=== PATIENT | female | born 1980 | race Caucasian/White ===

== ENCOUNTER 2016-10-09 20:16 | Emergency (ER) | payer OTHER ==
[2016-10-09] MEDS ORDERED: ASPIRIN TABLET 325 MG TAB ONE (20:30)
[2016-10-09] MEDS ORDERED: NITROGLYCERIN 0.4 MG 25 EA TAB SL ONE ×2 (20:30→20:42)
[2016-10-09 20:35] VITALS: TEMP 98.1
[2016-10-09] MEDS ORDERED: ASPIRIN (ENTERIC COATED) 325 MG TAB PO ONE (20:35)
[2016-10-09] MEDS ORDERED: ASPIRIN TABLET 325 MG TAB PO ONE (20:40)
--- NOTE | 2016-10-09 21:18 | RAD ---
EXAM DESCRIPTION: Chest,1 View CLINICAL HISTORY: Atypical chest pain COMPARISON: August 19, 2016 FINDINGS: Cardiac silhouette is within normal limits. EKG leads project over the chest. There is no focal parenchymal or pleural disease. There is no acute osseous process visualized. IMPRESSION: No evidence of acute cardiopulmonary disease. Electronically signed by: Franki Jackson MD 10/09/2016 7:17 PM PST
[2016-10-09] MEDS ORDERED: INSULIN, REG.(HUMAN) 100 U/ML VIAL SUBCU ONE (21:25)
[2016-10-09] MEDS ORDERED: CLOPIDOGREL 75 MG TAB PO ONE (21:25)
[2016-10-09] MEDS ORDERED: NITROGLYCERIN/D5W IV 250 ML IVS SCH (21:30)
[2016-10-09] MEDS ORDERED: MORPHINE SULFATE INJ 10 MG/ML VIAL IV ONE (21:30)
[2016-10-09] MEDS ORDERED: ENOXAPARIN SODIUM 100 MG/ML SYG SUBCU ONE (21:37)
[2016-10-09] MEDS ORDERED: SODIUM CHLORIDE 0.9% 1000ML 1,000 ML ONE (21:38)
--- NOTE | 2016-10-09 23:41 | ED.PDOC ---
History of Present Illness - General Chief Complaint: Chest Pain/NV Stated Complaint: chest hurts Time Seen by Provider: 10/09/16 20:23 Source: patient Exam Limitations: no limitations - History of Present Illness Initial Comments: the patient is a 36-year-old female presenting to the emergency room secondary to substernal chest pain radiating to the left shoulder and down the left arm as well as to the left side of the neck. This started abruptly 30 minutes prior to arrival while the patient was in the grocery store. Pain has persisted. No nausea or vomiting. The patient does have a very complicated past medical history including medical noncompliance, type 2 diabetes with poor control, hypertension, hypercholesterolemia, COPD, anxiety, depression, chronic abdominal pain with periodic nausea and vomiting, urinary tract infections, drug seeking and attention seeking behavior. Additionally the patient has had 3 -4 stents over the past several years. The last of these was placed at [facility] 3 weeks ago. She does not know which vessel and we do not have records to indicate which vessel. She has received some relief with nitroglycerin here. Timing/Duration: 1/2 hour Severity: moderate Improving Factors: nothing Worsening Factors: nothing Associated Symptoms: chest pain Allergies/Adverse Reactions: Allergies NO KNOWN ALLERGY Allergy (Verified 06/03/16 17:46) Home Medications: Ambulatory Orders Insulin Detemir [Levemir Pen] 65 unit SUBCU DAILY 12/25/12 Atenolol 100 mg PO DAILY 02/05/13 Gabapentin [Neurontin] 600 mg PO TID 02/05/13 Insulin Aspart [Novolog] 0 unit SC QID PRN 06/14/14 Pantoprazole Sodium [Protonix] 20 mg PO QAM #30 tab 06/20/15 Aspirin [Aspirin EC] 81 mg PO DAILY 11/16/15 Atorvastatin Calcium [Lipitor] 80 mg PO .QEVENING 11/16/15 Escitalopram [Lexapro] 10 mg PO DAILY 11/16/15 Isosorbide Mononitrate [Isosorbide Mononitrate ER] 30 mg PO DAILY 11/16/15 Exenatide [Bydureon] 2 mg SC WKLY 02/22/16 Lisinopril 10 mg PO DAILY 02/22/16 Albuterol Inhaler [Ventolin Hfa Inhaler] 2 puff INH PRN PRN 06/03/16 Benzonatate Perles [Tessalon Perles] 100 mg PO TID PRN 06/28/16 Acetamin W/Cod #3 Tab [Tylenol #3 Tab] 1 ea PO Q4-6H PRN #12 tab 08/10/16 Plavix 10/09/16 Review of Systems - Review of Systems Constitutional: States: no symptoms reported EENTM: States: no symptoms reported Respiratory: States: no symptoms reported Cardiology: States: chest pain Gastrointestinal/Abdominal: States: no symptoms reported Genitourinary: States: no symptoms reported Musculoskeletal: States: no symptoms reported Skin: States: no symptoms reported Neurological: States: anxiety Endocrine: States: no symptoms reported All other Systems: No Change from Baseline Past Medical History (General) - Patient Medical History Hx Seizures: No Hx Stroke: No Hx Dementia: No Hx Asthma: No Hx of COPD: Yes Hx Cardiac Disorders: Yes Hx Congestive Heart Failure: Yes Hx Pacemaker: No Hx Hypertension: Yes Hx Thyroid Disease: No Hx Diabetes: Yes Hx Gastroesophageal Reflux: Yes Hx Renal Disease: No Hx Cancer: No Hx of HIV: No Hx Hepatitis C: No Hx MRSA: No MRSA Source:: Wound Surgical History: cholecystectomy, Hysterectomy - Vaccination History Hx Tetanus, Diphtheria Vaccination: Yes Hx Influenza Vaccination: Yes Hx Pneumococcal Vaccination: Yes - Social History Hx Tobacco Use: Yes Hx Chewing Tobacco Use: No Hx Alcohol Use: No Hx Substance Use: No Hx Substance Use Treatment: No Hx Depression: No Hx Physical Abuse: No Hx Emotional Abuse: No Hx Suspected Abuse: No - Female History Patient is a Female of Child Bearing Age (10 -59 yrs old): - hysterectomy Patient : No Family Medical History - Family History Mother Family History: Unknown Living Status: Still Living Hx Family Asthma: No Hx Family Congestive Heart Failure: Yes - Father Hx Family Hypertension: Yes Hx Family Stroke: No Hx Cardiac Disease: Yes Hx Family Diabetes: Yes Hx Family Cancer: No Physical Exam - Physical Exam General Appearance: Alert, Anxious, Unkempt Ears, Nose, Throat: hearing grossly normal, normal ENT inspection - poor dentition Neck: non-tender, full range of motion, supple Respiratory: chest non-tender, lungs clear, normal breath sounds, no respiratory distress, no accessory muscle use Cardiovascular/Chest: normal peripheral pulses, regular rate, rhythm, no edema Peripheral Pulses: radial,right: 2+, radial,left: 2+, dorsalis pedis,right: 2+, dorsalis pedis,left: 2+ Gastrointestinal/Abdominal: non tender, soft Rectal Exam: deferred Back Exam: normal inspection, no CVA tenderness Extremity: normal range of motion, non-tender, normal inspection, no pedal edema , normal capillary refill Neurologic: alert, oriented x 3 - anxious, other Skin Exam: normal color Comments: Vital Signs - 24 hr 10/09/16 10/09/16 10/09/16 20:31 21:03 21:30 Temperature 98.1 F Pulse Rate [ 81 86 75 Apical] Respiratory 18 18 Rate Blood Pressure 147/76 145/74 140/78 [Left Arm] O2 Sat by Pulse 96 Oximetry 10/09/16 10/09/16 22:04 22:51 Temperature Pulse Rate [ 78 74 Apical] Respiratory 18 18 Rate Blood Pressure 130/80 121/63 [Left Arm] O2 Sat by Pulse 97 Oximetry Progress - Progress Progress: 10/09/16 23:44 the patient is a 36-year-old female presenting to the emergency room secondary to acute onset chest pain. Type of chest pain as well as the fact that the patient recently had a stent is more concerning. The patient has received Plavix, Lovenox, aspirin, oxygen, nitroglycerin and is feeling significantly better. She is still having some mild chest discomfort. She also received 1 dose of morphine. 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 The patient will be sent to [facility] under the acceptance of Dr. Beard. His help is much appreciated. Repeat cardiac enzymes are pending at this time and will be forwarded. Tentative diagnosis is unstable angina. - Results/Orders Results/Orders: Laboratory Tests 10/09/16 10/09/16 10/09/16 20:32 20:45 23:25 WBC 7.6 RBC 4.31 Hgb 10.7 L Hct 32.4 L MCV 75.2 L MCH 24.8 L MCHC 33.0 RDW 16.5 H Plt Count 363 MPV 7.8 Absolute Neuts (auto) 5.20 Absolute Lymphs (auto) 1.60 Absolute Monos (auto) 0.70 Absolute Eos (auto) 0.10 Absolute Basos (auto) 0.00 Neutrophils % 68.1 Lymphocytes % 21.3 Monocytes % 8.7 Eosinophils % 1.4 Basophils % 0.5 PT 12.4 INR 1.100 PTT (SP) 29.5 Sodium 134 L Potassium 4.3 Chloride 97 L Carbon Dioxide 28 Anion Gap 13.3 BUN 16 Creatinine 1.20 BUN/Creatinine Ratio 13.3 POC Glucose 208 H Random Glucose 342 H Serum Osmolality 283.0 Calcium 8.9 Total Bilirubin 0.6 AST 25 ALT 33 Alkaline Phosphatase 74 Creatine Kinase 36 CK-MB (CK-2) 1.2 CK-MB (CK-2) % Not Reportable Troponin I < 0.02 B-Natriuretic Peptide 30.7 Serum Total Protein 7.6 Albumin 4.0 Globulin 3.6 H Albumin/Globulin Ratio 1.1 Amylase 49 Serum HCG, Qual Negative chest x-ray shows no acute pathology. No evidence of pneumonia or fluid overload. EKG shows normal sinus rhythm. Normal axis. Poor R-wave progression in anterior leads. No acute ST segment changes concerning for ischemia. Departure - Departure Clinical Impression: Unstable angina pectoris Disposition: Transfer to Hospital Home Medications: Ambulatory Orders Insulin Detemir [Levemir Pen] 65 unit SUBCU DAILY 12/25/12 Atenolol 100 mg PO DAILY 02/05/13 Gabapentin [Neurontin] 600 mg PO TID 02/05/13 Insulin Aspart [Novolog] 0 unit SC QID PRN 06/14/14 Pantoprazole Sodium [Protonix] 20 mg PO QAM #30 tab 06/20/15 Aspirin [Aspirin EC] 81 mg PO DAILY 11/16/15 Atorvastatin Calcium [Lipitor] 80 mg PO .QEVENING 11/16/15 Escitalopram [Lexapro] 10 mg PO DAILY 11/16/15 Isosorbide Mononitrate [Isosorbide Mononitrate ER] 30 mg PO DAILY 11/16/15 Exenatide [Bydureon] 2 mg SC WKLY 02/22/16 Lisinopril 10 mg PO DAILY 02/22/16 Albuterol Inhaler [Ventolin Hfa Inhaler] 2 puff INH PRN PRN 06/03/16 Benzonatate Perles [Tessalon Perles] 100 mg PO TID PRN 06/28/16 Acetamin W/Cod #3 Tab [Tylenol #3 Tab] 1 ea PO Q4-6H PRN #12 tab 08/10/16 Plavix 10/09/16 Transfer to Outside Facility - Transfer Information Accepting Provider:: dr beard Accepting Facility: [facility] Reason for Transfer: required specialist not available
[2016-10-10 01:03] VITALS: BP 132/69; O2SAT 92
[2016-10-10] MEDS ORDERED: MORPHINE SULFATE INJ 10 MG/ML VIAL IV ONE (01:05)
[2016-10-10] MEDS ORDERED: MORPHINE SULFATE INJ 10 MG/ML VIAL ONE (01:08)
== END 2016-10-10 01:17 | disposition short-term general hospital (02) ==
LOC: ER 20:16
DX: I20.0 Unstable angina (principal); I11.0 Hypertensive heart disease with heart failure; I50.9 Heart failure, unspecified; E11.9 Type 2 diabetes mellitus without complications; K21.9 Gastro-esophageal reflux disease without esophagitis; J44.9 Chronic obstructive pulmonary disease, unspecified; Z87.891 Personal history of nicotine dependence; Z79.4 Long term (current) use of insulin; Z79.82 Long term (current) use of aspirin; Z79.02 Long term (current) use of antithrombotics/antiplatelets; Z79.899 Other long term (current) drug therapy
CPT/HCPCS: 71010; 80053; 82150; 82550; 82553; 82948; 83880; 84484; 84703; 85025; 85610; 85730; 93005; J1650; J2270; J7030

== ENCOUNTER 2016-10-17 21:29 | Emergency (ER) | payer OTHER ==
[2016-10-17] MEDS ORDERED: SODIUM CHLORIDE 0.9% (FLUSH) 10 ML SYG IV PRN (21:57)
[2016-10-17] MEDS ORDERED: ASPIRIN TABLET 325 MG TAB PO ONE (21:57)
[2016-10-17] MEDS ORDERED: NITROGLYCERIN 0.4 MG 25 EA TAB SL ONE (21:57)
[2016-10-17] MEDS ORDERED: ONDANSETRON INJ 4 MG/2 ML VIAL IV ONE (21:57)
--- NOTE | 2016-10-17 22:27 | RAD ---
EXAM DESCRIPTION: Chest,1 View CLINICAL HISTORY: chest pain COMPARISON: October 09, 2016 FINDINGS: Cardiac silhouette is within normal limits. EKG leads project over the chest. There is no focal parenchymal or pleural disease. There is no acute osseous process visualized. IMPRESSION: No evidence of acute cardiopulmonary disease. 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
--- NOTE | 2016-10-17 22:38 | ED.PDOC ---
History of Present Illness - General Chief Complaint: Chest Pain/MA Stated Complaint: CHEST PRESSURE Time Seen by Provider: 10/17/16 21:56 Source: patient, RN notes reviewed, Vital Signs reviewed Exam Limitations: no limitations - History of Present Illness Initial Comments: This 36 y/o female has a history of CAD. She has had many episodes of chest pain over the past several months. She comes in tonight complaining of chest tightness "for a few days". She reports that her O2 sats have been between 88 and 94 at home. The tightness is substernal and a little to the left. She denies any SOB, nausea or diaphoresis. Timing/Duration: 1-3 hours Severity: mild Improving Factors: nothing Worsening Factors: nothing Allergies/Adverse Reactions: Allergies NO KNOWN ALLERGY Allergy (Verified 06/03/16 17:46) Home Medications: Ambulatory Orders Insulin Detemir [Levemir Pen] 65 unit SUBCU DAILY 12/25/12 Atenolol 100 mg PO DAILY 02/05/13 Gabapentin [Neurontin] 600 mg PO TID 02/05/13 Insulin Aspart [Novolog] 0 unit SC QID PRN 06/14/14 Pantoprazole Sodium [Protonix] 20 mg PO QAM #30 tab 06/20/15 Aspirin [Aspirin EC] 81 mg PO DAILY 11/16/15 Atorvastatin Calcium [Lipitor] 80 mg PO .QEVENING 11/16/15 Escitalopram [Lexapro] 10 mg PO DAILY 11/16/15 Isosorbide Mononitrate [Isosorbide Mononitrate ER] 30 mg PO DAILY 11/16/15 Exenatide [Bydureon] 2 mg SC WKLY 02/22/16 Lisinopril 10 mg PO DAILY 02/22/16 Albuterol Inhaler [Ventolin Hfa Inhaler] 2 puff INH PRN PRN 06/03/16 Benzonatate Perles [Tessalon Perles] 100 mg PO TID PRN 06/28/16 Acetamin W/Cod #3 Tab [Tylenol #3 Tab] 1 ea PO Q4-6H PRN #12 tab 08/10/16 Plavix 10/09/16 Pantoprazole Sodium [Protonix] 40 mg PO BID #14 tab 10/18/16 Review of Systems - Review of Systems Constitutional: States: malaise EENTM: States: no symptoms reported Respiratory: States: no symptoms reported Cardiology: States: chest pain Gastrointestinal/Abdominal: States: no symptoms reported Genitourinary: States: no symptoms reported Musculoskeletal: States: no symptoms reported Skin: States: no symptoms reported Neurological: States: no symptoms reported Endocrine: States: no symptoms reported Hematologic/Lymphatic: States: no symptoms reported All other Systems: Reviewed and Negative Past Medical History (General) - Patient Medical History Hx Seizures: No Hx Stroke: No Hx Dementia: No Hx Asthma: No Hx of COPD: Yes Hx Cardiac Disorders: Yes Hx Congestive Heart Failure: No Hx Pacemaker: No Hx Hypertension: Yes Hx Thyroid Disease: No Hx Diabetes: Yes Hx Gastroesophageal Reflux: Yes Hx Renal Disease: No Hx Cancer: No Hx of HIV: No Hx Hepatitis C: No Hx MRSA: No MRSA Source:: Wound Surgical History: cholecystectomy, Hysterectomy, other - Vaccination History Hx Tetanus, Diphtheria Vaccination: Yes Hx Influenza Vaccination: Yes Hx Pneumococcal Vaccination: Yes Immunizations Up to Date: Yes - Social History Hx Tobacco Use: No Hx Chewing Tobacco Use: No Hx Alcohol Use: No Hx Substance Use: No Hx Substance Use Treatment: No Hx Depression: No Hx Physical Abuse: No Hx Emotional Abuse: No Hx Suspected Abuse: No - Female History Patient : No Family Medical History - Family History Mother Family History: Unknown Living Status: Still Living Hx Family Asthma: No Hx Family Congestive Heart Failure: Yes - Father Hx Family Hypertension: Yes Hx Family Stroke: No Hx Cardiac Disease: Yes Hx Family Diabetes: Yes Hx Family Cancer: No Physical Exam - Physical Exam General Appearance: Alert, Anxious, Comfortable, No apparent distress, Obese Ears, Nose, Throat: hearing grossly normal Respiratory: chest non-tender, lungs clear, normal breath sounds, no respiratory distress, no accessory muscle use Cardiovascular/Chest: regular rate, rhythm, no edema, no gallop, systolic murmur - II/ Gastrointestinal/Abdominal: normal bowel sounds, non tender, soft, no organomegaly Back Exam: normal inspection Extremity: normal range of motion, normal inspection, no pedal edema, no calf tenderness Skin Exam: normal color, warm/dry Progress - Progress Progress: 10/18/16 00:53 Patient has been to this ED at least twice a month for the past 3 months, mostly for chest pain. I discussed with her the fact that she needs to see her senior grants officer to assure it is not cardiac related. She may require some nitroglycerine for angina. However, due to her worsening anemia, she may have a GI bleed, possibly an ulcer, that may be causing the pain. I'm going to increase her Protonix to twice daily for the next week. She needs to follow up with her PCP to continue to monitor her Hb, and to refer to to GI for and EGD and colonoscopy. She will call her senior grants officer tomorrow morning to schedule an appointment. - Results/Orders Results/Orders: 10/17/16 10/17/16 10/17/16 21:41 21:48 22:49 Temperature 97.2 F L Pulse Rate 76 Pulse Rate [ 76 76 80 Left Radial] Respiratory 20 20 20 Rate Blood Pressure 114/62 100/60 [Left Arm] O2 Sat by Pulse 99 96 Oximetry 10/17/16 10/18/16 23:00 00:00 Temperature Pulse Rate Pulse Rate [ 70 72 Left Radial] Respiratory 20 20 Rate Blood Pressure 119/60 105/42 [Left Arm] O2 Sat by Pulse 100 100 Oximetry 10/17/16 21:45 EKG Assessment ONCE EKG STAT 10/17/16 21:57 IV Care:Saline Lock per Protoc QSHIFT Telemetry .ONCE Sodium Chloride 0.9% (Flush) [Saline Flush Syringe] 10 ml IV PRN PRN Pulse Ox Stat 10/17/16 21:58 Pulse Oximetry Assessment DAILY 10/17/16 23:54 FECAL OCCULT BLOOD Stat Laboratory Results WBC 7.4 K/mm3 (4.8-10.8) 10/17/16 22:10 RBC 4.02 M/mm3 (4.20-5.40) L 10/17/16 22:10 Hgb 9.7 gm/dL (12.0-16.0) L 10/17/16 22:10 Hct 30.0 % (36.0-47.0) L 10/17/16 22:10 MCV 74.7 fl (81.0-99.0) L 10/17/16 22:10 MCH 24.1 pg (27.0-31.0) L 10/17/16 22:10 MCHC 32.3 g/dL (33.0-37.0) L 10/17/16 22:10 RDW 16.4 % (11.5-14.5) H 10/17/16 22:10 Plt Count 319 K/mm3 (130-400) 10/17/16 22:10 MPV 7.9 fl (7.40-10.4) 10/17/16 22:10 Absolute Neuts (auto) 4.30 K/uL (1.8-6.8) 10/17/16 22:10 Absolute Lymphs (auto) 2.30 K/uL (1.0-3.4) 10/17/16 22:10 Absolute Monos (auto) 0.60 K/uL (0.2-0.8) 10/17/16 22:10 Absolute Eos (auto) 0.20 K/uL (0.0-0.4) 10/17/16 22:10 Absolute Basos (auto) 0.00 K/uL (0.0-0.1) 10/17/16 22:10 Neutrophils % 58.4 % (42.0-78.0) 10/17/16 22:10 Lymphocytes % 30.8 % (20.0-50.0) 10/17/16 22:10 Monocytes % 7.6 % (2.0-9.0) 10/17/16 22:10 Eosinophils % 2.8 % (1.0-5.0) 10/17/16 22:10 Basophils % 0.4 % (0.0-2.0) 10/17/16 22:10 PT 11.4 SECONDS (9.4-12.5) 10/17/16 22:10 INR 1.010 10/17/16 22:10 PTT (SP) 26.3 SECONDS (25.1-36.5) 10/17/16 22:10 D-Dimer, Quantitative < 200 ng/mL (0-230) 10/17/16 22:10 Sodium 132 mmol/L (135-145) L 10/17/16 22:10 Potassium 4.0 mmol/L (3.6-5.0) 10/17/16 22:10 Chloride 98 mmol/L (101-111) L 10/17/16 22:10 Carbon Dioxide 28 mmol/L (21-31) 10/17/16 22:10 Anion Gap 10.0 (12-18) L 10/17/16 22:10 BUN 10 mg/dL (7-18) 10/17/16 22:10 Creatinine 1.11 mg/dL (0.6-1.3) 10/17/16 22:10 BUN/Creatinine Ratio 9.0 (10-20) L 10/17/16 22:10 Random Glucose 276 mg/dL (70-105) H 10/17/16 22:10 Serum Osmolality 273.4 mOsm/L (275-295) L 10/17/16 22:10 Calcium 9.0 mg/dL (8.4-10.2) 10/17/16 22:10 Magnesium 1.8 mg/dL (1.8-2.5) 10/17/16 22:10 Total Bilirubin 0.3 mg/dL (0.2-1.0) 10/17/16 22:10 Direct Bilirubin 0.1 mg/dL (0-0.2) 10/17/16 22:10 Indirect Bilirubin 0.2 mg/dL (0.2-0.8) 10/17/16 22:10 AST 26 IU/L (10-42) 10/17/16 22:10 ALT 25 IU/L (10-60) 10/17/16 22:10 Alkaline Phosphatase 76 IU/L (42-121) 10/17/16 22:10 Creatine Kinase 31 IU/L (26-140) 10/17/16 22:10 CK-MB (CK-2) 0.9 ng/mL (0.0-4.4) 10/17/16 22:10 CK-MB (CK-2) % Not Reportable 10/17/16 22:10 Troponin I 0.03 ng/mL (0.01-0.05) 10/17/16 22:10 B-Natriuretic Peptide 58.4 pg/ml (0-100) 10/17/16 22:10 Serum Total Protein 7.5 gm/dL (6.4-8.2) 10/17/16 22:10 Albumin 3.9 g/dl (3.2-5.5) 10/17/16 22:10 Stool Occult Blood Negative 10/17/16 23:50 - EKG/XRAY/CT EKG: Sinus - 73 BPM, no ST T wave changes Comments: NML axis, NML intervals XRAY: chest Xray Comments: No acute process Departure - Departure Clinical Impression: Gastroenteritis, Chest pain of uncertain etiology Anemia Qualifiers: Anemia type: unspecified type Qualifier Code: (D64.9) Anemia, unspecified Time of Disposition: 00:58 Disposition: Discharge to Home or Self Care Condition: Fair Departure Forms: ED Discharge - Pt. Copy, Patient Portal Self Enrollment Diet: bland diet Referrals: Sandra Aponte, SAFETY ADMINISTRATOR [Primary Care Provider] - 1 Week Prescriptions: Pantoprazole Sodium [Protonix] 40 mg PO BID #14 tab Home Medications: Ambulatory Orders Insulin Detemir [Levemir Pen] 65 unit SUBCU DAILY 12/25/12 Atenolol 100 mg PO DAILY 02/05/13 Gabapentin [Neurontin] 600 mg PO TID 02/05/13 Insulin Aspart [Novolog] 0 unit SC QID PRN 06/14/14 Pantoprazole Sodium [Protonix] 20 mg PO QAM #30 tab 06/20/15 Aspirin [Aspirin EC] 81 mg PO DAILY 11/16/15 Atorvastatin Calcium [Lipitor] 80 mg PO .QEVENING 11/16/15 Escitalopram [Lexapro] 10 mg PO DAILY 11/16/15 Isosorbide Mononitrate [Isosorbide Mononitrate ER] 30 mg PO DAILY 11/16/15 Exenatide [Bydureon] 2 mg SC WKLY 02/22/16 Lisinopril 10 mg PO DAILY 02/22/16 Albuterol Inhaler [Ventolin Hfa Inhaler] 2 puff INH PRN PRN 06/03/16 Benzonatate Perles [Tessalon Perles] 100 mg PO TID PRN 06/28/16 Acetamin W/Cod #3 Tab [Tylenol #3 Tab] 1 ea PO Q4-6H PRN #12 tab 08/10/16 Plavix 10/09/16 Pantoprazole Sodium [Protonix] 40 mg PO BID #14 tab 10/18/16 Additional Instructions: Assure appointment with PCP and Cardiology within the next week. Follow up if symptoms worsen.
[2016-10-17 23:04] VITALS: O2SAT 100
[2016-10-18 01:12] VITALS: BP 103/64; TEMP 97.8
--- NOTE | 2016-11-12 05:03 | RAD ---
EXAM DESCRIPTION: Chest,1 View CLINICAL HISTORY: chest pain COMPARISON: October 09, 2016 FINDINGS: Cardiac silhouette is within normal limits. EKG leads project over the chest. There is no focal parenchymal or pleural disease. There is no acute osseous process visualized. IMPRESSION: No evidence of acute cardiopulmonary disease. Electronically signed by: Franki Jackson MD 10/17/2016 10:26 PM [facility]
== END 2016-10-18 01:12 | disposition home or self-care (01) ==
LOC: ER 21:29
DX: K52.9 Noninfective gastroenteritis and colitis, unspecified (principal); R07.9 Chest pain, unspecified; D64.9 Anemia, unspecified; J44.9 Chronic obstructive pulmonary disease, unspecified; I10 Essential (primary) hypertension; E11.9 Type 2 diabetes mellitus without complications; K21.9 Gastro-esophageal reflux disease without esophagitis; Z79.02 Long term (current) use of antithrombotics/antiplatelets; Z79.899 Other long term (current) drug therapy; Z79.82 Long term (current) use of aspirin; Z79.4 Long term (current) use of insulin
CPT/HCPCS: 36415; 71010; 80048; 80076; 82270; 82550; 82553; 83880; 84484; 85025; 85379; 85610; 85730; 93005; J2405

== ENCOUNTER 2016-10-22 20:00 | Emergency (ER) | payer OTHER ==
[2016-10-22 21:09] VITALS: BP 128/75; TEMP 98.2; O2SAT 97
--- NOTE | 2016-10-22 21:21 | ED.PDOC ---
History of Present Illness - General Chief Complaint: Chest Pain/IN Stated Complaint: chest pain Time Seen by Provider: 10/22/16 21:08 Source: patient, RN notes reviewed, Vital Signs reviewed - History of Present Illness Initial Comments: Patient has been to the ED numerous times -- 11 over the past 6 months. When I tried to discuss this with Patient, she became very defensive and started yelling at me stating that she shouldn't be treated "this way." I told her to not raise her voice at me, however she continued to yell and wanted her "papers " so she could go. I attempted to tell her that I just wanted to discuss that she has been to the ED more than she has been to her PCP (2 times over 6 months) . She continued to state that I had no right to come into the room and "jump her ass." I was attempting to try to educate Patient that her ED usage was inappropriate because she never followed up with her PCP. 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 My attempt to approach this and discuss the possibility of a psychological issue failed miserably. Of note, I passed by Patient's room numerous times prior to actually seeing her. She was always laying on the bed comfortable expressing no discomfort whatsoever. Allergies/Adverse Reactions: Allergies NO KNOWN ALLERGY Allergy (Verified 06/03/16 17:46) Home Medications: Ambulatory Orders Insulin Detemir [Levemir Pen] 65 unit SUBCU DAILY 12/25/12 Atenolol 100 mg PO DAILY 02/05/13 Gabapentin [Neurontin] 600 mg PO TID 02/05/13 Insulin Aspart [Novolog] 0 unit SC QID PRN 06/14/14 Pantoprazole Sodium [Protonix] 20 mg PO QAM #30 tab 06/20/15 Aspirin [Aspirin EC] 81 mg PO DAILY 11/16/15 Atorvastatin Calcium [Lipitor] 80 mg PO .QEVENING 11/16/15 Escitalopram [Lexapro] 10 mg PO DAILY 11/16/15 Isosorbide Mononitrate [Isosorbide Mononitrate ER] 30 mg PO DAILY 11/16/15 Exenatide [Bydureon] 2 mg SC WKLY 02/22/16 Lisinopril 10 mg PO DAILY 02/22/16 Albuterol Inhaler [Ventolin Hfa Inhaler] 2 puff INH PRN PRN 06/03/16 Benzonatate Perles [Tessalon Perles] 100 mg PO TID PRN 06/28/16 Acetamin W/Cod #3 Tab [Tylenol #3 Tab] 1 ea PO Q4-6H PRN #12 tab 08/10/16 Plavix 10/09/16 Pantoprazole Sodium [Protonix] 40 mg PO BID #14 tab 10/18/16 Past Medical History (General) - Patient Medical History Hx Seizures: No Hx Stroke: No Hx Dementia: No Hx Asthma: No Hx of COPD: Yes Hx Cardiac Disorders: Yes Hx Congestive Heart Failure: No Hx Pacemaker: No Hx Hypertension: Yes Hx Thyroid Disease: No Hx Diabetes: Yes Hx Gastroesophageal Reflux: Yes Hx Renal Disease: No Hx Cancer: No Hx of HIV: No Hx Hepatitis C: No Hx MRSA: No MRSA Source:: Wound Surgical History: cholecystectomy, Hysterectomy - Vaccination History Hx Tetanus, Diphtheria Vaccination: Yes Hx Influenza Vaccination: Yes Hx Pneumococcal Vaccination: Yes - Social History Hx Tobacco Use: No Hx Chewing Tobacco Use: No Hx Alcohol Use: No Hx Substance Use: No Hx Substance Use Treatment: No Hx Depression: No Hx Physical Abuse: No Hx Emotional Abuse: No Hx Suspected Abuse: No - Female History Patient is a Female of Child Bearing Age (10 -59 yrs old): Yes Patient : No - hysterectomy Family Medical History - Family History Mother Family History: Unknown Living Status: Still Living Hx Family Asthma: No Hx Family Congestive Heart Failure: Yes - Father Hx Family Hypertension: Yes Hx Family Stroke: No Hx Cardiac Disease: Yes Hx Family Diabetes: Yes Hx Family Cancer: No Physical Exam - Physical Exam General Appearance: Alert, Comfortable, No apparent distress, Obese Progress - EKG/XRAY/CT EKG: Sinus - 78 bpm, nonspecific ST T wave Chg, Unchanged from - 10/17/2016 Comments: NML axis, NML intervals, Normal EKG Departure - Departure Clinical Impression: Chest pain of unknown etiology Time of Disposition: 21:32 Disposition: Left Against Medical Advice Condition: Fair Home Medications: Ambulatory Orders Insulin Detemir [Levemir Pen] 65 unit SUBCU DAILY 12/25/12 Atenolol 100 mg PO DAILY 02/05/13 Gabapentin [Neurontin] 600 mg PO TID 02/05/13 Insulin Aspart [Novolog] 0 unit SC QID PRN 06/14/14 Pantoprazole Sodium [Protonix] 20 mg PO QAM #30 tab 06/20/15 Aspirin [Aspirin EC] 81 mg PO DAILY 11/16/15 Atorvastatin Calcium [Lipitor] 80 mg PO .QEVENING 11/16/15 Escitalopram [Lexapro] 10 mg PO DAILY 11/16/15 Isosorbide Mononitrate [Isosorbide Mononitrate ER] 30 mg PO DAILY 11/16/15 Exenatide [Bydureon] 2 mg SC WKLY 02/22/16 Lisinopril 10 mg PO DAILY 02/22/16 Albuterol Inhaler [Ventolin Hfa Inhaler] 2 puff INH PRN PRN 06/03/16 Benzonatate Perles [Tessalon Perles] 100 mg PO TID PRN 06/28/16 Acetamin W/Cod #3 Tab [Tylenol #3 Tab] 1 ea PO Q4-6H PRN #12 tab 08/10/16 Plavix 10/09/16 Pantoprazole Sodium [Protonix] 40 mg PO BID #14 tab 10/18/16
== END 2016-10-22 21:25 | disposition left against medical advice (07) ==
LOC: ER 20:00
DX: R07.9 Chest pain, unspecified (principal); J44.9 Chronic obstructive pulmonary disease, unspecified; I10 Essential (primary) hypertension; E11.9 Type 2 diabetes mellitus without complications; K21.9 Gastro-esophageal reflux disease without esophagitis; Z79.4 Long term (current) use of insulin; Z79.899 Other long term (current) drug therapy; Z79.02 Long term (current) use of antithrombotics/antiplatelets; Z79.82 Long term (current) use of aspirin

== ENCOUNTER 2016-10-29 15:33 | Emergency (ER) | payer OTHER ==
[2016-10-29] MEDS ORDERED: LIDOCAINE VIS-MYLANTA 30 ML UD PO ONE (15:59)
[2016-10-29] MEDS ORDERED: LACTATED RINGERS 500 ML IVS ONE (15:59)
[2016-10-29] MEDS ORDERED: ONDANSETRON ODT 8 MG TAB SL SCH (16:00)
--- NOTE | 2016-10-29 16:21 | RAD ---
EXAM DESCRIPTION: Abdomen radiography. CLINICAL HISTORY: Abdominal pain. COMPARISON: None. TECHNIQUE: Two views. FINDINGS: Prior cholecystectomy noted. Bowel gas pattern is non-obstructed. There is no obvious free intraperitoneal air. Visualized segments of the abdominal organs are unremarkable. No suspicious bone lesion or fracture is seen. IMPRESSION: No significant abnormality. Electronically signed by: Jacob Galvan MD 10/29/2016 16:20
[2016-10-29] MEDS ORDERED: INSULIN, REG.(HUMAN) 100 U/ML VIAL SUBCU ONE (16:49)
--- NOTE | 2016-10-29 17:19 | ED.PDOC ---
History of Present Illness - General Chief Complaint: Chest Pain/MA Stated Complaint: chest pain Time Seen by Provider: 10/29/16 15:49 Source: patient Exam Limitations: no limitations - History of Present Illness Initial Comments: the patient is a 36-year-old female brought to the emergency room secondary to atypical symptoms. The patient is reporting some mild shortness of breath. She is reporting some tingling in all of her extremities. She is reporting some epigastric and mid back discomfort. Symptoms somewhat wax and wane. They are not related to exertion. Symptoms seem to be mild. She does get very anxious about them and she does have a significant cardiac history. The patient had a catheterization done just 3 weeks ago at [facility] where no significant disease was found. The patient also has a history of significant noncompliance as well as iron deficiency anemia for which she is not been receiving treatment. She does have a history of gastritis and esophagitis and has historically not tolerated oral iron very well. She needs to be set up for IV iron therapy for her iron deficiency. She reports taking her Protonix intermittently. Timing/Duration: 24 hours Severity: mild Improving Factors: nothing Worsening Factors: nothing Associated Symptoms: loss of appetite, malaise Allergies/Adverse Reactions: Allergies NO KNOWN ALLERGY Allergy (Verified 06/03/16 17:46) Home Medications: Ambulatory Orders Insulin Detemir [Levemir Pen] 65 unit SUBCU DAILY 12/25/12 Atenolol 100 mg PO DAILY 02/05/13 Gabapentin [Neurontin] 600 mg PO TID 02/05/13 Insulin Aspart [Novolog] 0 unit SC QID PRN 06/14/14 Pantoprazole Sodium [Protonix] 20 mg PO QAM #30 tab 06/20/15 Aspirin [Aspirin EC] 81 mg PO DAILY 11/16/15 Atorvastatin Calcium [Lipitor] 80 mg PO .QEVENING 11/16/15 Escitalopram [Lexapro] 10 mg PO DAILY 11/16/15 Isosorbide Mononitrate [Isosorbide Mononitrate ER] 30 mg PO DAILY 11/16/15 Exenatide [Bydureon] 2 mg SC WKLY 02/22/16 Lisinopril 10 mg PO DAILY 02/22/16 Albuterol Inhaler [Ventolin Hfa Inhaler] 2 puff INH PRN PRN 06/03/16 Benzonatate Perles [Tessalon Perles] 100 mg PO TID PRN 06/28/16 Acetamin W/Cod #3 Tab [Tylenol #3 Tab] 1 ea PO Q4-6H PRN #12 tab 08/10/16 Plavix 10/09/16 Pantoprazole Sodium [Protonix] 40 mg PO BID #14 tab 10/18/16 Sucralfate Tab [Carafate Tab] 1 gm PO QID #120 tab 10/29/16 Review of Systems - Review of Systems Constitutional: States: malaise EENTM: States: no symptoms reported Respiratory: States: short of breath - mild Cardiology: States: no symptoms reported Gastrointestinal/Abdominal: States: diarrhea - chronic, nausea Genitourinary: States: no symptoms reported Musculoskeletal: States: no symptoms reported Skin: States: no symptoms reported Neurological: States: anxiety, tremors - mild and long-standing All other Systems: No Change from Baseline Past Medical History (General) - Patient Medical History Hx Seizures: No Hx Stroke: No Hx Dementia: No Hx Asthma: No Hx of COPD: Yes Hx Cardiac Disorders: Yes Hx Congestive Heart Failure: No Hx Pacemaker: No Hx Hypertension: Yes Hx Thyroid Disease: No Hx Diabetes: Yes Hx Gastroesophageal Reflux: Yes Hx Renal Disease: No Hx Cancer: No Hx of HIV: No Hx Hepatitis C: No Hx MRSA: No MRSA Source:: Wound - Vaccination History Hx Tetanus, Diphtheria Vaccination: Yes Hx Influenza Vaccination: Yes Hx Pneumococcal Vaccination: No - Social History Hx Tobacco Use: No Hx Chewing Tobacco Use: No Hx Alcohol Use: No Hx Substance Use: No Hx Substance Use Treatment: No Hx Depression: No Hx Physical Abuse: No Hx Emotional Abuse: No Hx Suspected Abuse: No - Female History Patient is a Female of Child Bearing Age (10 -59 yrs old): Yes Patient : No - hysterectomy Family Medical History - Family History Mother Family History: Unknown Living Status: Still Living Hx Family Asthma: No Hx Family Congestive Heart Failure: Yes - Father Hx Family Hypertension: Yes Hx Family Stroke: No Hx Cardiac Disease: Yes Hx Family Diabetes: Yes Hx Family Cancer: No Physical Exam - Physical Exam General Appearance: Alert, Anxious, No apparent distress Eye Exam: bilateral normal - chronic changes present Ears, Nose, Throat: normal ENT inspection, normal pharynx Neck: non-tender, full range of motion, supple, normal inspection Respiratory: chest non-tender, lungs clear, normal breath sounds, no respiratory distress, no accessory muscle use Cardiovascular/Chest: normal peripheral pulses, regular rate, rhythm, no edema Peripheral Pulses: radial,right: 2+, radial,left: 2+, dorsalis pedis,right: 2+, dorsalis pedis,left: 2+ Gastrointestinal/Abdominal: non tender, soft - obese Rectal Exam: deferred Back Exam: normal inspection, no CVA tenderness Extremity: normal range of motion, non-tender, normal inspection, no pedal edema , normal capillary refill Neurologic: alert, normal mood/affect - she is anxious, oriented x 3 Skin Exam: normal color Comments: Vital Signs - 24 hr 10/29/16 15:48 Temperature 98.3 F Pulse Rate [ 76 monitor] Respiratory 20 Rate Blood Pressure 125/79 [Left Arm] O2 Sat by Pulse 100 Oximetry Progress - Progress Progress: 10/29/16 17:22 the patient is a 36-year-old female presenting with atypical symptoms that are probably due to recurrent esophageal dysfunction related to her severe iron deficiency that has yet been untreated. I'm going to add Carafate to her Protonix for 2 weeks. She needs to follow-up with her primary care doctor at the end of this week to get set up for IV iron infusions. I do not believe in her current state that she will tolerate oral iron. Studies are otherwise reassuring at this point. Her MCV has decreased from 95 in 2012 down to 73 this year. This is a very significant decrease and does likely represent iron deficiency. She does need a formal iron panel. symptoms will only recur in spite of medications if her iron is not corrected long-term. she needs to follow-up with her primary care doctor before the end of this week. No evidence of new cardiac disease currently on this evaluation. - Results/Orders Results/Orders: 10/29/16 15:59 Telemetry .CONTINUOUS 10/29/16 16:00 Ondansetron Odt [Zofran ODT] 4 mg SL ONCE INFLUENZA A & B ANTIGEN Stat Laboratory Results - last 24 hr 10/29/16 15:50 WBC 7.8 RBC 4.36 Hgb 10.0 L Hct 31.9 L MCV 73.1 L MCH 22.9 L MCHC 31.3 L RDW 16.9 H Plt Count 351 MPV 7.8 Absolute Neuts (auto) 5.20 Absolute Lymphs (auto) 1.90 Absolute Monos (auto) 0.50 Absolute Eos (auto) 0.10 Absolute Basos (auto) 0.00 Neutrophils % 66.9 Lymphocytes % 23.8 Monocytes % 6.9 Eosinophils % 1.8 Basophils % 0.6 Sodium 134 L Potassium 4.1 Chloride 95 L Carbon Dioxide 30 Anion Gap 13.1 BUN 10 Creatinine 0.93 BUN/Creatinine Ratio 10.8 Random Glucose 366 H Serum Osmolality 282.1 Calcium 9.5 Total Bilirubin 0.6 AST 21 ALT 30 Alkaline Phosphatase 83 Creatine Kinase 40 CK-MB (CK-2) 1.0 CK-MB (CK-2) % Not Reportable Troponin I < 0.02 B-Natriuretic Peptide 104.0 H Serum Total Protein 8.0 Albumin 4.3 Globulin 3.7 H Albumin/Globulin Ratio 1.2 Amylase 65 Lipase 30 chest x-ray is grossly within normal limits for this patient EKG shows normal sinus rhythm with left atrial dilation poor R-wave progression in anterior leads, Q waves in [address] segment changes concerning for ischemia. - EKG/XRAY/CT CT Ordered: No Departure - Departure Clinical Impression: Esophagitis Iron deficiency anemia Qualifiers: Iron deficiency anemia type: unspecified iron deficiency Qualifier Code: (D50.9 ) Iron deficiency anemia, unspecified Disposition: Discharge to Home or Self Care Condition: Fair Departure Forms: ED Discharge - Pt. Copy, Patient Portal Self Enrollment Instructions: DI for Iron Deficiency Anemia-Adult Diet: diabetic diet Activity: increase activity as tolerated Referrals: Sandra Aponte NP [Primary Care Provider] - 1-2 Days Prescriptions: Sucralfate Tab [Carafate Tab] 1 gm PO QID #120 tab Home Medications: Ambulatory Orders Insulin Detemir [Levemir Pen] 65 unit SUBCU DAILY 12/25/12 Atenolol 100 mg PO DAILY 02/05/13 Gabapentin [Neurontin] 600 mg PO TID 02/05/13 Insulin Aspart [Novolog] 0 unit SC QID PRN 06/14/14 Pantoprazole Sodium [Protonix] 20 mg PO QAM #30 tab 06/20/15 Aspirin [Aspirin EC] 81 mg PO DAILY 11/16/15 Atorvastatin Calcium [Lipitor] 80 mg PO .QEVENING 11/16/15 Escitalopram [Lexapro] 10 mg PO DAILY 11/16/15 Isosorbide Mononitrate [Isosorbide Mononitrate ER] 30 mg PO DAILY 11/16/15 Exenatide [Bydureon] 2 mg SC WKLY 02/22/16 Lisinopril 10 mg PO DAILY 02/22/16 Albuterol Inhaler [Ventolin Hfa Inhaler] 2 puff INH PRN PRN 06/03/16 Benzonatate Perles [Tessalon Perles] 100 mg PO TID PRN 06/28/16 Acetamin W/Cod #3 Tab [Tylenol #3 Tab] 1 ea PO Q4-6H PRN #12 tab 08/10/16 Plavix 10/09/16 Pantoprazole Sodium [Protonix] 40 mg PO BID #14 tab 10/18/16 Sucralfate Tab [Carafate Tab] 1 gm PO QID #120 tab 10/29/16 Additional Instructions: the patient is a 36-year-old female presenting with atypical symptoms that are probably due to recurrent esophageal dysfunction related to her severe iron deficiency that has yet been untreated. I'm going to add Carafate to her Protonix for 2 weeks. She needs to follow-up with her primary care doctor at the end of this week to get set up for IV iron infusions. I do not believe in her current state that she will tolerate oral iron. Studies are otherwise reassuring at this point. Her MCV has decreased from 95 in 2012 down to 73 this year. This is a very significant decrease and does likely represent iron deficiency. She does need a formal iron panel. symptoms will only recur in spite of medications if her iron is not corrected long-term. she needs to follow-up with her primary care doctor before the end of this week. No evidence of new cardiac disease currently on this evaluation.
[2016-10-29 18:07] VITALS: BP 145/68; TEMP 98; O2SAT 98
== END 2016-10-29 18:10 | disposition home or self-care (01) ==
LOC: ER 15:33
DX: K20.9 Esophagitis, unspecified (principal); D50.9 Iron deficiency anemia, unspecified; J44.9 Chronic obstructive pulmonary disease, unspecified; I10 Essential (primary) hypertension; K21.9 Gastro-esophageal reflux disease without esophagitis; Z79.4 Long term (current) use of insulin; Z79.82 Long term (current) use of aspirin; Z79.02 Long term (current) use of antithrombotics/antiplatelets; Z79.899 Other long term (current) drug therapy
CPT/HCPCS: 36415; 74020; 80053; 82150; 82550; 82553; 83690; 83880; 84484; 85025; J7120

== ENCOUNTER → 2016-11-08 | Outpatient (CLI) | payer OTHER | LOC: YCFC.O 17:48 | PROVIDERS: ATTEND Nurse Practitioner Family | DX: N64.3 Galactorrhea not associated with childbirth (principal); E11.65 Type 2 diabetes mellitus with hyperglycemia; D50.9 Iron deficiency anemia, unspecified ==

== ENCOUNTER 2016-11-11 19:19 | Observation (INO) | payer OTHER ==
[2016-11-11] MEDS ORDERED: LIDOCAINE VIS-MYLANTA 30 ML UD PO ONE (19:37)
[2016-11-11] MEDS ORDERED: PANTOPRAZOLE SODIUM TAB 40 MG PO ONE (20:28)
[2016-11-11] MEDS ORDERED: SUCRALFATE 1 GM/10 ML 1 GM UD PO ONE (20:28)
[2016-11-11] MEDS ORDERED: SODIUM CHLORIDE 0.9% 1000ML 1,000 ML IVS ONE (21:49)
[2016-11-11] MEDS ORDERED: INSULIN, REG.(HUMAN) 100 U/ML VIAL SUBCU ONE (21:49)
--- NOTE | 2016-11-11 22:13 | ED.PDOC ---
History of Present Illness - General Chief Complaint: GI Problem Stated Complaint: chest burning, nausea Time Seen by Provider: 11/11/16 19:37 Source: patient Exam Limitations: no limitations - History of Present Illness Initial Comments: The patient is a 36-year-old female presenting to the emergency room again due to substernal chest pain. The patient is well known to the ER staff and has had many visits over the years for chest pain. The patient also has complicating factors of depression, anxiety, chronic gastritis and esophagitis with severe iron deficiency. she is also a poorly controlled type II diabetic with significant noncompliance issues. She has had GI bleeds in the past. So far she is not on any iron correction. it does appear that her primary care doctor has done a formal iron panel just 3 or 4 days ago showing severe iron deficiency. The patient does report that her primary care doctor is trying to get her set up for an endoscopy. She does not know of any plans for any iron correction procedures however. She is currently on 2 medications aimed at reducing acidity in her upper GI tract. She has had 2 recent catheterizations that were reportedly essentially normal. Timing/Duration: 4-6 hours Severity: moderate Improving Factors: nothing Worsening Factors: nothing Associated Symptoms: chest pain, malaise Allergies/Adverse Reactions: Allergies NO KNOWN ALLERGY Allergy (Verified 06/03/16 17:46) Home Medications: Ambulatory Orders Insulin Detemir [Levemir Pen] 65 unit SUBCU DAILY 12/25/12 Atenolol 100 mg PO DAILY 02/05/13 Gabapentin [Neurontin] 600 mg PO TID 02/05/13 Insulin Aspart [Novolog] 0 unit SC QID PRN 06/14/14 Pantoprazole Sodium [Protonix] 20 mg PO QAM #30 tab 06/20/15 Aspirin [Aspirin EC] 81 mg PO DAILY 11/16/15 Atorvastatin Calcium [Lipitor] 80 mg PO .QEVENING 11/16/15 Escitalopram [Lexapro] 10 mg PO DAILY 11/16/15 Isosorbide Mononitrate [Isosorbide Mononitrate ER] 30 mg PO DAILY 11/16/15 Exenatide [Bydureon] 2 mg SC WKLY 02/22/16 Lisinopril 10 mg PO DAILY 02/22/16 Albuterol Inhaler [Ventolin Hfa Inhaler] 2 puff INH PRN PRN 06/03/16 Benzonatate Perles [Tessalon Perles] 100 mg PO TID PRN 06/28/16 Acetamin W/Cod #3 Tab [Tylenol #3 Tab] 1 ea PO Q4-6H PRN #12 tab 08/10/16 Plavix 10/09/16 Pantoprazole Sodium [Protonix] 40 mg PO BID #14 tab 10/18/16 Sucralfate Tab [Carafate Tab] 1 gm PO QID #120 tab 10/29/16 Review of Systems - Review of Systems Constitutional: States: malaise EENTM: States: no symptoms reported Respiratory: States: no symptoms reported Cardiology: States: chest pain Gastrointestinal/Abdominal: States: other - epigastric discomfort Genitourinary: States: no symptoms reported Musculoskeletal: States: no symptoms reported - chronic problems only Skin: States: no symptoms reported Neurological: States: anxiety Endocrine: States: no symptoms reported All other Systems: No Change from Baseline Past Medical History (General) - Patient Medical History Hx Seizures: No Hx Stroke: No Hx Dementia: No Hx Asthma: No Hx of COPD: Yes Hx Cardiac Disorders: Yes Hx Congestive Heart Failure: No Hx Pacemaker: No Hx Hypertension: Yes Hx Thyroid Disease: No Hx Diabetes: Yes Hx Gastroesophageal Reflux: Yes Hx Renal Disease: No Hx Cancer: No Hx of HIV: No Hx Hepatitis C: No Hx MRSA: No MRSA Source:: Wound Surgical History: Hysterectomy, other - Vaccination History Hx Tetanus, Diphtheria Vaccination: Yes Hx Influenza Vaccination: Yes Hx Pneumococcal Vaccination: No Immunizations Up to Date: Yes - Social History Hx Tobacco Use: No Hx Chewing Tobacco Use: No Hx Alcohol Use: No Hx Substance Use: No Hx Substance Use Treatment: No Hx Depression: No Hx Physical Abuse: No Hx Emotional Abuse: No Hx Suspected Abuse: No - Female History Patient : No - hysterectomy Family Medical History - Family History Mother Family History: Unknown Living Status: Still Living Hx Family Asthma: No Hx Family Congestive Heart Failure: Yes - Father Hx Family Hypertension: Yes Hx Family Stroke: No Hx Cardiac Disease: Yes Hx Family Diabetes: Yes Hx Family Cancer: No Physical Exam - Physical Exam General Appearance: Alert, Anxious, No apparent distress Eye Exam: bilateral normal Ears, Nose, Throat: normal ENT inspection, normal pharynx Neck: full range of motion, supple Respiratory: chest non-tender, lungs clear, normal breath sounds, no respiratory distress, no accessory muscle use Cardiovascular/Chest: normal peripheral pulses, regular rate, rhythm, no edema Peripheral Pulses: radial,right: 2+, radial,left: 2+, dorsalis pedis,right: 2+, dorsalis pedis,left: 2+ Gastrointestinal/Abdominal: non tender, soft, no organomegaly - she is obese Rectal Exam: deferred Back Exam: normal inspection, no CVA tenderness, no vertebral tenderness Extremity: normal range of motion, non-tender, no pedal edema, no calf tenderness, normal capillary refill Neurologic: alert, normal mood/affect, oriented x 3, other - she does have decreased sensation in bilateral lower extremities Skin Exam: normal color Comments: Vital Signs - 24 hr 11/11/16 11/11/16 19:36 19:49 Temperature 99.3 F Pulse Rate [ 97 H monitor] Respiratory 20 Rate Blood Pressure 160/90 136/84 [Left Arm] O2 Sat by Pulse 100 Oximetry Progress - Progress Progress: 11/11/16 22:16 the patient is a 36-year-old female presenting secondary to substernal chest pain that is most consistent with her esophagitis likely due to severe iron deficiency. She did have good symptomatic relief from a GI cocktail until it wore off. The patient has been given Carafate. She will likely need as needed doses of Maalox. We are going to do the longer cardiac rule out on this patient given her cardiac history. I do not believe that this is cardiac chest pain as she has recently had 2 negative catheterizations. I'm avoiding any blood thinners at this time as it will likely only make the issue worse. Cardiac enzymes are negative so far. EKG shows no new changes. The patient may get benefit from a unit of packed red blood cells as the blood that she does have a significantly abnormal and is likely to the point of diminished oxygen carrying capacity due to severe iron deficiency. more definitively the patient needs to be set up for some form of an iron infusion and at least an upper endoscopy in the very near future. I do believe the symptomatology will only worsen if her iron deficiency is allowed to worsen. Maintain telemetry monitoring. the patient is also receiving some hydration with normal saline and 5 units of regular insulin for some hyperglycemia. 11/11/16 22:21 - Results/Orders Results/Orders: Laboratory Tests 11/11/16 20:40 WBC 5.7 RBC 3.84 L Hgb 8.6 L Hct 27.4 L MCV 71.5 L MCH 22.3 L MCHC 31.4 L RDW 17.2 H Plt Count 291 MPV 7.3 L Absolute Neuts (auto) 3.70 Absolute Lymphs (auto) 1.40 Absolute Monos (auto) 0.40 Absolute Eos (auto) 0.10 Absolute Basos (auto) 0.00 Neutrophils % 64.8 Lymphocytes % 25.2 Monocytes % 7.6 Eosinophils % 1.8 Basophils % 0.6 Sodium 136 Potassium 3.7 Chloride 100 L Carbon Dioxide 28 Anion Gap 11.7 L BUN 9 Creatinine 0.90 BUN/Creatinine Ratio 10.0 Random Glucose 303 H Serum Osmolality 282.0 Calcium 8.7 Total Bilirubin 0.5 AST 22 ALT 28 Alkaline Phosphatase 76 Creatine Kinase 46 CK-MB (CK-2) 1.5 CK-MB (CK-2) % Not Reportable Troponin I 0.04 Serum Total Protein 7.1 Albumin 3.8 Globulin 3.3 Albumin/Globulin Ratio 1.2 chest x-ray shows no acute pathology. EKG shows Q waves in lead 3 as well as poor R-wave progression in anterior leads. This is consistent with her previous EKGs. No other acute ST segment changes consistent with ischemia. Departure - Departure Clinical Impression: Chest pain, atypical, Iron deficiency anemia due to chronic blood loss Disposition: Admit Patient Home Medications: Ambulatory Orders Insulin Detemir [Levemir Pen] 65 unit SUBCU DAILY 12/25/12 Atenolol 100 mg PO DAILY 02/05/13 Gabapentin [Neurontin] 600 mg PO TID 02/05/13 Insulin Aspart [Novolog] 0 unit SC QID PRN 06/14/14 Pantoprazole Sodium [Protonix] 20 mg PO QAM #30 tab 06/20/15 Aspirin [Aspirin EC] 81 mg PO DAILY 11/16/15 Atorvastatin Calcium [Lipitor] 80 mg PO .QEVENING 11/16/15 Escitalopram [Lexapro] 10 mg PO DAILY 11/16/15 Isosorbide Mononitrate [Isosorbide Mononitrate ER] 30 mg PO DAILY 11/16/15 Exenatide [Bydureon] 2 mg SC WKLY 02/22/16 Lisinopril 10 mg PO DAILY 02/22/16 Albuterol Inhaler [Ventolin Hfa Inhaler] 2 puff INH PRN PRN 06/03/16 Benzonatate Perles [Tessalon Perles] 100 mg PO TID PRN 06/28/16 Acetamin W/Cod #3 Tab [Tylenol #3 Tab] 1 ea PO Q4-6H PRN #12 tab 08/10/16 Plavix 10/09/16 Pantoprazole Sodium [Protonix] 40 mg PO BID #14 tab 10/18/16 Sucralfate Tab [Carafate Tab] 1 gm PO QID #120 tab 10/29/16 Decision To Admit - Decistion To Admit Decision to Admit Reason: Medical Nature Decision to Admit Date: 11/11/16 Decision to Admit Time: 22:23
[2016-11-11] MEDS ORDERED: LEVALBUTEROL NEBS 1.25 MG/3 ML VIAL INH PRN (22:15)
[2016-11-11] MEDS ORDERED: ONDANSETRON INJ 4 MG/2 ML VIAL IV PRN (22:15)
[2016-11-11] MEDS ORDERED: GLUCAGON INJ 1 MG VIAL SUBCU PRN (22:15)
[2016-11-11] MEDS ORDERED: DEXTROSE 50% 25 GM/50 ML SYG IV PRN (22:15)
[2016-11-11] MEDS ORDERED: SODIUM CHLORIDE 0.9% (FLUSH) 10 ML SYG IV PRN (22:15)
[2016-11-11] MEDS ORDERED: MAGNESIUM HYDROXIDE 30 ML UD PO PRN (22:15)
[2016-11-11] MEDS ORDERED: IV SET AND CAP CHANGE INJ INJ SCH (22:30)
[2016-11-11] MEDS: IPRATROPIUM/ALBUTEROL 3 ML VIAL INH SCH (23:18)
[2016-11-11] MEDS: HYDROcodone 5MG/APAP 325MG 1 EA TAB PO PRN (23:55)
[2016-11-12] MEDS: SODIUM CHLORIDE 0.9% (FLUSH) 10 ML SYG IV SCH ×2 (00:10→09:25)
[2016-11-12 02:55] VITALS: O2SAT 96
[2016-11-12] MEDS: HYDROcodone 5MG/APAP 325MG 1 EA TAB PO PRN ×2 (05:17→10:01)
[2016-11-12] MEDS ORDERED: SUCRALFATE 1 GM/10 ML 1 GM UD PO ONE (07:00)
[2016-11-12] MEDS: INSULIN LISPRO 100 UNITS/ML PEN SUBCU SCH ×2 (07:30→11:41)
[2016-11-12] MEDS: IPRATROPIUM/ALBUTEROL 3 ML VIAL INH SCH (08:10)
[2016-11-12] MEDS ORDERED: GABAPENTIN 400 MG CAP ONE (08:40)
[2016-11-12] MEDS ORDERED: ATENOLOL 25 MG TAB ONE (08:40)
[2016-11-12] MEDS ORDERED: LISINOPRIL 10 MG TAB ONE (08:40)
[2016-11-12] MEDS ORDERED: ATENOLOL 25 MG TAB PO SCH (09:00)
[2016-11-12] MEDS ORDERED: PANTOPRAZOLE SODIUM TAB 40 MG PO SCH (09:00)
[2016-11-12] MEDS ORDERED: ESCITALOPRAM 10 MG TAB PO SCH (09:00)
[2016-11-12] MEDS ORDERED: LISINOPRIL 10 MG TAB PO SCH (09:00)
[2016-11-12] MEDS ORDERED: GABAPENTIN 300 MG CAP PO SCH (09:00)
[2016-11-12] MEDS ORDERED: SODIUM CHLORIDE 0.9% 10 ML VIAL IV PRN (09:34)
[2016-11-12] MEDS ORDERED: PANTOPRAZOLE SODIUM TAB 40 MG PO ONE (09:50)
[2016-11-12] MEDS ORDERED: INSULIN DETEMIR 100 UNITS/ML PEN SUBCU ONE (09:55)
--- NOTE | 2016-11-12 11:06 | SSS ---
DATE OF ADMISSION: 11/11/16 DATE OF DISCHARGE: 11/12/16 DISCHARGE DIAGNOSIS: 1. Acute chest pain with no evidence of underlying significant coronary disease at this time, probable musculoskeletal associated with esophagitis and reflux symptomatology. 2. Diabetes mellitus on insulin, requiring adjustments of insulin dosings with evidence of poor compliance with diet and support. 3. Chronic anxiety state. 4. Disability from previously diagnosed history of normal pressure hydrocephalus with a ventriculoperitoneal shunt and associated disability with the shunt placed originally in 2009. 5. Significant iron deficiency state documented on recent laboratory studies, contributing to an early anemic state with microcytic/hypochromic presentation. 6. History of gastroesophageal reflux disease, symptomatic. 7. History of chronic headaches. 8. History of exogenous obesity. 9. History of coronary artery disease with history of stents placed at [facility] approximately a year ago. HISTORY OF PRESENT ILLNESS: This 36-year-old, white female is placed in the hospital overnight for observation because of worsening chest pain with onset about 5 PM on the evening of admission. She describes it as a burning sensation as well as tenderness to touch, increased discomfort when moving her arms up over her head with associated chest pain. She has had a couple of stents placed a year ago at [facility] and was placed in the hospital overnight for repeat set of EKG and cardiac enzymes in the morning. Also to be started on significant anti-reflux and esophagitis treatment program. She apparently had been on Carafate in the past, but is not longer taking it. She admits to having some GI or rectal bleeding as well as some vaginal bleeding even though she has had a hysterectomy in the past. This may no doubt be contributing to an iron deficiency state which has accumulated over time. Her diabetes has been poorly compliant, taking Levemir 65 units twice a day. PAST OBSTETRICAL HISTORY: She is 3, para 0 because she has been unable to keep pregnancies greater than 15 to 16 weeks of gestation. She has had at least 4 miscarriages, one of which was a twin. PAST SURGICAL HISTORY: 1. Ventriculoperitoneal shunt because of normal pressure hydrocephalus in 2009, performed in [facility]. 2. History of breast biopsy, which was benign. 3. Gallbladder removal. 4. Hysterectomy. 5. Bladder suspension. 6. Coronary stents placed at [facility] a year ago. HOME MEDICATIONS: Please refer to nursing notes for a complete list of verified home medications taken. ALLERGIES: NONE KNOWN. FAMILY HISTORY: Diabetes, cardiovascular events with her father dying in his mid-30s from a heart attack as well as strokes in the past. 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 She has been smoking up until about 7 months ago when she finally quit and is encouraged to stay stopped. REVIEW OF SYSTEMS: GENERAL: No significant weight change. Some low grade fever recently. LUNGS: Occasional coughing with minimal sputum. CARDIOVASCULAR: Chest discomforts, mainly burning and tenderness in characterization with no history of palpitations. GASTROINTESTINAL: No nausea or vomiting. No diarrhea. She does describe some GI bleeding in the past, usually fairly red in coloration. GENITOURINARY: No dysuria. EXTREMITIES: No significant edema change. NEUROLOGIC: No focal weaknesses, but she has had a history of headaches in the past. PHYSICAL EXAMINATION: VITAL SIGNS: Afebrile. Pulse 86. Blood pressure 138/85. Pulse oximetry 96% on room air. Weight 103 kg. GENERAL: The patient is awake, alert and orient. She is able to rest fairly well, but is quite anxious, noted by her facial features and her level of anxiety expressed. HEENT: Otherwise unremarkable. LUNGS: Generally clear with diminished breath sounds bilaterally. CARDIOVASCULAR: Heart tones are regular with a grade II/ systolic murmur evident. CHEST: Chest wall is palpated and tenderness is noted expiratory to the left of midline along the costochondral joint. ABDOMEN: Obese, somewhat tender in the epigastric region. No organomegaly, masses or tenderness otherwise noted. EXTREMITIES: Good range of motion. NEUROLOGIC: No focal neurological deficits are noted. The patient is otherwise awake, alert, oriented and communicative. LABORATORY: Hemoglobin stable at 8.6, white count 5,800. Microcytic/ hypochromic indices presentation. It is of note that the patient has significantly iron studies performed about three days before admission. Serum iron was 13, TIBC high at 448, iron saturation low at 2.9, and ferritin low at 3.6, normal between 11 and 300. Sugars were about 280 fasting. Hemoglobin A1c elevated at 10.4. TSH 1. Urine reveals glycosuria, otherwise clean. No cultures obtained. HOSPITAL COURSE: The patient was feeling improved on the morning of discharge, still with discomfort. She will be sent home with some specific followup with [facility]. PLAN: The patient is discharged home to specifically have close followup tomorrow morning with Sandra Aponte in the [facility]. She is to increase activity and closely adhere to a diabetic diet. Her medications from home will be continued, but there is an adjustment to the Levemir insulin to be taken 75 units in the morning and 65 units at bedtime to be adjusted under guidance and suggestions from the [facility], depending upon how her diabetic control is going. A script for the Carafate tablets to be taken 4 times a day on an empty stomach is also to be initiated. She is to start oral iron therapy to be given to her at the [facility] as samples and is going to be scheduled for parental iron therapy with hematology clinic input from Dr. Vasquez and close followup. We are going to give her three of the Hemoccult cards to be taken home with her at this time and to be brought to [facility] for development checking for stool blood. Stop all smoking. To alter and change insulin dosings as required to assist with ongoing control of diabetes. She is to return if not improving. It is imperative to have close followup and to adhere to her clinic appointment at the [facility]. #[id number] SHIRAZ
[2016-11-12 11:10] VITALS: BP 134/83; TEMP 97.4
--- NOTE | 2016-11-12 15:01 | RAD ---
EXAM DESCRIPTION: CLINICAL HISTORY: 36 years Female chest wall pain. COMPARISON: 10/29/2016. FINDINGS: The cardiomediastinal silhouette appears unremarkable. No consolidating infiltrates or pleural effusions. No pneumothorax. IMPRESSION: No acute abnormality is identified. Electronically signed by: Marco Keenan MD 11/11/2016 8:47 PM [employer]
[2016-11-13] MEDS ORDERED: PANTOPRAZOLE SODIUM TAB 40 MG PO SCH (06:30)
== END 2016-11-12 12:40 | disposition home or self-care (01) ==
LOC: ER 19:19 → MS 22:40
PROVIDERS: ADMIT Emergency Medicine; ATTEND Emergency Medicine
DX: R07.89 Other chest pain (principal); E11.65 Type 2 diabetes mellitus with hyperglycemia; F41.9 Anxiety disorder, unspecified; D50.0 Iron deficiency anemia secondary to blood loss (chronic); K21.9 Gastro-esophageal reflux disease without esophagitis; R51 Headache; E66.9 Obesity, unspecified; I25.10 Atherosclerotic heart disease of native coronary artery without angina pectoris; F32.9 Major depressive disorder, single episode, unspecified; Z79.4 Long term (current) use of insulin; Z79.02 Long term (current) use of antithrombotics/antiplatelets; Z79.82 Long term (current) use of aspirin; Z79.899 Other long term (current) drug therapy; Z95.5 Presence of coronary angioplasty implant and graft; Z98.2 Presence of cerebrospinal fluid drainage device; Z87.19 Personal history of other diseases of the digestive system; Z90.710 Acquired absence of both cervix and uterus; Z90.49 Acquired absence of other specified parts of digestive tract; Z83.3 Family history of diabetes mellitus; Z82.49 Family history of ischemic heart disease and other diseases of the circulatory system; Z82.3 Family history of stroke
CPT/HCPCS: 36415 ×3; 36416 ×3; 71010; 80048; 80053; 81001; 82550 ×2; 82553 ×2; 82948 ×3; 83036; 84443; 84484 ×2; 85025 ×2; 93005 ×2; 94640 ×2; 94760 ×2; 96360; 96372 ×2; 99284; G0378; J1815 ×2; J7030; J7620 ×2

== ENCOUNTER 2016-11-17 01:04 | Emergency (ER) | payer OTHER ==
[2016-11-17] MEDS ORDERED: SODIUM CHLORIDE 0.9% 1000ML 1,000 ML IVS ONE (01:25)
[2016-11-17 03:24] VITALS: O2SAT 97
--- NOTE | 2016-11-17 03:25 | ED.PDOC ---
History of Present Illness - General Chief Complaint: Abdominal Pain Stated Complaint: abd cramps Time Seen by Provider: 11/17/16 01:23 Source: patient, RN notes reviewed, Vital Signs reviewed Exam Limitations: no limitations - History of Present Illness Initial Comments: Patient is a 36 y/o female well-known to the ED who comes in tonight with complaints of abdominal pain, nausea and vomiting. The pain is in the lower abdomen. She rates it severe, although she is laying quietly on the bed. She has thrown up 5 times since last night. She was feeling a bit nauseous and ate some [place] food which made it worse. Timing/Duration: 4-6 hours Severity: severe Improving Factors: nothing Worsening Factors: eating Associated Symptoms: nausea/vomiting, weakness Allergies/Adverse Reactions: Allergies NO KNOWN ALLERGY Allergy (Verified 11/17/16 01:19) Home Medications: Ambulatory Orders Atenolol 100 mg PO DAILY 02/05/13 Gabapentin [Neurontin] 600 mg PO TID 02/05/13 Insulin Aspart [Novolog] 0 unit SC QID PRN 06/14/14 Aspirin [Aspirin EC] 81 mg PO DAILY 11/16/15 Atorvastatin Calcium [Lipitor] 80 mg PO .QEVENING 11/16/15 Escitalopram [Lexapro] 15 mg PO DAILY 11/16/15 Isosorbide Mononitrate [Isosorbide Mononitrate ER] 60 mg PO BID 11/16/15 Exenatide [Bydureon] 2 mg SC WKLY 02/22/16 Lisinopril 10 mg PO DAILY 02/22/16 Albuterol Inhaler [Ventolin Hfa Inhaler] 2 puff INH PRN PRN 06/03/16 Benzonatate Perles [Tessalon Perles] 100 mg PO TID PRN 06/28/16 Acetamin W/Cod #3 Tab [Tylenol w/CODEINE #3] 1 ea PO Q4-6H PRN #12 tab 08/10/16 Plavix 75 mg PO DAILY 10/09/16 Pantoprazole Sodium [Protonix] 40 mg PO QAM 11/11/16 Insulin Aspart [Novolog] 7 unit SC ACHS 11/12/16 Insulin Detemir [Levemir] 65 unit SUBCU BEDTIME #1 pen 11/12/16 Insulin Detemir [Levemir] 75 unit SUBCU QAM #1 pen 11/12/16 Sucralfate Tab [Carafate Tab] 1 gm PO QID #120 tab 11/12/16 Tramadol HCl 50 mg PO Q6H PRN #20 tab 11/12/16 Promethazine HCl 25 mg PO Q6H PRN #15 tab 11/17/16 Review of Systems - Review of Systems Constitutional: States: chills, malaise EENTM: States: no symptoms reported Respiratory: States: cough, short of breath Cardiology: States: chest pain Gastrointestinal/Abdominal: States: abdominal pain, nausea, vomiting. Denies: diarrhea Genitourinary: States: no symptoms reported Musculoskeletal: States: no symptoms reported Skin: States: no symptoms reported Neurological: States: anxiety Endocrine: States: no symptoms reported Hematologic/Lymphatic: States: anemia All other Systems: Reviewed and Negative Past Medical History (General) - Patient Medical History Hx Seizures: Yes - since 2009 Hx Stroke: No Hx Dementia: No Hx Asthma: Yes Hx of COPD: Yes Hx Cardiac Disorders: Yes - heart murmur and stents placed Hx Congestive Heart Failure: Yes Hx Pacemaker: No Hx Hypertension: Yes Hx Thyroid Disease: No Hx Diabetes: Yes Hx Gastroesophageal Reflux: Yes Hx Renal Disease: No Hx Cancer: No Hx of HIV: No Hx Hepatitis C: No Hx MRSA: No MRSA Source:: Wound Surgical History: other - Vaccination History Hx Tetanus, Diphtheria Vaccination: No Hx Influenza Vaccination: Yes Hx Pneumococcal Vaccination: No - Social History Hx Tobacco Use: Yes Hx Chewing Tobacco Use: No Hx Alcohol Use: No Hx Substance Use: No Hx Substance Use Treatment: No Hx Depression: No Hx Physical Abuse: No Hx Emotional Abuse: No Hx Suspected Abuse: No - Female History Patient : No - hysterectomy Family Medical History - Family History Mother Family History: Unknown Living Status: Still Living Hx Family Asthma: No Hx Family Congestive Heart Failure: Yes - Father Hx Family Hypertension: Yes Hx Family Stroke: No Hx Cardiac Disease: Yes Hx Family Diabetes: Yes Hx Family Cancer: No Physical Exam - Physical Exam General Appearance: Alert, No apparent distress, Obese Ears, Nose, Throat: hearing grossly normal, normal ENT inspection Respiratory: lungs clear, normal breath sounds, no respiratory distress, no accessory muscle use Cardiovascular/Chest: regular rate, rhythm, no edema, no gallop, no murmur Gastrointestinal/Abdominal: normal bowel sounds, soft, no organomegaly, tenderness - LLQ/suprapubic Neurologic: alert, oriented x 3 Skin Exam: normal color, warm/dry Progress - Results/Orders Results/Orders: 11/17/16 11/17/16 11/17/16 01:13 02:30 03:22 Temperature 98.4 F Pulse Rate [ 103 H 99 H 97 H left] Respiratory 18 18 18 Rate Blood Pressure 166/102 189/92 148/72 [left] O2 Sat by Pulse 98 96 97 Oximetry 11/17/16 02:23 Hold Metformin x 48Hrs [id number] Laboratory Results WBC 6.6 K/mm3 (4.8-10.8) 11/17/16 01:45 RBC 4.40 M/mm3 (4.20-5.40) 11/17/16 01:45 Hgb 9.6 gm/dL (12.0-16.0) L 11/17/16 01:45 Hct 31.4 % (36.0-47.0) L 11/17/16 01:45 MCV 71.3 fl (81.0-99.0) L 11/17/16 01:45 MCH 21.8 pg (27.0-31.0) L 11/17/16 01:45 MCHC 30.5 g/dL (33.0-37.0) L 11/17/16 01:45 RDW 17.5 % (11.5-14.5) H 11/17/16 01:45 Plt Count 324 K/mm3 (130-400) 11/17/16 01:45 MPV 7.8 fl (7.40-10.4) 11/17/16 01:45 Absolute Neuts (auto) 3.90 K/uL (1.8-6.8) 11/17/16 01:45 Absolute Lymphs (auto) 2.00 K/uL (1.0-3.4) 11/17/16 01:45 Absolute Monos (auto) 0.60 K/uL (0.2-0.8) 11/17/16 01:45 Absolute Eos (auto) 0.10 K/uL (0.0-0.4) 11/17/16 01:45 Absolute Basos (auto) 0.00 K/uL (0.0-0.1) 11/17/16 01:45 Neutrophils % 59.5 % (42.0-78.0) 11/17/16 01:45 Lymphocytes % 29.6 % (20.0-50.0) 11/17/16 01:45 Monocytes % 8.5 % (2.0-9.0) 11/17/16 01:45 Eosinophils % 1.8 % (1.0-5.0) 11/17/16 01:45 Basophils % 0.6 % (0.0-2.0) 11/17/16 01:45 Sodium 135 mmol/L (135-145) 11/17/16 01:45 Potassium 4.0 mmol/L (3.6-5.0) 11/17/16 01:45 Chloride 96 mmol/L (101-111) L 11/17/16 01:45 Carbon Dioxide 27 mmol/L (21-31) 11/17/16 01:45 Anion Gap 16.0 (12-18) 11/17/16 01:45 BUN 9 mg/dL (7-18) 11/17/16 01:45 Creatinine 0.89 mg/dL (0.6-1.3) 11/17/16 01:45 BUN/Creatinine Ratio 10.1 (10-20) 11/17/16 01:45 Random Glucose 346 mg/dL (70-105) H 11/17/16 01:45 Serum Osmolality 282.5 mOsm/L (275-295) 11/17/16 01:45 Calcium 9.0 mg/dL (8.4-10.2) 11/17/16 01:45 Total Bilirubin 0.3 mg/dL (0.2-1.0) 11/17/16 01:45 AST 31 IU/L (10-42) 11/17/16 01:45 ALT 34 IU/L (10-60) 11/17/16 01:45 Alkaline Phosphatase 83 IU/L (42-121) 11/17/16 01:45 Serum Total Protein 8.1 gm/dL (6.4-8.2) 11/17/16 01:45 Albumin 4.1 g/dl (3.2-5.5) 11/17/16 01:45 Globulin 4.0 gm/dL (2.3-3.5) H 11/17/16 01:45 Albumin/Globulin Ratio 1.0 (1.1-1.9) L 11/17/16 01:45 Urine Color Yellow (Yellow) 11/17/16 01:45 Urine Appearance Clear (Clear) 11/17/16 01:45 Urine pH 6.5 (4.5-7.8) 11/17/16 01:45 Ur Specific [place] 1.015 (1.005-1.030) 11/17/16 01:45 Urine Protein Negative mg/dL 11/17/16 01:45 Urine Glucose (UA) >=1000 mg/dL (Negative) H 11/17/16 01:45 Urine Ketones Negative mg/dL (NEGATIVE) 11/17/16 01:45 Urine Blood Negative (Negative) 11/17/16 01:45 Urine Nitrite Negative 11/17/16 01:45 Urine Bilirubin Negative (NEGATIVE) 11/17/16 01:45 Urine Urobilinogen 0.2 mg/dL (0.2-1.0) 11/17/16 01:45 Ur Leukocyte Esterase Negative (Negative) 11/17/16 01:45 Urine RBC 0 /hpf 11/17/16 01:45 Urine WBC 0-1 /hpf 11/17/16 01:45 Ur Epithelial Cells 1-3 /hpf 11/17/16 01:45 Urine Bacteria Rare 11/17/16 01:45 - EKG/XRAY/CT CT: Abd/Pelvis -- No acute process CT Ordered: Yes CT Interpretation Call Back: No - Report sent Departure - Departure Clinical Impression: Gastroenteritis Time of Disposition: 04:01 Disposition: Discharge to Home or Self Care Condition: Fair Departure Forms: ED Discharge - Pt. Copy, Patient Portal Self Enrollment Instructions: DI for Abdominal Pain-Adult, Gastroenteritis Diet Diet: diabetic diet Referrals: Sandra Aponte NP [Primary Care Provider] - 1-2 Weeks Prescriptions: Promethazine HCl 25 mg PO Q6H PRN #15 tab PRN Reason: Nausea/Vomiting Home Medications: Ambulatory Orders Atenolol 100 mg PO DAILY 02/05/13 Gabapentin [Neurontin] 600 mg PO TID 02/05/13 Insulin Aspart [Novolog] 0 unit SC QID PRN 06/14/14 Aspirin [Aspirin EC] 81 mg PO DAILY 11/16/15 Atorvastatin Calcium [Lipitor] 80 mg PO .QEVENING 11/16/15 Escitalopram [Lexapro] 15 mg PO DAILY 11/16/15 Isosorbide Mononitrate [Isosorbide Mononitrate ER] 60 mg PO BID 11/16/15 Exenatide [Bydureon] 2 mg SC WKLY 02/22/16 Lisinopril 10 mg PO DAILY 02/22/16 Albuterol Inhaler [Ventolin Hfa Inhaler] 2 puff INH PRN PRN 06/03/16 Benzonatate Perles [Tessalon Perles] 100 mg PO TID PRN 06/28/16 Acetamin W/Cod #3 Tab [Tylenol w/CODEINE #3] 1 ea PO Q4-6H PRN #12 tab 08/10/16 Plavix 75 mg PO DAILY 10/09/16 Pantoprazole Sodium [Protonix] 40 mg PO QAM 11/11/16 Insulin Aspart [Novolog] 7 unit SC ACHS 11/12/16 Insulin Detemir [Levemir] 65 unit SUBCU BEDTIME #1 pen 11/12/16 Insulin Detemir [Levemir] 75 unit SUBCU QAM #1 pen 11/12/16 Sucralfate Tab [Carafate Tab] 1 gm PO QID #120 tab 11/12/16 Tramadol HCl 50 mg PO Q6H PRN #20 tab 11/12/16 Promethazine HCl 25 mg PO Q6H PRN #15 tab 11/17/16
--- NOTE | 2016-11-17 03:55 | CT ---
EXAM DESCRIPTION: Abdomen/Pelvis w/Contrast 11/17/2016 3:42 AM [employer] CLINICAL HISTORY: 36 years, Female, RLQ/pelvic pain COMPARISON: [None] TECHNIQUE: Following the administration of intravenous contrast, volumetric CT acquisition was performed through the abdomen and pelvis. Images in the axial and coronal planes were presented for interpretation FINDINGS: The visualized portions of the lung bases are clear. The cardiomediastinal structures are within normal limits. Within the upper abdomen, the liver and spleen are normal in size and morphology. The gallbladder is surgically absent. The intra/extrahepatic biliary tree is normal in appearance. The pancreas and adrenal glands are normal. The kidneys are normal in size bilaterally. The ureters are normal in course and caliber. The stomach and small intestines are within normal limits without evidence of bowel dilation or wall thickening. Well-visualized and normal, best seen on axial image 62 posterior to the cecum The colon is stool filled and unremarkable. Within the pelvis, the bladder and rectum are normal. The uterus is surgically absent. The ovaries are not well visualized. There are no pathologically enlarged inguinal, retroperitoneal, portacaval, or mesenteric lymph nodes. The soft tissue structures of the abdominal wall are normal. The visualized osseous structures are within normal limits for the patient's age. There are multilevel degenerative changes of the lumbar spine with limbus vertebrae at the L3 and L5 levels. The abdominal aorta and its primary branches are normal in course and caliber. Limited evaluation of the venous structures demonstrates no gross abnormalities. IMPRESSION: 1. No acute intra-abdominal process. 2. Status post cholecystectomy and hysterectomy. Electronically signed by: Joan Lorenz MD 11/17/2016 3:54 AM [employer]
[2016-11-17] MEDS ORDERED: PROMETHAZINE HCL INJ 12.5 MG in SODIUM CHLORIDE 0.9% 50ML 50 ML IVPB ONE (04:02)
[2016-11-17] MEDS ORDERED: SODIUM CHLORIDE 0.9% 50ML 50 ML ONE (04:07)
[2016-11-17] MEDS ORDERED: PROMETHAZINE HCL INJ 25 MG/ML VIAL ONE (04:07)
[2016-11-17 04:50] VITALS: BP 139/93; TEMP 98.7
== END 2016-11-17 04:50 | disposition home or self-care (01) ==
LOC: ER 01:04
DX: K52.9 Noninfective gastroenteritis and colitis, unspecified (principal); E11.9 Type 2 diabetes mellitus without complications; K21.9 Gastro-esophageal reflux disease without esophagitis; R01.1 Cardiac murmur, unspecified; Z98.61 Coronary angioplasty status; Z87.891 Personal history of nicotine dependence; Z79.899 Other long term (current) drug therapy; Z79.4 Long term (current) use of insulin; Z79.02 Long term (current) use of antithrombotics/antiplatelets
CPT/HCPCS: 74177; 80053; 81001; 85025; A4216; J2550; J7030

== ENCOUNTER 2016-11-20 15:21 | Emergency (ER) | payer OTHER ==
--- NOTE | 2016-11-20 16:23 | ED.PDOC ---
History of Present Illness - General Chief Complaint: Diabetic Complaint Stated Complaint: feels puny, elevated blood sugar Time Seen by Provider: 11/20/16 16:16 Source: patient Exam Limitations: no limitations - History of Present Illness Initial Comments: Ms. Morgan 36 y/o female with history of long standing dm2,cad stated that she was feeling weird today and took her blood sugar noted to be high and went to her md's clinic retook it and FSBS 500 was advised to come to er.She gave herself additional 10 units sq of regular insulin aside from sliding scale that she gives herself. Timing/Duration: 1-3 hours Improving Factors: nothing Worsening Factors: nothing Associated Symptoms: other - not feeling well Allergies/Adverse Reactions: Allergies NO KNOWN ALLERGY Allergy (Verified 11/20/16 15:58) Home Medications: Ambulatory Orders Atenolol 100 mg PO DAILY 02/05/13 Gabapentin [Neurontin] 600 mg PO TID 02/05/13 Insulin Aspart [Novolog] 0 unit SC QID PRN 06/14/14 Aspirin [Aspirin EC] 81 mg PO DAILY 11/16/15 Atorvastatin Calcium [Lipitor] 80 mg PO .QEVENING 11/16/15 Escitalopram [Lexapro] 15 mg PO DAILY 11/16/15 Isosorbide Mononitrate [Isosorbide Mononitrate ER] 60 mg PO BID 11/16/15 Exenatide [Bydureon] 2 mg SC WKLY 02/22/16 Lisinopril 10 mg PO DAILY 02/22/16 Albuterol Inhaler [Ventolin Hfa Inhaler] 2 puff INH PRN PRN 06/03/16 Clopidogrel Bisulfate [Plavix] 75 mg PO DAILY #0 10/09/16 Pantoprazole Sodium [Protonix] 40 mg PO QAM 11/11/16 Insulin Aspart [Novolog] 7 unit SC ACHS 11/12/16 Insulin Detemir [Levemir] 65 unit SUBCU BEDTIME #1 pen 11/12/16 Insulin Detemir [Levemir] 75 unit SUBCU QAM #1 pen 11/12/16 Sucralfate Tab [Carafate Tab] 1 gm PO QID #120 tab 11/12/16 Review of Systems - Review of Systems Constitutional: States: no symptoms reported EENTM: States: no symptoms reported Respiratory: States: no symptoms reported Cardiology: States: no symptoms reported Gastrointestinal/Abdominal: States: no symptoms reported Genitourinary: States: no symptoms reported Musculoskeletal: States: no symptoms reported Skin: States: no symptoms reported Neurological: States: headache - sharp back of head Endocrine: States: no symptoms reported, see HPI Hematologic/Lymphatic: States: no symptoms reported Past Medical History (General) - Patient Medical History Hx Seizures: Yes - since 2009 Hx Stroke: No Hx Dementia: No Hx Asthma: Yes Hx of COPD: Yes Hx Cardiac Disorders: Yes - heart murmur and stents placed Hx Congestive Heart Failure: Yes Hx Pacemaker: No Hx Hypertension: Yes Hx Thyroid Disease: No Hx Diabetes: Yes Hx Gastroesophageal Reflux: Yes Hx Renal Disease: No Hx Cancer: No Hx of HIV: No Hx Hepatitis C: No Hx MRSA: No Hx Other PMH: Yes - hydrocephalus with v-p shunting Hx Other - free text: Obstructive sleep apnea MRSA Source:: Wound Surgical History: other - hysterectomy,, cardiac stent x 3 - Vaccination History Hx Tetanus, Diphtheria Vaccination: No Hx Influenza Vaccination: Yes Hx Pneumococcal Vaccination: No - Social History Hx Tobacco Use: Yes Hx Chewing Tobacco Use: No Hx Alcohol Use: No Hx Substance Use: No Hx Substance Use Treatment: No Hx Depression: No Hx Physical Abuse: No Hx Emotional Abuse: No Hx Suspected Abuse: No - Activities of Daily Living Patient Lives Alone: No - family - Female History Patient : No - hysterectomy Family Medical History - Family History Mother Family History: Unknown Living Status: Still Living Hx Family Asthma: No Hx Family Congestive Heart Failure: Yes - Father Hx Family Hypertension: Yes Hx Family Stroke: No Hx Cardiac Disease: Yes Hx Family Diabetes: Yes Hx Family Cancer: No Physical Exam - Physical Exam General Appearance: Alert, Comfortable, No apparent distress Eye Exam: bilateral normal Ears, Nose, Throat: hearing grossly normal, normal ENT inspection, normal pharynx Neck: non-tender, full range of motion, supple, normal inspection Respiratory: chest non-tender, lungs clear, normal breath sounds, no respiratory distress Cardiovascular/Chest: normal peripheral pulses, regular rate, rhythm, no edema, no gallop, no JVD, no murmur Peripheral Pulses: radial,right: 2+, radial,left: 2+ Gastrointestinal/Abdominal: normal bowel sounds, non tender, soft, no organomegaly, no pulsatile mass Back Exam: normal inspection, no CVA tenderness, no vertebral tenderness Extremity: normal range of motion, non-tender, normal inspection, no pedal edema 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, no motor/sensory deficits, alert, normal mood/affect Skin Exam: normal color, warm/dry Lymphatic: no adenopathy Progress - Results/Orders Results/Orders: 11/20/16 16:29 IV Care:Saline Lock per Protoc QSHIFT 11/20/16 18:10 EKG Assessment DAILY Laboratory Results WBC 8.7 K/mm3 (4.8-10.8) 11/20/16 16:20 RBC 4.38 M/mm3 (4.20-5.40) 11/20/16 16:20 Hgb 9.5 gm/dL (12.0-16.0) L 11/20/16 16:20 Hct 30.7 % (36.0-47.0) L 11/20/16 16:20 MCV 70.2 fl (81.0-99.0) L 11/20/16 16:20 MCH 21.6 pg (27.0-31.0) L 11/20/16 16:20 MCHC 31.0 g/dL (33.0-37.0) L 11/20/16 16:20 RDW 17.6 % (11.5-14.5) H 11/20/16 16:20 Plt Count 387 K/mm3 (130-400) 11/20/16 16:20 MPV 7.6 fl (7.40-10.4) 11/20/16 16:20 Absolute Neuts (auto) 5.50 K/uL (1.8-6.8) 11/20/16 16:20 Absolute Lymphs (auto) 2.10 K/uL (1.0-3.4) 11/20/16 16:20 Absolute Monos (auto) 0.80 K/uL (0.2-0.8) 11/20/16 16:20 Absolute Eos (auto) 0.20 K/uL (0.0-0.4) 11/20/16 16:20 Absolute Basos (auto) 0.10 K/uL (0.0-0.1) 11/20/16 16:20 Neutrophils % 63.6 % (42.0-78.0) 11/20/16 16:20 Lymphocytes % 24.6 % (20.0-50.0) 11/20/16 16:20 Monocytes % 8.7 % (2.0-9.0) 11/20/16 16:20 Eosinophils % 2.4 % (1.0-5.0) 11/20/16 16:20 Basophils % 0.7 % (0.0-2.0) 11/20/16 16:20 PT 11.5 SECONDS (9.4-12.5) 11/20/16 16:20 INR 1.020 11/20/16 16:20 PTT (SP) 26.1 SECONDS (25.1-36.5) 11/20/16 16:20 Sodium 133 mmol/L (135-145) L 11/20/16 16:20 Potassium 4.0 mmol/L (3.6-5.0) 11/20/16 16:20 Chloride 95 mmol/L (101-111) L 11/20/16 16:20 Carbon Dioxide 28 mmol/L (21-31) 11/20/16 16:20 Anion Gap 14.0 (12-18) 11/20/16 16:20 BUN 11 mg/dL (7-18) 11/20/16 16:20 Creatinine 1.06 mg/dL (0.6-1.3) 11/20/16 16:20 BUN/Creatinine Ratio 10.4 (10-20) 11/20/16 16:20 POC Glucose 320 mg/dL (70-105) H 11/20/16 16:20 Random Glucose 389 mg/dL (70-105) H 11/20/16 16:20 Serum Osmolality 282.3 mOsm/L (275-295) 11/20/16 16:20 Calcium 9.2 mg/dL (8.4-10.2) 11/20/16 16:20 Magnesium 1.7 mg/dL (1.8-2.5) L 11/20/16 16:20 Total Bilirubin 0.2 mg/dL (0.2-1.0) 11/20/16 16:20 AST 21 IU/L (10-42) 11/20/16 16:20 ALT 29 IU/L (10-60) 11/20/16 16:20 Alkaline Phosphatase 77 IU/L (42-121) 11/20/16 16:20 Creatine Kinase 31 IU/L (26-140) 11/20/16 16:20 CK-MB (CK-2) 1.0 ng/mL (0.0-4.4) 11/20/16 16:20 CK-MB (CK-2) % Not Reportable 11/20/16 16:20 Troponin I < 0.02 ng/mL (0.01-0.05) 11/20/16 16:20 Serum Total Protein 8.1 gm/dL (6.4-8.2) 11/20/16 16:20 Albumin 4.0 g/dl (3.2-5.5) 11/20/16 16:20 Globulin 4.1 gm/dL (2.3-3.5) H 11/20/16 16:20 Albumin/Globulin Ratio 1.0 (1.1-1.9) L 11/20/16 16:20 Urine Color Yellow (Yellow) 11/20/16 15:59 Urine Appearance Clear (Clear) 11/20/16 15:59 Urine pH 5.0 (4.5-7.8) 11/20/16 15:59 Ur Specific [place] <= 1.005 (1.005-1.030) 11/20/16 15:59 Urine Protein Negative mg/dL 11/20/16 15:59 Urine Glucose (UA) 500 mg/dL (Negative) H 11/20/16 15:59 Urine Ketones Negative mg/dL (NEGATIVE) 11/20/16 15:59 Urine Blood Negative (Negative) 11/20/16 15:59 Urine Nitrite Negative 11/20/16 15:59 Urine Bilirubin Negative (NEGATIVE) 11/20/16 15:59 Urine Urobilinogen 0.2 mg/dL (0.2-1.0) 11/20/16 15:59 Ur Leukocyte Esterase Negative (Negative) 11/20/16 15:59 Urine RBC 0 /hpf 11/20/16 15:59 Urine WBC 0 /hpf 11/20/16 15:59 Ur Epithelial Cells 0-1 /hpf 11/20/16 15:59 Amorphous Sediment 1+ 11/20/16 15:59 Urine Bacteria Ward Service Supervisor 11/20/16 15:59 Urine Opiates Screen Negative ng/mL (2000) 11/20/16 16:20 Urine Barbiturates Negative ng/mL (200) 11/20/16 16:20 Ur Phencyclidine Scrn Negative ng/mL (25) 11/20/16 16:20 U Amphetamin/Meth Scrn Negative ng/mL (1000) 11/20/16 16:20 U Benzodiazepines Scrn Negative ng/mL (200) 11/20/16 16:20 U Cocaine Metab Screen Negative ng/mL (300) 11/20/16 16:20 U Cannabinoids Screen Negative ng/mL (50) 11/20/16 16:20 - EKG/XRAY/CT CT Ordered: Yes - no acute abnormality Departure - Departure Clinical Impression: Malaise and fatigue, Diabetes mellitus type 2, uncontrolled, History of hydrocephalus, Anemia of chronic disorder, History of ventricular shunt Headache Qualifiers: Headache type: unspecified Headache chronicity pattern: unspecified pattern Intractability: not intractable Qualifier Code: (R51) Headache Time of Disposition: 20:06 Disposition: Discharge to Home or Self Care Condition: Good Departure Forms: ED Discharge - Pt. Copy, Patient Portal Self Enrollment Instructions: What to Eat if You Have Diabetes, DI for Diabetes Type 2, DI for Obstructive Sleep Apnea -- Adult, Sleep Apnea Referrals: Sandra Aponte NP [Primary Care Provider] - 1-2 Weeks Home Medications: Ambulatory Orders Atenolol 100 mg PO DAILY 02/05/13 Gabapentin [Neurontin] 600 mg PO TID 02/05/13 Insulin Aspart [Novolog] 0 unit SC QID PRN 06/14/14 Aspirin [Aspirin EC] 81 mg PO DAILY 11/16/15 Atorvastatin Calcium [Lipitor] 80 mg PO .QEVENING 11/16/15 Escitalopram [Lexapro] 15 mg PO DAILY 11/16/15 Isosorbide Mononitrate [Isosorbide Mononitrate ER] 60 mg PO BID 11/16/15 Exenatide [Bydureon] 2 mg SC WKLY 02/22/16 Lisinopril 10 mg PO DAILY 02/22/16 Albuterol Inhaler [Ventolin Hfa Inhaler] 2 puff INH PRN PRN 06/03/16 Clopidogrel Bisulfate [Plavix] 75 mg PO DAILY #0 10/09/16 Pantoprazole Sodium [Protonix] 40 mg PO QAM 11/11/16 Insulin Aspart [Novolog] 7 unit SC ACHS 11/12/16 Insulin Detemir [Levemir] 65 unit SUBCU BEDTIME #1 pen 11/12/16 Insulin Detemir [Levemir] 75 unit SUBCU QAM #1 pen 11/12/16 Sucralfate Tab [Carafate Tab] 1 gm PO QID #120 tab 11/12/16 Additional Instructions: KEEP APPOINTMENT WITH MD IN AM FOR REFERRAL TO SALES APPLICATIONS ENGINEER FOR UNCONTROLLED BLOOD SUGAR ;PLUG ASSEMBLER FOR CHRONIC ANEMIA
[2016-11-20 17:10] VITALS: O2SAT 98
[2016-11-20] MEDS ORDERED: KETOROLAC TROMETHAMINE INJ 30 MG/ML VIAL IM ONE (18:38)
[2016-11-20] MEDS ORDERED: PROMETHAZINE HCL INJ 25 MG/ML VIAL IM ONE ×2 (18:39→19:42)
--- NOTE | 2016-11-20 18:41 | CT ---
PROCEDURE: Head HISTORY: headache Indication: Same as above Comparison: 04/07/2012 Technique: CT of the head was done without intravenous contrast was done in the orthogonal planes. FINDINGS: There is no intracranial hemorrhage, midline shift mass effect or acute focal infarct. Note is made of a craniotomy defect in the suboccipital region and presence of a shunt tube terminating in the fourth ventricle If clinical concern exists regarding an acute ischemic/vascular pathology being responsible for patient's symptomatology, an MRI of the brain is more sensitive than the current study, in ruling out such a possibility. There is good ross/white matter differentiation. The ventricular system is normal. The mastoid air cells are unremarkable . The paranasal sinuses are unremarkable . There is no visualization of acute fractures involving the calvarium or the skull base. IMPRESSION: There is no acute intracranial abnormality. 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
[2016-11-20] MEDS ORDERED: MAGNESIUM SULFATE INJ 1 GM in SODIUM CHLORIDE 0.9% 100ML 100 ML IVPB ONE ×2 (18:45→19:27)
[2016-11-20] MEDS ORDERED: MAGNESIUM SULFATE INJ 1 GM/2 ML VIAL ONE (19:37)
[2016-11-20] MEDS ORDERED: SODIUM CHLORIDE 0.9% 100ML 100 ML IVPB ONE (19:37)
[2016-11-20] MEDS ORDERED: PROMETHAZINE HCL INJ 25 MG/ML VIAL ONE (19:37)
[2016-11-20] MEDS ORDERED: PROMETHAZINE HCL 25 MG TAB ONE (19:41)
[2016-11-20] MEDS ORDERED: PROMETHAZINE HCL 25 MG TAB PO ONE (19:42)
[2016-11-20 20:10] VITALS: TEMP 97.2
[2016-11-20 20:59] VITALS: BP 121/45
== END 2016-11-20 20:59 | disposition home or self-care (01) ==
LOC: ER 15:21
DX: E11.65 Type 2 diabetes mellitus with hyperglycemia (principal); R51 Headache; Z98.2 Presence of cerebrospinal fluid drainage device; G47.33 Obstructive sleep apnea (adult) (pediatric); Z87.891 Personal history of nicotine dependence; G40.909 Epilepsy, unspecified, not intractable, without status epilepticus; J44.9 Chronic obstructive pulmonary disease, unspecified; K21.9 Gastro-esophageal reflux disease without esophagitis; I11.0 Hypertensive heart disease with heart failure; I50.9 Heart failure, unspecified; D63.8 Anemia in other chronic diseases classified elsewhere; Z98.61 Coronary angioplasty status; Z79.4 Long term (current) use of insulin; Z79.899 Other long term (current) drug therapy; Z79.82 Long term (current) use of aspirin
CPT/HCPCS: 36415; 36416; 70450; 80053; 80307; 81001; 82550; 82553; 82948; 83735; 84484; 85025; 85610; 85730; 93005; J1885; J2550; J3475; J7050; Q0169

== ENCOUNTER 2016-11-26 15:24 | Emergency (ER) | payer OTHER ==
[2016-11-26 15:46] VITALS: TEMP 98.4
[2016-11-26] MEDS ORDERED: NITROGLYCERIN 0.4 MG 25 EA TAB SL ONE (16:43)
[2016-11-26] MEDS ORDERED: ASPIRIN TABLET 325 MG TAB PO ONE (16:43)
[2016-11-26] MEDS ORDERED: SODIUM CHLORIDE 0.9% (FLUSH) 10 ML SYG IV PRN (16:43)
--- NOTE | 2016-11-26 17:00 | RAD ---
PROCEDURE: XR CHEST 1 VIEW HISTORY: Chest pain COMPARISON: 11/11/2016 TECHNIQUE: Single projection of the chest was done. FINDINGS: The lung lay are well inflated . There are no discrete airspace infiltrates, pneumothoraces or pleural effusions. The pulmonary vascularity is normal. The cardiomediastinal contour is unremarkable . IMPRESSION: There is no acute pleural-parenchymal process seen in the imaged lung lay. Location of Interpretation: [facility] Electronically signed by: Bhanu Orozco MD 11/26/2016 4:59 PM CDT
[2016-11-26] MEDS: NITROGLYCERIN 0.4 MG 25 EA TAB SL SCH ×3 (18:33→18:55)
--- NOTE | 2016-11-26 19:00 | ED.PDOC ---
History of Present Illness - General Chief Complaint: Cardiovascular Problem Stated Complaint: chest pain Time Seen by Provider: 11/26/16 16:42 Source: patient, RN notes reviewed, Vital Signs reviewed Exam Limitations: no limitations - History of Present Illness Initial Comments: Patient is a 36 y/o female who is well-known to the ED. 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 The pain is a severe pressure in the left chest. It radiates up to her neck. She denies any SOB or diaphoresis. She has been to see a enterprise account executive recently who told her that her chest pain is not cardiac. She does have some iron deficiency anemia for which she is being treated. Timing/Duration: 1-3 hours Severity: severe Improving Factors: nothing Worsening Factors: nothing Associated Symptoms: chest pain Allergies/Adverse Reactions: Allergies NO KNOWN ALLERGY Allergy (Verified 11/20/16 15:58) Home Medications: Ambulatory Orders Atenolol 100 mg PO DAILY 02/05/13 Gabapentin [Neurontin] 600 mg PO TID 02/05/13 Insulin Aspart [Novolog] 0 unit SC QID PRN 06/14/14 Aspirin [Aspirin EC] 81 mg PO DAILY 11/16/15 Atorvastatin Calcium [Lipitor] 80 mg PO .QEVENING 11/16/15 Escitalopram [Lexapro] 15 mg PO DAILY 11/16/15 Isosorbide Mononitrate [Isosorbide Mononitrate ER] 60 mg PO BID 11/16/15 Exenatide [Bydureon] 2 mg SC WKLY 02/22/16 Lisinopril 10 mg PO DAILY 02/22/16 Albuterol Inhaler [Ventolin Hfa Inhaler] 2 puff INH PRN PRN 06/03/16 Clopidogrel Bisulfate [Plavix] 75 mg PO DAILY #0 10/09/16 Pantoprazole Sodium [Protonix] 40 mg PO QAM 11/11/16 Insulin Aspart [Novolog] 7 unit SC ACHS 11/12/16 Insulin Detemir [Levemir] 65 unit SUBCU BEDTIME #1 pen 11/12/16 Insulin Detemir [Levemir] 75 unit SUBCU QAM #1 pen 11/12/16 Sucralfate Tab [Carafate Tab] 1 gm PO QID #120 tab 11/12/16 Review of Systems - Review of Systems Constitutional: States: no symptoms reported EENTM: States: no symptoms reported Respiratory: States: no symptoms reported Cardiology: States: chest pain Gastrointestinal/Abdominal: States: no symptoms reported Genitourinary: States: no symptoms reported Musculoskeletal: States: no symptoms reported Skin: States: no symptoms reported Neurological: States: no symptoms reported Endocrine: States: no symptoms reported Hematologic/Lymphatic: States: anemia All other Systems: Reviewed and Negative Past Medical History (General) - Patient Medical History Hx Seizures: No Hx Stroke: No Hx Dementia: No Hx Asthma: No Hx of COPD: No Hx Cardiac Disorders: Yes Hx Congestive Heart Failure: No Hx Pacemaker: No Hx Hypertension: Yes Hx Thyroid Disease: No Hx Diabetes: Yes Hx Gastroesophageal Reflux: No Hx Renal Disease: No Hx Cancer: No Hx of HIV: No Hx Hepatitis C: No Hx MRSA: No MRSA Source:: Wound - Vaccination History Hx Tetanus, Diphtheria Vaccination: No Hx Influenza Vaccination: Yes Hx Pneumococcal Vaccination: No - Social History Hx Tobacco Use: Yes Hx Chewing Tobacco Use: No Hx Alcohol Use: No Hx Substance Use: No Hx Substance Use Treatment: No Hx Depression: No Hx Physical Abuse: No Hx Emotional Abuse: No Hx Suspected Abuse: No - Female History Patient is a Female of Child Bearing Age (10 -59 yrs old): No Patient : No - hysterectomy Family Medical History - Family History Mother Family History: Unknown Living Status: Still Living Hx Family Asthma: No Hx Family Congestive Heart Failure: Yes - Father Hx Family Hypertension: Yes Hx Family Stroke: No Hx Cardiac Disease: Yes Hx Family Diabetes: Yes Hx Family Cancer: No Physical Exam - Physical Exam General Appearance: Anxious, Obvious distress, Obese Ears, Nose, Throat: hearing grossly normal, normal ENT inspection Neck: full range of motion Respiratory: lungs clear, normal breath sounds, no respiratory distress, no accessory muscle use Cardiovascular/Chest: regular rate, rhythm, no edema, no gallop, no murmur Gastrointestinal/Abdominal: normal bowel sounds, non tender, soft, no organomegaly Extremity: normal range of motion Neurologic: alert, normal mood/affect, oriented x 3 Skin Exam: normal color, warm/dry Progress - EKG/XRAY/CT EKG: Sinus - 91 bpm Comments: T-wave inver. III,aVR, no changes from 11/21/15, Stable EKG XRAY: abdomen Xray Comments: No acute process Departure - Departure Disposition: Discharge to Home or Self Care Departure Forms: ED Discharge - Pt. Copy, Patient Portal Self Enrollment Home Medications: Ambulatory Orders Atenolol 100 mg PO DAILY 02/05/13 Gabapentin [Neurontin] 600 mg PO TID 02/05/13 Insulin Aspart [Novolog] 0 unit SC QID PRN 06/14/14 Aspirin [Aspirin EC] 81 mg PO DAILY 11/16/15 Atorvastatin Calcium [Lipitor] 80 mg PO .QEVENING 11/16/15 Escitalopram [Lexapro] 15 mg PO DAILY 11/16/15 Isosorbide Mononitrate [Isosorbide Mononitrate ER] 60 mg PO BID 11/16/15 Exenatide [Bydureon] 2 mg SC WKLY 02/22/16 Lisinopril 10 mg PO DAILY 02/22/16 Albuterol Inhaler [Ventolin Hfa Inhaler] 2 puff INH PRN PRN 06/03/16 Clopidogrel Bisulfate [Plavix] 75 mg PO DAILY #0 10/09/16 Pantoprazole Sodium [Protonix] 40 mg PO QAM 11/11/16 Insulin Aspart [Novolog] 7 unit SC ACHS 11/12/16 Insulin Detemir [Levemir] 65 unit SUBCU BEDTIME #1 pen 11/12/16 Insulin Detemir [Levemir] 75 unit SUBCU QAM #1 pen 11/12/16 Sucralfate Tab [Carafate Tab] 1 gm PO QID #120 tab 11/12/16 Addendum entered and electronically signed by Luis Pink MD 11/26/16 20 :59: Departure - Departure Clinical Impression: Chest pain of unknown etiology, Diabetes mellitus type 2, uncontrolled, Chronic anemia Time of Disposition: 20:56 Disposition: Discharge to Home or Self Care Condition: Good Departure Forms: ED Discharge - Pt. Copy, Patient Portal Self Enrollment Instructions: DI for Atypical Chest Pain, DI for Iron Deficiency Anemia-Adult Referrals: Sandra Aponte NP [Primary Care Provider] - 1-2 Weeks Home Medications: Ambulatory Orders Atenolol 100 mg PO DAILY 02/05/13 Gabapentin [Neurontin] 600 mg PO TID 02/05/13 Insulin Aspart [Novolog] 0 unit SC QID PRN 06/14/14 Aspirin [Aspirin EC] 81 mg PO DAILY 11/16/15 Atorvastatin Calcium [Lipitor] 80 mg PO .QEVENING 11/16/15 Escitalopram [Lexapro] 15 mg PO DAILY 11/16/15 Isosorbide Mononitrate [Isosorbide Mononitrate ER] 60 mg PO BID 11/16/15 Exenatide [Bydureon] 2 mg SC WKLY 02/22/16 Lisinopril 10 mg PO DAILY 02/22/16 Albuterol Inhaler [Ventolin Hfa Inhaler] 2 puff INH PRN PRN 06/03/16 Clopidogrel Bisulfate [Plavix] 75 mg PO DAILY #0 10/09/16 Pantoprazole Sodium [Protonix] 40 mg PO QAM 11/11/16 Insulin Aspart [Novolog] 7 unit SC ACHS 11/12/16 Insulin Detemir [Levemir] 65 unit SUBCU BEDTIME #1 pen 11/12/16 Insulin Detemir [Levemir] 75 unit SUBCU QAM #1 pen 11/12/16 Sucralfate Tab [Carafate Tab] 1 gm PO QID #120 tab 11/12/16 Additional Instructions: Continue with current medications;follow up with enterprise account executive as per appointment ;Keep appointment with [facility] specialist for colonoscopy Addendum entered and electronically signed by Luis Pink MD 11/26/16 21 :02: Departure - Departure Clinical Impression: Chest pain of unknown etiology, Diabetes mellitus type 2, uncontrolled, Chronic anemia Disposition: Discharge to Home or Self Care Condition: Good Departure Forms: ED Discharge - Pt. Copy, Patient Portal Self Enrollment Instructions: DI for Atypical Chest Pain, DI for Iron Deficiency Anemia-Adult Referrals: Sandra Aponte NP [Primary Care Provider] - 1-2 Weeks Home Medications: Ambulatory Orders Atenolol 100 mg PO DAILY 02/05/13 Gabapentin [Neurontin] 600 mg PO TID 02/05/13 Insulin Aspart [Novolog] 0 unit SC QID PRN 06/14/14 Aspirin [Aspirin EC] 81 mg PO DAILY 11/16/15 Atorvastatin Calcium [Lipitor] 80 mg PO .QEVENING 11/16/15 Escitalopram [Lexapro] 15 mg PO DAILY 11/16/15 Isosorbide Mononitrate [Isosorbide Mononitrate ER] 60 mg PO BID 11/16/15 Exenatide [Bydureon] 2 mg SC WKLY 02/22/16 Lisinopril 10 mg PO DAILY 02/22/16 Albuterol Inhaler [Ventolin Hfa Inhaler] 2 puff INH PRN PRN 06/03/16 Clopidogrel Bisulfate [Plavix] 75 mg PO DAILY #0 10/09/16 Pantoprazole Sodium [Protonix] 40 mg PO QAM 11/11/16 Insulin Aspart [Novolog] 7 unit SC ACHS 11/12/16 Insulin Detemir [Levemir] 65 unit SUBCU BEDTIME #1 pen 11/12/16 Insulin Detemir [Levemir] 75 unit SUBCU QAM #1 pen 11/12/16 Sucralfate Tab [Carafate Tab] 1 gm PO QID #120 tab 11/12/16 Additional Instructions: Continue with current medications;follow up with enterprise account executive as per appointment ;Keep appointment with G.I. specialist for colonoscopy
[2016-11-26 19:01] VITALS: O2SAT 98
[2016-11-26 21:18] VITALS: BP 135/90
== END 2016-11-26 21:20 | disposition home or self-care (01) ==
LOC: ER 15:24
DX: R07.9 Chest pain, unspecified (principal); E11.65 Type 2 diabetes mellitus with hyperglycemia; D50.0 Iron deficiency anemia secondary to blood loss (chronic); Z79.4 Long term (current) use of insulin; Z79.82 Long term (current) use of aspirin; Z79.899 Other long term (current) drug therapy; I10 Essential (primary) hypertension; Z87.891 Personal history of nicotine dependence; Z83.3 Family history of diabetes mellitus; Z82.49 Family history of ischemic heart disease and other diseases of the circulatory system; Z82.3 Family history of stroke

== ENCOUNTER 2016-12-04 15:03 | Emergency (ER) | payer OTHER ==
--- NOTE | 2016-12-04 16:33 | ED.PDOC ---
History of Present Illness - General Chief Complaint: Abdominal Pain Stated Complaint: LUQ Pain x 2 hrs Time Seen by Provider: 12/04/16 16:10 Source: patient Additional Information: PT STATES SHE AWOKE FROM A [place]AP 3-4 HRS AGO WITH LEFT-SIDED CHEST PAIN. PAIN PRESENT CONTINUOUSLY BUT WORSE WITH INSPIRATION AND PALPATION. PT WAS HERE AND EVALUATED 1 WK AGO AND FOUND TO HAVE ATYPICAL CHEST PAIN AND THAT SHE WAS SEEN BY HEART SURGEON AND DX'D WITH NON-CARDIAC CHEST PAIN. THE PT STATES SHE HAS A H /O CARDIAC STENTS, FOR WHICH SHE SEES CARDIOLOGY. - History of Present Illness Timing/Duration: constant Severity: moderate Improving Factors: nothing Associated Symptoms: chest pain, nausea/vomiting Allergies/Adverse Reactions: Allergies NO KNOWN ALLERGY Allergy (Verified 11/20/16 15:58) Home Medications: Ambulatory Orders Atenolol 100 mg PO DAILY 02/05/13 Gabapentin [Neurontin] 600 mg PO TID 02/05/13 Insulin Aspart [Novolog] 0 unit SC QID PRN 06/14/14 Aspirin [Aspirin EC] 81 mg PO DAILY 11/16/15 Atorvastatin Calcium [Lipitor] 80 mg PO .QEVENING 11/16/15 Escitalopram [Lexapro] 15 mg PO DAILY 11/16/15 Isosorbide Mononitrate [Isosorbide Mononitrate ER] 60 mg PO BID 11/16/15 Exenatide [Bydureon] 2 mg SC WKLY 02/22/16 Lisinopril 10 mg PO DAILY 02/22/16 Clopidogrel Bisulfate [Plavix] 75 mg PO DAILY #0 10/09/16 Pantoprazole Sodium [Protonix] 40 mg PO QAM 11/11/16 Insulin Aspart [Novolog] 7 unit SC ACHS 11/12/16 Sucralfate Tab [Carafate Tab] 1 gm PO QID #120 tab 11/12/16 Insulin Detemir [Levemir] 65 unit SUBCU BID 12/04/16 Review of Systems - Review of Systems Constitutional: States: no symptoms reported EENTM: States: no symptoms reported Respiratory: States: no symptoms reported Cardiology: States: chest pain. Denies: edema, palpitations, syncope Gastrointestinal/Abdominal: States: other - NO N/V AT PRESENT. . Denies: abdominal pain Genitourinary: States: no symptoms reported Musculoskeletal: States: no symptoms reported Skin: States: no symptoms reported Neurological: States: no symptoms reported Endocrine: States: no symptoms reported Hematologic/Lymphatic: States: no symptoms reported All other Systems: Reviewed and Negative Past Medical History (General) - Patient Medical History Hx Seizures: No Hx Stroke: No Hx Dementia: No Hx Asthma: No Hx of COPD: No Hx Cardiac Disorders: Yes - Stents Hx Congestive Heart Failure: No Hx Pacemaker: No Hx Hypertension: Yes Hx Thyroid Disease: No Hx Diabetes: No Hx Gastroesophageal Reflux: No Hx Renal Disease: No Hx Cancer: No Hx of HIV: No Hx Hepatitis C: No Hx MRSA: No MRSA Source:: Wound Surgical History: cholecystectomy, Hysterectomy - Vaccination History Hx Tetanus, Diphtheria Vaccination: Yes Hx Influenza Vaccination: Yes Hx Pneumococcal Vaccination: Yes Immunizations Up to Date: Yes - Social History Hx Tobacco Use: No Hx Chewing Tobacco Use: No Hx Alcohol Use: Yes - Rarely Hx Substance Use: No Hx Substance Use Treatment: No Hx Depression: No Feels Threatened In Home Enviroment: No Feels Threatened In a Relationship: No Hx Physical Abuse: No Hx Emotional Abuse: No Hx Suspected Abuse: No - Female History Patient is a Female of Child Bearing Age (10 -59 yrs old): Yes Patient : No Family Medical History - Family History Mother Family History: Unknown Living Status: Still Living Hx Family Asthma: No Hx Family Congestive Heart Failure: Yes - Father Hx Family Hypertension: Yes Hx Family Stroke: No Hx Cardiac Disease: Yes Hx Family Diabetes: Yes Hx Family Cancer: No Physical Exam - Physical Exam General Appearance: Alert, Obese Eye Exam: bilateral normal Ears, Nose, Throat: hearing grossly normal, normal ENT inspection Neck: non-tender, full range of motion Respiratory: lungs clear, normal breath sounds, no respiratory distress, no accessory muscle use - L CHEST WALL AND STERNUM TTP. IT WORSENSTHE PAIN. 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 IDDM, UNCONTROLLED MEDICATION NON-COMPLIANCE - GLUCOSE 294 GLUCOSURIA CXR, CARDIAC ENZ NEG X 2. ATYPICAL CHEST PAIN - NON-CARDIAC, POSSIBLY MUSCULOSKELETAL. F/U W/ PCP THIS WEEK. - EKG/XRAY/CT CT Ordered: No CT Interpretation Call Back: No Departure - Departure Clinical Impression: Non compliance w medication regimen, Chest pain, atypical, Anemia of chronic disorder, Uncontrolled diabetes mellitus, Glucosuria Disposition: Discharge to Home or Self Care Condition: Fair Departure Forms: ED Discharge - Pt. Copy, Patient Portal Self Enrollment Instructions: DI for Abdominal Pain-Adult Diet: resume usual diet Activity: increase activity as tolerated Referrals: Sandra Aponte NP [Primary Care Provider] - 1-5 Days Home Medications: Ambulatory Orders Atenolol 100 mg PO DAILY 02/05/13 Gabapentin [Neurontin] 600 mg PO TID 02/05/13 Insulin Aspart [Novolog] 0 unit SC QID PRN 06/14/14 Aspirin [Aspirin EC] 81 mg PO DAILY 11/16/15 Atorvastatin Calcium [Lipitor] 80 mg PO .QEVENING 11/16/15 Escitalopram [Lexapro] 15 mg PO DAILY 11/16/15 Isosorbide Mononitrate [Isosorbide Mononitrate ER] 60 mg PO BID 11/16/15 Exenatide [Bydureon] 2 mg SC WKLY 02/22/16 Lisinopril 10 mg PO DAILY 02/22/16 Clopidogrel Bisulfate [Plavix] 75 mg PO DAILY #0 10/09/16 Pantoprazole Sodium [Protonix] 40 mg PO QAM 11/11/16 Insulin Aspart [Novolog] 7 unit SC ACHS 11/12/16 Sucralfate Tab [Carafate Tab] 1 gm PO QID #120 tab 11/12/16 Insulin Detemir [Levemir] 65 unit SUBCU BID 12/04/16
--- NOTE | 2016-12-04 16:53 | RAD ---
EXAM DESCRIPTION: Chest,1 View CLINICAL HISTORY: PAIN COMPARISON: November 26, 2016 FINDINGS: The heart is at the upper limits of normal size, stable or slightly increased. Mediastinal contours are otherwise unremarkable. There is no airspace consolidation or pleural effusion. The bronchovascular markings are within normal limits, and the lungs are not hyperinflated. There is no pneumothorax or acute fracture. IMPRESSION: Borderline heart size, otherwise unremarkable exam. Electronically signed by: Gavino Singh MD 12/04/2016 4:53 PM CDT
[2016-12-04 19:56] VITALS: BP 136/73; TEMP 98.2; O2SAT 98
== END 2016-12-04 19:55 | disposition home or self-care (01) ==
LOC: ER 15:03
DX: R07.89 Other chest pain (principal); E11.65 Type 2 diabetes mellitus with hyperglycemia; R81 Glycosuria; D63.8 Anemia in other chronic diseases classified elsewhere; I10 Essential (primary) hypertension; Z79.4 Long term (current) use of insulin; Z91.14 Patient's other noncompliance with medication regimen; Z98.61 Coronary angioplasty status

== ENCOUNTER 2017-01-09 13:15 | Emergency (ER) | payer OTHER ==
[2017-01-09] MEDS ORDERED: ASPIRIN TABLET 325 MG TAB PO ONE (13:33)
[2017-01-09] MEDS ORDERED: ONDANSETRON INJ 4 MG/2 ML VIAL IV ONE (13:33)
[2017-01-09] MEDS ORDERED: SODIUM CHLORIDE 0.9% (FLUSH) 10 ML SYG IV PRN (13:33)
[2017-01-09] MEDS: NITROGLYCERIN 0.4 MG 25 EA TAB SL ONE ×3 (13:40→13:54)
--- NOTE | 2017-01-09 13:47 | RAD ---
EXAM DESCRIPTION: Chest,1 View CLINICAL HISTORY: 36 years Female, chest pain COMPARISON: December 04, 2016 TECHNIQUE: AP portable chest. FINDINGS: The lungs are clear. There is no infiltrate or effusion. The heart is normal size. IMPRESSION: Normal. Electronically signed by: Francesco Quintanilla MD 01/09/2017 1:47 PM CDT
[2017-01-09] MEDS ORDERED: MORPHINE SULFATE INJ 10 MG/ML VIAL IV ONE ×2 (14:27→18:14)
--- NOTE | 2017-01-09 15:02 | ED.PDOC ---
History of Present Illness - General Chief Complaint: Chest Pain/ID Stated Complaint: chest pain Time Seen by Provider: 01/09/17 13:22 Source: patient Exam Limitations: no limitations - History of Present Illness Initial Comments: 36 YO FEMALE WITH A HISTORY OF CAD AND 3 STENTS PRESENTS COMPLAINING OF SUDDEN ONSET OF CHEST PRESSURE THAT BEGAN WHILE PT WAS SEATED IN A SCOOTER AT [facility]. PT STATES THAT PAIN FEELS LIKE AN ELEPHANT IS SITTING ON HER CHEST. PT DENIES SOB/NAUSEA. Timing/Duration: 1-3 hours Severity/Quality: severe Location: substernal Chest Pain Radiation: arms - LEFT Activities at Onset: none Prior Chest Pain/Cardiac Workup: angina Improving Factors: nothing Worsening Factors: nothing Nitro Today/Relief: no nitro taken today Aspirin Treatment Today: no aspirin today Associated Symptoms: denies symptoms Allergies/Adverse Reactions: Allergies NO KNOWN ALLERGY Allergy (Verified 11/20/16 15:58) Home Medications: Ambulatory Orders Atenolol 100 mg PO DAILY 02/05/13 Gabapentin [Neurontin] 600 mg PO TID 02/05/13 Insulin Aspart [Novolog] 0 unit SC QID PRN 06/14/14 Aspirin [Aspirin EC] 81 mg PO DAILY 11/16/15 Atorvastatin Calcium [Lipitor] 80 mg PO .QEVENING 11/16/15 Escitalopram [Lexapro] 15 mg PO DAILY 11/16/15 Isosorbide Mononitrate [Isosorbide Mononitrate ER] 60 mg PO BID 11/16/15 Exenatide [Bydureon] 2 mg SC WKLY 02/22/16 Lisinopril 10 mg PO DAILY 02/22/16 Clopidogrel Bisulfate [Plavix] 75 mg PO DAILY #0 10/09/16 Pantoprazole Tablet [Protonix] 40 mg PO QAM 11/11/16 Insulin Aspart [Novolog] 7 unit SC ACHS 11/12/16 Sucralfate Tab [Carafate Tab] 1 gm PO QID #120 tab 11/12/16 Insulin Detemir [Levemir] 65 unit SUBCU BID 12/04/16 Review of Systems - Review of Systems Constitutional: Denies: diaphoresis, fever, malaise EENTM: Denies: ear pain, throat pain Respiratory: Denies: short of breath, wheezing Cardiology: States: see HPI, chest pain. Denies: palpitations Gastrointestinal/Abdominal: Denies: nausea, vomiting Genitourinary: Denies: dysuria, hematuria Musculoskeletal: Denies: joint pain, joint swelling Skin: Denies: dryness, lesions Neurological: Denies: numbness, paresthesia Endocrine: States: no symptoms reported Hematologic/Lymphatic: States: no symptoms reported Past Medical History (General) - Patient Medical History Hx Seizures: No Hx Stroke: No Hx Dementia: No Hx Asthma: No Hx of COPD: No Hx Cardiac Disorders: Yes - CAD WITH 3 STENTS Hx Congestive Heart Failure: No Hx Pacemaker: No Hx Hypertension: Yes Hx Thyroid Disease: No Hx Diabetes: No Hx Gastroesophageal Reflux: No Hx Renal Disease: No Hx Cancer: No Hx of HIV: No Hx Hepatitis C: No Hx MRSA: No MRSA Source:: Wound - Vaccination History Hx Tetanus, Diphtheria Vaccination: Yes Hx Influenza Vaccination: Yes Hx Pneumococcal Vaccination: Yes - Social History Hx Tobacco Use: No Hx Chewing Tobacco Use: No Hx Alcohol Use: Yes - Rarely Hx Substance Use: Yes - 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, RECENT EXPOSURE TO PEOPLE SMOKING METH Hx Substance Use Treatment: No Hx Depression: No Hx Physical Abuse: No Hx Emotional Abuse: No Hx Suspected Abuse: No - Female History Patient : No Family Medical History - Family History Mother Family History: Unknown Living Status: Still Living Hx Family Asthma: No Hx Family Congestive Heart Failure: Yes - Father Hx Family Hypertension: Yes Hx Family Stroke: No Hx Cardiac Disease: Yes Hx Family Diabetes: Yes Hx Family Cancer: No Physical Exam - Physical Exam General Appearance: Alert, No apparent distress, Obese Eyes, Ears, Nose, Throat Exam: normal ENT inspection Neck: full range of motion, supple Respiratory: normal breath sounds, no respiratory distress Cardiovascular/Chest: regular rate, rhythm, no murmur Gastrointestinal/Abdominal: normal bowel sounds, non tender, soft Extremity: normal range of motion, normal inspection Neurologic: alert, normal mood/affect, oriented x 3 Skin Exam: normal color, warm/dry Progress - Progress Progress: 01/09/17 15:28 PT REPORTS NO IMPROVEMENT IN PAIN DESPITE 3 SL NTG AND 4MG IV MORPHINE. WILL MAKE ARRANGEMENTS TO TRANSFER PT TO FACILITY WHERE HER CARDIOLOGISTS ARE, DUE TO HER CARDIAC HISTORY AND UNRELENTING CHEST PAIN. - Results/Orders Results/Orders: 01/09/17 13:33 IV Care:Saline Lock per Protoc QSHIFT Telemetry .ONCE Sodium Chloride 0.9% (Flush) [Saline Flush Syringe] 10 ml IV PRN PRN EKG Stat Pulse Ox Stat 01/09/17 14:52 DRUG OF ABUSE,OVERDOSE PANEL Stat 01/09/17 14:53 HCG,QUALITATIVE URINE Stat Laboratory Results - last 24 hr 01/09/17 01/09/17 13:40 14:05 WBC 6.6 RBC 4.90 Hgb 11.2 L Hct 35.8 L MCV 73.0 L MCH 22.8 L MCHC 31.2 L RDW 20.3 H Plt Count 316 MPV 7.8 Absolute Neuts (auto) 4.60 Absolute Lymphs (auto) 1.40 Absolute Monos (auto) 0.50 Absolute Eos (auto) 0.10 Absolute Basos (auto) 0.00 Neutrophils % 68.8 Lymphocytes % 21.6 Monocytes % 7.0 Eosinophils % 2.1 Basophils % 0.5 PT 11.8 INR 1.040 PTT (SP) 29.5 Sodium 137 Potassium 3.9 Chloride 101 Carbon Dioxide 28 Anion Gap 11.9 L BUN 10 Creatinine 0.98 BUN/Creatinine Ratio 10.2 Random Glucose 289 H Serum Osmolality 283.4 Calcium 9.3 Magnesium 1.7 L Creatine Kinase 30 CK-MB (CK-2) 1.1 CK-MB (CK-2) % Not Reportable Troponin I < 0.02 B-Natriuretic Peptide 20.1 Urine Color Yellow Urine Appearance Clear Urine pH 5.0 Ur Specific [place] 1.025 Urine Protein Negative Urine Glucose (UA) 500 H Urine Ketones Negative Urine Blood Negative Urine Nitrite Negative Urine Bilirubin Negative Urine Urobilinogen 0.2 Ur Leukocyte Esterase Negative Urine RBC 0 Urine WBC 0-1 Ur Epithelial Cells 1-3 Amorphous Sediment Trace Urine Bacteria 0 - EKG/XRAY/CT EKG: Sinus - 74BPM, no ST T wave changes - COMPARED TO 11/20/2016, HOWEVER INFERIOR Q WAVES ARE MORE PRONOUNCED, Abnormal Q waves - IN THE INVERIOR AND ANTERIOR LEADS Comments: NL INTERVALS, NL AXIS Xray Comments: NORMAL PER RAD Departure - Departure Clinical Impression: Acute angina CAD (coronary artery disease) Qualifiers: Coronary Disease-Associated Artery/Lesion type: [place] artery [place] vs. transplanted heart: jamul heart Associated angina: with unspecified angina Qualified Code(s): I25.119 - Atherosclerotic heart disease of jamul coronary artery with unspecified angina pectoris Time of Disposition: 16:06 - CASE DISCUSSED WITH DR. GALLEGOS IN [facility] AND HE AGREES TO ACCEPT PT IN TRANSFER. Disposition: Transfer to Hospital Condition: Fair Departure Forms: ED Discharge - Pt. Copy, Patient Portal Self Enrollment Referrals: Sandra Aponte NP [Primary Care Provider] - 1-2 Weeks Home Medications: Ambulatory Orders Atenolol 100 mg PO DAILY 02/05/13 Gabapentin [Neurontin] 600 mg PO TID 02/05/13 Insulin Aspart [Novolog] 0 unit SC QID PRN 06/14/14 Aspirin [Aspirin EC] 81 mg PO DAILY 11/16/15 Atorvastatin Calcium [Lipitor] 80 mg PO .QEVENING 11/16/15 Escitalopram [Lexapro] 15 mg PO DAILY 11/16/15 Isosorbide Mononitrate [Isosorbide Mononitrate ER] 60 mg PO BID 11/16/15 Exenatide [Bydureon] 2 mg SC WKLY 02/22/16 Lisinopril 10 mg PO DAILY 02/22/16 Clopidogrel Bisulfate [Plavix] 75 mg PO DAILY #0 10/09/16 Pantoprazole Tablet [Protonix] 40 mg PO QAM 11/11/16 Insulin Aspart [Novolog] 7 unit SC ACHS 11/12/16 Sucralfate Tab [Carafate Tab] 1 gm PO QID #120 tab 11/12/16 Insulin Detemir [Levemir] 65 unit SUBCU BID 12/04/16 Transfer to Outside Facility - Transfer Information Accepting Facility: [facility] Reason for Transfer: required specialist not available - PTS EXECUTIVE ADMIN IS IN [facility]
[2017-01-09 17:58] VITALS: TEMP 98
[2017-01-09 18:42] VITALS: BP 132/94; O2SAT 96
== END 2017-01-09 18:35 | disposition short-term general hospital (02) ==
LOC: ER 13:15
DX: I25.119 Atherosclerotic heart disease of native coronary artery with unspecified angina pectoris (principal); I10 Essential (primary) hypertension; I25.10 Atherosclerotic heart disease of native coronary artery without angina pectoris; Z79.02 Long term (current) use of antithrombotics/antiplatelets; Z79.899 Other long term (current) drug therapy; Z79.82 Long term (current) use of aspirin; Z79.4 Long term (current) use of insulin; Z98.61 Coronary angioplasty status; Z82.49 Family history of ischemic heart disease and other diseases of the circulatory system
CPT/HCPCS: 36415; 71010; 80048; 80301; 80320; 80329; 81001; 81025; 82550; 82553; 83880; 84484; 85025; 85610; 85730; 93005; J2270; J2405

== ENCOUNTER 2017-01-14 01:00 | Emergency (ER) | payer MEDICAID, OTHER ==
[2017-01-14] MEDS ORDERED: SODIUM CHLORIDE 0.9% (FLUSH) 10 ML SYG IV PRN (01:08)
[2017-01-14] MEDS ORDERED: ASPIRIN TABLET 325 MG TAB PO ONE (01:08)
[2017-01-14] MEDS ORDERED: NITROGLYCERIN 0.4 MG 25 EA TAB SL ONE (01:40)
[2017-01-14] MEDS ORDERED: HYDROcodone 10MG/APAP 325MG 1 EA TAB PO ONE (01:41)
[2017-01-14] MEDS ORDERED: LIDOCAINE VIS-MYLANTA 30 ML UD PO ONE (01:41)
[2017-01-14] MEDS ORDERED: MAGNESIUM SULFATE PREMIX 2GM 2 GM in PREMIX BAG 1 BAG IVPB ONE (02:30)
[2017-01-14] MEDS ORDERED: MAGNESIUM SULFATE PREMIX 2GM 50 ML IVPB ONE (02:34)
--- NOTE | 2017-01-14 02:55 | RAD ---
Clinical History : chest pain , MAIN Exam : Portable AP view of the chest 01/14/2017 1:08 AM CDT Comparisons : Portable AP view of the chest January 09, 2017 Findings : The lungs are clear without focal consolidation or pleural effusion. The heart is normal in size. The mediastinal contours are normal in appearance. The thoracic spine is age appropriate. The shoulders are unremarkable. Limited evaluation of the upper abdomen demonstrates no gross abnormalities. Impression: No acute cardiopulmonary disease (stable appearing chest). Electronically signed by: Joan Lorenz MD 01/14/2017 2:54 AM CDT
[2017-01-14] MEDS ORDERED: MORPHINE SULFATE INJ 10 MG/ML VIAL IV ONE (03:36)
[2017-01-14 06:15] VITALS: TEMP 97.9
--- NOTE | 2017-01-14 06:52 | ED.PDOC ---
History of Present Illness - General Source: patient Exam Limitations: no limitations - History of Present Illness Initial Comments: the patient is a 36-year-old female presenting to the emergency room secondary to recurrence of chest pain. She reports the pain is severe and squeezing in nature across her precordium. It gives her shortness of breath. The patient has had numerous visits to the emergency room for chest pain over the last year. She has also had several catheterizations as well as several nuclear stress test indicating no significant new disease. Her last nuclear stress test was just last week in [place]. It was apparently normal. The patient does have known esophagitis which is made worse by her persistent iron deficiency. She has been unable to get Timing/Duration: 1/2 hour Severity: moderate Improving Factors: nothing Worsening Factors: nothing Associated Symptoms: chest pain, shortness of breath <Luis Wood - Last Filed: 01/14/17 07:01> <Sierra Vicente - Last Filed: 01/14/17 08:57> - General Chief Complaint: Chest Pain/SC Stated Complaint: CP Time Seen by Provider: 01/14/17 01:16 - History of Present Illness Allergies/Adverse Reactions: Allergies NO KNOWN ALLERGY Allergy (Verified 01/14/17 03:50) Home Medications: Ambulatory Orders Atenolol 100 mg PO DAILY 02/05/13 Gabapentin [Neurontin] 600 mg PO TID 02/05/13 Insulin Aspart [Novolog] 0 unit SC QID PRN 06/14/14 Aspirin [Aspirin EC] 81 mg PO DAILY 11/16/15 Atorvastatin Calcium [Lipitor] 80 mg PO .QEVENING 11/16/15 Escitalopram [Lexapro] 15 mg PO DAILY 11/16/15 Isosorbide Mononitrate [Isosorbide Mononitrate ER] 60 mg PO BID 11/16/15 Exenatide [Bydureon] 2 mg SC WKLY 02/22/16 Lisinopril 10 mg PO DAILY 02/22/16 Clopidogrel Bisulfate [Plavix] 75 mg PO DAILY #0 10/09/16 Pantoprazole Tablet [Protonix] 40 mg PO QAM 11/11/16 Insulin Aspart [Novolog] 7 unit SC ACHS 11/12/16 Sucralfate Tab [Carafate Tab] 1 gm PO QID #120 tab 11/12/16 Insulin Detemir [Levemir] 65 unit SUBCU BID 12/04/16 Review of Systems - Review of Systems Constitutional: States: no symptoms reported EENTM: States: no symptoms reported Respiratory: States: short of breath Cardiology: States: chest pain Gastrointestinal/Abdominal: States: no symptoms reported Genitourinary: States: no symptoms reported Musculoskeletal: States: no symptoms reported Skin: States: no symptoms reported Neurological: States: anxiety Endocrine: States: no symptoms reported All other Systems: No Change from Baseline <Luis Wood - Last Filed: 01/14/17 07:01> Past Medical History (General) - Patient Medical History Hx Seizures: No Hx Stroke: No Hx Dementia: No Hx Asthma: No Hx of COPD: No Hx Cardiac Disorders: Yes - CAD WITH 3 STENTS Hx Congestive Heart Failure: No Hx Pacemaker: No Hx Hypertension: Yes Hx Thyroid Disease: No Hx Diabetes: No Hx Gastroesophageal Reflux: No Hx Renal Disease: No Hx Cancer: No Hx of HIV: No Hx Hepatitis C: No Hx MRSA: No MRSA Source:: Wound Surgical History: cholecystectomy, Hysterectomy - Vaccination History Hx Tetanus, Diphtheria Vaccination: Yes Hx Influenza Vaccination: Yes Hx Pneumococcal Vaccination: Yes Immunizations Up to Date: Yes - Social History Hx Tobacco Use: No Hx Chewing Tobacco Use: No Hx Alcohol Use: Yes - Rarely Hx Substance Use: Yes - 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, RECENT EXPOSURE TO PEOPLE SMOKING METH Hx Substance Use Treatment: No Hx Depression: No Feels Threatened In Home Enviroment: No Hx Physical Abuse: No Hx Emotional Abuse: No Hx Suspected Abuse: No - Female History Patient : No <Luis Wood - Last Filed: 01/14/17 07:01> Family Medical History - Family History Mother Family History: Unknown Living Status: Still Living Hx Family Asthma: No Hx Family Congestive Heart Failure: Yes - Father Hx Family Hypertension: Yes Hx Family Stroke: No Hx Cardiac Disease: Yes Hx Family Diabetes: Yes Hx Family Cancer: No <Luis Wood - Last Filed: 01/14/17 07:01> Physical Exam - Physical Exam General Appearance: Alert, Anxious Eye Exam: bilateral normal Ears, Nose, Throat: hearing grossly normal, normal ENT inspection, normal pharynx Neck: non-tender, full range of motion, supple Respiratory: chest non-tender, lungs clear, normal breath sounds, no respiratory distress, no accessory muscle use Cardiovascular/Chest: normal peripheral pulses, regular rate, rhythm, no edema Peripheral Pulses: radial,right: 2+, radial,left: 2+ Gastrointestinal/Abdominal: non tender, soft Rectal Exam: deferred Back Exam: normal inspection, no CVA tenderness, no vertebral tenderness Extremity: normal range of motion 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, alert, oriented x 3 Skin Exam: normal color Comments: Vital Signs - 24 hr 01/14/17 01/14/17 01/14/17 01:01 01:30 01:55 Temperature 98.4 F Pulse Rate [ 77 76 76 monitor] Respiratory 16 15 14 Rate Blood Pressure 141/77 124/64 [Right Arm] O2 Sat by Pulse 97 98 97 Oximetry 01/14/17 01/14/17 01/14/17 01:56 02:01 03:00 Temperature Pulse Rate [ 79 70 monitor] Respiratory 16 14 Rate Blood Pressure 113/56 111/59 [Right Arm] O2 Sat by Pulse 95 98 Oximetry 01/14/17 01/14/17 01/14/17 04:30 05:00 06:13 Temperature 98.0 F 97.9 F Pulse Rate [ 73 72 72 monitor] Respiratory 18 12 18 Rate Blood Pressure 107/52 104/59 107/52 [Right Arm] O2 Sat by Pulse 98 98 Oximetry <Luis Wood L - Last Filed: 01/14/17 07:01> Progress - Progress Progress: 01/14/17 07:02 the patient is a 36-year-old female with a history of coronary artery disease that has been very well-defined over the last year. She has had multiple stress tests and multiple catheterizations within the last year showing no significant residual coronary artery disease. The patient does have severe iron deficiency anemia which has given her significant esophagitis and gastritis issues. This is most likely the source of her chest pain. The patient also does have significant anxiety issues which may be contributing. Her first 2 sets of cardiac enzymes have been negative. The patient has not received any relief from the medication that she has been provided so far. That being said even though she reports pain at a 7-8 out of 10 she has slept very comfortably through the night. She does have a history of drug-seeking behavior. The patient is due one more set of cardiac enzymes and another repeat EKG. So far in the evaluation I do not see evidence of chest pain caused by a cardiac etiology. - Results/Orders Results/Orders: Laboratory Tests 01/14/17 01/14/17 01:25 04:15 WBC 8.3 RBC 4.43 Hgb 10.0 L Hct 32.3 L MCV 72.9 L MCH 22.5 L MCHC 31.1 L RDW 20.6 H Plt Count 287 MPV 8.1 Absolute Neuts (auto) 5.00 Absolute Lymphs (auto) 2.50 Absolute Monos (auto) 0.60 Absolute Eos (auto) 0.20 Absolute Basos (auto) 0.10 Neutrophils % 60.2 Lymphocytes % 29.9 Monocytes % 7.0 Eosinophils % 2.2 Basophils % 0.7 PT 10.9 INR 0.960 PTT (SP) 21.3 L Sodium 136 Potassium 3.8 Chloride 101 Carbon Dioxide 25 Anion Gap 13.8 BUN 9 Creatinine 0.81 BUN/Creatinine Ratio 11.1 Random Glucose 278 H Serum Osmolality 280.6 Calcium 8.8 Magnesium 1.5 L Creatine Kinase 29 21 L CK-MB (CK-2) 1.0 0.9 CK-MB (CK-2) % Not Reportable Not Reportable Troponin I < 0.02 < 0.02 B-Natriuretic Peptide 43.6 the patient is in normal sinus rhythm. Old Q waves are in lead 3. Poor R-wave progression in anterior leads which is also old. No acute ST segment changes concerning for ischemia when compared to previous EKGs. QT length is within normal limits. Chest x-ray is benign. No acute changes. <Luis Wood L - Last Filed: 01/14/17 07:01> - Progress Progress: 01/14/17 07:53 Patient awoken from sleep to do vital signs. Once awake again c/o severe chest pain. Discussed unchanged EKG, 2 sets of normal cardiac enzymes, nl CXR and recent normal/unchanged stress test and Cath. Explained pain is most likely not cardiac and if 3rd set of enzymes is normal will d/c home for her to follow up with her Volunteer Recruiter. 01/14/17 08:55 Patient has 3 normal sets of cardiac enzymes. Will d/c home and have her follow up with her Volunteer Recruiter. - Results/Orders Results/Orders: Laboratory Last Values WBC 8.3 K/mm3 (4.8-10.8) 05/01/17 01:25 RBC 4.43 M/mm3 (4.20-5.40) 01/14/17 01:25 Hgb 10.0 gm/dL (12.0-16.0) L 01/14/17 01:25 Hct 32.3 % (36.0-47.0) L 01/14/17 01:25 MCV 72.9 fl (81.0-99.0) L 01/14/17 01:25 MCH 22.5 pg (27.0-31.0) L 01/14/17 01:25 MCHC 31.1 g/dL (33.0-37.0) L 01/14/17 01:25 RDW 20.6 % (11.5-14.5) H 01/14/17 01:25 Plt Count 287 K/mm3 (130-400) 01/14/17 01:25 MPV 8.1 fl (7.40-10.4) 01/14/17 01:25 Absolute Neuts (auto) 5.00 K/uL (1.8-6.8) 01/14/17 01:25 Absolute Lymphs (auto) 2.50 K/uL (1.0-3.4) 01/14/17 01:25 Absolute Monos (auto) 0.60 K/uL (0.2-0.8) 01/14/17 01:25 Absolute Eos (auto) 0.20 K/uL (0.0-0.4) 01/14/17 01:25 Absolute Basos (auto) 0.10 K/uL (0.0-0.1) 01/14/17 01:25 Neutrophils % 60.2 % (42.0-78.0) 01/14/17 01:25 Lymphocytes % 29.9 % (20.0-50.0) 01/14/17 01:25 Monocytes % 7.0 % (2.0-9.0) 01/14/17 01:25 Eosinophils % 2.2 % (1.0-5.0) 01/14/17 01:25 Basophils % 0.7 % (0.0-2.0) 01/14/17 01:25 PT 10.9 SECONDS (9.4-12.5) 01/14/17 01:25 INR 0.960 01/14/17 01:25 PTT (SP) 21.3 SECONDS (25.1-36.5) L 01/14/17 01:25 Sodium 136 mmol/L (135-145) 01/14/17 01:25 Potassium 3.8 mmol/L (3.6-5.0) 01/14/17 01:25 Chloride 101 mmol/L (101-111) 01/14/17 01:25 Carbon Dioxide 25 mmol/L (21-31) 01/14/17 01:25 Anion Gap 13.8 (12-18) 01/14/17 01:25 BUN 9 mg/dL (7-18) 01/14/17 01:25 Creatinine 0.81 mg/dL (0.6-1.3) 01/14/17 01:25 BUN/Creatinine Ratio 11.1 (10-20) 01/14/17 01:25 Random Glucose 278 mg/dL (70-105) H 01/14/17 01:25 Serum Osmolality 280.6 mOsm/L (275-295) 01/14/17 01:25 Calcium 8.8 mg/dL (8.4-10.2) 01/14/17 01:25 Magnesium 1.5 mg/dL (1.8-2.5) L 01/14/17 01:25 Creatine Kinase 24 IU/L (26-140) L 01/14/17 08:07 CK-MB (CK-2) 0.8 ng/mL (0.0-4.4) 01/14/17 08:07 CK-MB (CK-2) % Not Reportable 01/14/17 08:07 Troponin I < 0.02 ng/mL (0.01-0.05) 01/14/17 08:07 B-Natriuretic Peptide 43.6 pg/ml (0-100) 01/14/17 01:25 3rd set of cardiac enzymes are normal <Sierra Vicente - Last Filed: 01/14/17 08:57> Departure <Luis Wood - Last Filed: 01/14/17 07:01> - Departure Time of Disposition: 08:56 Diet: resume usual diet Activity: increase activity as tolerated <Sierra Vicente - Last Filed: 05/01/17 08:57> - Departure Clinical Impression: Chest pain of uncertain etiology Disposition: Discharge to Home or Self Care Condition: Good Departure Forms: ED Discharge - Pt. Copy, Patient Portal Self Enrollment Instructions: DI for Atypical Chest Pain Referrals: Sandra Aponte NP [Primary Care Provider] - 1-2 Weeks Home Medications: Ambulatory Orders Atenolol 100 mg PO DAILY 02/05/13 Gabapentin [Neurontin] 600 mg PO TID 02/05/13 Insulin Aspart [Novolog] 0 unit SC QID PRN 06/14/14 Aspirin [Aspirin EC] 81 mg PO DAILY 11/16/15 Atorvastatin Calcium [Lipitor] 80 mg PO .QEVENING 11/16/15 Escitalopram [Lexapro] 15 mg PO DAILY 11/16/15 Isosorbide Mononitrate [Isosorbide Mononitrate ER] 60 mg PO BID 11/16/15 Exenatide [Bydureon] 2 mg SC WKLY 02/22/16 Lisinopril 10 mg PO DAILY 02/22/16 Clopidogrel Bisulfate [Plavix] 75 mg PO DAILY #0 10/09/16 Pantoprazole Tablet [Protonix] 40 mg PO QAM 11/11/16 Insulin Aspart [Novolog] 7 unit SC ACHS 11/12/16 Sucralfate Tab [Carafate Tab] 1 gm PO QID #120 tab 11/12/16 Insulin Detemir [Levemir] 65 unit SUBCU BID 12/04/16 Additional Instructions: Follow up with your Volunteer Recruiter in 2-3 days
[2017-01-14] MEDS ORDERED: KETOROLAC TROMETHAMINE INJ 30 MG/ML VIAL IV ONE (07:55)
[2017-01-14 09:38] VITALS: BP 107/58; O2SAT 96
== END 2017-01-14 09:20 | disposition home or self-care (01) ==
LOC: ER 01:00
DX: R07.9 Chest pain, unspecified (principal); I25.10 Atherosclerotic heart disease of native coronary artery without angina pectoris; I10 Essential (primary) hypertension; Z98.61 Coronary angioplasty status; Z79.899 Other long term (current) drug therapy; Z79.4 Long term (current) use of insulin; Z82.49 Family history of ischemic heart disease and other diseases of the circulatory system
CPT/HCPCS: 36415; 71010; 80048; 82550; 82553; 83880; 84484; 85025; 85610; 85730; 93005; 94760; J1885; J2270; J3475

== ENCOUNTER 2017-04-28 18:56 | Emergency (ER) | payer OTHER ==
[2017-04-28 19:18] VITALS: O2SAT 96
[2017-04-28] MEDS ORDERED: LACTATED RINGERS 1,000 ML IVS ONE (19:45)
--- NOTE | 2017-04-28 19:46 | ED.PDOC ---
History of Present Illness - General Chief Complaint: Neuro Symptoms/Deficits Stated Complaint: tingling to hands, left side Time Seen by Provider: 04/28/17 19:17 Source: patient Exam Limitations: no limitations - History of Present Illness Initial Comments: Gabby Morgan 37 y/o female with history of CAD,DM 1 seen today because of continued left sided numbness pain chest and left side of her upper and lower extremities;seen initially at [facility] 04/25/2017 and was sent to [facility] and was discharged yesterday had been work up there with serial cardiac enzymes-which were all normal and MRI HEAD did not show acute infarct or hemorrhage. Discharge home yesterday but stating not any better. Timing/Duration: other - one week Severity: moderate Improving Factors: nothing Worsening Factors: nothing Associated Symptoms: denies symptoms Allergies/Adverse Reactions: Allergies NO KNOWN ALLERGY Allergy (Verified 01/14/17 03:50) Home Medications: Ambulatory Orders Atenolol 100 mg PO DAILY 02/05/13 Gabapentin [Neurontin] 600 mg PO TID 02/05/13 Insulin Aspart [Novolog] 0 unit SC QID PRN 06/14/14 Aspirin [Aspirin EC] 81 mg PO DAILY 11/16/15 Atorvastatin Calcium [Lipitor] 80 mg PO .QEVENING 11/16/15 Escitalopram [Lexapro] 15 mg PO DAILY 11/16/15 Isosorbide Mononitrate [Isosorbide Mononitrate ER] 60 mg PO BID 11/16/15 Exenatide [Bydureon] 2 mg SC WKLY 02/22/16 Lisinopril 10 mg PO DAILY 02/22/16 Clopidogrel Bisulfate [Plavix] 75 mg PO DAILY #0 10/09/16 Pantoprazole Tablet [Protonix] 40 mg PO QAM 11/11/16 Insulin Aspart [Novolog] 7 unit SC ACHS 11/12/16 Sucralfate Tab [Carafate Tab] 1 gm PO QID #120 tab 11/12/16 Insulin Detemir [Levemir] 65 unit SUBCU BID 12/04/16 Review of Systems - Review of Systems Constitutional: States: no symptoms reported EENTM: States: no symptoms reported Respiratory: States: no symptoms reported Cardiology: States: no symptoms reported Gastrointestinal/Abdominal: States: no symptoms reported Genitourinary: States: no symptoms reported Musculoskeletal: States: no symptoms reported Skin: States: no symptoms reported Neurological: States: see HPI Past Medical History (General) - Patient Medical History Hx Seizures: No Hx Stroke: No Hx Dementia: No Hx Asthma: No Hx of COPD: No Hx Cardiac Disorders: Yes - CAD WITH 3 STENTS Hx Congestive Heart Failure: No Hx Pacemaker: No Hx Hypertension: Yes Hx Thyroid Disease: No Hx Diabetes: Yes Hx Gastroesophageal Reflux: Yes Hx Renal Disease: No Hx Cancer: No Hx of HIV: No Hx Hepatitis C: No Hx MRSA: No MRSA Source:: Wound Surgical History: cholecystectomy, Hysterectomy - Vaccination History Hx Tetanus, Diphtheria Vaccination: Yes Hx Influenza Vaccination: Yes Hx Pneumococcal Vaccination: Yes - Social History Hx Tobacco Use: No Hx Chewing Tobacco Use: No Hx Alcohol Use: Yes - Rarely Hx Substance Use: Yes - 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, RECENT EXPOSURE TO PEOPLE SMOKING METH Hx Substance Use Treatment: No Hx Depression: No Hx Physical Abuse: No Hx Emotional Abuse: No Hx Suspected Abuse: No - Female History Patient is a Female of Child Bearing Age (10 -59 yrs old): No - hysterectomy Patient : No Family Medical History - Family History Mother Family History: Unknown Living Status: Still Living Hx Family Asthma: No Hx Family Congestive Heart Failure: Yes - Father Hx Family Hypertension: Yes Hx Family Stroke: No Hx Cardiac Disease: Yes Hx Family Diabetes: Yes Hx Family Cancer: No Physical Exam - Physical Exam General Appearance: Agitated, Alert, No apparent distress, Other - stating doctors does not want to help her Eye Exam: bilateral normal Ears, Nose, Throat: hearing grossly normal, normal ENT inspection, normal pharynx Neck: non-tender, supple Respiratory: chest non-tender, lungs clear Cardiovascular/Chest: normal peripheral pulses, regular rate, rhythm, no murmur Peripheral Pulses: radial,right: 1+, radial,left: 1+ Gastrointestinal/Abdominal: normal bowel sounds, non tender, soft Back Exam: normal inspection, no CVA tenderness Extremity: normal range of motion, non-tender Neurologic: no motor/sensory deficits, alert, normal mood/affect, oriented x 3, other - negative romberg;able to walk to the bathroom without assistance;get up and down the exam bed Skin Exam: normal color, warm/dry Lymphatic: no adenopathy Progress - Progress Progress: 08/13/17 21:52 Last Vital Signs Temp 99.2 F 04/28/17 19:08 Pulse 112 H 04/28/17 19:08 Resp 16 04/28/17 19:08 BP 123/81 04/28/17 19:08 Pulse Ox 96 04/28/17 19:08 04/28/17 19:30 EKG STAT 04/28/17 19:45 URINE DRUG SCREEN, 7 ASSAY Stat URINALYSIS Stat Laboratory Results - last 24 hr 04/28/17 04/28/17 04/28/17 19:58 19:58 19:58 WBC 7.3 RBC 5.03 Hgb 12.9 Hct 39.9 MCV 79.4 L MCH 25.6 L MCHC 32.2 L RDW 17.5 H Plt Count 327 MPV 7.6 Absolute Neuts (auto) 4.90 Absolute Lymphs (auto) 1.60 Absolute Monos (auto) 0.60 Absolute Eos (auto) 0.10 Absolute Basos (auto) 0.00 Neutrophils % 67.6 Lymphocytes % 21.3 Monocytes % 8.8 Eosinophils % 1.8 Basophils % 0.5 Sodium 138 Potassium 4.5 Chloride 98 L Carbon Dioxide 28 Anion Gap 16.5 BUN 14 Creatinine 0.90 BUN/Creatinine Ratio 15.6 Random Glucose 372 H Serum Osmolality 291.3 Calcium 9.7 Total Bilirubin 0.5 AST 28 ALT 39 Alkaline Phosphatase 92 Troponin I < 0.02 Serum Total Protein 8.1 Albumin 4.3 Globulin 3.8 H Albumin/Globulin Ratio 1.1 - Results/Orders Results/Orders: Patient had been crying wants to be admitted since not getting better but explained to her that she was just discharge from the hospital lab test and cardiac enzymes were all normal also MRI nothing could be done in this hospital differently and started crying.Advised to be followed outpatient by her primary md but stated her md does not want to see her anymore .Advised to get another md at the clinic and she stated nobody wants to see her anymore.I told her that there is new md that she could see tomorrow am she can walk in w/o appoint ment. Departure - Departure Clinical Impression: Pain of left upper extremity, Numbness and tingling in left upper extremity Time of Disposition: 22:00 Disposition: Discharge to Home or Self Care Condition: Fair Departure Forms: ED Discharge - Pt. Copy, Patient Portal Self Enrollment Referrals: Sandra Aponte NP [Primary Care Provider] - 1-2 Weeks Home Medications: Ambulatory Orders Atenolol 100 mg PO DAILY 02/05/13 Gabapentin [Neurontin] 600 mg PO TID 02/05/13 Insulin Aspart [Novolog] 0 unit SC QID PRN 06/14/14 Aspirin [Aspirin EC] 81 mg PO DAILY 11/16/15 Atorvastatin Calcium [Lipitor] 80 mg PO .QEVENING 11/16/15 Escitalopram [Lexapro] 15 mg PO DAILY 11/16/15 Isosorbide Mononitrate [Isosorbide Mononitrate ER] 60 mg PO BID 11/16/15 Exenatide [Bydureon] 2 mg SC WKLY 02/22/16 Lisinopril 10 mg PO DAILY 02/22/16 Clopidogrel Bisulfate [Plavix] 75 mg PO DAILY #0 10/09/16 Pantoprazole Tablet [Protonix] 40 mg PO QAM 11/11/16 Insulin Aspart [Novolog] 7 unit SC ACHS 11/12/16 Sucralfate Tab [Carafate Tab] 1 gm PO QID #120 tab 11/12/16 Insulin Detemir [Levemir] 65 unit SUBCU BID 12/04/16 Additional Instructions: FOLLOW UP WITH PRIMARY MD IN AM 04/[address] [phone] for referral to neurologist
[2017-04-28 22:14] VITALS: BP 154/92
[2017-04-28 22:18] VITALS: TEMP 98.9
== END 2017-04-28 22:15 | disposition home or self-care (01) ==
LOC: ER 18:56
DX: R20.2 Paresthesia of skin (principal); M79.622 Pain in left upper arm; I25.10 Atherosclerotic heart disease of native coronary artery without angina pectoris; I10 Essential (primary) hypertension; K21.9 Gastro-esophageal reflux disease without esophagitis; Z98.61 Coronary angioplasty status; E10.8 Type 1 diabetes mellitus with unspecified complications; Z79.4 Long term (current) use of insulin; Z79.82 Long term (current) use of aspirin; Z79.899 Other long term (current) drug therapy
CPT/HCPCS: 36415; 80053; 84484; 85025; 93005; J7120

== ENCOUNTER 2017-04-29 10:45 | Emergency (ER) | payer OTHER ==
[2017-04-29 11:02] VITALS: TEMP 98
[2017-04-29] MEDS ORDERED: SODIUM CHLORIDE 0.9% 1000ML 1,000 ML IVS ONE (11:13)
[2017-04-29] MEDS ORDERED: ALUMINUM & MAGNESIUM HYDROXIDE 30 ML UD PO ONE (11:14)
[2017-04-29] MEDS ORDERED: CYANOCOBALAMIN INJ 1,000 MCG/ML INJ SUBCU ONE (11:38)
--- NOTE | 2017-04-29 11:49 | RAD ---
EXAM DESCRIPTION: Cervical Spine,3 Views CLINICAL HISTORY: left sided numbness COMPARISON: CT of the head dated November TECHNIQUE: AP/lateral/ open-mouth odontoid FINDINGS: The cervical vertebral bodies are in good AP alignment. The exam reveals mild loss of disc height at the C4-5, C 5-6 and C6-7 levels. At fourth ventricular shunt is observed in place with position unchanged. The atlantoaxial junction and dens are normal. IMPRESSION: Mild degenerative changes are observed. A fourth ventricular shunt is again noted in place. Electronically signed by: Henrik Millard MD 04/29/2017 11:48 AM CDT
--- NOTE | 2017-04-29 11:50 | RAD ---
EXAM DESCRIPTION: Chest,2 Views CLINICAL HISTORY: 37 years Female, left sided numbness COMPARISON: 14 Jan 2017 TECHNIQUE: PA/lateral FINDINGS: There is no cardiac or pulmonary abnormality. The lungs are clear. There is no effusion. IMPRESSION: 1. Normal two-view chest. Electronically signed by: Henrik Millard MD 04/29/2017 11:48 AM CDT
[2017-04-29] MEDS ORDERED: MAGNESIUM SULFATE PREMIX 2GM 2 GM in PREMIX BAG 1 BAG IVPB ONE (12:24)
[2017-04-29] MEDS ORDERED: MAGNESIUM SULFATE PREMIX 2GM 50 ML IVPB ONE (12:28)
[2017-04-29] MEDS ORDERED: INSULIN, REG.(HUMAN) 100 U/ML VIAL SUBCU ONE (12:32)
[2017-04-29] MEDS ORDERED: GABAPENTIN 300 MG CAP PO ONE (12:45)
[2017-04-29] MEDS ORDERED: KETOROLAC TROMETHAMINE INJ 30 MG/ML VIAL IV ONE (13:04)
--- NOTE | 2017-04-29 13:22 | ED.PDOC ---
History of Present Illness - General Chief Complaint: Chest Pain/AK Stated Complaint: chest pains, seen last night and at clinic today Time Seen by Provider: 04/29/17 10:57 Source: patient Exam Limitations: no limitations - History of Present Illness Initial Comments: the patient is a 37-year-old female well known to this emergency room. The patient is presenting secondary to chest pain along with left arm and left leg tingling and a sensation of numbness although there is no true loss in sensation. No speech changes. No weakness. Symptoms have been present for this patient for approximately last 4 days. She originally went to [facility] for symptoms and was kept there for a few days and then transferred to [facility] in [place]. She was evaluated by cardiology and neurology. There was no evidence of stroke. There was no evidence of heart attack. She had a echocardiogram done showing a 55% ejection fraction. She had an MRI of her brain performed showing no acute changes. She was found to have significant vitamin B12 deficiency at a level of 74and was given a prescription which she has not started taking yet. Additionally she did have a hemoglobin A1c that was 10.6. Her glucoses have been significantly elevated over the last 2 weeks. She has also run out of her gabapentin last week. The patient does have significant anxiety issues as well as depression issues and a significant history of coronary artery disease in the past. Her EKG over the last week has not shown any acute changes. Multiple sets of cardiac enzymes including a set last night done here were negative. The patient was discharged last night to follow-up with her new PCP this morning for further evaluation and management of her chronic issues. She has chosen rather to come back here to the emergency room. Severity: moderate Improving Factors: nothing Worsening Factors: nothing Associated Symptoms: chest pain, malaise Allergies/Adverse Reactions: Allergies NO KNOWN ALLERGY Allergy (Verified 04/29/17 10:57) Home Medications: Ambulatory Orders Atenolol 100 mg PO DAILY 02/05/13 Gabapentin [Neurontin] 600 mg PO TID 02/05/13 Insulin Aspart [Novolog] 0 unit SC QID PRN 06/14/14 Aspirin [Aspirin EC] 81 mg PO DAILY 11/16/15 Atorvastatin Calcium [Lipitor] 80 mg PO .QEVENING 11/16/15 Escitalopram [Lexapro] 15 mg PO DAILY 11/16/15 Isosorbide Mononitrate [Isosorbide Mononitrate ER] 60 mg PO BID 11/16/15 Exenatide [Bydureon] 2 mg SC WKLY 02/22/16 Lisinopril 10 mg PO DAILY 02/22/16 Clopidogrel Bisulfate [Plavix] 75 mg PO DAILY #0 10/09/16 Pantoprazole Tablet [Protonix] 40 mg PO QAM 11/11/16 Insulin Aspart [Novolog] 7 unit SC ACHS 11/12/16 Sucralfate Tab [Carafate Tab] 1 gm PO QID #120 tab 11/12/16 Insulin Detemir [Levemir] 65 unit SUBCU BID 12/04/16 Gabapentin 600 mg PO TID #90 tab 04/29/17 Review of Systems - Review of Systems Constitutional: States: malaise EENTM: States: no symptoms reported Respiratory: States: no symptoms reported Cardiology: States: chest pain Gastrointestinal/Abdominal: States: no symptoms reported Genitourinary: States: no symptoms reported Musculoskeletal: States: no symptoms reported Skin: States: no symptoms reported Endocrine: States: see HPI Hematologic/Lymphatic: States: no symptoms reported All other Systems: No Change from Baseline Past Medical History (General) - Patient Medical History Hx Seizures: No Hx Stroke: No Hx Dementia: No Hx Asthma: No Hx of COPD: No Hx Cardiac Disorders: Yes Hx Congestive Heart Failure: No Hx Pacemaker: No Hx Hypertension: Yes Hx Thyroid Disease: Yes Hx Diabetes: Yes Hx Gastroesophageal Reflux: Yes Hx Renal Disease: No Hx Cancer: No Hx of HIV: No Hx Hepatitis C: No Hx MRSA: No MRSA Source:: Wound Surgical History: cholecystectomy, Hysterectomy - Vaccination History Hx Tetanus, Diphtheria Vaccination: Yes Hx Influenza Vaccination: No Hx Pneumococcal Vaccination: No Immunizations Up to Date: No - Social History Hx Tobacco Use: No Hx Chewing Tobacco Use: No Hx Alcohol Use: No Hx Substance Use: No Hx Substance Use Treatment: No Hx Depression: Yes Feels Threatened In Home Enviroment: No Feels Threatened In a Relationship: No Hx Physical Abuse: No Hx Emotional Abuse: No Hx Suspected Abuse: No - Female History Patient is a Female of Child Bearing Age (10 -59 yrs old): Yes Patient : No Family Medical History - Family History Mother Family History: Unknown Living Status: Still Living Hx Family Asthma: No Hx Family Congestive Heart Failure: Yes - Father Hx Family Hypertension: Yes Hx Family Stroke: No Hx Cardiac Disease: Yes Hx Family Diabetes: Yes Hx Family Cancer: No Physical Exam - Physical Exam General Appearance: Alert, Anxious, No apparent distress Eye Exam: bilateral normal - eyes eyes are at their baseline for this patient Ears, Nose, Throat: hearing grossly normal, normal ENT inspection, normal pharynx Neck: full range of motion, supple Respiratory: chest non-tender, lungs clear, normal breath sounds, no respiratory distress, no accessory muscle use Cardiovascular/Chest: normal peripheral pulses, regular rate, rhythm, no edema Peripheral Pulses: radial,right: 2+, radial,left: 2+, dorsalis pedis,right: 2+, dorsalis pedis,left: 2+ Gastrointestinal/Abdominal: non tender, soft Rectal Exam: deferred Back Exam: normal inspection, no CVA tenderness, no vertebral tenderness Extremity: normal range of motion, non-tender, normal inspection, no pedal edema , no calf tenderness, normal capillary refill 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 I do believe the primary cause of these symptoms for this patient is her running out of gabapentin a few days before her symptoms started. The patient is going to be written for a month of her gabapentin by me. She does need follow-up with her primary care doctor for refills in an extended prescription. During her workup in the last several days she was also found to be significantly B12 deficient. She was given a dose of B12 subcutaneously here. She needs to get her prescription given to her by [facility] for her vitamin B12 orally filled and start taking that tomorrow. She was also found to have mild hypomagnesemia. She was given some IV magnesium here and this needs to be followed in a few weeks. Additionally the patient has a hemoglobin A1c of around 11. This indicates very poor control of her diabetes. She needs to follow up with her primary care doctor to get her insulin adjusted further for improved management to prevent further neurological complications from her diabetes. ER warnings were given. Anxiety certainly does contribute to symptoms somewhat this point in time. She should follow-up with her primary care doctor before the weekend. - Results/Orders Results/Orders: Laboratory Tests 04/29/17 04/29/17 04/29/17 11:00 11:00 11:14 POC Glucose Magnesium 1.6 L Creatine Kinase 41 B-Natriuretic Peptide 42.2 TSH 0.89 Urine Color Urine Appearance Urine pH Ur Specific [place] Urine Protein Urine Glucose (UA) Urine Ketones Urine Blood Urine Nitrite Urine Bilirubin Urine Urobilinogen Ur Leukocyte Esterase Urine RBC Urine WBC Ur Epithelial Cells Urine Bacteria Urine HCG, Qual Negative 04/29/17 04/29/17 11:51 12:30 POC Glucose 276 H Magnesium Creatine Kinase B-Natriuretic Peptide TSH Urine Color Yellow Urine Appearance Clear Urine pH 7.0 Ur Specific [place] 1.015 Urine Protein Negative Urine Glucose (UA) >=1000 H Urine Ketones Negative Urine Blood Negative Urine Nitrite Negative Urine Bilirubin Negative Urine Urobilinogen 0.2 Ur Leukocyte Esterase Negative Urine RBC 0 Urine WBC 0-1 Ur Epithelial Cells 5-10 Urine Bacteria Rare Urine HCG, Qual EKG shows normal sinus rhythmwith poor R-wave progression in anterior leads and Q waves in leads 3 and aVF. All of these changes are old. No acute changes seen on EKG. Chest x-ray shows no acute pathology. No congestive heart failure. Departure - Departure Clinical Impression: Paresthesia and pain of left extremity, Hypomagnesemia, Anxiety about health Disposition: Discharge to Home or Self Care Condition: Fair Departure Forms: ED Discharge - Pt. Copy, Patient Portal Self Enrollment Instructions: Peripheral Neuropathy Diet: diabetic diet Activity: increase activity as tolerated Referrals: Sandra Aponte NP [Primary Care Provider] - 1-5 Days Prescriptions: Gabapentin 600 mg PO TID #90 tab Home Medications: Ambulatory Orders Atenolol 100 mg PO DAILY 02/05/13 Gabapentin [Neurontin] 600 mg PO TID 02/05/13 Insulin Aspart [Novolog] 0 unit SC QID PRN 06/14/14 Aspirin [Aspirin EC] 81 mg PO DAILY 11/16/15 Atorvastatin Calcium [Lipitor] 80 mg PO .QEVENING 11/16/15 Escitalopram [Lexapro] 15 mg PO DAILY 11/16/15 Isosorbide Mononitrate [Isosorbide Mononitrate ER] 60 mg PO BID 11/16/15 Exenatide [Bydureon] 2 mg SC WKLY 02/22/16 Lisinopril 10 mg PO DAILY 02/22/16 Clopidogrel Bisulfate [Plavix] 75 mg PO DAILY #0 10/09/16 Pantoprazole Tablet [Protonix] 40 mg PO QAM 11/11/16 Insulin Aspart [Novolog] 7 unit SC ACHS 11/12/16 Sucralfate Tab [Carafate Tab] 1 gm PO QID #120 tab 11/12/16 Insulin Detemir [Levemir] 65 unit SUBCU BID 12/04/16 Gabapentin 600 mg PO TID #90 tab 04/29/17 Additional Instructions: the patient is a 37-year-old female presenting with left-sided chest discomfort and left upper and lower extremity paresthesias. I do believe the primary cause of these symptoms for this patient is her running out of gabapentin a few days before her symptoms started. The patient is going to be written for a month of her gabapentin by me. She does need follow-up with her primary care doctor for refills in an extended prescription. During her workup in the last several days she was also found to be significantly B12 deficient. She was given a dose of B12 subcutaneously here. She needs to get her prescription given to her by [facility] for her vitamin B12 orally filled and start taking that tomorrow. She was also found to have mild hypomagnesemia. She was given some IV magnesium here and this needs to be followed in a few weeks. Additionally the patient has a hemoglobin A1c of around 11. This indicates very poor control of her diabetes. She needs to follow up with her primary care doctor to get her insulin adjusted further for improved management to prevent further neurological complications from her diabetes. ER warnings were given. Anxiety certainly does contribute to symptoms somewhat this point in time. She should follow-up with her primary care doctor before the weekend.
[2017-04-29 13:43] VITALS: BP 137/91; O2SAT 100
== END 2017-04-29 13:45 | disposition home or self-care (01) ==
LOC: ER 10:45
DX: E83.42 Hypomagnesemia (principal); R20.8 Other disturbances of skin sensation; F41.8 Other specified anxiety disorders; I10 Essential (primary) hypertension; E07.9 Disorder of thyroid, unspecified; E11.9 Type 2 diabetes mellitus without complications; K21.9 Gastro-esophageal reflux disease without esophagitis; Z79.82 Long term (current) use of aspirin; Z79.4 Long term (current) use of insulin; Z79.899 Other long term (current) drug therapy; Z82.49 Family history of ischemic heart disease and other diseases of the circulatory system
CPT/HCPCS: 36415; 36416; 71020; 72040; 81001; 81025; 82550; 82553; 82607; 82948; 83735; 83880; 84443; 84484; J1885; J3420; J3475; J7030

== ENCOUNTER 2017-05-08 21:44 | Emergency (ER) | payer OTHER ==
[2017-05-08] MEDS ORDERED: SODIUM CHLORIDE 0.9% 1000ML 1,000 ML IVS ONE (22:13)
[2017-05-08] MEDS ORDERED: PANTOPRAZOLE INJECTION 80 MG in SODIUM CHLORIDE 0.9% 100ML 80 ML IVPB ONE (22:14)
--- NOTE | 2017-05-08 22:18 | ED.PDOC ---
History of Present Illness - General Chief Complaint: Diabetic Complaint Stated Complaint: elevated blood sugar, and bloody stools Time Seen by Provider: 05/08/17 22:12 Source: patient Exam Limitations: no limitations - History of Present Illness Initial Comments: Gabby Morgan 37 y/o female stated that her blood sugar is elevated despite avoiding sugary foods the last 2 days also had blood in her stools today.No hematemesis. Timing/Duration: 4-6 hours Severity: moderate Improving Factors: nothing Worsening Factors: nothing Associated Symptoms: denies symptoms Allergies/Adverse Reactions: Allergies NO KNOWN ALLERGY Allergy (Verified 05/08/17 22:12) Home Medications: Ambulatory Orders Atenolol 100 mg PO DAILY 02/05/13 Gabapentin [Neurontin] 600 mg PO TID 02/05/13 Insulin Aspart [Novolog] 0 unit SC QID PRN 06/14/14 Aspirin [Aspirin EC] 81 mg PO DAILY 11/16/15 Atorvastatin Calcium [Lipitor] 80 mg PO .QEVENING 11/16/15 Escitalopram [Lexapro] 15 mg PO DAILY 11/16/15 Isosorbide Mononitrate [Isosorbide Mononitrate ER] 60 mg PO BID 11/16/15 Exenatide [Bydureon] 2 mg SC WKLY 02/22/16 Lisinopril 10 mg PO DAILY 02/22/16 Clopidogrel Bisulfate [Plavix] 75 mg PO DAILY #0 10/09/16 Pantoprazole Tablet [Protonix] 40 mg PO QAM 11/11/16 Insulin Aspart [Novolog] 7 unit SC ACHS 11/12/16 Sucralfate Tab [Carafate Tab] 1 gm PO QID #120 tab 11/12/16 Insulin Detemir [Levemir] 65 unit SUBCU BID 12/04/16 Gabapentin 600 mg PO TID #90 tab 04/29/17 Review of Systems - Review of Systems Constitutional: States: no symptoms reported EENTM: States: no symptoms reported Respiratory: States: no symptoms reported Cardiology: States: no symptoms reported Gastrointestinal/Abdominal: States: see HPI Genitourinary: States: no symptoms reported Musculoskeletal: States: no symptoms reported Skin: States: no symptoms reported Neurological: States: no symptoms reported Endocrine: States: see HPI Past Medical History (General) - Patient Medical History Hx Seizures: No Hx Stroke: No Hx Dementia: No Hx Asthma: No Hx of COPD: No Hx Cardiac Disorders: Yes Hx Congestive Heart Failure: No Hx Pacemaker: No Hx Hypertension: Yes Hx Thyroid Disease: Yes Hx Diabetes: Yes Hx Gastroesophageal Reflux: Yes Hx Renal Disease: No Hx Cancer: No Hx of HIV: No Hx Hepatitis C: No Hx MRSA: No MRSA Source:: Wound Surgical History: other - Vaccination History Hx Tetanus, Diphtheria Vaccination: Yes Hx Influenza Vaccination: No Hx Pneumococcal Vaccination: No - Social History Hx Tobacco Use: No Hx Chewing Tobacco Use: No Hx Alcohol Use: No Hx Substance Use: No Hx Substance Use Treatment: No Hx Depression: Yes Hx Physical Abuse: No Hx Emotional Abuse: No Hx Suspected Abuse: No - Female History Patient : No Family Medical History - Family History Mother Family History: Unknown Living Status: Still Living Hx Family Asthma: No Hx Family Congestive Heart Failure: Yes - Father Hx Family Hypertension: Yes Hx Family Stroke: No Hx Cardiac Disease: Yes Hx Family Diabetes: Yes Hx Family Cancer: No Physical Exam - Physical Exam General Appearance: Alert, No apparent distress Eye Exam: bilateral normal Ears, Nose, Throat: hearing grossly normal, normal ENT inspection Neck: non-tender, full range of motion, supple Respiratory: chest non-tender, lungs clear, normal breath sounds Cardiovascular/Chest: normal peripheral pulses, regular rate, rhythm, no murmur Peripheral Pulses: radial,right: 1+, radial,left: 1+, dorsalis pedis,right: 1+, dorsalis pedis,left: 1+ Gastrointestinal/Abdominal: normal bowel sounds, non tender, soft, no organomegaly Rectal Exam: normal rectal tone Back Exam: no CVA tenderness Extremity: normal range of motion Neurologic: no motor/sensory deficits, alert, normal mood/affect, oriented x 3 Progress - Results/Orders Results/Orders: Explained to her labs were all within normal limits and no blood in stool patient started crying Departure - Departure Clinical Impression: Poorly controlled type 2 diabetes mellitus, Non-compliance with treatment Time of Disposition: 23:38 Disposition: Discharge to Home or Self Care Condition: Fair Departure Forms: ED Discharge - Pt. Copy, Patient Portal Self Enrollment Instructions: Exercising Caution When You Have Diabetes, Complications of Type 2 Diabetes, Complications of Diabetes (Alternative Therapy), Diabetes, General ( Alternative Therapy), Type 2 Diabetes Referrals: [place],Sandra, MANAGER OF [employer] [Primary Care Provider] - 1-2 Weeks Home Medications: Ambulatory Orders Atenolol 100 mg PO DAILY 02/05/13 Gabapentin [Neurontin] 600 mg PO TID 02/05/13 Insulin Aspart [Novolog] 0 unit SC QID PRN 06/14/14 Aspirin [Aspirin EC] 81 mg PO DAILY 11/16/15 Atorvastatin Calcium [Lipitor] 80 mg PO .QEVENING 11/16/15 Escitalopram [Lexapro] 15 mg PO DAILY 11/16/15 Isosorbide Mononitrate [Isosorbide Mononitrate ER] 60 mg PO BID 11/16/15 Exenatide [Bydureon] 2 mg SC WKLY 02/22/16 Lisinopril 10 mg PO DAILY 02/22/16 Clopidogrel Bisulfate [Plavix] 75 mg PO DAILY #0 10/09/16 Pantoprazole Tablet [Protonix] 40 mg PO QAM 11/11/16 Insulin Aspart [Novolog] 7 unit SC ACHS 11/12/16 Sucralfate Tab [Carafate Tab] 1 gm PO QID #120 tab 11/12/16 Insulin Detemir [Levemir] 65 unit SUBCU BID 12/04/16 Gabapentin 600 mg PO TID #90 tab 04/29/17 Additional Instructions: CONTINUE WITH ALL HOME MEDICATIONS;KEEP APPOINTMENT WITH PRIMARY MD 05/13/2017
[2017-05-08] MEDS ORDERED: PANTOPRAZOLE SODIUM IV 40 MG VIAL ONE (22:27)
[2017-05-08] MEDS ORDERED: SODIUM CHLORIDE 0.9% 100ML 100 ML IVPB ONE (22:27)
[2017-05-08 23:45] VITALS: TEMP 98; O2SAT 96
[2017-05-09 00:22] VITALS: BP 112/63
== END 2017-05-08 23:45 | disposition home or self-care (01) ==
LOC: ER 21:44
DX: E11.65 Type 2 diabetes mellitus with hyperglycemia (principal); I10 Essential (primary) hypertension; E07.9 Disorder of thyroid, unspecified; Z91.19 Patient's noncompliance with other medical treatment and regimen; Z79.4 Long term (current) use of insulin; Z79.82 Long term (current) use of aspirin; Z79.02 Long term (current) use of antithrombotics/antiplatelets; Z79.899 Other long term (current) drug therapy
CPT/HCPCS: 36415; 80053; 81001; 82270; 85025; J7030; J7050

== ENCOUNTER 2017-05-12 16:39 | Emergency (ER) | payer OTHER ==
--- NOTE | 2017-05-12 17:09 | ED.PDOC ---
History of Present Illness - General Chief Complaint: Chest Pain/DE Stated Complaint: Chest pain & L sided numbness Time Seen by Provider: 05/12/17 16:43 Source: patient, RN notes reviewed, Vital Signs reviewed, old records Exam Limitations: no limitations - History of Present Illness Initial Comments: Patient comes to ER via EMS with c/o chest pain and numbness. She comes to the ER frequently and this is her 4th visit here this month with similar complaints. She was also seen by Cardiology and Neurology @ [facility] where she was admitted on 04/25/17. She had a negative cardiac workup and normal MRI at that time. She reports today she walked next door to her mother-in -laws to sit on the back porch. While sitting she developed paresthesias in her right hand, chest pain and L sided numbness. Reports this episode is different because the chest pain is more severe, the right hand numbness and the L sided numbness is "different" but can't really clairify how it is different. She has appt with her PCP scheduled for tomorrow. She also mentions she checked her blood sugar at home and got a reading of >600 but when EMS checked it her BS was 382. Timing/Duration: 1-3 hours Severity/Quality: severe, pressure Location: substernal Chest Pain Radiation: arms Activities at Onset: rest Prior Chest Pain/Cardiac Workup: angina, echocardiography, heart attack Improving Factors: nothing Worsening Factors: nothing Nitro Today/Relief: no nitro taken today Aspirin Treatment Today: 325 mg x 1, provided at home Allergies/Adverse Reactions: Allergies NO KNOWN ALLERGY Allergy (Verified 05/08/17 22:12) Home Medications: Ambulatory Orders Atenolol 100 mg PO DAILY 02/05/13 Gabapentin [Neurontin] 600 mg PO TID 02/05/13 Aspirin [Aspirin EC] 81 mg PO DAILY 11/16/15 Atorvastatin Calcium [Lipitor] 40 mg PO BEDTIME 11/16/15 Isosorbide Mononitrate [Isosorbide Mononitrate ER] 30 mg PO DAILY 11/16/15 Lisinopril 10 mg PO DAILY 02/22/16 Clopidogrel Bisulfate [Plavix] 75 mg PO DAILY #0 10/09/16 Pantoprazole Tablet [Protonix] 20 mg PO QAM 11/11/16 Insulin Detemir [Levemir] 65 unit SUBCU BID 12/04/16 Azithromycin [Zithromax Z-Robson] 1 ea PO DAILY #1 pack 05/12/17 Insulin Lispro [HumaLOG] 2 - 10 unit SUBCU ACHS PRN 05/12/17 Ranolazine [Ranexa] 500 mg PO BID 05/12/17 Review of Systems - Review of Systems Constitutional: Denies: chills, fever, malaise, weakness Respiratory: States: short of breath. Denies: cough, stridor, wheezing Cardiology: States: chest pain. Denies: palpitations, syncope Gastrointestinal/Abdominal: States: no symptoms reported Musculoskeletal: States: no symptoms reported Skin: States: no symptoms reported Neurological: States: numbness, paresthesia, pre-existing deficit - She ggives hx of paresthesia, weakness - L arm and leg All other Systems: No Change from Baseline Past Medical History (General) - Patient Medical History Hx Seizures: No Hx Stroke: No Hx Dementia: No Hx Asthma: No Hx of COPD: No Hx Cardiac Disorders: Yes Hx Congestive Heart Failure: No Hx Pacemaker: No Hx Hypertension: Yes Hx Thyroid Disease: Yes Hx Diabetes: Yes Hx Gastroesophageal Reflux: Yes Hx Renal Disease: No Hx Cancer: No Hx of HIV: No Hx Hepatitis C: No Hx MRSA: No MRSA Source:: Wound - Vaccination History Hx Tetanus, Diphtheria Vaccination: Yes Hx Influenza Vaccination: No Hx Pneumococcal Vaccination: No - Social History Hx Tobacco Use: No Hx Chewing Tobacco Use: No Hx Alcohol Use: No Hx Substance Use: No Hx Substance Use Treatment: No Hx Depression: Yes Hx Physical Abuse: No Hx Emotional Abuse: No Hx Suspected Abuse: No - Female History Patient : No Family Medical History - Family History Mother Family History: Unknown Living Status: Still Living Hx Family Asthma: No Hx Family Congestive Heart Failure: Yes - Father Hx Family Hypertension: Yes Hx Family Stroke: No Hx Cardiac Disease: Yes Hx Family Diabetes: Yes Hx Family Cancer: No Physical Exam - Physical Exam General Appearance: Alert, Comfortable, No apparent distress, Unkempt, Well Developed, Well Hydrated, Well Nourished Neck: normal inspection Respiratory: lungs clear, normal breath sounds, no respiratory distress, no accessory muscle use Cardiovascular/Chest: regular rate, rhythm, no gallop, no JVD, no murmur Extremity: normal range of motion, non-tender, normal inspection, no pedal edema Neurologic: alert, normal mood/affect, oriented x 3, other - Strength 5/5 bilateral arms - R leg 5/5, L leg 4/5 (? if just malingering by patient). Gave appearence of pronatorr drift but equal strength in arms Skin Exam: normal color, warm/dry Progress - Progress Progress: 05/12/17 17:27 Patient sleeping. Had to call her name 3 times and shake her twice to get her to wake up. Once awake she requested something for pain. Will give toradol. Also advised her that her blood sugar is 395 and will be giving her Reg Insulin 15U SQ 05/12/17 20:47 After sleeping for most of the time here she is now crying. Advised of normal cardiac workup. Blood sugar improved to 289. CXR does show a RLL pneumonia so will give Zithromax here and d/c home with Rx for rest of treatment. - Results/Orders Results/Orders: Laboratory Tests 05/12/17 05/12/17 05/12/17 17:01 17:01 18:54 WBC 9.5 RBC 4.66 Hgb 12.0 Hct 36.8 MCV 79.0 L MCH 25.8 L MCHC 32.6 L RDW 17.2 H Plt Count 414 H MPV 8.7 Absolute Neuts (auto) 6.00 Absolute Lymphs (auto) 2.60 Absolute Monos (auto) 0.70 Absolute Eos (auto) 0.20 Absolute Basos (auto) 0.10 Neutrophils % 62.8 Lymphocytes % 27.2 Monocytes % 7.1 Eosinophils % 2.2 Basophils % 0.7 Sodium 132 L Potassium 5.7 H Chloride 96 L Carbon Dioxide 24 Anion Gap 17.7 BUN 17 Creatinine 0.81 BUN/Creatinine Ratio 21.0 H POC Glucose 320 H Random Glucose 395 H Serum Osmolality 282.5 Calcium 9.1 Total Bilirubin 0.8 AST 26 ALT 30 Alkaline Phosphatase 85 Creatine Kinase 55 CK-MB (CK-2) 1.3 CK-MB (CK-2) % Not Reportable Troponin I < 0.02 Serum Total Protein 7.7 Albumin 4.1 Globulin 3.6 H Albumin/Globulin Ratio 1.1 05/12/17 19:57 WBC RBC Hgb Hct MCV MCH MCHC RDW Plt Count MPV Absolute Neuts (auto) Absolute Lymphs (auto) Absolute Monos (auto) Absolute Eos (auto) Absolute Basos (auto) Neutrophils % Lymphocytes % Monocytes % Eosinophils % Basophils % Sodium 139 Potassium 4.5 Chloride 101 Carbon Dioxide 29 Anion Gap 13.5 BUN 19 H Creatinine 0.89 BUN/Creatinine Ratio 21.3 H POC Glucose Random Glucose 289 H Serum Osmolality 290.4 Calcium 9.0 Total Bilirubin AST ALT Alkaline Phosphatase Creatine Kinase 44 CK-MB (CK-2) 1.0 CK-MB (CK-2) % Not Reportable Troponin I < 0.02 Serum Total Protein Albumin Globulin Albumin/Globulin Ratio - EKG/XRAY/CT EKG: Sinus, nonspecific ST T wave Chg, Unchanged from - 04/29/17 XRAY: chest - RLL infiltrate CT Ordered: Yes - Head:No acute intracranial abnormality per Radiologist Departure - Departure Clinical Impression: Chest pain, atypical, Medical non-compliance, Paresthesia RLL pneumonia Qualifiers: Pneumonia type: due to unspecified organism Qualified Code(s): J18.1 - Lobar pneumonia, unspecified organism Hyperglycemia due to type 2 diabetes mellitus Qualifiers: Diabetes mellitus manager long term care insulin use: with senior care use Qualified Code(s): E11.65 - Type 2 diabetes mellitus with hyperglycemia; Z79.4 - MCC (current ) use of insulin Time of Disposition: 21:16 Disposition: Discharge to Home or Self Care Condition: Fair Departure Forms: ED Discharge - Pt. Copy, Patient Portal Self Enrollment Instructions: DI for Pneumonia -- Adult Diet: resume usual diet Activity: increase activity as tolerated Referrals: Sandra Aponte NP [Primary Care Provider] - 1-2 Weeks Prescriptions: Azithromycin [Zithromax Z-Robson] 1 ea PO DAILY #1 pack Home Medications: Ambulatory Orders Atenolol 100 mg PO DAILY 02/05/13 Gabapentin [Neurontin] 600 mg PO TID 02/05/13 Aspirin [Aspirin EC] 81 mg PO DAILY 11/16/15 Atorvastatin Calcium [Lipitor] 40 mg PO BEDTIME 11/16/15 Isosorbide Mononitrate [Isosorbide Mononitrate ER] 30 mg PO DAILY 11/16/15 Lisinopril 10 mg PO DAILY 02/22/16 Clopidogrel Bisulfate [Plavix] 75 mg PO DAILY #0 10/09/16 Pantoprazole Tablet [Protonix] 20 mg PO QAM 11/11/16 Insulin Detemir [Levemir] 65 unit SUBCU BID 12/04/16 Azithromycin [Zithromax Z-Robson] 1 ea PO DAILY #1 pack 05/12/17 Insulin Lispro [HumaLOG] 2 - 10 unit SUBCU ACHS PRN 05/12/17 Ranolazine [Ranexa] 500 mg PO BID 05/12/17
[2017-05-12 17:10] VITALS: TEMP 98.9
[2017-05-12] MEDS ORDERED: INSULIN, REG.(HUMAN) 100 U/ML VIAL SUBCU ONE (17:24)
[2017-05-12] MEDS ORDERED: KETOROLAC TROMETHAMINE INJ 30 MG/ML VIAL IV ONE (17:26)
--- NOTE | 2017-05-12 17:55 | CT ---
PROCEDURE: Head CLINICAL HISTORY: 37 years Female L sided numbness weakness COMPARISON: 11/20/2016 TECHNIQUE: Contiguous axial CT images obtained through the brain without IV contrast. This exam was performed according to our department optimization program which includes automated exposure control, adjustment of the mA and/or kv according to patient size and/or use of iterative reconstruction technique. FINDINGS: The ventricles and sulci are within normal limits for the patient's age. No midline shift or mass effect. No masses identified. No acute intracranial hemorrhage. 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 This appears stable. Encephalomalacia in the right centrum semiovale. Mild periventricular white matter disease and microvascular ischemic change. Areas of diminished attenuation in the left frontal white matter and in the right lentiform nuclei suggesting small vessel disease. This was present on the previous examination. Possibility of demyelinating disease is not excluded. No fluid or significant mucosal thickening in the visualized paranasal sinuses. No depressed calvarial fractures. IMPRESSION: No acute intracranial abnormality is identified. Early infarcts are not always visualized with CT. If there is clinical concern for the possibility of acute ischemic change, MRI could be obtained to better evaluate. Occipital craniectomy with shunt in the fourth ventricle Areas of diminished attenuation bilaterally which likely reflect small vessel disease. Possibility of demyelinating disease is not excluded Electronically signed by: Amelia Keenan 05/12/2017 5:53 PM CDT
--- NOTE | 2017-05-12 18:03 | RAD ---
EXAM DESCRIPTION: Chest,1 View CLINICAL HISTORY: 37 years Female Chest pain COMPARISON: None. FINDINGS: Stable heart size. Left lung appears clear. Infiltrate suggested in the right lung base concerning for pneumonia. No pneumothorax or pleural fluid. IMPRESSION: Findings concerning for right lower lobe pneumonia Electronically signed by: Amelia Keenan 05/12/2017 6:02 PM CDT
[2017-05-12 19:38] VITALS: O2SAT 96
[2017-05-12] MEDS ORDERED: AZITHROMYCIN 250 MG TAB PO ONE (20:46)
[2017-05-12] MEDS ORDERED: ACETAMINOPHEN W/COD #3 TAB 1 EA TAB PO ONE (21:14)
[2017-05-12 21:29] VITALS: BP 117/64
== END 2017-05-12 21:30 | disposition home or self-care (01) ==
LOC: ER 16:39
DX: J18.1 Lobar pneumonia, unspecified organism (principal); R07.89 Other chest pain; E11.65 Type 2 diabetes mellitus with hyperglycemia; R20.9 Unspecified disturbances of skin sensation; I10 Essential (primary) hypertension; E07.9 Disorder of thyroid, unspecified; Z79.4 Long term (current) use of insulin; Z91.19 Patient's noncompliance with other medical treatment and regimen; Z79.82 Long term (current) use of aspirin; Z79.899 Other long term (current) drug therapy
CPT/HCPCS: 36415; 36416; 70450; 71010; 80048; 80053; 82550; 82553; 82948; 84484; 85025; 93005; J1885; Q0144

== ENCOUNTER 2017-05-13 16:27 | Emergency (ER) | payer OTHER ==
[2017-05-13] MEDS ORDERED: LACTATED RINGERS 1,000 ML IVS ONE (16:44)
--- NOTE | 2017-05-13 17:24 | RAD ---
EXAM: Chest,2 Views CLINICAL INDICATION: 37-year-old female with cough. TECHNIQUE: Two-view, PA and lateral projections of the chest were obtained. COMPARISON: 05/12/2017, 04/29/2017. FINDINGS: Stable cardiac and mediastinal silhouette. Heart size is normal. Low lung volumes grossly clear without focal opacity, pneumothorax or pleural effusions. The visualized bones reveal degenerative change. IMPRESSION: No acute cardiopulmonary abnormalities. Electronically signed by: Fiona Arredondo MD 05/13/2017 5:23 PM CDT Workstation: [id number]
[2017-05-13] MEDS ORDERED: INSULIN, REG.(HUMAN) 100 U/ML VIAL SUBCU ONE (17:30)
[2017-05-13] MEDS ORDERED: INSULIN, REG.(HUMAN) 100 U/ML VIAL IV ONE (17:34)
--- NOTE | 2017-05-13 17:39 | ED.PDOC ---
History of Present Illness - General Chief Complaint: Chest Pain/[place] Stated Complaint: CHEST PAIN Time Seen by Provider: 05/13/17 16:39 Source: patient Exam Limitations: no limitations - History of Present Illness Initial Comments: Gabby Morgan 37 y/o female with multiple er visits here as well as in [place] and one time admit at [facility] as well as recent visit here last night came back here because of sob and pain on breathing diagnosed with pneumonia rll and was prescibed antibiotics Timing/Duration: 24 hours Severity: moderate Improving Factors: nothing Worsening Factors: nothing Associated Symptoms: chest pain, shortness of breath Allergies/Adverse Reactions: Allergies NO KNOWN ALLERGY Allergy (Verified 05/08/17 22:12) Home Medications: Ambulatory Orders Atenolol 100 mg PO DAILY 02/05/13 Gabapentin [Neurontin] 600 mg PO TID 02/05/13 Aspirin [Aspirin EC] 81 mg PO DAILY 11/16/15 Atorvastatin Calcium [Lipitor] 40 mg PO BEDTIME 11/16/15 Isosorbide Mononitrate [Isosorbide Mononitrate ER] 30 mg PO DAILY 11/16/15 Lisinopril 10 mg PO DAILY 02/22/16 Clopidogrel Bisulfate [Plavix] 75 mg PO DAILY #0 10/09/16 Pantoprazole Tablet [Protonix] 20 mg PO QAM 11/11/16 Insulin Detemir [Levemir] 65 unit SUBCU BID 12/04/16 Azithromycin [Zithromax Z-Robson] 1 ea PO DAILY #1 pack 05/12/17 Insulin Lispro [HumaLOG] 2 - 10 unit SUBCU ACHS PRN 05/12/17 Ranolazine [Ranexa] 500 mg PO BID 05/12/17 Review of Systems - Review of Systems Constitutional: States: no symptoms reported EENTM: States: no symptoms reported Respiratory: States: see HPI Cardiology: States: see HPI Gastrointestinal/Abdominal: States: no symptoms reported Genitourinary: States: no symptoms reported Musculoskeletal: States: no symptoms reported Skin: States: no symptoms reported Endocrine: States: no symptoms reported Hematologic/Lymphatic: States: no symptoms reported Past Medical History (General) - Patient Medical History Hx Seizures: No Hx Stroke: No Hx Dementia: No Hx Asthma: No Hx of COPD: No Hx Cardiac Disorders: Yes Hx Congestive Heart Failure: No Hx Pacemaker: No Hx Hypertension: Yes Hx Thyroid Disease: Yes Hx Diabetes: Yes Hx Gastroesophageal Reflux: Yes Hx Renal Disease: No Hx Cancer: No Hx of HIV: No Hx Hepatitis C: No Hx MRSA: No MRSA Source:: Wound Surgical History: other - hysterectomy,cardiac stents Other Surgeries:: cardiac stent February 2016 and one done in [place] - Vaccination History Hx Tetanus, Diphtheria Vaccination: Yes Hx Influenza Vaccination: No Hx Pneumococcal Vaccination: No - Social History Hx Tobacco Use: No Hx Chewing Tobacco Use: No Hx Alcohol Use: No Hx Substance Use: No Hx Substance Use Treatment: No Hx Depression: Yes Hx Physical Abuse: No Hx Emotional Abuse: No Hx Suspected Abuse: No - Female History Patient : No Family Medical History - Family History Mother Family History: Unknown Living Status: Still Living Hx Family Asthma: No Hx Family Congestive Heart Failure: Yes - Father Hx Family Hypertension: Yes Hx Family Stroke: No Hx Cardiac Disease: Yes Hx Family Diabetes: Yes Hx Family Cancer: No Physical Exam - Physical Exam General Appearance: Alert, No apparent distress Eye Exam: bilateral normal Ears, Nose, Throat: hearing grossly normal, normal ENT inspection, normal pharynx Neck: non-tender, full range of motion, supple Respiratory: chest non-tender, lungs clear, normal breath sounds Cardiovascular/Chest: normal peripheral pulses, regular rate, rhythm, no edema, no murmur Peripheral Pulses: radial,right: 1+, radial,left: 1+ Gastrointestinal/Abdominal: normal bowel sounds, non tender, soft Back Exam: normal inspection, no CVA tenderness, no vertebral tenderness Extremity: normal range of motion, non-tender, no pedal edema, no calf tenderness Neurologic: no motor/sensory deficits, alert, oriented x 3 Skin Exam: normal color, warm/dry Lymphatic: no adenopathy Progress - Progress Progress: 05/13/17 18:04 Vital Signs - 8 hr 05/13/17 05/13/17 16:32 16:35 Temperature 98.8 F Pulse Rate [ 101 H 101 H left brachial] Respiratory 20 24 Rate Blood Pressure 146/91 [left brachial] O2 Sat by Pulse 95 Oximetry - Results/Orders Results/Orders: Laboratory Tests 05/13/17 05/13/17 05/13/17 16:50 16:50 16:50 WBC 6.6 RBC 4.40 Hgb 11.3 L Hct 35.4 L MCV 80.3 L MCH 25.6 L MCHC 31.9 L RDW 16.9 H Plt Count 298 MPV 7.9 Absolute Neuts (auto) 4.40 Absolute Lymphs (auto) 1.50 Absolute Monos (auto) 0.50 Absolute Eos (auto) 0.10 Absolute Basos (auto) 0.00 Neutrophils % 66.3 Lymphocytes % 23.4 Monocytes % 7.8 Eosinophils % 1.9 Basophils % 0.6 Sodium 135 Potassium 4.2 Chloride 99 L Carbon Dioxide 23 Anion Gap 17.2 BUN 17 Creatinine 1.03 BUN/Creatinine Ratio 16.5 POC Glucose Random Glucose 521 H* Serum Osmolality 295.7 H Calcium 9.2 Total Bilirubin 0.5 AST 24 ALT 29 Alkaline Phosphatase 83 Troponin I 0.08 H* Serum Total Protein 7.3 Albumin 4.3 Globulin 3.0 Albumin/Globulin Ratio 1.4 Urine Color Urine Appearance Urine pH Ur Specific [place] Urine Protein Urine Glucose (UA) Urine Ketones Urine Blood Urine Nitrite Urine Bilirubin Urine Urobilinogen Ur Leukocyte Esterase Urine RBC Urine WBC Ur Epithelial Cells Amorphous Sediment Urine Bacteria Urine Opiates Screen Urine Barbiturates Ur Phencyclidine Scrn U Amphetamin/Meth Scrn U Benzodiazepines Scrn U Cocaine Metab Screen U Cannabinoids Screen 05/13/17 05/13/17 05/13/17 17:57 17:57 18:51 WBC RBC Hgb Hct MCV MCH MCHC RDW Plt Count MPV Absolute Neuts (auto) Absolute Lymphs (auto) Absolute Monos (auto) Absolute Eos (auto) Absolute Basos (auto) Neutrophils % Lymphocytes % Monocytes % Eosinophils % Basophils % Sodium Potassium Chloride Carbon Dioxide Anion Gap BUN Creatinine BUN/Creatinine Ratio POC Glucose Random Glucose Serum Osmolality Calcium Total Bilirubin AST ALT Alkaline Phosphatase Troponin I 0.15 H* Serum Total Protein Albumin Globulin Albumin/Globulin Ratio Urine Color Yellow Urine Appearance Clear Urine pH 5.5 Ur Specific [place] 1.015 Urine Protein Negative Urine Glucose (UA) 500 H Urine Ketones Negative Urine Blood Negative Urine Nitrite Negative Urine Bilirubin Negative Urine Urobilinogen 0.2 Ur Leukocyte Esterase Negative Urine RBC 0 Urine WBC 0 Ur Epithelial Cells 1-3 Amorphous Sediment 1+ Urine Bacteria 0 Urine Opiates Screen Negative Urine Barbiturates Negative Ur Phencyclidine Scrn Negative U Amphetamin/Meth Scrn Negative U Benzodiazepines Scrn Negative U Cocaine Metab Screen Negative U Cannabinoids Screen Negative 05/13/17 19:37 WBC RBC Hgb Hct MCV MCH MCHC RDW Plt Count MPV Absolute Neuts (auto) Absolute Lymphs (auto) Absolute Monos (auto) Absolute Eos (auto) Absolute Basos (auto) Neutrophils % Lymphocytes % Monocytes % Eosinophils % Basophils % Sodium Potassium Chloride Carbon Dioxide Anion Gap BUN Creatinine BUN/Creatinine Ratio POC Glucose 303 H Random Glucose Serum Osmolality Calcium Total Bilirubin AST ALT Alkaline Phosphatase Troponin I Serum Total Protein Albumin Globulin Albumin/Globulin Ratio Urine Color Urine Appearance Urine pH Ur Specific [place] Urine Protein Urine Glucose (UA) Urine Ketones Urine Blood Urine Nitrite Urine Bilirubin Urine Urobilinogen Ur Leukocyte Esterase Urine RBC Urine WBC Ur Epithelial Cells Amorphous Sediment Urine Bacteria Urine Opiates Screen Urine Barbiturates Ur Phencyclidine Scrn U Amphetamin/Meth Scrn U Benzodiazepines Scrn U Cocaine Metab Screen U Cannabinoids Screen - EKG/XRAY/CT EKG: Sinus, nonspecific ST T wave Chg, Unchanged from - 01/14/2017 Comments: heart rate 97 XRAY: chest - no acute cardiopulmonary abnormalities /radiologist Departure - Departure Clinical Impression: Non-ST elevation WA (NSTEMI), Poorly controlled diabetes mellitus Chest pain Qualifiers: Chest pain type: chest pain due to myocardial ischemia Ischemic chest pain type : unstable angina pectoris Qualified Code(s): I20.0 - Unstable angina Time of Disposition: 20:26 Disposition: Transfer to Hospital Condition: Fair Departure Forms: Patient Portal Self Enrollment Referrals: Sandra Aponte NP [Primary Care Provider] - 1-2 Weeks Home Medications: Ambulatory Orders Atenolol 100 mg PO DAILY 02/05/13 Gabapentin [Neurontin] 600 mg PO TID 02/05/13 Aspirin [Aspirin EC] 81 mg PO DAILY 11/16/15 Atorvastatin Calcium [Lipitor] 40 mg PO BEDTIME 11/16/15 Isosorbide Mononitrate [Isosorbide Mononitrate ER] 30 mg PO DAILY 11/16/15 Lisinopril 10 mg PO DAILY 02/22/16 Clopidogrel Bisulfate [Plavix] 75 mg PO DAILY #0 10/09/16 Pantoprazole Tablet [Protonix] 20 mg PO QAM 11/11/16 Insulin Detemir [Levemir] 65 unit SUBCU BID 12/04/16 Azithromycin [Zithromax Z-Robson] 1 ea PO DAILY #1 pack 05/12/17 Insulin Lispro [HumaLOG] 2 - 10 unit SUBCU ACHS PRN 05/12/17 Ranolazine [Ranexa] 500 mg PO BID 05/12/17 Transfer to Outside Facility - Transfer Information Accepting Provider:: Dr. 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
[2017-05-13 18:36] VITALS: TEMP 98.3
[2017-05-13] MEDS ORDERED: SODIUM CHLORIDE 0.9% 1000ML 1,000 ML IVS PRN (19:29)
[2017-05-13] MEDS ORDERED: NITROGLYCERIN/D5W IV 50,000 MCG in PREMIX BOTTLE 1 BOTTLE IVS SCH (19:30)
[2017-05-13] MEDS ORDERED: NITROGLYCERIN/D5W IV 250 ML IVS ONE (19:30)
[2017-05-13] MEDS ORDERED: CLOPIDOGREL 75 MG TAB PO ONE (19:33)
[2017-05-13] MEDS ORDERED: ENOXAPARIN SODIUM 100 MG/ML SYG SUBCU ONE (19:56)
[2017-05-13 21:05] VITALS: BP 154/85; O2SAT 99
== END 2017-05-13 21:05 | disposition short-term general hospital (02) ==
LOC: ER 16:27
DX: I21.4 Non-ST elevation (NSTEMI) myocardial infarction (principal); I20.0 Unstable angina; E11.65 Type 2 diabetes mellitus with hyperglycemia; I10 Essential (primary) hypertension; E07.9 Disorder of thyroid, unspecified; K21.9 Gastro-esophageal reflux disease without esophagitis; Z79.4 Long term (current) use of insulin; Z98.61 Coronary angioplasty status; Z79.02 Long term (current) use of antithrombotics/antiplatelets
CPT/HCPCS: 36415; 36416; 71020; 80053; 80307; 81001; 82948; 84484; 85025; 93005; J1650; J7030; J7120

== ENCOUNTER 2017-05-19 20:38 | Emergency (ER) | payer OTHER ==
[2017-05-19] MEDS ORDERED: NITROGLYCERIN 0.4 MG 25 EA TAB SL ONE (20:56)
[2017-05-19] MEDS ORDERED: ASPIRIN TABLET 325 MG TAB PO ONE (20:56)
[2017-05-19] MEDS ORDERED: SODIUM CHLORIDE 0.9% (FLUSH) 10 ML SYG IV PRN (20:56)
--- NOTE | 2017-05-19 20:56 | ED.PDOC ---
History of Present Illness - General Chief Complaint: Chest Pain/VT Stated Complaint: CP, left side weakness Time Seen by Provider: 05/19/17 20:47 Source: patient Exam Limitations: no limitations - History of Present Illness Initial Comments: Gabby Morgan 37 y/o female with mulltiple hospital visits for chest pain symptoms and history of cardiac stents (KATHE)-RCA,LAD-KATHE;angioplasty first diagonal artery;03/28/16-KATHE distal LAD;08/29/2016-angioplasty to LAD artery;09/29-PTCA distal LAD artery,PDA 2.5 x 22 mm resolute KATHE;-09/24/2016Nuclear stress Test-fixed perfusion defect involving apex and lateral wall;normal EF;2016-medium sized perfusion defect involving apex;no areas of ischemia;EF-74 % Timing/Duration: 4-6 hours Severity: moderate Location: central Activities at Onset: rest Prior Chest Pain/Cardiac Workup: cardiac cath, echocardiography, heart attack - 05/13/2017-nstemi sent to [facility]- Nitro Today/Relief: 0.4 mg x 1 Aspirin Treatment Today: 325 mg x 1 Associated Symptoms: weakness - left side Allergies/Adverse Reactions: Allergies NO KNOWN ALLERGY Allergy (Verified 05/08/17 22:12) Home Medications: Ambulatory Orders Atenolol 100 mg PO DAILY 02/05/13 Gabapentin [Neurontin] 600 mg PO TID 02/05/13 Aspirin [Aspirin EC] 81 mg PO DAILY 11/16/15 Atorvastatin Calcium [Lipitor] 40 mg PO BEDTIME 11/16/15 Isosorbide Mononitrate [Isosorbide Mononitrate ER] 30 mg PO DAILY 11/16/15 Lisinopril 10 mg PO DAILY 02/22/16 Clopidogrel Bisulfate [Plavix] 75 mg PO DAILY #0 10/09/16 Pantoprazole Tablet [Protonix] 20 mg PO QAM 11/11/16 Insulin Detemir [Levemir] 65 unit SUBCU BID 12/04/16 Azithromycin [Zithromax Z-Robson] 1 ea PO DAILY #1 pack 05/12/17 Insulin Lispro [HumaLOG] 2 - 10 unit SUBCU ACHS PRN 05/12/17 Ranolazine [Ranexa] 500 mg PO BID 05/12/17 Nitroglycerin Patch 0.4 mg/Hr [Nitro-Dur PATCH 0.4 mg/hour] 0.4 mg TOP QD #30 patch 05/20/17 Review of Systems - Review of Systems Constitutional: States: no symptoms reported EENTM: States: no symptoms reported Respiratory: States: no symptoms reported Cardiology: States: see HPI Gastrointestinal/Abdominal: States: no symptoms reported Genitourinary: States: no symptoms reported Musculoskeletal: States: no symptoms reported Skin: States: no symptoms reported Neurological: States: see HPI, weakness - left side;Had previous complaint in the past sent to [facility] -Brain MRI no acute changes noted was sent home after 36 hour hospitalization Endocrine: States: see HPI Hematologic/Lymphatic: States: see HPI Past Medical History (General) - Patient Medical History Hx Seizures: No Hx Stroke: No Hx Dementia: No Hx Asthma: No Hx of COPD: No Hx Cardiac Disorders: Yes Hx Congestive Heart Failure: No Hx Pacemaker: No Hx Hypertension: Yes Hx Thyroid Disease: Yes Hx Diabetes: Yes Hx Gastroesophageal Reflux: Yes Hx Renal Disease: No Hx Cancer: No Hx of HIV: No Hx Hepatitis C: No Hx MRSA: No MRSA Source:: Wound Surgical History: cholecystectomy, other - stents cardiac;v-p shunts; hysterectomy - Vaccination History Hx Tetanus, Diphtheria Vaccination: Yes Hx Influenza Vaccination: No Hx Pneumococcal Vaccination: No - Social History Hx Tobacco Use: No Hx Chewing Tobacco Use: No Hx Alcohol Use: No Hx Substance Use: No Hx Substance Use Treatment: No Hx Depression: Yes Hx Physical Abuse: No Hx Emotional Abuse: No Hx Suspected Abuse: No - Female History Patient : No Family Medical History - Family History Mother Family History: Unknown Living Status: Still Living Hx Family Asthma: No Hx Family Congestive Heart Failure: Yes - Father Hx Family Hypertension: Yes Hx Family Stroke: No Hx Cardiac Disease: Yes Hx Family Diabetes: Yes Hx Family Cancer: No Physical Exam - Physical Exam General Appearance: Alert, No apparent distress Eyes, Ears, Nose, Throat Exam: PERRL/EOMI, normal ENT inspection Neck: non-tender, full range of motion, supple Respiratory: chest non-tender, lungs clear, normal breath sounds Cardiovascular/Chest: normal peripheral pulses, regular rate, rhythm Peripheral Pulses: radial,right: 1+, radial,left: 1+ Gastrointestinal/Abdominal: normal bowel sounds, non tender, soft Extremity: normal range of motion, non-tender, normal inspection 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, no motor/sensory deficits, alert, other - pronator drift negative Skin Exam: normal color, warm/dry Lymphatic: no adenopathy Progress - Progress Progress: 05/19/17 22:52 Vital Signs - 8 hr 05/19/17 05/19/17 05/19/17 20:40 21:00 21:28 Temperature 97.9 F Pulse Rate 88 Pulse Rate [ 97 H 88 monitor] Respiratory 18 Rate Blood Pressure 138/82 [Left Arm] O2 Sat by Pulse 98 97 Oximetry - Results/Orders Results/Orders: Laboratory Tests 05/19/17 05/19/17 20:30 20:30 WBC 8.1 RBC 4.29 Hgb 11.3 L Hct 34.0 L MCV 79.4 L MCH 26.3 L MCHC 33.1 RDW 16.5 H Plt Count 336 MPV 8.1 Absolute Neuts (auto) 5.30 Absolute Lymphs (auto) 1.90 Absolute Monos (auto) 0.60 Absolute Eos (auto) 0.20 Absolute Basos (auto) 0.00 Neutrophils % 66.1 Lymphocytes % 23.3 Monocytes % 7.6 Eosinophils % 2.4 Basophils % 0.6 PT 11.7 INR 1.040 PTT (SP) 27.5 D-Dimer, Quantitative < 230 Sodium 134 L Potassium 4.2 Chloride 99 L Carbon Dioxide 24 Anion Gap 15.2 BUN 13 Creatinine 0.84 BUN/Creatinine Ratio 15.5 Random Glucose 396 H Serum Osmolality 284.9 Calcium 9.3 Magnesium 1.8 Total Bilirubin 0.5 Direct Bilirubin < 0.1 Indirect Bilirubin 0.4 AST 35 ALT 50 Alkaline Phosphatase 86 Creatine Kinase 52 CK-MB (CK-2) 1.2 CK-MB (CK-2) % Not Reportable Troponin I 0.04 B-Natriuretic Peptide 53.8 Serum Total Protein 7.8 Albumin 4.1 Vital Signs - 8 hr 05/19/17 05/19/17 05/19/17 20:40 21:00 21:15 Temperature 97.9 F Pulse Rate Pulse Rate [ 97 H 87 monitor] Respiratory 18 16 Rate Blood Pressure 138/82 157/89 [Left Arm] O2 Sat by Pulse 98 97 99 Oximetry 05/19/17 05/19/17 05/19/17 21:28 22:10 22:35 Temperature Pulse Rate 88 Pulse Rate [ 88 87 88 monitor] Respiratory 16 18 Rate Blood Pressure 155/91 141/79 [Left Arm] O2 Sat by Pulse 98 Oximetry 05/19/17 05/19/17 05/20/17 22:38 23:00 01:04 Temperature 98.2 F Pulse Rate Pulse Rate [ 84 85 82 monitor] Respiratory 18 18 16 Rate Blood Pressure 163/76 130/76 160/46 [Left Arm] O2 Sat by Pulse 99 96 Oximetry 05/20/17 02:24 Temperature Pulse Rate Pulse Rate [ 82 monitor] Respiratory 16 Rate Blood Pressure 135/38 [Left Arm] O2 Sat by Pulse 96 Oximetry Laboratory Tests 05/19/17 05/19/17 05/20/17 20:30 20:30 01:15 WBC 8.1 RBC 4.29 Hgb 11.3 L Hct 34.0 L MCV 79.4 L MCH 26.3 L MCHC 33.1 RDW 16.5 H Plt Count 336 MPV 8.1 Absolute Neuts (auto) 5.30 Absolute Lymphs (auto) 1.90 Absolute Monos (auto) 0.60 Absolute Eos (auto) 0.20 Absolute Basos (auto) 0.00 Neutrophils % 66.1 Lymphocytes % 23.3 Monocytes % 7.6 Eosinophils % 2.4 Basophils % 0.6 PT 11.7 INR 1.040 PTT (SP) 27.5 D-Dimer, Quantitative < 230 Sodium 134 L Potassium 4.2 Chloride 99 L Carbon Dioxide 24 Anion Gap 15.2 BUN 13 Creatinine 0.84 BUN/Creatinine Ratio 15.5 Random Glucose 396 H Serum Osmolality 284.9 Calcium 9.3 Magnesium 1.8 Total Bilirubin 0.5 Direct Bilirubin < 0.1 Indirect Bilirubin 0.4 AST 35 ALT 50 Alkaline Phosphatase 86 Creatine Kinase 52 CK-MB (CK-2) 1.2 CK-MB (CK-2) % Not Reportable Troponin I 0.04 0.04 B-Natriuretic Peptide 53.8 Serum Total Protein 7.8 Albumin 4.1 - EKG/XRAY/CT EKG: Sinus, nonspecific ST T wave Chg, Unchanged from - 05/13/2017 Comments: Heart rate-95 XRAY: chest - no acute abnormalities CT Ordered: Yes - no hemorrhage or infarct;non specefic white matter changes - Additional EKG/XRAY/Consults EKG #2: Sinus, nonspecific ST T wave Chg, Unchanged from - recent ekg on arrival Comments: heart rate 79 Departure - Departure Clinical Impression: Weakness of left side of body, Poorly controlled diabetes mellitus, H/O medication noncompliance Chest pain Qualifiers: Chest pain type: unspecified Qualified Code(s): R07.9 - Chest pain, unspecified Time of Disposition: 02:40 Disposition: Discharge to Home or Self Care Condition: Fair Referrals: Sandra Aponte NP [Primary Care Provider] - 1-2 Weeks Prescriptions: Nitroglycerin Patch 0.4 mg/Hr [Nitro-Dur PATCH 0.4 mg/hour] 0.4 mg TOP QD #30 patch Home Medications: Ambulatory Orders Atenolol 100 mg PO DAILY 02/05/13 Gabapentin [Neurontin] 600 mg PO TID 02/05/13 Aspirin [Aspirin EC] 81 mg PO DAILY 11/16/15 Atorvastatin Calcium [Lipitor] 40 mg PO BEDTIME 11/16/15 Isosorbide Mononitrate [Isosorbide Mononitrate ER] 30 mg PO DAILY 11/16/15 Lisinopril 10 mg PO DAILY 02/22/16 Clopidogrel Bisulfate [Plavix] 75 mg PO DAILY #0 10/09/16 Pantoprazole Tablet [Protonix] 20 mg PO QAM 11/11/16 Insulin Detemir [Levemir] 65 unit SUBCU BID 12/04/16 Azithromycin [Zithromax Z-Robson] 1 ea PO DAILY #1 pack 05/12/17 Insulin Lispro [HumaLOG] 2 - 10 unit SUBCU ACHS PRN 05/12/17 Ranolazine [Ranexa] 500 mg PO BID 05/12/17 Nitroglycerin Patch 0.4 mg/Hr [Nitro-Dur PATCH 0.4 mg/hour] 0.4 mg TOP QD #30 patch 05/20/17 Additional Instructions: Follow up with primary MD at [facility] 05/21 2017 call for appointment;Continue with all current medications
[2017-05-19 23:02] VITALS: TEMP 98.2
[2017-05-20] MEDS ORDERED: NITROGLYCERIN 0.4 MG/HR PATCH TOP ONE (02:17)
[2017-05-20] MEDS ORDERED: INSULIN, REG.(HUMAN) 100 U/ML VIAL SUBCU ONE (02:43)
[2017-05-20 02:55] VITALS: BP 128/73; O2SAT 100
== END 2017-05-20 02:55 | disposition home or self-care (01) ==
LOC: ER 20:38
DX: E11.65 Type 2 diabetes mellitus with hyperglycemia (principal); M62.81 Muscle weakness (generalized); R07.9 Chest pain, unspecified; I25.2 Old myocardial infarction; I10 Essential (primary) hypertension; E07.9 Disorder of thyroid, unspecified; Z91.14 Patient's other noncompliance with medication regimen; Z98.61 Coronary angioplasty status; Z79.82 Long term (current) use of aspirin; Z79.4 Long term (current) use of insulin

== ENCOUNTER 2017-05-21 16:08 | Emergency (ER) | payer OTHER ==
[2017-05-21 16:22] VITALS: TEMP 98.1
[2017-05-21] MEDS ORDERED: NITROGLYCERIN 0.4 MG/HR PATCH TOP ONE (16:44)
--- NOTE | 2017-05-21 16:46 | ED.PDOC ---
History of Present Illness - General Chief Complaint: Cardiovascular Problem Stated Complaint: chest pain Time Seen by Provider: 05/21/17 16:42 Source: patient Exam Limitations: no limitations - History of Present Illness Initial Comments: Gabby Morgan 37 y/o female with history of 3 cardiac stents DM2 on insulin came today with sharp chest pains left side;Had multiple ER visits for sme symptoms recently and May 14/2017 sent to [facility] for NSTEMI with slight elevation of her Troponin and Thallium stress test done showed no changes form her previous scan with apical and lateral fiiling defect her EF was 74 % was sent home then the day came back here to [facility] ER with same symptoms of chest pain records show that she multiple visit of same.Also had questionable compliance with her medication in take.I asked her last time to bring all her meds for review stating she couldnt get it her sister is at work. Timing/Duration: 1-3 hours Severity: moderate Location: central Activities at Onset: rest Prior Chest Pain/Cardiac Workup: cardiac cath, cardiolye scan, echocardiography , heart attack, thallium scan Improving Factors: nothing Worsening Factors: nothing Nitro Today/Relief: provided by ED Aspirin Treatment Today: provided by ED Associated Symptoms: denies symptoms Allergies/Adverse Reactions: Allergies NO KNOWN ALLERGY Allergy (Verified 05/08/17 22:12) Home Medications: Ambulatory Orders Atenolol 100 mg PO DAILY 02/05/13 Gabapentin [Neurontin] 600 mg PO TID 02/05/13 Aspirin [Aspirin EC] 81 mg PO DAILY 11/16/15 Atorvastatin Calcium [Lipitor] 40 mg PO BEDTIME 11/16/15 Isosorbide Mononitrate [Isosorbide Mononitrate ER] 30 mg PO DAILY 11/16/15 Lisinopril 10 mg PO DAILY 02/22/16 Clopidogrel Bisulfate [Plavix] 75 mg PO DAILY #0 10/09/16 Pantoprazole Tablet [Protonix] 20 mg PO QAM 11/11/16 Insulin Detemir [Levemir] 65 unit SUBCU BID 12/04/16 Azithromycin [Zithromax Z-Robson] 1 ea PO DAILY #1 pack 05/12/17 Insulin Lispro [HumaLOG] 2 - 10 unit SUBCU ACHS PRN 05/12/17 Ranolazine [Ranexa] 500 mg PO BID 05/12/17 Nitroglycerin Patch 0.4 mg/Hr [Nitro-Dur PATCH 0.4 mg/hour] 0.4 mg TOP QD #30 patch 05/20/17 Review of Systems - Review of Systems Constitutional: States: no symptoms reported EENTM: States: no symptoms reported Respiratory: States: no symptoms reported Cardiology: States: see HPI Gastrointestinal/Abdominal: States: no symptoms reported Genitourinary: States: no symptoms reported Past Medical History (General) - Patient Medical History Hx Seizures: No Hx Stroke: No Hx Dementia: No Hx Asthma: No Hx of COPD: No Hx Cardiac Disorders: Yes Hx Congestive Heart Failure: No Hx Pacemaker: No Hx Hypertension: No Hx Thyroid Disease: No Hx Diabetes: Yes Hx Gastroesophageal Reflux: Yes Hx Renal Disease: No Hx Cancer: No Hx of HIV: No Hx Hepatitis C: No Hx MRSA: No MRSA Source:: Wound Surgical History: cholecystectomy, other - hysterctomy ,cardiac stent - Vaccination History Hx Tetanus, Diphtheria Vaccination: No Hx Influenza Vaccination: No Hx Pneumococcal Vaccination: No - Social History Hx Tobacco Use: No Hx Chewing Tobacco Use: No Hx Alcohol Use: No Hx Substance Use: No Hx Substance Use Treatment: No Hx Depression: Yes Hx Physical Abuse: No Hx Emotional Abuse: No Hx Suspected Abuse: No - Female History Patient : No Family Medical History - Family History Mother Family History: Unknown Living Status: Still Living Hx Family Asthma: No Hx Family Congestive Heart Failure: Yes - Father Hx Family Hypertension: Yes Hx Family Stroke: No Hx Cardiac Disease: Yes Hx Family Diabetes: Yes Hx Family Cancer: No Physical Exam - Physical Exam General Appearance: Alert, No apparent distress Eyes, Ears, Nose, Throat Exam: normal ENT inspection Neck: supple Respiratory: lungs clear, normal breath sounds Cardiovascular/Chest: normal peripheral pulses, regular rate, rhythm, no gallop , no murmur Peripheral Pulses: radial,right: 1+, radial,left: 1+, dorsalis pedis,right: 1+, dorsalis pedis,left: 1+ Gastrointestinal/Abdominal: non tender, soft, no organomegaly Extremity: normal inspection, no pedal edema, no calf tenderness Neurologic: alert, oriented x 3 Skin Exam: normal color, warm/dry Progress - Progress Progress: 05/21/17 17:16 Vital Signs - 8 hr 05/21/17 05/21/17 16:16 16:22 Temperature 98.1 F Pulse Rate 80 Pulse Rate [ 81 left arm] Respiratory 18 Rate Blood Pressure 148/81 [Left Arm] O2 Sat by Pulse 97 Oximetry - Results/Orders Results/Orders: Laboratory Tests 05/21/17 16:55 Troponin I 0.02 Laboratory Tests 05/21/17 05/21/17 16:55 18:50 Troponin I 0.02 0.02 - EKG/XRAY/CT EKG: Sinus, nonspecific ST T wave Chg, Unchanged from - 05/20/2017 Departure - Departure Clinical Impression: Chest pain Qualifiers: Chest pain type: unspecified Qualified Code(s): R07.9 - Chest pain, unspecified Time of Disposition: 19:18 Disposition: Discharge to Home or Self Care Condition: Good Departure Forms: ED Discharge - Pt. Copy, Patient Portal Self Enrollment Referrals: Luiz Finnegan MD [Primary Care Provider] - 1-2 Weeks Home Medications: Ambulatory Orders Atenolol 100 mg PO DAILY 02/05/13 Gabapentin [Neurontin] 600 mg PO TID 02/05/13 Aspirin [Aspirin EC] 81 mg PO DAILY 11/16/15 Atorvastatin Calcium [Lipitor] 40 mg PO BEDTIME 11/16/15 Isosorbide Mononitrate [Isosorbide Mononitrate ER] 30 mg PO DAILY 11/16/15 Lisinopril 10 mg PO DAILY 02/22/16 Clopidogrel Bisulfate [Plavix] 75 mg PO DAILY #0 10/09/16 Pantoprazole Tablet [Protonix] 20 mg PO QAM 11/11/16 Insulin Detemir [Levemir] 65 unit SUBCU BID 12/04/16 Azithromycin [Zithromax Z-Robson] 1 ea PO DAILY #1 pack 05/12/17 Insulin Lispro [HumaLOG] 2 - 10 unit SUBCU ACHS PRN 05/12/17 Ranolazine [Ranexa] 500 mg PO BID 05/12/17 Nitroglycerin Patch 0.4 mg/Hr [Nitro-Dur PATCH 0.4 mg/hour] 0.4 mg TOP QD #30 patch 05/20/17 Additional Instructions: Continue with all your home medications;NEED TO BE COMPLIANT IN TAKING ALL YOUR MEDICATIONS;Follow up with your primary md
[2017-05-21 19:15] VITALS: BP 131/84; O2SAT 98
== END 2017-05-21 19:25 | disposition home or self-care (01) ==
LOC: ER 16:08
DX: R07.9 Chest pain, unspecified (principal); E11.9 Type 2 diabetes mellitus without complications; K21.9 Gastro-esophageal reflux disease without esophagitis; Z79.82 Long term (current) use of aspirin; Z79.4 Long term (current) use of insulin; Z79.899 Other long term (current) drug therapy

== ENCOUNTER 2018-02-19 14:07 | Emergency (ER) | payer OTHER ==
[2018-02-19 14:30] VITALS: TEMP 99
[2018-02-19] MEDS ORDERED: ASPIRIN TABLET 325 MG TAB PO ONE (14:44)
[2018-02-19] MEDS ORDERED: ALUM & MAG HYDROX-SIMETHICONE 30 ML, LIDOCAINE VISCOUS 2% 15 ML PO ONE ×2 (14:46)
[2018-02-19] MEDS ORDERED: ALUM & MAG HYDROX-SIMETHICONE 30 ML UD ONE (14:48)
[2018-02-19] MEDS ORDERED: LIDOCAINE HCL 2% (MOUTH-THROAT) 15 ML UD ONE ×2 (14:48→14:51)
--- NOTE | 2018-02-19 14:53 | ED.PDOC ---
History of Present Illness - General Chief Complaint: Chest Pain/NE Stated Complaint: chest pain Time Seen by Provider: 02/19/18 14:22 Source: patient Exam Limitations: no limitations - History of Present Illness Initial Comments: The patient is a 38-year-old female presenting to the emergency room secondary to acute onset chest pain approximately one hour prior to arrival. The patient was just sitting and talking to her brother when the chest pain started. She has not eaten lunch. She does have a significant cardiac history with having had stents placed within the last 2 months. She does take Plavix. She reports good compliance with those medications. She reports that her blood sugars have been moderately elevated in the 200s to 300s but have been that way for a long time. Patient does have a history of noncompliance and does have a history of anxiety and depression. She also has a history of borderline COPD. She does have a history of chronic pain. Nothing seems to make the pain better or worse. She does report radiation to her jaw and left arm. She reports that she has had this pain before, before they put stents in. Timing/Duration: 1 hour Severity: moderate Improving Factors: nothing Worsening Factors: nothing Associated Symptoms: chest pain Allergies/Adverse Reactions: Allergies NO KNOWN ALLERGY Allergy (Verified 05/08/17 22:12) Home Medications: Ambulatory Orders Atenolol 100 mg PO DAILY 02/05/13 Gabapentin [Neurontin] 600 mg PO TID 02/05/13 Aspirin [Aspirin EC] 81 mg PO DAILY 11/16/15 Atorvastatin Calcium [Lipitor] 40 mg PO BEDTIME 11/16/15 Isosorbide Mononitrate [Isosorbide Mononitrate ER] 30 mg PO DAILY 11/16/15 Lisinopril 10 mg PO DAILY 02/22/16 Clopidogrel Bisulfate [Plavix] 75 mg PO DAILY #0 10/09/16 Pantoprazole Tablet [Protonix] 20 mg PO QAM 11/11/16 Insulin Detemir [Levemir] 65 unit SUBCU BID 12/04/16 Azithromycin [Zithromax Z-Robson] 1 ea PO DAILY #1 pack 05/12/17 Insulin Lispro [HumaLOG] 2 - 10 unit SUBCU ACHS PRN 05/12/17 Ranolazine [Ranexa] 500 mg PO BID 05/12/17 Nitroglycerin Patch 0.4 mg/Hr [Nitro-Dur PATCH 0.4 mg/hour] 0.4 mg TOP QD #30 patch 05/20/17 Review of Systems - Review of Systems Constitutional: States: no symptoms reported EENTM: States: no symptoms reported Respiratory: States: short of breath - mild Cardiology: States: chest pain. Denies: edema, palpitations, syncope Gastrointestinal/Abdominal: States: no symptoms reported Genitourinary: States: no symptoms reported Musculoskeletal: States: no symptoms reported Skin: States: no symptoms reported Neurological: States: anxiety Endocrine: States: no symptoms reported All other Systems: No Change from Baseline Past Medical History (General) - Patient Medical History Hx Seizures: No Hx Stroke: No Hx Dementia: No Hx Asthma: No Hx of COPD: No Hx Cardiac Disorders: Yes Hx Congestive Heart Failure: No Hx Pacemaker: No Hx Hypertension: No Hx Thyroid Disease: No Hx Diabetes: Yes Hx Gastroesophageal Reflux: Yes Hx Renal Disease: No Hx Cancer: No Hx of HIV: No Hx Hepatitis C: No Hx MRSA: No MRSA Source:: Wound Surgical History: cholecystectomy, Hysterectomy - Vaccination History Hx Tetanus, Diphtheria Vaccination: No Hx Influenza Vaccination: Yes Hx Pneumococcal Vaccination: Yes - Social History Hx Tobacco Use: No Hx Chewing Tobacco Use: No Hx Alcohol Use: No Hx Substance Use: No Hx Substance Use Treatment: No Hx Depression: Yes Hx Physical Abuse: No Hx Emotional Abuse: No Hx Suspected Abuse: No - Female History Patient : No Family Medical History - Family History Mother Family History: Unknown Living Status: Still Living Hx Family Asthma: No Hx Family Congestive Heart Failure: Yes - Father Hx Family Hypertension: Yes Hx Family Stroke: No Hx Cardiac Disease: Yes Hx Family Diabetes: Yes Hx Family Cancer: No Physical Exam - Physical Exam General Appearance: Alert, Anxious Eye Exam: bilateral normal Ears, Nose, Throat: hearing grossly normal, normal ENT inspection, normal pharynx - poor dentition Neck: full range of motion, supple Respiratory: lungs clear, normal breath sounds, no respiratory distress, no accessory muscle use Cardiovascular/Chest: normal peripheral pulses, regular rate, rhythm, no edema Peripheral Pulses: radial,right: 2+, radial,left: 2+, dorsalis pedis,right: 1+, dorsalis pedis,left: 1+ Gastrointestinal/Abdominal: non tender - obese, soft Rectal Exam: deferred Back Exam: normal inspection, no CVA tenderness Extremity: normal range of motion, non-tender, normal inspection, no pedal edema , normal capillary refill 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 She moves all extremities well. She is anxious. Skin Exam: normal color Comments: Vital Signs - 24 hr 02/19/18 14:14 Temperature 99 F Pulse Rate [ 105 H Right Brachial] Respiratory 20 Rate Blood Pressure 157/102 [Right Arm] O2 Sat by Pulse 97 Oximetry Progress - Progress Progress: 02/19/18 16:00 the patient is a 38-year-old female presenting to the emergency room secondary to acute onset of chest pain at rest 2 months status post having 2 stents placed according to her at [facility]. The patient does take Plavix. She has received several nitroglycerin and an aspirin here already. She has not had significant pain relief. We are starting morphine. She is starting a heparin drip. She is being dosed at 225 mg of oral Plavix. Lab work to this time shows no evidence of any enzyme elevation. No evidence of a ST elevation myocardial infarction, or in fact any acute EKG changes at all when compared to previous. Vital signs have been stable. The patient does have numerous chronic medical problems and does have chronic pain issues. While I cannot say definitively this is from a cardiac source, given her history and report of similar chest pain with previous myocardial infarctions, this is the diagnosis that must be ruled out at this time. Transferring to [facility] where she received her most recent catheterization. - Results/Orders Results/Orders: Vital Signs - 24 hr 02/19/18 02/19/18 14:14 15:31 Temperature 99 F Pulse Rate [ 105 H 56 L Right Brachial] Respiratory 20 20 Rate Blood Pressure 157/102 144/84 [Right Arm] O2 Sat by Pulse 97 95 Oximetry 02/19/18 14:44 Nitroglycerin 0.4 mg Tab [Nitrostat] 1 ea SL .Q5MIN PRN 02/19/18 14:45 Telemetry .CONTINUOUS EKG STAT 02/19/18 15:00 B-TYPE NATRIURETIC PEPTIDE/BNP Stat CARDIAC ENZYME GROUP Stat COMPLETE METABOLIC PROFILE Stat 02/19/18 15:58 Clopidogrel Bisulfate [Plavix] 225 mg PO ONCE ONE 02/20/18 09:00 Oxygen Daily chest x-ray shows no significant infiltrate no pneumothorax, no obvious fluid overload. 02/20/18 14:45 EKG STAT shows normal sinus rhythm at a rate of 99 bpm. She has an inverted T wave in lead 3, a Q wave in aVF, left atrial dilation, and poor wave progression in anterior leads. All of these findings are on previous EKGs and not significantly changed. No acute ST segment changes concerning for ischemia in comparison to previous EKGs. Laboratory Results - last 24 hr 02/19/18 02/19/18 02/19/18 15:00 15:00 15:00 WBC 6.5 RBC 4.31 Hgb 10.2 L Hct 31.9 L MCV 74.1 L MCH 23.6 L MCHC 31.9 L RDW 18.8 H Plt Count 315 MPV 7.6 Absolute Neuts (auto) 3.80 Absolute Lymphs (auto) 1.90 Absolute Monos (auto) 0.60 Absolute Eos (auto) 0.20 Absolute Basos (auto) 0.00 Neutrophils % 59.0 Lymphocytes % 28.4 Monocytes % 9.4 H Eosinophils % 2.6 Basophils % 0.6 PT 11.2 INR 0.970 PTT (SP) 25.4 Sodium 138 Potassium 3.8 Chloride 101 Carbon Dioxide 28 Anion Gap 12.8 BUN 10 Creatinine 0.82 BUN/Creatinine Ratio 12.2 Random Glucose 250 H Serum Osmolality 283.1 Calcium 9.1 Total Bilirubin 0.6 AST 20 ALT 18 Alkaline Phosphatase 91 Creatine Kinase 42 B-Natriuretic Peptide 61.1 Serum Total Protein 7.7 Albumin 4.1 Globulin 3.6 H Albumin/Globulin Ratio 1.1 Departure - Departure Clinical Impression: Unstable angina Disposition: Transfer to Hospital Referrals: Luiz Finnegan MD [Primary Care Provider] - 1-2 Weeks Home Medications: Ambulatory Orders Atenolol 100 mg PO DAILY 02/05/13 Gabapentin [Neurontin] 600 mg PO TID 02/05/13 Aspirin [Aspirin EC] 81 mg PO DAILY 11/16/15 Atorvastatin Calcium [Lipitor] 40 mg PO BEDTIME 11/16/15 Isosorbide Mononitrate [Isosorbide Mononitrate ER] 30 mg PO DAILY 11/16/15 Lisinopril 10 mg PO DAILY 02/22/16 Clopidogrel Bisulfate [Plavix] 75 mg PO DAILY #0 10/09/16 Pantoprazole Tablet [Protonix] 20 mg PO QAM 11/11/16 Insulin Detemir [Levemir] 65 unit SUBCU BID 12/04/16 Azithromycin [Zithromax Z-Robson] 1 ea PO DAILY #1 pack 05/12/17 Insulin Lispro [HumaLOG] 2 - 10 unit SUBCU ACHS PRN 05/12/17 Ranolazine [Ranexa] 500 mg PO BID 05/12/17 Nitroglycerin Patch 0.4 mg/Hr [Nitro-Dur PATCH 0.4 mg/hour] 0.4 mg TOP QD #30 patch 05/20/17 Transfer to Outside Facility - Transfer Information Accepting Provider:: dr mullins Accepting Facility: [facility] Reason for Transfer: required specialist not available
[2018-02-19] MEDS: NITROGLYCERIN 0.4 MG 25 EA TAB SL PRN ×2 (14:55→15:22)
--- NOTE | 2018-02-19 15:03 | RAD ---
EXAM DESCRIPTION: Chest,1 View CLINICAL HISTORY: 38 years Female, chest pain 2 mo after stents COMPARISON: Previous study May 19, 2017 TECHNIQUE: AP portable chest. FINDINGS: Heart size is prominent with normal pulmonary vascularity. No consolidating infiltrate. No pulmonary mass or worrisome nodule. No pneumothorax or pleural effusion. Bones are unremarkable. IMPRESSION: No acute process is identified in the chest. Electronically signed by: Dajuan Clay MD 02/19/2018 3:02 PM CDT
[2018-02-19 15:32] VITALS: O2SAT 95
[2018-02-19] MEDS ORDERED: MORPHINE SULFATE INJ 10 MG/ML VIAL IV ONE (15:48)
[2018-02-19] MEDS ORDERED: HEPARIN SODIUM (PORCINE) 5,000 U/ML VIAL IV ONE (15:48)
[2018-02-19] MEDS ORDERED: ONDANSETRON ODT 8 MG TAB SL ONE (15:48)
[2018-02-19] MEDS ORDERED: CLOPIDOGREL 75 MG TAB PO ONE (15:58)
[2018-02-19] MEDS ORDERED: HEPARIN PREMIX 500 ML ONE (16:22)
[2018-02-19 16:30] VITALS: BP 136/77
== END 2018-02-19 16:30 | disposition short-term general hospital (02) ==
LOC: ER 14:07
DX: I20.0 Unstable angina (principal); E11.9 Type 2 diabetes mellitus without complications; F41.8 Other specified anxiety disorders; Z79.4 Long term (current) use of insulin; Z79.02 Long term (current) use of antithrombotics/antiplatelets
CPT/HCPCS: 36415; 71045; 80053; 82550; 82553; 83880; 84484; 85025; 85610; 85730; 93005; J1644; J2270

== ENCOUNTER 2018-04-12 19:44 | Emergency (ER) | payer OTHER ==
[2018-04-12] MEDS ORDERED: IPRATROPIUM/ALBUTEROL 3 ML VIAL NEB ONE ×2 (20:11→20:12)
[2018-04-12 20:13] VITALS: O2SAT 95
--- NOTE | 2018-04-12 20:29 | RAD ---
EXAM DESCRIPTION: Chest,2 Views CLINICAL HISTORY:38 years Female, left ant chest pain with deep breath/cough Comparison: February 19, 2018 FINDINGS: No focal lung consolidation. No pleural effusion. No pneumothorax. Cardiac and mediastinal silhouette is unremarkable. No acute osseous abnormality. Soft tissues are unremarkable. IMPRESSION: No acute findings. No focal lung consolidation. Electronically signed by: Arpit Quintana MD 04/12/2018 8:28 PM CDT
[2018-04-12] MEDS ORDERED: KETOROLAC TROMETHAMINE INJ 30 MG/ML VIAL IM ONE (20:54)
--- NOTE | 2018-04-12 20:57 | ED.PDOC ---
History of Present Illness - General Chief Complaint: Chest Pain/SD Stated Complaint: Chest pain after feeling a "pop" Time Seen by Provider: 04/12/18 20:04 Source: patient Exam Limitations: no limitations - History of Present Illness Initial Comments: the patient is a 38-year-old female presenting to the emergency room secondary to acute onset pleuritic-type chest pain. The patient was sitting and playing on her iphone when the chest pain hit. It was instantaneous. It was not gradual. It causes her a stabbing pulling pain with taking a deep breath or coughing or twisting or turning. When she is not moving and not taking of breath it's not causing her any pain. She feels a little bit of shortness of breath because she does not want to take a deep breath. No fevers. No productive cough. No palpitations. No syncope or near syncope. The patient does have chronic anxiety issues. vital signs are within normal limits and the patient is oxygenating well. No recent swelling of her extremities or pain in her extremities. Timing/Duration: 1/2 hour Severity: moderate Improving Factors: immobilization Worsening Factors: movement Associated Symptoms: chest pain, shortness of breath Allergies/Adverse Reactions: Allergies NO KNOWN ALLERGY Allergy (Verified 05/08/17 22:12) Home Medications: Ambulatory Orders Atenolol 100 mg PO DAILY 02/05/13 Gabapentin [Neurontin] 600 mg PO TID 02/05/13 Aspirin [Aspirin EC] 81 mg PO DAILY 11/16/15 Atorvastatin Calcium [Lipitor] 40 mg PO BEDTIME 11/16/15 Isosorbide Mononitrate [Isosorbide Mononitrate ER] 30 mg PO DAILY 11/16/15 Lisinopril 10 mg PO DAILY 02/22/16 Clopidogrel Bisulfate [Plavix] 75 mg PO DAILY #0 10/09/16 Pantoprazole Tablet [Protonix] 20 mg PO QAM 11/11/16 Insulin Detemir [Levemir] 65 unit SUBCU BID 12/04/16 Azithromycin [Zithromax Z-Robson] 1 ea PO DAILY #1 pack 05/12/17 Insulin Lispro [HumaLOG] 2 - 10 unit SUBCU ACHS PRN 05/12/17 Ranolazine [Ranexa] 500 mg PO BID 05/12/17 Nitroglycerin Patch 0.4 mg/Hr [Nitro-Dur PATCH 0.4 mg/hour] 0.4 mg TOP QD #30 patch 05/20/17 Review of Systems - Review of Systems Constitutional: States: no symptoms reported EENTM: States: no symptoms reported Respiratory: States: see HPI Cardiology: States: see HPI Gastrointestinal/Abdominal: States: no symptoms reported Genitourinary: States: no symptoms reported Skin: States: no symptoms reported Neurological: States: anxiety Endocrine: States: no symptoms reported All other Systems: No Change from Baseline Past Medical History (General) - Patient Medical History Hx Seizures: No Hx Stroke: No Hx Dementia: No Hx Asthma: No Hx of COPD: No Hx Cardiac Disorders: Yes Hx Congestive Heart Failure: No Hx Pacemaker: No Hx Hypertension: No Hx Thyroid Disease: No Hx Diabetes: Yes Hx Gastroesophageal Reflux: Yes Hx Renal Disease: No Hx Cancer: No Hx of HIV: No Hx Hepatitis C: No Hx MRSA: No MRSA Source:: Wound - Vaccination History Hx Tetanus, Diphtheria Vaccination: No Hx Influenza Vaccination: Yes Hx Pneumococcal Vaccination: Yes - Social History Hx Tobacco Use: No Hx Chewing Tobacco Use: No Hx Alcohol Use: No Hx Substance Use: No Hx Substance Use Treatment: No Hx Depression: Yes Hx Physical Abuse: No Hx Emotional Abuse: No Hx Suspected Abuse: No - Female History Patient : No Family Medical History - Family History Mother Family History: Unknown Living Status: Still Living Hx Family Asthma: No Hx Family Congestive Heart Failure: Yes - Father Hx Family Hypertension: Yes Hx Family Stroke: No Hx Cardiac Disease: Yes Hx Family Diabetes: Yes Hx Family Cancer: No Physical Exam - Physical Exam General Appearance: Alert, Anxious Eye Exam: bilateral normal Ears, Nose, Throat: hearing grossly normal, normal ENT inspection, normal pharynx Neck: full range of motion, supple Respiratory: lungs clear, normal breath sounds, no respiratory distress, no accessory muscle use Cardiovascular/Chest: normal peripheral pulses, regular rate, rhythm, no edema Peripheral Pulses: radial,right: 2+, radial,left: 2+, dorsalis pedis,right: 2+, dorsalis pedis,left: 2+ Gastrointestinal/Abdominal: non tender, soft Rectal Exam: deferred Back Exam: no CVA tenderness, no vertebral tenderness Extremity: normal range of motion, non-tender, no pedal edema, normal capillary refill Neurologic: pourer buggy ladle II-XII nml as tested, alert, normal mood/affect - anxious which is normal for this patient, oriented x 3 Skin Exam: normal color Comments: Vital Signs - 24 hr 04/12/18 20:07 Temperature 99.3 F Pulse Rate [ 102 H Left Radial] Respiratory 20 Rate Blood Pressure 139/90 [Right Arm] O2 Sat by Pulse 95 Oximetry Progress - Progress Progress: 04/12/18 20:58 the patient is a 38-year-old female presenting with what appears to be acute pleurisy. This is most likely caused by positional trapping of the pleura. She does need to take big deep breaths and twist and turn and make herself cough in order to get it to release. She was given a dose of Toradol here 1. Chest x-ray is clear. EKG is consistent with her previous EKGs, showing a normal sinus rhythm at a rate of 96 bpm. Normal QT interval. Old inferior SD. Old anterior lateral SD. sHe does have left atrial dilation. No acute ST segment changes concerning for ischemia. she needs to follow up with her primary care doctor on Saturday. ER warnings were given. Departure - Departure Clinical Impression: Pleurisy without effusion Disposition: Discharge to Home or Self Care Condition: Fair Departure Forms: ED Discharge - Pt. Copy, Patient Portal Self Enrollment Instructions: Pleuritic Chest Pain (DC) Diet: diabetic diet Activity: increase activity as tolerated Home Medications: Ambulatory Orders Atenolol 100 mg PO DAILY 02/05/13 Gabapentin [Neurontin] 600 mg PO TID 02/05/13 Aspirin [Aspirin EC] 81 mg PO DAILY 11/16/15 Atorvastatin Calcium [Lipitor] 40 mg PO BEDTIME 11/16/15 Isosorbide Mononitrate [Isosorbide Mononitrate ER] 30 mg PO DAILY 11/16/15 Lisinopril 10 mg PO DAILY 02/22/16 Clopidogrel Bisulfate [Plavix] 75 mg PO DAILY #0 10/09/16 Pantoprazole Tablet [Protonix] 20 mg PO QAM 11/11/16 Insulin Detemir [Levemir] 65 unit SUBCU BID 12/04/16 Azithromycin [Zithromax Z-Robson] 1 ea PO DAILY #1 pack 05/12/17 Insulin Lispro [HumaLOG] 2 - 10 unit SUBCU ACHS PRN 05/12/17 Ranolazine [Ranexa] 500 mg PO BID 05/12/17 Nitroglycerin Patch 0.4 mg/Hr [Nitro-Dur PATCH 0.4 mg/hour] 0.4 mg TOP QD #30 patch 05/20/17 Additional Instructions: the patient is a 38-year-old female presenting with what appears to be acute pleurisy. This is most likely caused by positional trapping of the pleura. She does need to take big deep breaths and twist and turn and make herself cough in order to get it to release. She was given a dose of Toradol here 1. Chest x-ray is clear. EKG is consistent with her previous EKGs, showing a normal sinus rhythm at a rate of 96 bpm. Normal QT interval. Old inferior SD. Old anterior lateral SD. sHe does have left atrial dilation. No acute ST segment changes concerning for ischemia. she needs to follow up with her primary care doctor on Saturday. ER warnings were given.
[2018-04-12 21:42] VITALS: BP 129/76; TEMP 98.8
== END 2018-04-12 21:40 | disposition home or self-care (01) ==
LOC: ER 19:44
DX: R09.1 Pleurisy (principal); E11.9 Type 2 diabetes mellitus without complications; K21.9 Gastro-esophageal reflux disease without esophagitis; I25.2 Old myocardial infarction; Z79.02 Long term (current) use of antithrombotics/antiplatelets; Z79.4 Long term (current) use of insulin; Z79.899 Other long term (current) drug therapy; Z79.82 Long term (current) use of aspirin
CPT/HCPCS: 71046; 93005; J1885; J7620

== ENCOUNTER 2018-05-24 17:15 | Emergency (ER) | payer OTHER ==
--- NOTE | 2018-05-24 18:13 | RAD ---
EXAM DESCRIPTION: Chest,1 View CLINICAL HISTORY: chest pain COMPARISON: April 27, 2018 FINDINGS: Cardiac silhouette is within normal limits. EKG leads project over the chest. There is mild peribronchial cuffing, no significant change compared with the prior exam. There is no confluent airspace disease. There is no acute osseous process visualized. IMPRESSION: Mild peribronchial cuffing could be secondary to reactive airway disease/bronchitis changes of unknown chronicity. Acute viral/atypical infection cannot be excluded. Electronically signed by: Franki Jackson MD 05/24/2018 6:12 PM CDT
[2018-05-24] MEDS: NITROGLYCERIN 0.4 MG 25 EA TAB SL PRN ×3 (18:16→18:37)
--- NOTE | 2018-05-24 19:06 | ED.PDOC ---
History of Present Illness - General Chief Complaint: Chest Pain/RI Stated Complaint: chest pain,left arm numbness,numbness in legs Time Seen by Provider: 05/24/18 17:43 Source: patient Exam Limitations: no limitations - History of Present Illness Initial Comments: Chest pain since 89. Timing/Duration: 1-3 hours Severity/Quality: moderate Location: substernal Chest Pain Radiation: arms Activities at Onset: rest Prior Chest Pain/Cardiac Workup: angina, cardiac cath, heart attack, stress test Improving Factors: nothing Worsening Factors: nothing Nitro Today/Relief: no nitro taken today Aspirin Treatment Today: provided at home Associated Symptoms: nausea/vomiting, weakness Allergies/Adverse Reactions: Allergies NO KNOWN ALLERGY Allergy (Verified 04/27/18 17:32) Home Medications: Ambulatory Orders Atenolol 100 mg PO DAILY 02/05/13 Gabapentin [Neurontin] 600 mg PO TID 02/05/13 Aspirin [Aspirin EC] 81 mg PO DAILY 11/16/15 Atorvastatin Calcium [Lipitor] 40 mg PO BEDTIME 11/16/15 Isosorbide Mononitrate [Isosorbide Mononitrate ER] 30 mg PO DAILY 11/16/15 Lisinopril 10 mg PO DAILY 02/22/16 Clopidogrel Bisulfate [Plavix] 75 mg PO DAILY #0 10/09/16 Pantoprazole Tablet [Protonix] 20 mg PO QAM 11/11/16 Insulin Detemir [Levemir] 65 unit SUBCU BID 12/04/16 Azithromycin [Zithromax Z-Robson] 1 ea PO DAILY #1 pack 05/12/17 Insulin Lispro [HumaLOG] 2 - 10 unit SUBCU ACHS PRN 05/12/17 Ranolazine [Ranexa] 500 mg PO BID 05/12/17 Nitroglycerin Patch 0.4 mg/Hr [Nitro-Dur PATCH 0.4 mg/hour] 0.4 mg TOP QD #30 patch 05/20/17 Review of Systems - Review of Systems Constitutional: States: weakness. Denies: fever EENTM: States: no symptoms reported Respiratory: States: no symptoms reported Cardiology: States: chest pain. Denies: edema, palpitations, syncope Gastrointestinal/Abdominal: States: nausea. Denies: diarrhea, vomiting Genitourinary: States: no symptoms reported Musculoskeletal: States: no symptoms reported Skin: States: no symptoms reported Neurological: States: no symptoms reported Endocrine: States: no symptoms reported Hematologic/Lymphatic: States: no symptoms reported Past Medical History (General) - Patient Medical History Hx Seizures: No Hx Stroke: No Hx Dementia: No Hx Asthma: No Hx of COPD: No Hx Cardiac Disorders: Yes Hx Congestive Heart Failure: Yes Hx Pacemaker: No Hx Hypertension: Yes Hx Thyroid Disease: No Hx Diabetes: Yes Hx Gastroesophageal Reflux: Yes Hx Renal Disease: No Hx Cancer: No Hx of HIV: No Hx Hepatitis C: No Hx MRSA: No MRSA Source:: Wound Surgical History: cholecystectomy, Hysterectomy - Vaccination History Hx Tetanus, Diphtheria Vaccination: No Hx Influenza Vaccination: No Hx Pneumococcal Vaccination: No - Social History Hx Tobacco Use: Yes Hx Chewing Tobacco Use: No Hx Alcohol Use: No Hx Substance Use: No Hx Substance Use Treatment: No Hx Depression: Yes Hx Physical Abuse: No Hx Emotional Abuse: No Hx Suspected Abuse: No - Female History Patient : No Family Medical History - Family History Mother Family History: Unknown Living Status: Still Living Hx Family Asthma: No Hx Family Congestive Heart Failure: Yes - Father Hx Family Hypertension: Yes Hx Family Stroke: No Hx Cardiac Disease: Yes Hx Family Diabetes: Yes Hx Family Cancer: No Physical Exam - Physical Exam General Appearance: Alert, Comfortable, No apparent distress Eyes, Ears, Nose, Throat Exam: normal ENT inspection Neck: full range of motion, supple, normal inspection Respiratory: lungs clear, normal breath sounds, no respiratory distress, no accessory muscle use Cardiovascular/Chest: regular rate, rhythm, no edema, no gallop, no JVD Gastrointestinal/Abdominal: non tender, soft, no organomegaly Extremity: normal range of motion, non-tender, normal inspection, no pedal edema Neurologic: alert, normal mood/affect, oriented x 3 Skin Exam: normal color, warm/dry Progress - Progress Progress: 05/24/18 19:04 Asleep. She says the CP went from an 8 to a 6 after the NTG. Initial troponin is normal. 05/24/18 19:52 Using her cell phone. Pain now a 5. 148/86; 80; 16; 98%. 05/24/18 21:33 Pain is a 3. Wants something to drink. 05/24/18 22:51 Pain is a 2. Says she wants to go home. Says her pain is now at her chronic level. Declines admission. Precautions given. - Results/Orders Results/Orders: Tr 0.03 x 2 - EKG/XRAY/CT EKG: Sinus, no ST T wave changes, Abnormal Q waves - old anterior Q waves; NSR @ 88; nml axis, intervals; EKG #2 unchanged XRAY: chest - NAD - Additional EKG/XRAY/Consults EKG #2: Sinus, no ST T wave changes, Abnormal Q waves - NSR @ 73; nml axis; intervals; ST-T Departure - Departure Clinical Impression: Chest pain Qualifiers: Chest pain type: unspecified Qualified Code(s): R07.9 - Chest pain, unspecified Time of Disposition: 22:53 Disposition: Discharge to Home or Self Care Condition: Good Departure Forms: ED Discharge - Pt. Copy, Patient Portal Self Enrollment Instructions: DI for Chest Pain Home Medications: Ambulatory Orders Atenolol 100 mg PO DAILY 02/05/13 Gabapentin [Neurontin] 600 mg PO TID 02/05/13 Aspirin [Aspirin EC] 81 mg PO DAILY 11/16/15 Atorvastatin Calcium [Lipitor] 40 mg PO BEDTIME 11/16/15 Isosorbide Mononitrate [Isosorbide Mononitrate ER] 30 mg PO DAILY 11/16/15 Lisinopril 10 mg PO DAILY 02/22/16 Clopidogrel Bisulfate [Plavix] 75 mg PO DAILY #0 10/09/16 Pantoprazole Tablet [Protonix] 20 mg PO QAM 11/11/16 Insulin Detemir [Levemir] 65 unit SUBCU BID 12/04/16 Azithromycin [Zithromax Z-Robson] 1 ea PO DAILY #1 pack 05/12/17 Insulin Lispro [HumaLOG] 2 - 10 unit SUBCU ACHS PRN 05/12/17 Ranolazine [Ranexa] 500 mg PO BID 05/12/17 Nitroglycerin Patch 0.4 mg/Hr [Nitro-Dur PATCH 0.4 mg/hour] 0.4 mg TOP QD #30 patch 05/20/17 Additional Instructions: follow up with your doctors on Saturday
[2018-05-24] MEDS ORDERED: METOPROLOL TARTRATE INJ 5 MG/5 ML VIAL IV ONE ×2 (19:07→19:53)
[2018-05-24] MEDS ORDERED: MORPHINE SULFATE INJ 10 MG/ML VIAL IV ONE ×4 (19:07→22:54)
[2018-05-24] MEDS ORDERED: ONDANSETRON INJ 4 MG/2 ML VIAL IV ONE (19:07)
[2018-05-24 21:27] VITALS: O2SAT 95
[2018-05-25 00:57] VITALS: BP 131/64; TEMP 98.1
== END 2018-05-25 00:57 | disposition home or self-care (01) ==
LOC: ER 17:15
DX: R07.9 Chest pain, unspecified (principal); I50.9 Heart failure, unspecified; I11.0 Hypertensive heart disease with heart failure; E11.9 Type 2 diabetes mellitus without complications; K21.9 Gastro-esophageal reflux disease without esophagitis; F32.9 Major depressive disorder, single episode, unspecified; Z87.891 Personal history of nicotine dependence; Z79.4 Long term (current) use of insulin; Z79.899 Other long term (current) drug therapy; Z79.82 Long term (current) use of aspirin
CPT/HCPCS: 71045; 80048; 82550; 82553; 84484; 85025; 85610; 85730; 93005; J2270; J2405

== ENCOUNTER 2018-05-31 22:46 | Emergency (ER) | payer OTHER ==
--- NOTE | 2018-05-31 23:05 | ED.PDOC ---
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 ASA PLAVIX GABAPENTIN TOOK 2 NITROS PRIOR TO COMING WITH NO IMPROVEMENT - History of Present Illness Severity/Quality: moderate Allergies/Adverse Reactions: Allergies NO KNOWN ALLERGY Allergy (Verified 04/27/18 17:32) Home Medications: Ambulatory Orders Atenolol 100 mg PO DAILY 02/05/13 Gabapentin [Neurontin] 600 mg PO TID 02/05/13 Aspirin [Aspirin EC] 81 mg PO DAILY 11/16/15 Atorvastatin Calcium [Lipitor] 40 mg PO BEDTIME 11/16/15 Isosorbide Mononitrate [Isosorbide Mononitrate ER] 30 mg PO DAILY 11/16/15 Lisinopril 10 mg PO DAILY 02/22/16 Clopidogrel Bisulfate [Plavix] 75 mg PO DAILY #0 10/09/16 Pantoprazole Tablet [Protonix] 20 mg PO QAM 11/11/16 Insulin Detemir [Levemir] 65 unit SUBCU BID 12/04/16 Azithromycin [Zithromax Z-Robson] 1 ea PO DAILY #1 pack 05/12/17 Insulin Lispro [HumaLOG] 2 - 10 unit SUBCU ACHS PRN 05/12/17 Ranolazine [Ranexa] 500 mg PO BID 05/12/17 Nitroglycerin Patch 0.4 mg/Hr [Nitro-Dur PATCH 0.4 mg/hour] 0.4 mg TOP QD #30 patch 05/20/17 Review of Systems - Review of Systems Constitutional: States: no symptoms reported EENTM: States: no symptoms reported Respiratory: States: no symptoms reported Cardiology: States: see HPI Gastrointestinal/Abdominal: States: no symptoms reported Genitourinary: States: no symptoms reported Musculoskeletal: States: no symptoms reported Skin: States: no symptoms reported Neurological: States: no symptoms reported Endocrine: States: no symptoms reported Hematologic/Lymphatic: States: no symptoms reported Past Medical History (General) - Patient Medical History Hx Seizures: No Hx Stroke: No Hx Dementia: No Hx Asthma: No Hx of COPD: No Hx Cardiac Disorders: Yes Hx Congestive Heart Failure: Yes Hx Pacemaker: No Hx Hypertension: Yes Hx Thyroid Disease: No Hx Diabetes: Yes Hx Gastroesophageal Reflux: Yes Hx Renal Disease: No Hx Cancer: No Hx of HIV: No Hx Hepatitis C: No Hx MRSA: No MRSA Source:: Wound - Vaccination History Hx Tetanus, Diphtheria Vaccination: No Hx Influenza Vaccination: No Hx Pneumococcal Vaccination: No - Social History Hx Tobacco Use: Yes Hx Chewing Tobacco Use: No Hx Alcohol Use: No Hx Substance Use: No Hx Substance Use Treatment: No Hx Depression: Yes Hx Physical Abuse: No Hx Emotional Abuse: No Hx Suspected Abuse: No - Female History Patient : No Family Medical History - Family History Mother Family History: Unknown Living Status: Still Living Hx Family Asthma: No Hx Family Congestive Heart Failure: Yes - Father Hx Family Hypertension: Yes Hx Family Stroke: No Hx Cardiac Disease: Yes Hx Family Diabetes: Yes Hx Family Cancer: No Physical Exam - Physical Exam General Appearance: Alert, Anxious Eyes, Ears, Nose, Throat Exam: PERRL/EOMI, normal ENT inspection, TMs normal Neck: non-tender, full range of motion, supple, normal inspection Respiratory: chest non-tender, lungs clear, normal breath sounds, no respiratory distress, no accessory muscle use Cardiovascular/Chest: normal peripheral pulses, regular rate, rhythm, no edema, no gallop, no JVD, no murmur Peripheral Pulses: radial,right: 2+, radial,left: 2+, femoral,right: 2+, femoral ,left: 2+, popliteal,right: 2+, popliteal,left: 2+, dorsalis pedis,right: 2+, dorsalis pedis,left: 2+ Gastrointestinal/Abdominal: non tender, soft, no organomegaly, no pulsatile mass Extremity: normal range of motion, non-tender, normal inspection Neurologic: bar pointer II-XII nml as tested, no motor/sensory deficits, normal mood/ affect, oriented x 3 Skin Exam: normal color Progress - Results/Orders Results/Orders: Laboratory Tests 05/31/18 05/31/18 23:07 23:08 WBC 6.3 RBC 4.85 Hgb 12.0 Hct 37.1 MCV 76.4 L MCH 24.8 L MCHC 32.4 L RDW 18.3 H Plt Count 310 MPV 7.6 Absolute Neuts (auto) 3.90 Absolute Lymphs (auto) 1.60 Absolute Monos (auto) 0.60 Absolute Eos (auto) 0.20 Absolute Basos (auto) 0.00 Neutrophils % 62.2 Lymphocytes % 25.8 Monocytes % 9.0 Eosinophils % 2.5 Basophils % 0.5 PT 9.2 INR 0.92 PTT (SP) 21.9 D-Dimer, Quantitative 0.48 Sodium 136 Potassium 4.4 Chloride 100 L Carbon Dioxide 26 Anion Gap 14.4 BUN 9 Creatinine 0.87 BUN/Creatinine Ratio 10.3 Random Glucose 302 H Serum Osmolality 282.0 Calcium 9.0 Magnesium 1.9 Total Bilirubin 0.3 Direct Bilirubin 0.2 Indirect Bilirubin 0.1 L AST 32 ALT 21 Alkaline Phosphatase 108 Creatine Kinase 50 CK-MB (CK-2) 1.2 CK-MB (CK-2) % Not Reportable Troponin I 0.03 B-Natriuretic Peptide 39.8 Serum Total Protein 7.7 Albumin 3.9 - EKG/XRAY/CT EKG: Sinus, Tachy, no ST T wave changes Comments: NON PROGRESSION OF R WAVE IN ANTEROSEPTAL LEADS Departure - Departure Clinical Impression: Hypertension, Chest pain of uncertain etiology, Diabetes mellitus Time of Disposition: 00:24 Disposition: Transfer to Hospital Condition: Good Departure Forms: ED Discharge - Pt. Copy, Patient Portal Self Enrollment Instructions: DI for Chest Pain Diet: resume usual diet Home Medications: Ambulatory Orders Atenolol 100 mg PO DAILY 02/05/13 Gabapentin [Neurontin] 600 mg PO TID 02/05/13 Aspirin [Aspirin EC] 81 mg PO DAILY 11/16/15 Atorvastatin Calcium [Lipitor] 40 mg PO BEDTIME 11/16/15 Isosorbide Mononitrate [Isosorbide Mononitrate ER] 30 mg PO DAILY 11/16/15 Lisinopril 10 mg PO DAILY 02/22/16 Clopidogrel Bisulfate [Plavix] 75 mg PO DAILY #0 10/09/16 Pantoprazole Tablet [Protonix] 20 mg PO QAM 11/11/16 Insulin Detemir [Levemir] 65 unit SUBCU BID 12/04/16 Azithromycin [Zithromax Z-Robson] 1 ea PO DAILY #1 pack 05/12/17 Insulin Lispro [HumaLOG] 2 - 10 unit SUBCU ACHS PRN 05/12/17 Ranolazine [Ranexa] 500 mg PO BID 05/12/17 Nitroglycerin Patch 0.4 mg/Hr [Nitro-Dur PATCH 0.4 mg/hour] 0.4 mg TOP QD #30 patch 05/20/17 Transfer to Outside Facility - Transfer Information Accepting Facility: [facility] Reason for Transfer: required specialist not available - ACCEPTING MD DR ALBERT
[2018-05-31] MEDS ORDERED: NITROGLYCERIN 0.4 MG 25 EA TAB SL ONE (23:07)
[2018-05-31] MEDS ORDERED: ASPIRIN TABLET 325 MG TAB PO ONE (23:07)
[2018-05-31] MEDS ORDERED: ONDANSETRON INJ 4 MG/2 ML VIAL IV ONE (23:07)
[2018-05-31] MEDS ORDERED: METOPROLOL TARTRATE INJ 5 MG/5 ML VIAL IV ONE (23:09)
--- NOTE | 2018-05-31 23:35 | RAD ---
EXAM: AP CHEST RADIOGRAPH CLINICAL INDICATION: Acute chest pain. Shortness of breath. COMPARISON: Compared to chest radiograph June 03, 2018. FINDINGS: Cardiac size and pulmonary vasculature are normal. Lungs are clear. No pleural effusions or pneumothorax. No hilar or mediastinal lymphadenopathy. No mediastinal widening. No extraluminal bowel gas under the hemidiaphragms. Bones are intact on this single view. IMPRESSION: Normal portable AP chest radiograph. Electronically signed by: Cullen Eisenberg MD 05/31/2018 11:34 PM CDT
[2018-05-31] MEDS ORDERED: MORPHINE SULFATE INJ 10 MG/ML VIAL IV ONE (23:53)
[2018-06-01] MEDS ORDERED: ENOXAPARIN SODIUM 100 MG/ML SYG SUBCU ONE
[2018-06-01 00:32] VITALS: TEMP 98.2; O2SAT 95
[2018-06-01 01:00] VITALS: BP 123/102
== END 2018-06-01 01:00 | disposition short-term general hospital (02) ==
LOC: ER 22:46
DX: R07.9 Chest pain, unspecified (principal); I11.0 Hypertensive heart disease with heart failure; E11.9 Type 2 diabetes mellitus without complications; I25.10 Atherosclerotic heart disease of native coronary artery without angina pectoris; R06.02 Shortness of breath; F32.9 Major depressive disorder, single episode, unspecified; I50.9 Heart failure, unspecified; K21.9 Gastro-esophageal reflux disease without esophagitis; Z95.5 Presence of coronary angioplasty implant and graft; Z79.899 Other long term (current) drug therapy; Z79.4 Long term (current) use of insulin; Z79.82 Long term (current) use of aspirin; Z79.02 Long term (current) use of antithrombotics/antiplatelets; Z87.891 Personal history of nicotine dependence
CPT/HCPCS: 71045; 80048; 80076; 82550; 82553; 83880; 84484; 85025; 85379; 85610; 85730; 93005; 94760; J1650; J2270; J2405

== ENCOUNTER 2018-08-24 12:52 | Emergency (ER) | payer OTHER ==
[2018-08-24] MEDS ORDERED: ASPIRIN TABLET 325 MG TAB PO ONE (13:29)
[2018-08-24] MEDS ORDERED: MORPHINE SULFATE INJ 10 MG/ML VIAL IV ONE (13:29)
[2018-08-24] MEDS ORDERED: ALUM & MAG HYDROX-SIMETHICONE 30 ML, LIDOCAINE VISCOUS 2% 15 ML PO ONE ×2 (13:29)
[2018-08-24] MEDS ORDERED: LIDOCAINE HCL 2% (MOUTH-THROAT) 15 ML UD ONE (13:38)
[2018-08-24] MEDS ORDERED: ALUM & MAG HYDROX-SIMETHICONE 30 ML UD ONE (13:38)
[2018-08-24] MEDS ORDERED: NITROGLYCERIN 0.4 MG 25 EA TAB SL PRN (14:24)
[2018-08-24] MEDS ORDERED: MAGNESIUM SULFATE PREMIX 2GM 2 GM in PREMIX BAG 1 BAG IVPB ONE (14:32)
--- NOTE | 2018-08-24 14:33 | RAD ---
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 Heart size is within normal limits. No acute osseous abnormality. Impression: No acute pulmonary process. Electronically signed by: Corie Hidalgo MD 08/24/2018 2:32 PM TECHNICAL PROPOSAL [employer]ITER
[2018-08-24] MEDS ORDERED: INSULIN, REG.(HUMAN) 100 U/ML VIAL SUBCU ONE (14:34)
[2018-08-24] MEDS ORDERED: LISINOPRIL 10 MG TAB PO ONE (14:34)
[2018-08-24] MEDS ORDERED: NITROGLYCERIN/D5W IV 250 ML IVS ONE (14:39)
[2018-08-24] MEDS ORDERED: MAGNESIUM SULFATE PREMIX 2GM 50 ML IVPB ONE (14:39)
[2018-08-24] MEDS ORDERED: ENOXAPARIN SODIUM 100 MG/ML SYG SUBCU ONE (14:46)
[2018-08-24] MEDS ORDERED: NITROGLYCERIN/D5W IV 50,000 MCG in PREMIX BOTTLE 1 BOTTLE IVS SCH (15:00)
[2018-08-24] MEDS ORDERED: METOPROLOL TARTRATE INJ 5 MG/5 ML VIAL IV ONE (15:16)
--- NOTE | 2018-08-24 15:46 | ED.PDOC ---
History of Present Illness - General Chief Complaint: Chest Pain/MN Stated Complaint: chest pain Time Seen by Provider: 08/24/18 13:22 Source: patient Exam Limitations: no limitations - History of Present Illness Initial Comments: the patient is a 38-year-old female presenting to the emergency room with chest pain rated at a 9 out of 10, waking her up from her sleep today at around noon. The patient does have sleep apnea but does not wear her mask. She has a very long-standing history of noncompliance and is unsure if she is out of some of her blood pressure medicines. Her systolic and diastolic pressures are elevated here in the 190s over 110s upon arrival. The patient does have a very significant cardiac history with at least 5 catheterizations in the past and at least [address] regalado. She also has a history of drug-seeking behavior, depression, anxiety, esophagitis along with peripheral vascular disease and type 1 diabetes that is poorly controlled. There is some history of iron deficiency anemia. 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 Chest pain is substernal. Morphine seems to have helped with the pain and nitroglycerin seems to have helped a little bit as well. She reports that her pain is about half of what it was when she came in. It is definitely not gone away. She was feeling just fine prior. Her last significant episode of chest pain was approximately 4-5 months ago. she does not appear to be having increase significant anxiety attack at this time as she has had in the past. GI cocktail did not help at all with the symptoms. Timing/Duration: 1 hour Severity: severe Improving Factors: nothing Worsening Factors: nothing Associated Symptoms: chest pain, shortness of breath Allergies/Adverse Reactions: Allergies NO KNOWN ALLERGY Allergy (Verified 04/27/18 17:32) Home Medications: Ambulatory Orders Atenolol 100 mg PO DAILY 02/05/13 Gabapentin [Neurontin] 600 mg PO TID 02/05/13 Aspirin [Aspirin EC] 81 mg PO DAILY 11/16/15 Lisinopril 10 mg PO DAILY 02/22/16 Clopidogrel Bisulfate [Plavix] 75 mg PO DAILY #0 10/09/16 Insulin Detemir [Levemir] 12 unit SUBCU BID 12/04/16 Ranolazine [Ranexa] 500 mg PO BID 05/12/17 Human Insulin Aspart [Novolog] 100 unit SC 08/24/18 Review of Systems - Review of Systems Constitutional: States: no symptoms reported EENTM: States: no symptoms reported Respiratory: States: short of breath - mild Cardiology: States: chest pain - Central without radiation Gastrointestinal/Abdominal: States: no symptoms reported Genitourinary: States: no symptoms reported Musculoskeletal: States: no symptoms reported - hronic aches and pains Skin: States: no symptoms reported Neurological: States: anxiety Endocrine: States: no symptoms reported All other Systems: No Change from Baseline Past Medical History (General) - Patient Medical History Hx Seizures: No Hx Stroke: No Hx Dementia: No Hx Asthma: No Hx of COPD: No Hx Cardiac Disorders: Yes Hx Congestive Heart Failure: Yes Hx Pacemaker: No Hx Hypertension: Yes Hx Thyroid Disease: No Hx Diabetes: Yes Hx Gastroesophageal Reflux: Yes Hx Renal Disease: No Hx Cancer: No Hx of HIV: No Hx Hepatitis C: No Hx MRSA: No MRSA Source:: Wound - Vaccination History Hx Tetanus, Diphtheria Vaccination: No Hx Influenza Vaccination: No Hx Pneumococcal Vaccination: No - Social History Hx Tobacco Use: Yes Hx Chewing Tobacco Use: No Hx Alcohol Use: No Hx Substance Use: No Hx Substance Use Treatment: No Hx Depression: Yes Hx Physical Abuse: No Hx Emotional Abuse: No Hx Suspected Abuse: No - Female History Patient : No Family Medical History - Family History Mother Family History: Unknown Living Status: Still Living Hx Family Asthma: No Hx Family Congestive Heart Failure: Yes - Father Hx Family Hypertension: Yes Hx Family Stroke: No Hx Cardiac Disease: Yes Hx Family Diabetes: Yes Hx Family Cancer: No Physical Exam - Physical Exam General Appearance: Alert, Anxious Eye Exam: bilateral normal - hronic changes only Ears, Nose, Throat: hearing grossly normal, normal pharynx Neck: full range of motion, supple Respiratory: lungs clear, normal breath sounds, no respiratory distress, no accessory muscle use Cardiovascular/Chest: normal peripheral pulses, regular rate, rhythm, no edema Peripheral Pulses: radial,right: 2+, radial,left: 2+ Gastrointestinal/Abdominal: non tender, soft Rectal Exam: deferred Back Exam: normal inspection, no CVA tenderness Extremity: normal range of motion, non-tender, normal inspection, no pedal edema , normal capillary refill 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, alert, normal mood/affect - she is mildly anxious but does not appear to be having a panic attack, oriented x 3 Skin Exam: normal color Comments: Vital Signs - 24 hr 08/24/18 08/24/18 08/24/18 13:00 13:16 13:43 Temperature 98.1 F Pulse Rate [ 94 H 85 right brachial] Respiratory 24 24 20 Rate Blood Pressure 166/118 165/105 [right brachial ] O2 Sat by Pulse 100 99 Oximetry 08/24/18 08/24/18 08/24/18 14:23 14:45 15:05 Temperature Pulse Rate [ 82 80 84 right brachial] Respiratory 20 20 20 Rate Blood Pressure 192/122 166/96 165/96 [right brachial ] O2 Sat by Pulse 98 96 98 Oximetry 08/24/18 08/24/18 15:16 15:46 Temperature 98.1 F Pulse Rate [ 84 71 right brachial] Respiratory 20 Rate Blood Pressure 176/112 149/101 [right brachial ] O2 Sat by Pulse 98 98 Oximetry Progress - Progress Progress: 08/24/18 15:50 the patient is a 38-year-old female presented to emergency room with substernal chest pain that has only partially resolved with pain medications and IV nitroglycerin. She also appears to be having a hypertensive emergency with systolic blood pressures peaking around 200. Systolics are now down to around 150. She has received a dose of IV Lopressor along with the oral dose of lisinopril and IV nitroglycerin. She has received a dose of Lovenox as well as a dose of insulin, magnesium and a dose of aspirin. She has already taken her Plavix today. 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 EKG shows no significant changes when compared to previous. It is certainly possible that the chest pain may be of noncardiac origin however given her history, I cannot rule out out as a source at this time. As a note to accepting care providers, the patient does have a history of asking for more and more opiate pain medications until she is unresponsive. she did receive a dose of insulin here and will need a recheck along with repeat cardiac enzymes upon arrival. Transferred for higher level of care. Critical care time spent for hypertensive emergency, coordination of care with accepting facility and formulation of plan of care with the patient is 40 minutes, excluding otherwise billable procedures. - Results/Orders Results/Orders: 08/24/18 13:15 EKG STAT 08/24/18 13:24 Telemetry .ONCE Pulse Ox Stat 08/24/18 13:25 Pulse Oximetry Assessment DAILY 08/24/18 14:24 Nitroglycerin 0.4 mg Tab [Nitrostat] 1 ea SL .Q5MIN PRN 08/24/18 15:00 Nitroglycerin/D5w IV 50,000 mcg Premix Bottle 1 bottle IVS PRN Laboratory Results - last 24 hr 08/24/18 13:24 WBC 6.1 RBC 4.87 Hgb 12.5 Hct 38.4 MCV 78.9 L MCH 25.6 L MCHC 32.4 L RDW 16.6 H Plt Count 314 MPV 8.0 Absolute Neuts (auto) 4.20 Absolute Lymphs (auto) 1.30 Absolute Monos (auto) 0.40 Absolute Eos (auto) 0.10 Absolute Basos (auto) 0.00 Neutrophils % 68.8 Lymphocytes % 22.1 Monocytes % 7.0 Eosinophils % 1.6 Basophils % 0.5 PT 9.2 INR 0.92 PTT (SP) 22.2 Sodium 133 L Potassium 4.3 Chloride 96 L Carbon Dioxide 28 Anion Gap 13.3 BUN 10 Creatinine 0.84 BUN/Creatinine Ratio 11.9 Random Glucose 370 H Serum Osmolality 280.5 Calcium 9.1 Magnesium 1.6 L Creatine Kinase 31 CK-MB (CK-2) 1.4 CK-MB (CK-2) % Not Reportable Troponin I < 0.02 B-Natriuretic Peptide 30.6 chest x-ray shows no acute pathology. EKG shows normal sinus rhythm at 86 bpm. Normal QT interval. Old septal MN. Chronic T-wave inversion and Q waves in lead 3. No significant changes when compared to EKG from May. Departure - Departure Clinical Impression: Hypertensive emergency Chest pain Qualifiers: Chest pain type: unspecified Qualified Code(s): R07.9 - Chest pain, unspecified Disposition: Transfer to Hospital Referrals: Milton Antoine MD [Primary Care Provider] - 1-2 Weeks Home Medications: Ambulatory Orders Atenolol 100 mg PO DAILY 02/05/13 Gabapentin [Neurontin] 600 mg PO TID 02/05/13 Aspirin [Aspirin EC] 81 mg PO DAILY 11/16/15 Lisinopril 10 mg PO DAILY 02/22/16 Clopidogrel Bisulfate [Plavix] 75 mg PO DAILY #0 10/09/16 Insulin Detemir [Levemir] 12 unit SUBCU BID 12/04/16 Ranolazine [Ranexa] 500 mg PO BID 05/12/17 Human Insulin Aspart [Novolog] 100 unit SC 08/24/18 Transfer to Outside Facility - Transfer Information Accepting Provider:: dr smyth Accepting Facility: [facility] Reason for Transfer: required specialist not available
[2018-08-24 16:27] VITALS: BP 157/91; TEMP 98.3; O2SAT 97
== END 2018-08-24 16:23 | disposition short-term general hospital (02) ==
LOC: ER 12:52
DX: I16.1 Hypertensive emergency (principal); R07.2 Precordial pain; G47.33 Obstructive sleep apnea (adult) (pediatric); I25.2 Old myocardial infarction; E10.9 Type 1 diabetes mellitus without complications; F41.9 Anxiety disorder, unspecified; F32.9 Major depressive disorder, single episode, unspecified; K21.9 Gastro-esophageal reflux disease without esophagitis; Z91.14 Patient's other noncompliance with medication regimen; Z95.5 Presence of coronary angioplasty implant and graft; Z79.82 Long term (current) use of aspirin; Z79.899 Other long term (current) drug therapy; Z87.891 Personal history of nicotine dependence
CPT/HCPCS: 71045; 80048; 82550; 82553; 83880; 84484; 85025; 85610; 85730; 93005; J1650; J2270; J3475

== ENCOUNTER 2018-09-06 22:26 | Emergency (ER) | payer OTHER ==
[2018-09-06 22:51] VITALS: TEMP 99.3
[2018-09-06] MEDS ORDERED: diazePAM 2 MG TAB PO ONE (22:52)
[2018-09-06] MEDS ORDERED: HYDROcodone 7.5MG/APAP 325MG 1 EA TAB PO ONE (22:52)
--- NOTE | 2018-09-06 23:05 | RAD ---
EXAM: Chest,1 View CLINICAL INDICATION: 38-year-old female with chest TECHNIQUE: Single view, AP portable chest was obtained. COMPARISON: Single view chest 1219. FINDINGS: Unremarkable cardiac and mediastinal silhouette. Heart size is normal. Lungs are clear without focal opacity, pneumothorax or pleural effusions. The visualized bones are within normal limits. IMPRESSION: No acute cardiopulmonary abnormalities. Electronically signed by: Fiona Arredondo MD 09/06/2018 11:04 PM ACCOUNT GROUP SUPERVISOR
[2018-09-07] MEDS ORDERED: IBUPROFEN 200 MG TAB PO ONE (00:03)
[2018-09-07] MEDS ORDERED: ATENOLOL 25 MG TAB PO ONE (00:03)
[2018-09-07] MEDS ORDERED: ALUMINUM & MAGNESIUM HYDROXIDE 30 ML UD PO ONE (00:03)
[2018-09-07 00:27] VITALS: O2SAT 93
[2018-09-07 01:04] VITALS: BP 152/106
--- NOTE | 2018-09-07 01:21 | ED.PDOC ---
History of Present Illness - General Chief Complaint: Chest Pain/IN Stated Complaint: CP since 2029 Time Seen by Provider: 09/06/18 22:42 Source: patient Exam Limitations: no limitations - History of Present Illness Initial Comments: The patient is a 38-year-old female presenting to the emergency room secondary to chest pain that is just to the left of the sternum. It started a couple of hours ago while at rest. It is actually worse with movement and worse with palpation. No shortness of breath. No palpitations. No syncope or near syncope. She actually just went to [facility] and saw her lathmaker a couple of weeks ago where she had what sounds like an exercise echocardiogram performed showing no new dysfunction. The patient has not gotten her atenolol refills of her blood pressure is moderately elevated and she has not gotten her stomach medications refilled so she is having more reflux issues than she normally would be otherwise. No fevers. the patient does have a history of coronary artery disease however clinical presentation today is convincing for costochondritis. The patient would definitely also benefit by remaining compliant with her hypertension and reflux medications.the patient is in no distress at this time. Timing/Duration: unsure, 1-3 hours Severity: mild Improving Factors: nothing Worsening Factors: nothing Associated Symptoms: chest pain Allergies/Adverse Reactions: Allergies NO KNOWN ALLERGY Allergy (Verified 09/06/18 22:50) Home Medications: Ambulatory Orders Aspirin [Aspirin EC] 81 mg PO DAILY 11/16/15 Lisinopril 10 mg PO DAILY 02/22/16 Insulin Detemir [Levemir] 12 unit SUBCU BID 12/04/16 Human Insulin Aspart [Novolog] 100 unit SC 08/24/18 Atenolol 100 mg PO DAILY #30 tab 09/07/18 Famotidine [Pepcid Tab] 20 mg PO BID #60 tab 09/07/18 Keppra 09/07/18 Tramadol HCl 50 mg PO Q8HR PRN #20 tab 09/07/18 Review of Systems - Review of Systems Constitutional: States: no symptoms reported EENTM: States: no symptoms reported Respiratory: States: no symptoms reported Cardiology: States: chest pain Gastrointestinal/Abdominal: States: no symptoms reported Genitourinary: States: no symptoms reported Musculoskeletal: States: no symptoms reported Skin: States: no symptoms reported Neurological: States: no symptoms reported Endocrine: States: no symptoms reported All other Systems: No Change from Baseline Past Medical History (General) - Patient Medical History Hx Seizures: Yes Hx Stroke: No Hx Dementia: No Hx Asthma: No Hx of COPD: No Hx Cardiac Disorders: Yes - stents Hx Congestive Heart Failure: Yes Hx Pacemaker: No Hx Hypertension: Yes Hx Thyroid Disease: No Hx Diabetes: Yes Hx Gastroesophageal Reflux: Yes Hx Renal Disease: No Hx Cancer: No Hx of HIV: No Hx Hepatitis C: No Hx MRSA: No MRSA Source:: Wound Surgical History: cholecystectomy, Hysterectomy - Vaccination History Hx Tetanus, Diphtheria Vaccination: Yes Hx Influenza Vaccination: No Hx Pneumococcal Vaccination: No - Social History Hx Tobacco Use: Yes Hx Chewing Tobacco Use: No Hx Alcohol Use: No Hx Substance Use: Yes - meth Hx Substance Use Treatment: No Hx Depression: Yes Hx Physical Abuse: No Hx Emotional Abuse: No Hx Suspected Abuse: No - Female History Patient : No Family Medical History - Family History Mother Family History: Unknown Living Status: Still Living Hx Family Asthma: No Hx Family Congestive Heart Failure: Yes - Father Hx Family Hypertension: Yes Hx Family Stroke: No Hx Cardiac Disease: Yes Hx Family Diabetes: Yes Hx Family Cancer: No Physical Exam - Physical Exam General Appearance: Alert, Comfortable, No apparent distress Eye Exam: bilateral normal Ears, Nose, Throat: hearing grossly normal, normal ENT inspection, normal pharynx - very poor dentition Neck: full range of motion, supple Respiratory: lungs clear, normal breath sounds, no respiratory distress, no accessory muscle use Cardiovascular/Chest: normal peripheral pulses, regular rate, rhythm, no edema Peripheral Pulses: radial,right: 2+, radial,left: 2+ Gastrointestinal/Abdominal: non tender, soft Rectal Exam: deferred Back Exam: normal inspection, no vertebral tenderness Extremity: normal range of motion, non-tender, normal inspection, no pedal edema, no calf tenderness, normal capillary refill 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, alert, normal mood/affect, oriented x 3 Skin Exam: normal color Comments: Vital Signs - 24 hr 09/06/18 09/06/18 09/06/18 22:36 22:40 23:00 Temperature 99.3 F Pulse Rate [ 89 89 85 monitor] Respiratory 20 16 Rate Blood Pressure 176/117 159/99 [Left Arm] O2 Sat by Pulse 98 99 Oximetry 09/07/18 09/07/18 00:00 01:00 Temperature Pulse Rate [ 80 72 monitor] Respiratory 20 72 H Rate Blood Pressure 162/100 152/106 [Left Arm] O2 Sat by Pulse 93 L 93 L Oximetry Progress - Progress Progress: 09/07/18 01:21 the patient's 38-year-old female presenting to the emergency room secondary to what appears to be costochondritis. She will be written for some tramadol for as needed use. She does need to do stretching exercises and apply topical heat. Additionally the patient has uncontrolled hypertension as she has not been taking her atenolol. She will be written for a month's prescription of this. Additionally she will be written for some famotidine for her reflux issues. ER warnings were given. Keep follow-up with primary care doctor next week. - Results/Orders Results/Orders: chest x-ray shows no acute pathology. EKG shows old Q waves in inferior leads and poor R-wave progression that is also not new. Normal sinus rhythm at 87 bpm. Normal axis. EKG is consistent with her EKG from earlier this month. Departure - Departure Clinical Impression: Costochondritis, acute, Uncontrolled hypertension Gastroesophageal reflux disease Qualifiers: Esophagitis presence: with esophagitis Qualified Code(s): K21.0 - Gastro- esophageal reflux disease with esophagitis Disposition: Discharge to Home or Self Care Condition: Fair Departure Forms: ED Discharge - Pt. Copy, Patient Portal Self Enrollment Instructions: Costochondritis (DC), Acid Reflux (Gastroesophageal Reflux Disease), Adult (DC), High Blood Pressure in Adults Diet: diabetic diet Activity: increase activity as tolerated Referrals: Milton Antoine MD [Primary Care Provider] - 1-5 Days Prescriptions: Tramadol HCl 50 mg PO Q8HR PRN #20 tab PRN Reason: Mild To Moderate Pain Atenolol 100 mg PO DAILY #30 tab Famotidine [Pepcid Tab] 20 mg PO BID #60 tab Home Medications: Ambulatory Orders Aspirin [Aspirin EC] 81 mg PO DAILY 11/16/15 Lisinopril 10 mg PO DAILY 02/22/16 Insulin Detemir [Levemir] 12 unit SUBCU BID 12/04/16 Human Insulin Aspart [Novolog] 100 unit SC 08/24/18 Atenolol 100 mg PO DAILY #30 tab 09/07/18 Famotidine [Pepcid Tab] 20 mg PO BID #60 tab 09/07/18 Keppra 09/07/18 Tramadol HCl 50 mg PO Q8HR PRN #20 tab 09/07/18 Additional Instructions: the patient's 38-year-old female presenting to the emergency room secondary to what appears to be costochondritis. She will be written for some tramadol for as needed use. She does need to do stretching exercises and apply topical heat. Additionally the patient has uncontrolled hypertension as she has not been taking her atenolol. She will be written for a month's prescription of this. Additionally she will be written for some famotidine for her reflux issues. ER warnings were given. Keep follow-up with primary care doctor next week.
== END 2018-09-07 01:39 | disposition home or self-care (01) ==
LOC: ER 22:26
DX: M94.0 Chondrocostal junction syndrome [Tietze] (principal); I11.0 Hypertensive heart disease with heart failure; K21.0 Gastro-esophageal reflux disease with esophagitis; F32.9 Major depressive disorder, single episode, unspecified; Z87.891 Personal history of nicotine dependence; I50.9 Heart failure, unspecified; E11.9 Type 2 diabetes mellitus without complications; Z95.5 Presence of coronary angioplasty implant and graft

== ENCOUNTER → 2018-09-10 | Outpatient (CLI) | payer OTHER ==
--- NOTE | 2018-09-10 16:16 | CT ---
EXAM DESCRIPTION: Chest w/wo Contrast : Computed Tomography. CLINICAL HISTORY: 38 years Female CHEST PAIN COMPARISON: Portable chest 09/06/2018. TECHNIQUE: Spiral-axial scans at 5 x 5 mm intervals through the lungs and thorax without and with IV contrast. 2.5 x 5 mm lung algorithm axial reconstructions without and with IV contrast. Coronal and sagittal 2.0 Mm reconstructions, without and with IV contrast. No adverse reactions. Total Exam DLP: 1286.11. mGy-cm. This exam was performed according to our departmental dose-optimization program which includes automated exposure control, adjustment of the mA and/or kV according to patient size and/or use of iterative reconstruction technique; to reduce radiation dose to as low as reasonably achievable (ALARA). Nodule measurements under 10 mm are given as mean value of 3 axes diameters. FINDINGS: Lungs and large airways: Small bleb in the central right lower lobe. No abnormal nodules larger masses or infiltrates bilaterally. Airways are unremarkable. Pleural spaces: No effusion bilaterally or pneumothorax. Mediastinum and Rain: Short axis lymph nodes in the subcarinal region 9 mm an 8mm diameter. No other lymph nodes or soft tissue masses are noted. Great vessels and Heart: Coronary artery calcifications. Atherosclerotic calcifications in the proximal brachiocephalic vessels and aortic arch. Soft tissues of neck base, axillae, and chest wall: Unremarkable. Upper abdomen: Calcified granulomas in the spleen. Possible fatty infiltration of the liver. No subdiaphragmatic peritoneal fluid or free air. Partial visualization of the liver. Surgical clips in the gallbladder fossa with no fluid. Normal size, density and enhancement of the adrenal glands bilaterally. Osseous structures: Minimal scoliosis of the thoracic spine and scattered spondylosis. Bilateral sternoclavicular arthrosis. No lytic or blastic lesions. IMPRESSION: 1. Small solitary bleb in the central right lower lobe. Otherwise no significant chronic pulmonary process. No abnormal nodules larger masses or infiltrates bilaterally. No pleural effusion or pneumothorax. 2. Borderline enlarged subcarinal lymph nodes are not thought to be significant in consideration of other findings. 3. Mild steatosis of the liver. Electronically signed by: Arnav Russell MD 09/10/2018 4:15 PM WELDING TEACHER
== END ==
LOC: LAB.O 11:35
PROVIDERS: ATTEND Family Medicine
DX: R07.9 Chest pain, unspecified (principal); K76.0 Fatty (change of) liver, not elsewhere classified; I10 Essential (primary) hypertension; E78.5 Hyperlipidemia, unspecified; E11.65 Type 2 diabetes mellitus with hyperglycemia

== ENCOUNTER 2018-09-12 14:47 | Emergency (ER) | payer OTHER ==
[2018-09-12 15:04] VITALS: TEMP 97.6
[2018-09-12] MEDS ORDERED: ALUM & MAG HYDROX-SIMETHICONE 30 ML, LIDOCAINE VISCOUS 2% 15 ML PO ONE ×2 (15:17)
[2018-09-12] MEDS ORDERED: ALUM & MAG HYDROX-SIMETHICONE 30 ML UD ONE (15:19)
[2018-09-12] MEDS ORDERED: LIDOCAINE HCL 2% (MOUTH-THROAT) 15 ML UD ONE (15:19)
--- NOTE | 2018-09-12 15:21 | ED.PDOC ---
History of Present Illness - General Chief Complaint: Chest Pain/[place] Stated Complaint: chest pain Time Seen by Provider: 09/12/18 15:12 Source: patient Exam Limitations: no limitations - History of Present Illness Initial Comments: PT SEEN BY PCP 2 DAYS AGO AND HAD WORKUP FOR THIS CONDITION. LABS HAD ELEVATE SED RATE, CRP, BLOOD SUGAR, AND MINMALLY ELEVATE D-DIMER. HAD A NORMAL CT CHEST Timing/Duration: other - two days Severity/Quality: severe, pressure, stabbing Location: substernal Chest Pain Radiation: back, other - L shoulder and back Activities at Onset: none Prior Chest Pain/Cardiac Workup: cardiac cath Improving Factors: nothing Worsening Factors: other - deep breathing Nitro Today/Relief: no nitro taken today Associated Symptoms: back pain, nausea/vomiting, shortness of breath Allergies/Adverse Reactions: Allergies NO KNOWN ALLERGY Allergy (Verified 09/06/18 22:50) Home Medications: Ambulatory Orders Aspirin [Aspirin EC] 81 mg PO DAILY 11/16/15 Lisinopril 20 mg PO DAILY 02/22/16 Insulin Detemir [Levemir] 12 unit SUBCU BID 12/04/16 Human Insulin Aspart [Novolog] 100 unit SC DAILY PRN 08/24/18 Atenolol 100 mg PO DAILY #30 tab 09/07/18 Famotidine [Pepcid Tab] 20 mg PO BID #60 tab 09/07/18 Keppra 09/07/18 Tramadol HCl 50 mg PO Q8HR PRN #20 tab 09/07/18 Orphenadrine Citrate [Orphenadrine Citrate ER] 100 mg PO BID PRN #14 tab 09/12/18 Review of Systems - Review of Systems Constitutional: States: chills. Denies: diaphoresis, fever, weakness EENTM: States: no symptoms reported Respiratory: Denies: cough, short of breath Cardiology: States: chest pain. Denies: palpitations Gastrointestinal/Abdominal: States: nausea, vomiting. Denies: abdominal pain, diarrhea Genitourinary: States: dysuria, hematuria Musculoskeletal: States: no symptoms reported. Denies: back pain Skin: States: no symptoms reported Neurological: States: no symptoms reported Endocrine: States: no symptoms reported Hematologic/Lymphatic: States: no symptoms reported Past Medical History (General) - Patient Medical History Hx Seizures: Yes Hx Stroke: No Hx Dementia: No Hx Asthma: No Hx of COPD: No Hx Cardiac Disorders: Yes - stents Hx Congestive Heart Failure: No Hx Pacemaker: No Hx Hypertension: Yes Hx Thyroid Disease: No Hx Diabetes: Yes Hx Gastroesophageal Reflux: Yes Hx Renal Disease: No Hx Cancer: No Hx of HIV: No Hx Hepatitis C: No Hx MRSA: No MRSA Source:: Wound Surgical History: cholecystectomy, Hysterectomy - Vaccination History Hx Tetanus, Diphtheria Vaccination: Yes Hx Influenza Vaccination: No Hx Pneumococcal Vaccination: No - Social History Hx Tobacco Use: Yes Hx Chewing Tobacco Use: No Hx Alcohol Use: No Hx Substance Use: Yes - meth Hx Substance Use Treatment: No Hx Depression: Yes Hx Physical Abuse: No Hx Emotional Abuse: No Hx Suspected Abuse: No - Female History Patient : No Family Medical History - Family History Mother Family History: Unknown Living Status: Still Living Hx Family Asthma: No Hx Family Congestive Heart Failure: Yes - Father Hx Family Hypertension: Yes Hx Family Stroke: No Hx Cardiac Disease: Yes Hx Family Diabetes: Yes Hx Family Cancer: No Physical Exam - Physical Exam General Appearance: Alert, Anxious Eyes, Ears, Nose, Throat Exam: PERRL/EOMI, pharynx normal Neck: non-tender, full range of motion, supple, normal inspection Respiratory: chest non-tender, lungs clear, normal breath sounds Cardiovascular/Chest: normal peripheral pulses, regular rate, rhythm, no edema Extremity: normal range of motion, non-tender, normal inspection, no pedal edema Neurologic: alert, normal mood/affect, oriented x 3 Skin Exam: normal color, warm/dry Progress - EKG/XRAY/CT EKG: Sinus, no ST T wave changes, Abnormal Q waves Comments: rate 79, MS 150, QRS 88 Departure - Departure Clinical Impression: Atypical chest pain Disposition: Discharge to Home or Self Care Departure Forms: ED Discharge - Pt. Copy, Patient Portal Self Enrollment Instructions: DI for Chest Pain Referrals: Milton Antoine MD [Primary Care Provider] - 1-2 Weeks Prescriptions: Orphenadrine Citrate [Orphenadrine Citrate ER] 100 mg PO BID PRN #14 tab PRN Reason: Muscle Spasms Home Medications: Ambulatory Orders Aspirin [Aspirin EC] 81 mg PO DAILY 11/16/15 Lisinopril 20 mg PO DAILY 02/22/16 Insulin Detemir [Levemir] 12 unit SUBCU BID 12/04/16 Human Insulin Aspart [Novolog] 100 unit SC DAILY PRN 08/24/18 Atenolol 100 mg PO DAILY #30 tab 09/07/18 Famotidine [Pepcid Tab] 20 mg PO BID #60 tab 09/07/18 Keppra 09/07/18 Tramadol HCl 50 mg PO Q8HR PRN #20 tab 09/07/18 Orphenadrine Citrate [Orphenadrine Citrate ER] 100 mg PO BID PRN #14 tab 09/12/18
--- NOTE | 2018-09-12 15:31 | RAD ---
EXAM DESCRIPTION: Chest,1 View CLINICAL HISTORY: L chest pain COMPARISON: 06 September 2018 TECHNIQUE: AP portable chest FINDINGS: The lungs are clear. There is no infiltrate or effusion. The heart is normal size. IMPRESSION: Normal portable chest Electronically signed by: Henrik Millard MD 09/12/2018 3:30 PM [facility]
[2018-09-12] MEDS ORDERED: KETOROLAC TROMETHAMINE INJ 30 MG/ML VIAL IV ONE (16:18)
[2018-09-12 16:55] VITALS: BP 167/99; O2SAT 99
== END 2018-09-12 16:55 | disposition home or self-care (01) ==
LOC: ER 14:47
DX: R07.89 Other chest pain (principal); R11.2 Nausea with vomiting, unspecified; R06.02 Shortness of breath; M54.9 Dorsalgia, unspecified; R56.9 Unspecified convulsions; F32.9 Major depressive disorder, single episode, unspecified; I10 Essential (primary) hypertension; E11.9 Type 2 diabetes mellitus without complications; K21.9 Gastro-esophageal reflux disease without esophagitis; Z95.5 Presence of coronary angioplasty implant and graft; Z87.891 Personal history of nicotine dependence; Z79.82 Long term (current) use of aspirin; Z79.899 Other long term (current) drug therapy
CPT/HCPCS: 71045; 80053; 84484; 85025; 93005; J1885

== ENCOUNTER 2018-10-04 19:08 | Emergency (ER) | payer OTHER ==
[2018-10-04] MEDS ORDERED: ASPIRIN TABLET 325 MG TAB PO ONE (19:27)
[2018-10-04] MEDS ORDERED: ALPRAZolam 0.25 MG TAB PO ONE (19:27)
[2018-10-04] MEDS ORDERED: SUCRALFATE 1 GM/10 ML 1 GM UD PO ONE (19:27)
[2018-10-04 19:53] VITALS: TEMP 98.6
[2018-10-04] MEDS ORDERED: MORPHINE SULFATE INJ 10 MG/ML VIAL IV ONE (19:56)
[2018-10-04] MEDS ORDERED: NITROGLYCERIN 0.4 MG 25 EA TAB SL ONE (19:56)
[2018-10-04] MEDS ORDERED: INSULIN, REG.(HUMAN) 100 U/ML VIAL SUBCU ONE (20:15)
[2018-10-04] MEDS ORDERED: MORPHINE SULFATE INJ 10 MG/ML VIAL IM ONE (20:25)
--- NOTE | 2018-10-04 20:42 | RAD ---
EXAM DESCRIPTION: Chest,1 View CLINICAL HISTORY: 38 years Female, chest pain COMPARISON: Chest x-ray September 12, 2018 FINDINGS: No consolidation. No pneumothorax. No significant pleural effusion. Cardiomediastinal silhouette is unremarkable. Osseous structures are unremarkable. IMPRESSION: No acute findings. Electronically signed by: Ziggy Gunter MD 10/04/2018 8:40 PM [employer]
[2018-10-04] MEDS ORDERED: cloNIDine HCL 0.1 MG TAB PO ONE (23:44)
[2018-10-05 00:46] VITALS: O2SAT 94
--- NOTE | 2018-10-05 01:58 | ED.PDOC ---
History of Present Illness - General Chief Complaint: Chest Pain/MT Stated Complaint: Chest pain, dyspnea, left sided numbness Time Seen by Provider: 10/04/18 19:27 Source: patient Exam Limitations: no limitations - History of Present Illness Initial Comments: the patient is a 38-year-old female presenting to emergency room secondary to chest pain that has been going on for less than 15 minutes. She reports that it started while she was lying back watching TV. This is actually not an atypical presentation for this patient she is seen at least once a month for this type of symptom. She does have numerous originating sources for this type of chest pain including recurrent esophagitis, costochondritis, pectoralis muscle strains, anxiety and she does have a history of coronary artery disease. The patient has recently seen her youth care specialist and has been worked up by them indicating no progression of disease. The patient does not have any nitroglycerin for some reason. Pain is mild and largely reproducible with palpation of the mid body of the pectoralis muscle. Timing/Duration: other - less than 15 minutes Severity: moderate Improving Factors: nothing Worsening Factors: nothing Associated Symptoms: chest pain Allergies/Adverse Reactions: Allergies NO KNOWN ALLERGY Allergy (Verified 10/04/18 19:53) Home Medications: Ambulatory Orders Aspirin [Aspirin EC] 81 mg PO DAILY 11/16/15 Lisinopril 20 mg PO DAILY 02/22/16 Insulin Detemir [Levemir] 12 unit SUBCU BID 12/04/16 Human Insulin Aspart [Novolog] 100 unit SC DAILY PRN 08/24/18 Atenolol 100 mg PO DAILY #30 tab 09/07/18 Famotidine [Pepcid Tab] 20 mg PO BID #60 tab 09/07/18 Keppra 09/07/18 Tramadol HCl 50 mg PO Q8HR PRN #20 tab 09/07/18 Orphenadrine Citrate [Orphenadrine Citrate ER] 100 mg PO BID PRN #14 tab 09/12/18 Nitroglycerin [Nitrostat] 0.4 mg SL Q5MIN PRN #1 bottle 10/05/18 Review of Systems - Review of Systems Constitutional: States: no symptoms reported EENTM: States: no symptoms reported Respiratory: States: no symptoms reported Cardiology: States: chest pain Gastrointestinal/Abdominal: States: no symptoms reported Genitourinary: States: no symptoms reported Musculoskeletal: States: see HPI Skin: States: no symptoms reported Neurological: States: anxiety Endocrine: States: no symptoms reported All other Systems: No Change from Baseline Past Medical History (General) - Patient Medical History Hx Seizures: Yes Hx Stroke: No Hx Dementia: No Hx Asthma: No Hx of COPD: Yes Hx Cardiac Disorders: Yes - stents Hx Congestive Heart Failure: No Hx Pacemaker: No Hx Hypertension: Yes Hx Thyroid Disease: No Hx Diabetes: Yes Hx Gastroesophageal Reflux: Yes Hx Renal Disease: No Hx Cancer: No Hx of HIV: No Hx Hepatitis C: No Hx MRSA: No MRSA Source:: Wound Surgical History: cholecystectomy, Hysterectomy - Vaccination History Hx Tetanus, Diphtheria Vaccination: Yes Hx Influenza Vaccination: No Hx Pneumococcal Vaccination: No - Social History Hx Tobacco Use: Yes Hx Chewing Tobacco Use: No Hx Alcohol Use: No Hx Substance Use: Yes - meth Hx Substance Use Treatment: No Hx Depression: Yes Hx Physical Abuse: No Hx Emotional Abuse: No Hx Suspected Abuse: No - Female History Patient : No Family Medical History - Family History Mother Family History: Unknown Living Status: Still Living Hx Family Asthma: No Hx Family Congestive Heart Failure: Yes - Father Hx Family Hypertension: Yes Hx Family Stroke: No Hx Cardiac Disease: Yes Hx Family Diabetes: Yes Hx Family Cancer: No Physical Exam - Physical Exam General Appearance: Alert, Anxious, No apparent distress Eye Exam: bilateral normal - chronic changes Ears, Nose, Throat: hearing grossly normal, normal ENT inspection - poor dentition Neck: full range of motion, supple Respiratory: lungs clear, normal breath sounds, no respiratory distress Cardiovascular/Chest: normal peripheral pulses, regular rate, rhythm, no edema Peripheral Pulses: radial,right: 2+, radial,left: 2+, dorsalis pedis,right: 2+, dorsalis pedis,left: 2+ Gastrointestinal/Abdominal: non tender, soft Rectal Exam: deferred Back Exam: no CVA tenderness, no vertebral tenderness Extremity: non-tender, normal inspection, no pedal edema, normal capillary refill Neurologic: hydraulic riveter II-XII nml as tested, alert, oriented x 3, other - very anxious Skin Exam: normal color Comments: 10/04/18 19:22 Telemetry .ONCE EKG Stat Pulse Ox Stat Laboratory Results - last 24 hr 10/04/18 10/04/18 10/05/18 19:40 19:40 00:00 WBC 6.3 RBC 4.79 Hgb 12.5 Hct 38.7 MCV 80.9 L MCH 26.2 L MCHC 32.4 L RDW 16.9 H Plt Count 332 MPV 7.7 Absolute Neuts (auto) 4.30 Absolute Lymphs (auto) 1.60 Absolute Monos (auto) 0.40 Absolute Eos (auto) 0.10 Absolute Basos (auto) 0.00 Neutrophils % 67.1 Lymphocytes % 25.0 Monocytes % 6.0 Eosinophils % 1.2 Basophils % 0.7 PT 9.6 INR 0.96 PTT (SP) 22.1 D-Dimer, Quantitative 0.50 H Sodium 138 Potassium 4.0 Chloride 99 L Carbon Dioxide 29 Anion Gap 14.0 BUN 7 Creatinine 0.78 BUN/Creatinine Ratio 9.0 L Random Glucose 311 H Serum Osmolality 285.5 Calcium 8.9 Magnesium 1.9 Creatine Kinase 29 28 CK-MB (CK-2) 1.2 1.1 CK-MB (CK-2) % Not Reportable Not Reportable Troponin I 0.02 < 0.02 B-Natriuretic Peptide 51.0 Progress - Progress Progress: 10/05/18 02:01 the patient is a 38-year-old female presenting due to atypical chest pain. The patient has been monitored for more than 7 hours and repeat cardiac enzymes show no evidence of any rise in heart enzymes. The patient does need to overall maintain better blood pressure control and better blood sugar control. She did receive a dose of clonidine and insulin here for both. I would recommend that she follow-up with her primary care doctor later this coming week. ER warnings were given. - Results/Orders Results/Orders: 10/04/18 19:22 Telemetry .ONCE EKG Stat Pulse Ox Stat Laboratory Results - last 24 hr 10/04/18 10/04/18 10/05/18 19:40 19:40 00:00 WBC 6.3 RBC 4.79 Hgb 12.5 Hct 38.7 MCV 80.9 L MCH 26.2 L MCHC 32.4 L RDW 16.9 H Plt Count 332 MPV 7.7 Absolute Neuts (auto) 4.30 Absolute Lymphs (auto) 1.60 Absolute Monos (auto) 0.40 Absolute Eos (auto) 0.10 Absolute Basos (auto) 0.00 Neutrophils % 67.1 Lymphocytes % 25.0 Monocytes % 6.0 Eosinophils % 1.2 Basophils % 0.7 PT 9.6 INR 0.96 PTT (SP) 22.1 D-Dimer, Quantitative 0.50 H Sodium 138 Potassium 4.0 Chloride 99 L Carbon Dioxide 29 Anion Gap 14.0 BUN 7 Creatinine 0.78 BUN/Creatinine Ratio 9.0 L Random Glucose 311 H Serum Osmolality 285.5 Calcium 8.9 Magnesium 1.9 Creatine Kinase 29 28 CK-MB (CK-2) 1.2 1.1 CK-MB (CK-2) % Not Reportable Not Reportable Troponin I 0.02 < 0.02 B-Natriuretic Peptide 51.0 chest x-ray is benign. EKG shows old Q waves in inferior leads. Old poor R-wave progression in anterior leads. Old left atrial dilation. Normal QT interval. Sinus rhythm at 90 bpm. No new acute findings. No new ST segment or T-wave changes concerning for new ischemia. Departure - Departure Clinical Impression: Chest pain of uncertain etiology Disposition: Discharge to Home or Self Care Condition: Fair Departure Forms: ED Discharge - Pt. Copy, Patient Portal Self Enrollment Instructions: Chest Pain That Is Not Caused by the Heart (DC) Diet: diabetic diet Activity: increase activity as tolerated Referrals: Milton Antoine MD [Primary Care Provider] - 1-5 Days Prescriptions: Nitroglycerin [Nitrostat] 0.4 mg SL Q5MIN PRN #1 bottle PRN Reason: Chest Pain Home Medications: Ambulatory Orders Aspirin [Aspirin EC] 81 mg PO DAILY 11/16/15 Lisinopril 20 mg PO DAILY 02/22/16 Insulin Detemir [Levemir] 12 unit SUBCU BID 12/04/16 Human Insulin Aspart [Novolog] 100 unit SC DAILY PRN 08/24/18 Atenolol 100 mg PO DAILY #30 tab 09/07/18 Famotidine [Pepcid Tab] 20 mg PO BID #60 tab 09/07/18 Keppra 09/07/18 Tramadol HCl 50 mg PO Q8HR PRN #20 tab 09/07/18 Orphenadrine Citrate [Orphenadrine Citrate ER] 100 mg PO BID PRN #14 tab 09/12/18 Nitroglycerin [Nitrostat] 0.4 mg SL Q5MIN PRN #1 bottle 10/05/18 Additional Instructions: the patient is a 38-year-old female presenting due to atypical chest pain. The patient has been monitored for more than 7 hours and repeat cardiac enzymes show no evidence of any rise in heart enzymes. The patient does need to overall maintain better blood pressure control and better blood sugar control. She did receive a dose of clonidine and insulin here for both. I would recommend that she follow-up with her primary care doctor later this coming week. ER warnings were given.
[2018-10-05 02:05] VITALS: BP 109/77
== END 2018-10-05 02:17 | disposition home or self-care (01) ==
LOC: ER 19:08
DX: R07.9 Chest pain, unspecified (principal); I25.10 Atherosclerotic heart disease of native coronary artery without angina pectoris; R56.9 Unspecified convulsions; J44.9 Chronic obstructive pulmonary disease, unspecified; I10 Essential (primary) hypertension; E11.9 Type 2 diabetes mellitus without complications; K21.9 Gastro-esophageal reflux disease without esophagitis; F32.9 Major depressive disorder, single episode, unspecified; Z95.5 Presence of coronary angioplasty implant and graft; Z79.82 Long term (current) use of aspirin; Z79.4 Long term (current) use of insulin; Z79.899 Other long term (current) drug therapy; Z87.891 Personal history of nicotine dependence
CPT/HCPCS: 36415; 71045; 80048; 82550; 82553; 83880; 84484; 85025; 85379; 85610; 85730; 93005; J2270

== ENCOUNTER 2018-10-28 19:34 | Emergency (ER) | payer OTHER ==
[2018-10-28] MEDS ORDERED: SODIUM CHLORIDE 0.9% (FLUSH) 10 ML SYG IV PRN (19:49)
[2018-10-28] MEDS ORDERED: ASPIRIN TABLET 325 MG TAB PO ONE (19:49)
--- NOTE | 2018-10-28 19:51 | ED.PDOC ---
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 Her primary Md also had done blood work crp,sed rate which all were slightly elevated.Had also slight elevation of d -dimer in the past but Chest-CTA was negative for PE. Timing/Duration: 1-3 hours Severity: moderate Location: central Activities at Onset: rest Prior Chest Pain/Cardiac Workup: cardiac cath, stress test, thallium scan Improving Factors: rest Worsening Factors: nothing Nitro Today/Relief: 0.4 mg x 3 Aspirin Treatment Today: 81 mg x 3 Associated Symptoms: shortness of breath Allergies/Adverse Reactions: Allergies NO KNOWN ALLERGY Allergy (Verified 10/04/18 19:53) Home Medications: Ambulatory Orders Aspirin [Aspirin EC] 81 mg PO DAILY 11/16/15 Lisinopril 20 mg PO DAILY 02/22/16 Insulin Detemir [Levemir] 12 unit SUBCU BID 12/04/16 Human Insulin Aspart [Novolog] 100 unit SC DAILY PRN 08/24/18 Atenolol 100 mg PO DAILY #30 tab 09/07/18 Famotidine [Pepcid Tab] 20 mg PO BID #60 tab 09/07/18 Keppra 09/07/18 Tramadol HCl 50 mg PO Q8HR PRN #20 tab 09/07/18 Orphenadrine Citrate [Orphenadrine Citrate ER] 100 mg PO BID PRN #14 tab 09/12/18 Nitroglycerin [Nitrostat] 0.4 mg SL Q5MIN PRN #1 bottle 01/20/19 Review of Systems - Review of Systems Constitutional: States: no symptoms reported EENTM: States: no symptoms reported Respiratory: States: no symptoms reported Cardiology: States: see HPI Gastrointestinal/Abdominal: States: no symptoms reported Genitourinary: States: no symptoms reported Musculoskeletal: States: no symptoms reported Skin: States: no symptoms reported Neurological: States: no symptoms reported Endocrine: States: no symptoms reported All other Systems: Reviewed and Negative, No Change from Baseline Past Medical History (General) - Patient Medical History Hx Seizures: Yes Hx Stroke: No Hx Dementia: No Hx Asthma: No Hx of COPD: Yes Hx Cardiac Disorders: Yes - stents Hx Congestive Heart Failure: No Hx Pacemaker: No Hx Hypertension: Yes Hx Thyroid Disease: No Hx Diabetes: Yes Hx Gastroesophageal Reflux: Yes Hx Renal Disease: No Hx Cancer: No Hx of HIV: No Hx Hepatitis C: No Hx MRSA: No MRSA Source:: Wound Surgical History: cholecystectomy, other - hysterectomy,cardiac stent - Vaccination History Hx Tetanus, Diphtheria Vaccination: Yes Hx Influenza Vaccination: No Hx Pneumococcal Vaccination: No - Social History Hx Tobacco Use: Yes Hx Chewing Tobacco Use: No Hx Alcohol Use: No Hx Substance Use: Yes - meth Hx Substance Use Treatment: No Hx Depression: Yes Hx Physical Abuse: No Hx Emotional Abuse: No Hx Suspected Abuse: No - Female History Patient : No Family Medical History - Family History Mother Family History: Unknown Living Status: Still Living Hx Family Asthma: No Hx Family Congestive Heart Failure: Yes - Father Hx Family Hypertension: Yes Hx Family Stroke: No Hx Cardiac Disease: Yes Hx Family Diabetes: Yes Hx Family Cancer: No Physical Exam - Physical Exam General Appearance: Alert, Comfortable, No apparent distress Eyes, Ears, Nose, Throat Exam: normal ENT inspection Neck: non-tender, full range of motion, supple, normal inspection Respiratory: lungs clear, no respiratory distress Cardiovascular/Chest: normal peripheral pulses, regular rate, rhythm, no murmur Peripheral Pulses: radial,right: 2+, radial,left: 2+ Gastrointestinal/Abdominal: non tender, soft Extremity: non-tender, no pedal edema, no calf tenderness Neurologic: alert, oriented x 3 Skin Exam: normal color, warm/dry Progress - Progress Progress: 10/28/18 20:31 Vital Signs - 8 hr 10/28/18 10/28/18 10/28/18 19:50 20:01 20:03 Temperature 99.3 F Pulse Rate 90 Pulse Rate [ 93 H 89 left] Respiratory 20 20 Rate Blood Pressure 154/103 [left] O2 Sat by Pulse 97 Oximetry 10/28/18 20:34 Labetalol 20 mg iv ordered but out of stock at present so ordered catapress 0.1 mg po for HTN 10/28/18 22:44 Patient noted watching tv show in her room resting quietly 10/29/18 02:11 Her chest pains almost gone watching tv in her room. - Results/Orders Results/Orders: 10/28/18 19:49 IV Care:Saline Lock per [employer] QSHIFT Telemetry .ONCE Sodium Chloride 0.9% (Flush) [Saline Flush Syringe] 10 ml IV PRN PRN EKG Stat Pulse Ox Stat 10/28/18 19:50 IV Care:Saline Lock per [facility] QSHIFT EKG Assessment DAILY 10/28/18 20:00 EKG STAT Laboratory Results - last 24 hr 10/28/18 10/28/18 10/28/18 19:51 20:25 20:25 WBC 6.8 RBC 4.97 Hgb 13.0 Hct 39.8 MCV 80.1 L MCH 26.0 L MCHC 32.5 L RDW 16.4 H Plt Count 352 MPV 7.2 L Absolute Neuts (auto) 4.80 Absolute Lymphs (auto) 1.50 Absolute Monos (auto) 0.50 Absolute Eos (auto) 0.10 Absolute Basos (auto) 0.00 Neutrophils % 69.7 Lymphocytes % 21.8 Monocytes % 6.9 Eosinophils % 1.2 Basophils % 0.4 PT 9.3 INR 0.93 PTT (SP) 22.3 Sodium 137 Potassium 4.3 Chloride 99 L Carbon Dioxide 25 Anion Gap 17.3 BUN 9 Creatinine 0.74 BUN/Creatinine Ratio 12.2 POC Glucose Random Glucose 282 H Serum Osmolality 282.7 Calcium 9.0 Magnesium 2.0 Total Bilirubin 0.4 Direct Bilirubin < 0.1 Indirect Bilirubin 0.3 AST 24 ALT 26 Alkaline Phosphatase 113 LD Total 157 Creatine Kinase 42 CK-MB (CK-2) 1.6 CK-MB (CK-2) % Not Reportable Troponin I < 0.02 Serum Total Protein 8.0 Albumin 4.4 Urine Opiates Screen Negative Urine Barbiturates Negative Ur Phencyclidine Scrn Negative U Amphetamin/Meth Scrn Negative U Benzodiazepines Scrn Negative U Cocaine Metab Screen Negative U Cannabinoids Screen Negative 10/28/18 10/29/18 10/29/18 22:35 00:36 01:00 WBC RBC Hgb Hct MCV MCH MCHC RDW Plt Count MPV Absolute Neuts (auto) Absolute Lymphs (auto) Absolute Monos (auto) Absolute Eos (auto) Absolute Basos (auto) Neutrophils % Lymphocytes % Monocytes % Eosinophils % Basophils % PT INR PTT (SP) Sodium Potassium Chloride Carbon Dioxide Anion Gap BUN Creatinine BUN/Creatinine Ratio POC Glucose 218 H Random Glucose Serum Osmolality Calcium Magnesium Total Bilirubin Direct Bilirubin Indirect Bilirubin AST ALT Alkaline Phosphatase LD Total Creatine Kinase CK-MB (CK-2) CK-MB (CK-2) % Troponin I < 0.02 < 0.02 Serum Total Protein Albumin Urine Opiates Screen Urine Barbiturates Ur Phencyclidine Scrn U Amphetamin/Meth Scrn U Benzodiazepines Scrn U Cocaine Metab Screen U Cannabinoids Screen Discuss all test result with the patient showing no myocardial injury on her cardiac enzyme test and her ekg showing no changes compared to her previous ekg's - EKG/XRAY/CT EKG: Sinus, Unchanged from - 24 Aug 2018;12 Sep 2018;04 October 2018;31 May 2018 Comments: HR-90;Q waves 111 XRAY: chest - no acute abnormalities noted Departure - Departure Clinical Impression: Diabetes 1.5, managed as type 2 Chest pain Qualifiers: Chest pain type: unspecified Qualified Code(s): R07.9 - Chest pain, unspecified Time of Disposition: 02:13 Disposition: Discharge to Home or Self Care Departure Forms: ED Discharge - Pt. Copy, Patient Portal Self Enrollment Instructions: DI for Chest Pain Referrals: Milton Antoine MD [Primary Care Provider] - 1-2 Weeks Home Medications: Ambulatory Orders Aspirin [Aspirin EC] 81 mg PO DAILY 11/16/15 Lisinopril 20 mg PO DAILY 02/22/16 Insulin Detemir [Levemir] 12 unit SUBCU BID 12/04/16 Human Insulin Aspart [Novolog] 100 unit SC DAILY PRN 08/24/18 Atenolol 100 mg PO DAILY #30 tab 09/07/18 Famotidine [Pepcid Tab] 20 mg PO BID #60 tab 09/07/18 Keppra 09/07/18 Tramadol HCl 50 mg PO Q8HR PRN #20 tab 09/07/18 Orphenadrine Citrate [Orphenadrine Citrate ER] 100 mg PO BID PRN #14 tab 09/12/18 Nitroglycerin [Nitrostat] 0.4 mg SL Q5MIN PRN #1 bottle 10/05/18 Additional Instructions: Continue with all home medications;follow up with primary Md 31 Oct 2018 for recheck;Return to ER as needed
[2018-10-28] MEDS ORDERED: LABETALOL INJ 5 MG/ML VIAL IV ONE (20:19)
--- NOTE | 2018-10-28 20:23 | RAD ---
EXAM DESCRIPTION: Chest,1 View CLINICAL HISTORY: 38 years Female, chest pains COMPARISON: Chest x-ray October 04, 2018 FINDINGS: No consolidation. No pneumothorax. No significant pleural effusion. Cardiomediastinal silhouette is unremarkable. Thoracic spine osteophytes are present. IMPRESSION: No acute findings. Electronically signed by: Ziggy Gunter MD 10/28/2018 8:21 PM [employer]
[2018-10-28] MEDS ORDERED: cloNIDine HCL 0.1 MG TAB PO ONE (20:33)
[2018-10-28] MEDS ORDERED: PROCHLORPERAZINE INJ 10 MG/2 ML VIAL IV ONE (21:49)
[2018-10-28] MEDS ORDERED: MORPHINE SULFATE INJ 10 MG/ML VIAL IV ONE (21:49)
[2018-10-28] MEDS ORDERED: LABETALOL 200 MG TAB PO ONE (22:38)
[2018-10-29] MEDS ORDERED: INSULIN DETEMIR 100 UNITS/ML PEN SUBCU ONE (01:24)
[2018-10-29 01:52] VITALS: O2SAT 98
[2018-10-29] MEDS ORDERED: traMADol HCL 50 MG (ER DISP) # 6 TABS PO ONE (02:13)
[2018-10-29 02:29] VITALS: BP 122/79; TEMP 98.7
== END 2018-10-29 02:29 | disposition home or self-care (01) ==
LOC: ER 19:34
DX: R07.9 Chest pain, unspecified (principal); R06.02 Shortness of breath; R56.9 Unspecified convulsions; J44.9 Chronic obstructive pulmonary disease, unspecified; I10 Essential (primary) hypertension; E11.9 Type 2 diabetes mellitus without complications; K21.9 Gastro-esophageal reflux disease without esophagitis; F32.9 Major depressive disorder, single episode, unspecified; Z95.5 Presence of coronary angioplasty implant and graft; Z87.891 Personal history of nicotine dependence; Z79.4 Long term (current) use of insulin; Z79.82 Long term (current) use of aspirin; Z79.899 Other long term (current) drug therapy
CPT/HCPCS: 36415; 71045; 80048; 80076; 80307; 82550; 82553; 82948; 83615; 84484; 85025; 85610; 85730; 87502; 93005; J0780; J1815; J2270

== ENCOUNTER 2018-11-06 02:55 | Emergency (ER) | payer OTHER ==
[2018-11-06 03:20] VITALS: BP 176/118; TEMP 98.9; O2SAT 99
--- NOTE | 2018-11-06 03:31 | ED.PDOC ---
History of Present Illness - General Chief Complaint: Lower Extremity Injury Stated Complaint: left foot pain Time Seen by Provider: 11/06/18 03:28 Source: patient Exam Limitations: no limitations - History of Present Illness Initial Comments: the patient's 38-year-old female presenting to the emergency room secondary to pain in her left foot and ankle. The patient stepped off of a curb last night late and twisted inwards. There is actually no swelling or visible deformity or palpable crepitus. She reports pain along the lateral aspect. Worse with weightbearing. No other injury. No pain in the knee or hip. Occurred: yesterday Method of Injury: twisted Improving Factors: immobilization Worsening Factors: movement Allergies/Adverse Reactions: Allergies NO KNOWN ALLERGY Allergy (Verified 10/04/18 19:53) Home Medications: Ambulatory Orders Aspirin [Aspirin EC] 81 mg PO DAILY 11/16/15 Lisinopril 20 mg PO DAILY 02/22/16 Insulin Detemir [Levemir] 12 unit SUBCU BID 12/04/16 Human Insulin Aspart [Novolog] 100 unit SC DAILY PRN 08/24/18 Atenolol 100 mg PO DAILY #30 tab 09/07/18 Famotidine [Pepcid Tab] 20 mg PO BID #60 tab 09/07/18 Keppra 09/07/18 Tramadol HCl 50 mg PO Q8HR PRN #20 tab 09/07/18 Orphenadrine Citrate [Orphenadrine Citrate ER] 100 mg PO BID PRN #14 tab 09/12/18 Nitroglycerin [Nitrostat] 0.4 mg SL Q5MIN PRN #1 bottle 10/05/18 Review of Systems - Review of Systems Constitutional: States: no symptoms reported EENTM: States: no symptoms reported Respiratory: States: no symptoms reported Cardiology: States: no symptoms reported Gastrointestinal/Abdominal: States: no symptoms reported Genitourinary: States: no symptoms reported Musculoskeletal: States: see HPI Skin: States: no symptoms reported Neurological: States: no symptoms reported Endocrine: States: no symptoms reported All other Systems: No Change from Baseline Past Medical History (General) - Patient Medical History Hx Seizures: Yes Hx Stroke: No Hx Dementia: No Hx Asthma: No Hx of COPD: Yes Hx Cardiac Disorders: Yes - stents Hx Congestive Heart Failure: No Hx Pacemaker: No Hx Hypertension: Yes Hx Thyroid Disease: No Hx Diabetes: Yes Hx Gastroesophageal Reflux: Yes Hx Renal Disease: No Hx Cancer: No Hx of HIV: No Hx Hepatitis C: No Hx MRSA: No MRSA Source:: Wound Surgical History: other - Vaccination History Hx Tetanus, Diphtheria Vaccination: Yes Hx Influenza Vaccination: No Hx Pneumococcal Vaccination: Yes - Social History Hx Tobacco Use: Yes Hx Chewing Tobacco Use: No Hx Alcohol Use: No Hx Substance Use: Yes - meth Hx Substance Use Treatment: No Hx Depression: Yes Hx Physical Abuse: No Hx Emotional Abuse: No Hx Suspected Abuse: No - Female History Patient : No Family Medical History - Family History Mother Family History: Unknown Living Status: Still Living Hx Family Asthma: No Hx Family Congestive Heart Failure: Yes - Father Hx Family Hypertension: Yes Hx Family Stroke: No Hx Cardiac Disease: Yes Hx Family Diabetes: Yes Hx Family Cancer: No Physical Exam - Physical Exam General Appearance: Alert, Comfortable, No apparent distress Eyes, Ears, Nose, Throat: PERRL/EOMI, normal ENT inspection - extremely poor dentition Neck: full range of motion, supple Cardiovascular/Respiratory: regular rate, rhythm, normal peripheral pulses Gastrointestinal/Abdominal: non-tender Thigh/Hip: normal inspection, non-tender, no evidence of injury Leg: normal inspection, non-tender, no evidence of injury, normal ROM Knee: normal inspection, non-tender, no evidence of injury, normal ROM Ankle: pain Foot: soft tissue tenderness Neuro/Tendon: normal motor functions, normal tendon functions, responds to pain, no evidence tendon injury Mental Status: alert, oriented x 3 Skin: normal color Comments: Vital Signs - 24 hr 11/06/18 03:11 Temperature 98.9 F Pulse Rate [ 106 H left] Respiratory 18 Rate Blood Pressure 176/118 [left] O2 Sat by Pulse 99 Oximetry Progress - Progress Progress: 11/06/18 03:32 the patient is a 38-year-old female who presents to the emergency room after twisted her left lateral foot and ankle yesterday. X-rays have been performed. No obvious evidence of fracture or dislocation. She needs to ambulate carefully to prevent further injury. [id number] Motrin can be used for discomfort. ER warnings were given. Keep routine follow-up with primary care doctor. She should expect discomfort lasts from a mild sprain for 2 weeks. Departure - Departure Clinical Impression: Sprain of left ankle or foot Disposition: Discharge to Home or Self Care Condition: Fair Departure Forms: ED Discharge - Pt. Copy, Patient Portal Self Enrollment Instructions: DI for Trauma, DI for Leg Pain Diet: diabetic diet, low salt diet Activity: increase activity as tolerated Referrals: Milton Antoine MD [Primary Care Provider] - 1-2 Weeks Home Medications: Ambulatory Orders Aspirin [Aspirin EC] 81 mg PO DAILY 11/16/15 Lisinopril 20 mg PO DAILY 02/22/16 Insulin Detemir [Levemir] 12 unit SUBCU BID 12/04/16 Human Insulin Aspart [Novolog] 100 unit SC DAILY PRN 08/24/18 Atenolol 100 mg PO DAILY #30 tab 09/07/18 Famotidine [Pepcid Tab] 20 mg PO BID #60 tab 09/07/18 Keppra 09/07/18 Tramadol HCl 50 mg PO Q8HR PRN #20 tab 09/07/18 Orphenadrine Citrate [Orphenadrine Citrate ER] 100 mg PO BID PRN #14 tab 09/12/18 Nitroglycerin [Nitrostat] 0.4 mg SL Q5MIN PRN #1 bottle 10/05/18 Additional Instructions: the patient is a 38-year-old female who presents to the emergency room after twisted her left lateral foot and ankle yesterday. X-rays have been performed. No obvious evidence of fracture or dislocation. She needs to ambulate carefully to prevent further injury. [id number] Motrin can be used for discomfort. ER warnings were given. Keep routine follow-up with primary care doctor. She should expect discomfort lasts from a mild sprain for 2 weeks.
[2018-11-06] MEDS ORDERED: traMADol HCL 50 MG TAB PO ONE (03:34)
--- NOTE | 2018-11-06 03:40 | RAD ---
LEFT ANKLE 11/06/2018 CLINICAL HISTORY: Pain after fall. COMPARISON: None. TECHNIQUE: AP, lateral, and oblique views of the left ankle. FINDINGS: There is mild diffuse ankle soft tissue edema. There is no fracture. No dislocation. Intact ankle mortise and talar dome. Subtalar joint is maintained. Normal bone mineralization. No foreign body or subcutaneous edema. IMPRESSION: 1. Left ankle soft tissue edema. No acute bony finding. Electronically signed by: Katie Stoner DO 11/06/2018 3:37 AM [facility]
--- NOTE | 2018-11-06 03:42 | RAD ---
LEFT FOOT 11/06/2018 CLINICAL HISTORY: Pain after fall. COMPARISON: None. TECHNIQUE: AP, lateral, oblique left foot. FINDINGS: There is no fracture. No dislocation. Joint spaces are maintained. No foreign body or subcutaneous emphysema. IMPRESSION: 1. No acute finding within the left foot. Electronically signed by: Katie Stoner DO 11/06/2018 3:39 AM [employer]
== END 2018-11-06 03:45 | disposition home or self-care (01) ==
LOC: ER 02:55
DX: S93.402A Sprain of unspecified ligament of left ankle, initial encounter (principal); S93.602A Unspecified sprain of left foot, initial encounter; F32.9 Major depressive disorder, single episode, unspecified; J44.9 Chronic obstructive pulmonary disease, unspecified; I51.9 Heart disease, unspecified; I10 Essential (primary) hypertension; E11.9 Type 2 diabetes mellitus without complications; K21.9 Gastro-esophageal reflux disease without esophagitis; R56.9 Unspecified convulsions; X50.9XXA Other and unspecified overexertion or strenuous movements or postures, initial encounter; Z79.899 Other long term (current) drug therapy; Z87.891 Personal history of nicotine dependence; Z79.4 Long term (current) use of insulin; Z79.82 Long term (current) use of aspirin; Y92.9 Unspecified place or not applicable

== ENCOUNTER 2018-12-04 17:35 | Emergency (ER) | payer OTHER ==
--- NOTE | 2018-12-04 18:09 | ED.PDOC ---
History of Present Illness - General Chief Complaint: General Stated Complaint: Weakness, SOB, chest discomfort Time Seen by Provider: 12/04/18 17:50 Source: patient Exam Limitations: no limitations - History of Present Illness Initial Comments: Pt began feeling weak and dizzy while walking home from boyfriends. She also felt numbness in L arm and leg with L side chest pain Timing/Duration: 1 hour Severity: moderate Improving Factors: nothing Worsening Factors: nothing Associated Symptoms: chest pain, shortness of breath, weakness Allergies/Adverse Reactions: Allergies NO KNOWN ALLERGY Allergy (Verified 12/04/18 17:56) Home Medications: Ambulatory Orders Aspirin [Aspirin EC] 81 mg PO DAILY 11/16/15 Lisinopril 20 mg PO DAILY 02/22/16 Insulin Detemir [Levemir] 12 unit SUBCU BID 12/04/16 Human Insulin Aspart [Novolog] 100 unit SC DAILY PRN 08/24/18 Atenolol 100 mg PO DAILY #30 tab 09/07/18 Famotidine [Pepcid Tab] 20 mg PO BID #60 tab 09/07/18 Keppra 09/07/18 Tramadol HCl 50 mg PO Q8HR PRN #20 tab 09/07/18 Orphenadrine Citrate [Orphenadrine Citrate ER] 100 mg PO BID PRN #14 tab 09/12/18 Nitroglycerin [Nitrostat] 0.4 mg SL Q5MIN PRN #1 bottle 10/05/18 Review of Systems - Review of Systems Constitutional: States: weakness. Denies: fever EENTM: States: blurred vision Respiratory: States: short of breath Cardiology: States: chest pain. Denies: syncope Gastrointestinal/Abdominal: Denies: abdominal pain, nausea, vomiting Genitourinary: States: no symptoms reported Musculoskeletal: States: no symptoms reported Skin: States: no symptoms reported Neurological: States: numbness, paresthesia, weakness Endocrine: States: no symptoms reported Hematologic/Lymphatic: States: no symptoms reported Past Medical History (General) - Patient Medical History Hx Seizures: Yes Hx Stroke: No Hx Dementia: No Hx Asthma: No Hx of COPD: Yes Hx Cardiac Disorders: Yes - stents Hx Congestive Heart Failure: No Hx Pacemaker: No Hx Hypertension: Yes Hx Thyroid Disease: No Hx Diabetes: Yes Hx Gastroesophageal Reflux: Yes Hx Renal Disease: No Hx Cancer: No Hx of HIV: No Hx Hepatitis C: No Hx MRSA: No MRSA Source:: Wound - Vaccination History Hx Tetanus, Diphtheria Vaccination: Yes Hx Influenza Vaccination: No Hx Pneumococcal Vaccination: Yes - Social History Hx Tobacco Use: Yes Hx Chewing Tobacco Use: No Hx Alcohol Use: No Hx Substance Use: Yes - meth Hx Substance Use Treatment: No Hx Depression: Yes Hx Physical Abuse: No Hx Emotional Abuse: No Hx Suspected Abuse: No - Female History Patient is a Female of Child Bearing Age (10 -59 yrs old): No - Hysterectomy Patient : No Family Medical History - Family History Mother Family History: Unknown Living Status: Still Living Hx Family Asthma: No Hx Family Congestive Heart Failure: Yes - Father Hx Family Hypertension: Yes Hx Family Stroke: No Hx Cardiac Disease: Yes Hx Family Diabetes: Yes Hx Family Cancer: No Physical Exam - Physical Exam Eye Exam: bilateral normal Ears, Nose, Throat: hearing grossly normal, normal pharynx Neck: non-tender, full range of motion, supple Respiratory: chest non-tender, lungs clear, normal breath sounds, no respiratory distress Cardiovascular/Chest: normal peripheral pulses, regular rate, rhythm Gastrointestinal/Abdominal: normal bowel sounds, non tender 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, alert, oriented x 3, motor weakness - 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 and difficulty raising L leg, sensory deficit - subjective decreased light touch to lateral L leg and L arm DTR: 0: Babinski, left, Babinski, right, 1+: Patellar, left, Patellar, right Skin Exam: normal color, warm/dry Lymphatic: no adenopathy Progress - EKG/XRAY/CT EKG: Sinus, no ST T wave changes, Abnormal Q waves - inferiorly Comments: rate 93, VA 136, QRS 88 Departure - Departure Clinical Impression: Atypical chest pain, Paresthesia and pain of left extremity, Diabetic neuropathy, painful, Chronic hyperglycemia Hypertension Qualifiers: Hypertension type: essential hypertension Qualified Code(s): I10 - Essential (primary) hypertension Disposition: Discharge to Home or Self Care Departure Forms: ED Discharge - Pt. Copy, Patient Portal Self Enrollment Referrals: Milton Antoine MD [Primary Care Provider] - 1-2 Weeks Home Medications: Ambulatory Orders Aspirin [Aspirin EC] 81 mg PO DAILY 11/16/15 Lisinopril 20 mg PO DAILY 02/22/16 Insulin Detemir [Levemir] 12 unit SUBCU BID 12/04/16 Human Insulin Aspart [Novolog] 100 unit SC DAILY PRN 08/24/18 Atenolol 100 mg PO DAILY #30 tab 09/07/18 Famotidine [Pepcid Tab] 20 mg PO BID #60 tab 09/07/18 Keppra 09/07/18 Tramadol HCl 50 mg PO Q8HR PRN #20 tab 09/07/18 Orphenadrine Citrate [Orphenadrine Citrate ER] 100 mg PO BID PRN #14 tab 09/12/18 Nitroglycerin [Nitrostat] 0.4 mg SL Q5MIN PRN #1 bottle 10/05/18
[2018-12-04] MEDS ORDERED: LIDOCAINE HCL 2% (MOUTH-THROAT) 15 ML UD ONE (18:52)
[2018-12-04] MEDS ORDERED: ALUM & MAG HYDROX-SIMETHICONE 30 ML, LIDOCAINE VISCOUS 2% 15 ML PO ONE ×2 (18:52)
[2018-12-04] MEDS ORDERED: ALUM & MAG HYDROX-SIMETHICONE 30 ML UD ONE (18:52)
--- NOTE | 2018-12-04 19:15 | RAD ---
EXAM DESCRIPTION: Chest,1 View CLINICAL HISTORY: 38 years Female sob COMPARISON: 10/04/2018, 10/28/2018 FINDINGS: Heart size and mediastinal contour appear within normal limits. There is some patchy density around the right perihilar region particularly inferiorly which appears new as compared to previous study and may reflect area of developing infiltrate. Prominent costochondral cartilage calcification on the right which appears similar to the previous study. No pleural fluid or pneumothorax. IMPRESSION: Patchy density in the perihilar region on the right which may reflect developing infiltrate as this is new when compared to prior Electronically signed by: Amelia Keenan MD 12/04/2018 7:12 PM CDT
--- NOTE | 2018-12-04 19:16 | CT ---
PROCEDURE: Head CLINICAL HISTORY: 38 years Female L hemiparesis, dizziness COMPARISON: 05/12/2017. TECHNIQUE: Contiguous axial CT images obtained through the brain without IV contrast. This exam was performed according to our department optimization program which includes automated exposure control, adjustment of the mA and/or kv according to patient size and/or use of iterative reconstruction technique. FINDINGS: The ventricles and sulci are within normal limits for the patient's age. There is mild periventricular white matter disease with areas of abnormal diminished attenuation in the white matter consistent with small vessel disease. Demyelinating disease can have a similar appearance. There is an area of ovoid low attenuation in the right basal ganglia which is unchanged from the prior study best seen on image 30 of the axial series. Postsurgical changes of occipital craniectomy with a catheter in the region of the fourth ventricle similar to the previous. No midline shift or mass effect. No masses identified. No acute intracranial hemorrhage. No fluid or significant mucosal thickening in the visualized paranasal sinuses. No depressed calvarial fractures. IMPRESSION: Scattered areas of diminished attenuation bilaterally which appears stable. Findings may reflect demyelinating disease or microvascular ischemic change Postsurgical change in the posterior fossa No acute intracranial abnormality is identified. Dr. Parsons was called and notified of the findings at 7:11 PM central time. Electronically signed by: Amelia Keenan MD 12/04/2018 7:13 PM CDT
[2018-12-04] MEDS ORDERED: NITROGLYCERIN 0.4 MG 25 EA TAB SL ONE (19:19)
[2018-12-04] MEDS ORDERED: MORPHINE SULFATE INJ 10 MG/ML VIAL IV ONE (20:25)
[2018-12-04] MEDS ORDERED: ONDANSETRON INJ 4 MG/2 ML VIAL IV ONE (20:26)
[2018-12-04 21:08] VITALS: O2SAT 95
[2018-12-04] MEDS ORDERED: cloNIDine HCL 0.1 MG TAB PO ONE (21:12)
[2018-12-04] MEDS ORDERED: METOPROLOL TARTRATE INJ 5 MG/5 ML VIAL IV ONE (21:44)
[2018-12-04 22:36] VITALS: BP 185/111; TEMP 97
== END 2018-12-04 22:30 | disposition home or self-care (01) ==
LOC: ER 17:35
DX: R07.89 Other chest pain (principal); I10 Essential (primary) hypertension; R20.2 Paresthesia of skin; E11.40 Type 2 diabetes mellitus with diabetic neuropathy, unspecified; E11.65 Type 2 diabetes mellitus with hyperglycemia; F32.9 Major depressive disorder, single episode, unspecified; R56.9 Unspecified convulsions; J44.9 Chronic obstructive pulmonary disease, unspecified; I51.9 Heart disease, unspecified; K21.9 Gastro-esophageal reflux disease without esophagitis; Z87.891 Personal history of nicotine dependence; Z79.4 Long term (current) use of insulin; Z79.899 Other long term (current) drug therapy; Z79.82 Long term (current) use of aspirin
CPT/HCPCS: 36415; 70450; 71045; 80053; 85025; 85610; 85651; 85730; 93005; J2060; J2270; J2405

== ENCOUNTER 2018-12-23 23:18 | Emergency (ER) | payer OTHER ==
[2018-12-23 23:46] VITALS: TEMP 99.4
--- NOTE | 2018-12-23 23:59 | RAD ---
EXAM: XR Chest, 1 View CLINICAL HISTORY: The patient is 38 years old and is Female; chest pain TECHNIQUE: Frontal view of the chest. COMPARISON: Chest radiograph December 19, 2018. FINDINGS: LUNGS: Unremarkable. No consolidation. PLEURAL SPACE: Unremarkable. No pneumothorax. HEART: The cardiac silhouette is minimally prominent and stable. MEDIASTINUM: Unremarkable. BONES/JOINTS: Unremarkable. IMPRESSION: No acute cardiopulmonary process or detrimental change from prior exam. Electronically signed by: Cat Regan MD 12/23/2018 11:56 PM CDT
[2018-12-24] MEDS ORDERED: ASPIRIN TABLET 325 MG TAB PO ONE (00:07)
[2018-12-24] MEDS ORDERED: NITROGLYCERIN 0.4 MG 25 EA TAB SL ONE (00:07)
--- NOTE | 2018-12-24 01:09 | ED.PDOC ---
History of Present Illness - General Chief Complaint: Cardiovascular Problem Stated Complaint: chest pain despite taking nitro Time Seen by Provider: 12/23/18 23:30 Source: patient Exam Limitations: no limitations - History of Present Illness Initial Comments: the patient is a 38-year-old female presenting to the emergency room secondary to fairly acute onset central chest pain while at rest at home. The patient had just got back from [facility] 2 days ago for her last episode of chest pain. The workup there apparently showed no significant new coronary disease. We are waiting on those records. She did not have any repeat catheterization. The patient was also apparently methamphetamine positive at that visit. She rates the chest pain and an 8 out of 10. The patient does have very frequent visits for chest pain. She does have a history of coronary artery disease however she also has a multitude of other diagnoses that can cause chest pain including esophagitis, pleuritis, costochondritis, anxiety, pectoralis muscle spasms as well as a small hiatal hernia. She also has a very extensive history of drug seeking. I have seen this patient numerous times and I do not believe that I have ever seen her chest pain be relieved with anything except morphine or an IV benzodiazepine. Generally, even when the patient is sleeping soundly and awoken and asked how much her chest pain is, she will say it is a 8 or 9 out of 10 and that she needs more pain medications. The patient does not appear to be in any distress visibly tonight. No evidence of respiratory distress. No evidence of diaphoresis. She was mildly hypertensive on the initial blood pressure. her nitroglycerin has of course provided no relief. She is resting comfortably. chest pain tonight is not made worse with walking around. It is made worse with taking a deep breath. It seems to be making little worse with lying flat. chest discomfort seems to be more musculoskeletal or possibly mildly pleuritic on repeat exams. On further questioning, it is highly unlikely the patient has been compliant with her blood pressure medications which would go along with her elevated blood pressures here. She has been given several doses of oral antihypertensive medications and they're starting to take effect. We did give her 1 dose of her oral Neurontin which she has apparently been out of. Timing/Duration: 1 hour Severity: severe Improving Factors: nothing Worsening Factors: nothing Associated Symptoms: chest pain Allergies/Adverse Reactions: Allergies NO KNOWN ALLERGY Allergy (Verified 12/04/18 17:56) Home Medications: Ambulatory Orders Aspirin [Aspirin EC] 81 mg PO DAILY 11/16/15 Lisinopril 20 mg PO DAILY 02/22/16 Insulin Detemir [Levemir] 12 unit SUBCU BID 12/04/16 Human Insulin Aspart [Novolog] 100 unit SC DAILY PRN 08/24/18 Nitroglycerin [Nitrostat] 0.4 mg SL Q5MIN PRN #1 bottle 10/05/18 Tylenol With Codeine #4 1 ea PO PRN 12/19/18 Atorvastatin Calcium [Lipitor] 10 mg PO DAILY 12/24/18 Review of Systems - Review of Systems Constitutional: States: no symptoms reported EENTM: States: no symptoms reported Respiratory: States: no symptoms reported Cardiology: States: chest pain Gastrointestinal/Abdominal: States: no symptoms reported Genitourinary: States: no symptoms reported Musculoskeletal: States: no symptoms reported Skin: States: no symptoms reported Neurological: States: anxiety Endocrine: States: no symptoms reported All other Systems: No Change from Baseline Past Medical History (General) - Patient Medical History Hx Seizures: Yes Hx Stroke: No Hx Dementia: No Hx Asthma: No Hx of COPD: Yes Hx Cardiac Disorders: Yes - stents Hx Congestive Heart Failure: No Hx Pacemaker: No Hx Hypertension: Yes Hx Thyroid Disease: No Hx Diabetes: Yes Hx Gastroesophageal Reflux: Yes Hx Renal Disease: No Hx Cancer: No Hx of HIV: No Hx Hepatitis C: No Hx MRSA: No MRSA Source:: Wound Surgical History: Hysterectomy, other - Vaccination History Hx Tetanus, Diphtheria Vaccination: Yes Hx Influenza Vaccination: No Hx Pneumococcal Vaccination: Yes - Social History Hx Tobacco Use: Yes Hx Chewing Tobacco Use: No Hx Alcohol Use: No Hx Substance Use: Yes - meth Hx Substance Use Treatment: No Hx Depression: Yes Hx Physical Abuse: No Hx Emotional Abuse: No Hx Suspected Abuse: No - Female History Patient : No Family Medical History - Family History Mother Family History: Unknown Living Status: Still Living Hx Family Asthma: No Hx Family Congestive Heart Failure: Yes - Father Hx Family Hypertension: Yes Hx Family Stroke: No Hx Cardiac Disease: Yes Hx Family Diabetes: Yes Hx Family Cancer: No Physical Exam - Physical Exam General Appearance: Alert, Comfortable, No apparent distress Eye Exam: bilateral other - xtra movements are intact. Pupils are symmetrical and reactive. No evidence of any acute vision change. Ears, Nose, Throat: hearing grossly normal, normal pharynx - very poor dentition Neck: full range of motion, supple Respiratory: lungs clear, normal breath sounds, no respiratory distress, no accessory muscle use, other - she does have some mild diffuse chest wall discomfort palpation. Pain is made somewhat worse with movement. 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, alert, normal mood/affect, oriented x 3 Skin Exam: normal color Comments: Vital Signs - 24 hr 12/23/18 12/23/18 12/23/18 23:35 23:46 23:49 Temperature 99.4 F 99.4 F Pulse Rate 80 Pulse Rate [ 82 79 80 left] Respiratory 16 16 16 Rate Blood Pressure 166/102 162/90 [left] O2 Sat by Pulse 94 L 96 Oximetry 12/24/18 00:30 Temperature Pulse Rate Pulse Rate [ 72 left] Respiratory 16 Rate Blood Pressure 170/92 [left] O2 Sat by Pulse 96 Oximetry Progress - Progress Progress: 12/24/18 05:57 the patient's a 38-year-old female presenting with chest pain that seems to be a more pleuritic versus musculoskeletal in nature than cardiac. We did however hold her for a second set of cardiac enzymes that are completely normal, given the knowledge of her previous cardiac history. EKG shows no indication of any ischemia. She had just been released from [facility] a few days ago and had seen cardiology there as well who found no significant new cardiac pathology. we did obtain records from that stay. The patient does have some significant hypertension. She does need to remain compliant with her medications and she does need to follow back up with her primary care doctor in a day or 2. ER warnings were given. - Results/Orders Results/Orders: chest x-ray shows no acute pathology. EKG initially shows normal sinus rhythm at 81 bpm. Normal axis. Q waves in inferior leads. Poor R-wave progression in anterior leads. Normal QT interval. This EKG is consistent with multiple old EKGs. Repeat EKG is also consistent. No significant ST segment or T-wave changes indicative of acute ischemia on either. Laboratory Tests 12/23/18 12/23/18 12/23/18 23:49 23:49 23:49 WBC 7.2 RBC 4.53 Hgb 11.7 L Hct 36.5 MCV 80.6 L MCH 25.8 L MCHC 32.0 L RDW 16.4 H Plt Count 306 MPV 7.9 Absolute Neuts (auto) 3.80 Absolute Lymphs (auto) 2.60 Absolute Monos (auto) 0.60 Absolute Eos (auto) 0.10 Absolute Basos (auto) 0.00 Neutrophils % 53.6 Lymphocytes % 35.7 Monocytes % 8.5 Eosinophils % 1.8 Basophils % 0.4 PT 10.0 INR 1.00 PTT (SP) 22.4 Sodium 139 Potassium 3.9 Chloride 101 Carbon Dioxide 27 Anion Gap 14.9 BUN 11 Creatinine 0.93 BUN/Creatinine Ratio 11.8 Random Glucose 217 H Serum Osmolality 283.5 Calcium 9.0 Magnesium 1.9 Total Bilirubin 0.5 AST 18 ALT 17 Alkaline Phosphatase 106 Creatine Kinase 47 CK-MB (CK-2) 1.3 CK-MB (CK-2) % Not Reportable Troponin I < 0.02 B-Natriuretic Peptide 67.6 Serum Total Protein 7.6 Albumin 4.0 Globulin 3.6 H Albumin/Globulin Ratio 1.1 Urine Color Urine Appearance Urine pH Ur Specific Godley Urine Protein Urine Glucose (UA) Urine Ketones Urine Blood Urine Nitrite Urine Bilirubin Urine Urobilinogen Ur Leukocyte Esterase Urine RBC Urine WBC Ur Epithelial Cells Urine Bacteria Urine Opiates Screen Urine Barbiturates Ur Phencyclidine Scrn U Amphetamin/Meth Scrn U Benzodiazepines Scrn U Cocaine Metab Screen U Cannabinoids Screen 12/24/18 12/24/18 12/24/18 00:05 00:30 05:15 WBC RBC Hgb Hct MCV MCH MCHC RDW Plt Count MPV Absolute Neuts (auto) Absolute Lymphs (auto) Absolute Monos (auto) Absolute Eos (auto) Absolute Basos (auto) Neutrophils % Lymphocytes % Monocytes % Eosinophils % Basophils % PT INR PTT (SP) Sodium Potassium Chloride Carbon Dioxide Anion Gap BUN Creatinine BUN/Creatinine Ratio Random Glucose Serum Osmolality Calcium Magnesium Total Bilirubin AST ALT Alkaline Phosphatase Creatine Kinase CK-MB (CK-2) CK-MB (CK-2) % Troponin I < 0.02 B-Natriuretic Peptide Serum Total Protein Albumin Globulin Albumin/Globulin Ratio Urine Color Yellow Urine Appearance Cloudy H Urine pH 6.5 Ur Specific God[place] 1.020 Urine Protein Negative Urine Glucose (UA) 500 H Urine Ketones Trace Urine Blood Negative Urine Nitrite Negative Urine Bilirubin Negative Urine Urobilinogen 1.0 Ur Leukocyte Esterase Negative Urine RBC 0 Urine WBC 1-3 Ur Epithelial Cells 5-10 Urine Bacteria 1+ Urine Opiates Screen Negative Urine Barbiturates Negative Ur Phencyclidine Scrn Negative U Amphetamin/Meth Scrn Negative U Benzodiazepines Scrn Negative U Cocaine Metab Screen Negative U Cannabinoids Screen Negative Departure - Departure Clinical Impression: Chest pain, non-cardiac, Uncontrolled hypertension Disposition: Discharge to Home or Self Care Condition: Fair Departure Forms: ED Discharge - Pt. Copy, Patient Portal Self Enrollment Instructions: High Blood Pressure in Adults Diet: diabetic diet Activity: increase activity as tolerated Referrals: Milton Antoine MD [Primary Care Provider] - 1-2 Days Home Medications: Ambulatory Orders Aspirin [Aspirin EC] 81 mg PO DAILY 11/16/15 Lisinopril 20 mg PO DAILY 02/22/16 Insulin Detemir [Levemir] 12 unit SUBCU BID 12/04/16 Human Insulin Aspart [Novolog] 100 unit SC DAILY PRN 08/24/18 Nitroglycerin [Nitrostat] 0.4 mg SL Q5MIN PRN #1 bottle 10/05/18 Tylenol With Codeine #4 1 ea PO PRN 12/19/18 Atorvastatin Calcium [Lipitor] 10 mg PO DAILY 12/24/18 Additional Instructions: the patient's a 38-year-old female presenting with chest pain that seems to be a more pleuritic versus musculoskeletal in nature than cardiac. We did however hold her for a second set of cardiac enzymes that are completely normal, given the knowledge of her previous cardiac history. EKG shows no indication of any ischemia. She had just been released from [facility] a few days ago and had seen cardiology there as well who found no significant new cardiac pathology. we did obtain records from that stay. The patient does have some significant hypertension. She does need to remain compliant with her medications and she does need to follow back up with her primary care doctor in a day or 2. ER warnings were given.
[2018-12-24] MEDS ORDERED: METOPROLOL TARTRATE 50 MG TAB PO ONE (01:11)
[2018-12-24] MEDS ORDERED: GABAPENTIN 300 MG CAP PO ONE (01:55)
[2018-12-24] MEDS ORDERED: ALUMINUM & MAGNESIUM HYDROXIDE 30 ML UD PO ONE (01:57)
[2018-12-24] MEDS ORDERED: traMADol HCL 50 MG TAB PO ONE (01:57)
[2018-12-24 04:57] VITALS: O2SAT 97
[2018-12-24] MEDS ORDERED: LISINOPRIL 10 MG TAB PO ONE (04:59)
[2018-12-24] MEDS ORDERED: cloNIDine HCL 0.1 MG TAB PO ONE (04:59)
[2018-12-24 06:14] VITALS: BP 142/89
== END 2018-12-24 06:13 | disposition home or self-care (01) ==
LOC: ER 23:18
DX: R07.89 Other chest pain (principal); I10 Essential (primary) hypertension; J44.9 Chronic obstructive pulmonary disease, unspecified; I25.10 Atherosclerotic heart disease of native coronary artery without angina pectoris; E11.9 Type 2 diabetes mellitus without complications; K21.9 Gastro-esophageal reflux disease without esophagitis; F32.9 Major depressive disorder, single episode, unspecified; Z95.5 Presence of coronary angioplasty implant and graft; Z87.891 Personal history of nicotine dependence; Z79.4 Long term (current) use of insulin; Z79.82 Long term (current) use of aspirin; Z79.899 Other long term (current) drug therapy

== ENCOUNTER 2018-12-26 15:11 | Emergency (ER) | payer OTHER ==
[2018-12-26] MEDS ORDERED: SODIUM CHLORIDE 0.9% (FLUSH) 10 ML SYG IV PRN (16:28)
[2018-12-26] MEDS ORDERED: ASPIRIN (CHEWABLE) 81 MG TAB PO ONE (16:28)
[2018-12-26] MEDS ORDERED: KETOROLAC TROMETHAMINE INJ 30 MG/ML VIAL IV ONE (16:28)
[2018-12-26] MEDS ORDERED: ALUM & MAG HYDROX-SIMETHICONE 30 ML, LIDOCAINE VISCOUS 2% 15 ML PO ONE ×2 (16:30)
--- NOTE | 2018-12-26 16:40 | ED.PDOC ---
History of Present Illness - General Chief Complaint: Cardiovascular Problem Stated Complaint: CHEST PAIN Time Seen by Provider: 12/26/18 15:41 Source: patient Exam Limitations: no limitations - History of Present Illness Initial Comments: PT PRESENTS TO THE ED WITH COMPLAINT OF PERSISTENT CHEST PAIN. PT STATES PAIN IS INTERMITTENT AND DESCRIBED MIDSTERNAL PRESSURE. PT WAS RECENTLY DISCHARGED FROM [facility] WHERE SHE HAD A CARDIOLOGY AND NEUROLOGY EVALUATION WITH NEGATIVE FINDINGS. PT SEES DR. NOONAN FOR CARDIOLOGY BUT STATES SHE DID NOT SEE HIM DURING LAST ADMISSION. PT REPORTS TAKING 3 NTG AT HOME FOR PAIN WITHOUT RELIEF. Timing/Duration: intermittent Severity/Quality: severe Location: substernal Chest Pain Radiation: no radiation Activities at Onset: none Improving Factors: nothing Worsening Factors: nothing Nitro Today/Relief: 0.4 mg x 3 Aspirin Treatment Today: unknown Associated Symptoms: denies symptoms Allergies/Adverse Reactions: Allergies NO KNOWN ALLERGY Allergy (Verified 12/26/18 16:59) Home Medications: Ambulatory Orders Aspirin [Aspirin EC] 81 mg PO DAILY 11/16/15 Lisinopril 20 mg PO DAILY 02/22/16 Insulin Detemir [Levemir] 12 unit SUBCU BID 12/04/16 Human Insulin Aspart [Novolog] 100 unit SC DAILY PRN 08/24/18 Nitroglycerin [Nitrostat] 0.4 mg SL Q5MIN PRN #1 bottle 10/05/18 Tylenol With Codeine #4 1 ea PO PRN 12/19/18 Atorvastatin Calcium [Lipitor] 10 mg PO DAILY 12/24/18 Pantoprazole Tablet [Protonix] 40 mg PO ACBK #14 tab 12/26/18 Sucralfate Tab [Carafate Tab] 1 gm PO ACHS 14 Days #56 tablet 12/26/18 Review of Systems - Review of Systems Constitutional: Denies: chills, fever EENTM: Denies: nose congestion, throat pain Respiratory: Denies: cough, short of breath Cardiology: States: see HPI, chest pain. Denies: syncope Gastrointestinal/Abdominal: Denies: nausea, vomiting Genitourinary: Denies: dysuria, frequency Musculoskeletal: Denies: joint pain, joint swelling Skin: Denies: dryness, lesions Neurological: Denies: headache, numbness Endocrine: States: no symptoms reported Hematologic/Lymphatic: States: no symptoms reported Past Medical History (General) - Patient Medical History Hx Seizures: Yes Hx Stroke: No Hx Dementia: No Hx Asthma: No Hx of COPD: Yes Hx Cardiac Disorders: Yes - stents Hx Congestive Heart Failure: No Hx Pacemaker: No Hx Hypertension: Yes Hx Thyroid Disease: No Hx Diabetes: Yes Hx Gastroesophageal Reflux: Yes Hx Renal Disease: No Hx Cancer: No Hx of HIV: No Hx Hepatitis C: No Hx MRSA: No MRSA Source:: Wound - Vaccination History Hx Tetanus, Diphtheria Vaccination: Yes Hx Influenza Vaccination: No Hx Pneumococcal Vaccination: Yes - Social History Hx Tobacco Use: Yes Hx Chewing Tobacco Use: No Hx Alcohol Use: No Hx Substance Use: Yes - meth Hx Substance Use Treatment: No Hx Depression: Yes Hx Physical Abuse: No Hx Emotional Abuse: No Hx Suspected Abuse: No - Female History Patient : No Family Medical History - Family History Mother Family History: Unknown Living Status: Still Living Hx Family Asthma: No Hx Family Congestive Heart Failure: Yes - Father Hx Family Hypertension: Yes Hx Family Stroke: No Hx Cardiac Disease: Yes Hx Family Diabetes: Yes Hx Family Cancer: No Physical Exam - Physical Exam General Appearance: Alert, No apparent distress, Well Developed, Well Hydrated Eyes, Ears, Nose, Throat Exam: normal ENT inspection Neck: full range of motion, supple, normal inspection Respiratory: lungs clear, normal breath sounds, no respiratory distress Cardiovascular/Chest: regular rate, rhythm, systolic murmur Gastrointestinal/Abdominal: non tender, soft Neurologic: no motor/sensory deficits, alert, normal mood/affect, oriented x 3 Skin Exam: normal color, warm/dry Progress - Progress Progress: 12/26/18 17:49 PT RESTING COMFORTABLY ON RE-EVAL. FEELING BETTER AFTER TORADOL AND GI SLIDER. RECOMMENDED FOLLOW UP WITH PCP AND POSSIBLY GI CONSULT OUTPT. - Results/Orders Results/Orders: Laboratory Tests 12/26/18 17:01 WBC 7.4 RBC 4.42 Hgb 11.7 L Hct 35.6 L MCV 80.6 L MCH 26.4 L MCHC 32.7 L RDW 16.4 H Plt Count 308 MPV 7.8 Absolute Neuts (auto) 4.70 Absolute Lymphs (auto) 1.90 Absolute Monos (auto) 0.60 Absolute Eos (auto) 0.10 Absolute Basos (auto) 0.00 Neutrophils % 63.6 Lymphocytes % 25.9 Monocytes % 8.6 Eosinophils % 1.5 Basophils % 0.4 PT 9.3 INR 0.93 PTT (SP) 21.2 L Sodium 133 L Potassium 4.4 Chloride 97 L Carbon Dioxide 25 Anion Gap 15.4 BUN 14 Creatinine 0.89 BUN/Creatinine Ratio 15.7 Random Glucose 242 H Serum Osmolality 274.8 L Calcium 8.8 Magnesium 1.9 Creatine Kinase 49 CK-MB (CK-2) 1.7 CK-MB (CK-2) % Not Reportable Troponin I < 0.02 - EKG/XRAY/CT EKG: Sinus - 84BPM, NL INTERVALS, NL AXIS, POOR R WAVE PROGRESSION, no ST T wave changes, Unchanged from - 12/23/18 Departure - Departure Clinical Impression: Chest pain of uncertain etiology, CAD (coronary artery disease) Time of Disposition: 17:51 Disposition: Discharge to Home or Self Care Condition: Good Departure Forms: ED Discharge - Pt. Copy, Patient Portal Self Enrollment Instructions: DI for Chest Pain Referrals: Milton Antoine MD [Primary Care Provider] - 1-5 Days Prescriptions: Pantoprazole Tablet [Protonix] 40 mg PO ACBK #14 tab Sucralfate Tab [Carafate Tab] 1 gm PO ACHS 14 Days #56 tablet Home Medications: Ambulatory Orders Aspirin [Aspirin EC] 81 mg PO DAILY 11/16/15 Lisinopril 20 mg PO DAILY 02/22/16 Insulin Detemir [Levemir] 12 unit SUBCU BID 12/04/16 Human Insulin Aspart [Novolog] 100 unit SC DAILY PRN 08/24/18 Nitroglycerin [Nitrostat] 0.4 mg SL Q5MIN PRN #1 bottle 10/05/18 Tylenol With Codeine #4 1 ea PO PRN 12/19/18 Atorvastatin Calcium [Lipitor] 10 mg PO DAILY 12/24/18 Pantoprazole Tablet [Protonix] 40 mg PO ACBK #14 tab 12/26/18 Sucralfate Tab [Carafate Tab] 1 gm PO ACHS 14 Days #56 tablet 12/26/18
--- NOTE | 2018-12-26 16:51 | RAD ---
EXAM DESCRIPTION: Chest,1 View CLINICAL HISTORY: 38 years Female chest pain COMPARISON: December 23, 2018. TECHNIQUE: AP view of the chest was obtained. FINDINGS: Decreased inspirationcardiac with apparent mild enlargement. Central vessels are prominent. Suspected coronary artery stent on left. No infiltrates or effusions seen. No consolidation. No pneumothorax. IMPRESSION: No active disease. Electronically signed by: Adwoa Mitchell MD 12/26/2018 4:48 PM CDT
[2018-12-26] MEDS ORDERED: LIDOCAINE HCL 2% (MOUTH-THROAT) 15 ML UD ONE (17:30)
[2018-12-26] MEDS ORDERED: ALUM & MAG HYDROX-SIMETHICONE 30 ML UD ONE (17:30)
[2018-12-26] MEDS ORDERED: ATENOLOL 25 MG TAB PO ONE (18:22)
[2018-12-26] MEDS ORDERED: LISINOPRIL 10 MG TAB PO ONE (18:22)
[2018-12-26 18:42] VITALS: BP 187/118; TEMP 97.8; O2SAT 100
== END 2018-12-26 18:43 | disposition home or self-care (01) ==
LOC: ER 15:11
DX: R07.2 Precordial pain (principal); I25.10 Atherosclerotic heart disease of native coronary artery without angina pectoris; F32.9 Major depressive disorder, single episode, unspecified; J44.9 Chronic obstructive pulmonary disease, unspecified; I10 Essential (primary) hypertension; E11.9 Type 2 diabetes mellitus without complications; Z95.5 Presence of coronary angioplasty implant and graft; Z87.891 Personal history of nicotine dependence; Z79.4 Long term (current) use of insulin; Z79.899 Other long term (current) drug therapy; Z79.82 Long term (current) use of aspirin
CPT/HCPCS: 36415; 71045; 80048; 82550; 82553; 84484; 85025; 85610; 85730; 93005; J1885

== ENCOUNTER 2019-03-05 15:37 | Observation (INO) | payer OTHER ==
[2019-03-05] MEDS: SODIUM CHLORIDE 0.9% (FLUSH) 10 ML SYG IV PRN ×2 (16:04→17:06)
[2019-03-05] MEDS ORDERED: HYDROcodone 7.5MG/APAP 325MG 1 EA TAB PO ONE (16:11)
[2019-03-05] MEDS ORDERED: ALUM & MAG HYDROX-SIMETHICONE 30 ML, LIDOCAINE VISCOUS 2% 15 ML PO ONE ×2 (16:11)
[2019-03-05] MEDS ORDERED: ASPIRIN TABLET 325 MG TAB PO ONE (16:12)
[2019-03-05] MEDS ORDERED: NITROGLYCERIN 0.4 MG 25 EA TAB SL ONE (16:12)
--- NOTE | 2019-03-05 16:33 | RAD ---
EXAM DESCRIPTION: Chest,1 View CLINICAL HISTORY: 39 years Female, chest pain COMPARISON: Previous study December 26, 2018 TECHNIQUE: AP portable chest. FINDINGS: Heart size is large with normal pulmonary vascularity. No consolidating infiltrate. No pulmonary mass or worrisome nodule. No pneumothorax or pleural effusion. Bones are unremarkable. IMPRESSION: Large heart without congestive failure. Electronically signed by: Dajuan Clay MD 03/05/2019 4:31 PM CDT
[2019-03-05] MEDS ORDERED: ALUM & MAG HYDROX-SIMETHICONE 30 ML UD ONE (17:03)
[2019-03-05] MEDS ORDERED: LIDOCAINE HCL 2% (MOUTH-THROAT) 15 ML UD ONE (17:03)
[2019-03-05] MEDS ORDERED: INSULIN DETEMIR 100 UNITS/ML PEN SUBCU ONE (20:09)
[2019-03-05] MEDS ORDERED: ENOXAPARIN SODIUM 80 MG/0.8 ML SYG SUBCU ONE (20:13)
--- NOTE | 2019-03-05 20:19 | ED.PDOC ---
History of Present Illness - General Chief Complaint: Cardiovascular Problem Stated Complaint: chest pain Time Seen by Provider: 03/05/19 16:03 Source: patient Exam Limitations: no limitations - History of Present Illness Initial Comments: the patient is a 39-year-old female known well to this emergency room presenting after the abrupt onset of some chest pain rated at a 7 out of 10 while she was walking at [facility]. She does have a history of angina and does normally have nitroglycerin. She did not have any present at the time. She did receive a spray of nitroglycerin from EMS. She reports that her chest pain is now down to a 6 out of 10. That being said the patient was asleep when I approached her to interview. The patient does have a history of some legitimate coronary artery disease. She does however have a history of multiple other pathologies that caused her frequent recurrent chest pain. Additionally she does have a history of drug-seeking. The patient is obviously not in any acute distress at this time. Vital signs appear stable. She does have one small coin-sized area just below the left breast that is tender to palpation. She is not sure that this entirely reproduces the pain. It does make it worse. No shortness of breath. No nausea or vomiting. She reports that she was feeling fine prior. She has had some recent anxiety. Timing/Duration: 1/2 hour Severity: moderate Improving Factors: medication Worsening Factors: nothing Associated Symptoms: chest pain Allergies/Adverse Reactions: Allergies NO KNOWN ALLERGY Allergy (Verified 03/05/19 16:44) Home Medications: Ambulatory Orders Aspirin [Aspirin EC] 81 mg PO DAILY 11/16/15 Lisinopril 20 mg PO DAILY 02/22/16 Insulin Detemir [Levemir] 12 unit SUBCU BID 12/04/16 Human Insulin Aspart [Novolog] 100 unit SC DAILY PRN 08/24/18 Nitroglycerin [Nitrostat] 0.4 mg SL Q5MIN PRN #1 bottle 10/05/18 Tylenol With Codeine #4 1 ea PO PRN 12/19/18 Atorvastatin Calcium [Lipitor] 10 mg PO DAILY 12/24/18 Atenolol 100 mg PO DAILY 14 Days #14 tab 12/26/18 Lisinopril 20 mg PO DAILY 14 Days #14 tab 12/26/18 Pantoprazole Tablet [Protonix] 40 mg PO ACBK #14 tab 12/26/18 Sucralfate Tab [Carafate Tab] 1 gm PO ACHS 14 Days #56 tablet 12/26/18 Review of Systems - Review of Systems Constitutional: States: no symptoms reported EENTM: States: no symptoms reported Respiratory: States: no symptoms reported Cardiology: States: chest pain Gastrointestinal/Abdominal: States: no symptoms reported Genitourinary: States: no symptoms reported Musculoskeletal: States: no symptoms reported Skin: States: no symptoms reported Neurological: States: no symptoms reported Endocrine: States: no symptoms reported All other Systems: No Change from Baseline Past Medical History (General) - Patient Medical History Hx Seizures: Yes Hx Stroke: No Hx Dementia: No Hx Asthma: No Hx of COPD: Yes Hx Cardiac Disorders: Yes - stents Hx Congestive Heart Failure: No Hx Pacemaker: No Hx Hypertension: Yes Hx Thyroid Disease: No Hx Diabetes: Yes Hx Gastroesophageal Reflux: Yes Hx Renal Disease: No Hx Cancer: No Hx of HIV: No Hx Hepatitis C: No Hx MRSA: No MRSA Source:: Wound Surgical History: cholecystectomy, Hysterectomy - Vaccination History Hx Tetanus, Diphtheria Vaccination: Yes Hx Influenza Vaccination: No Hx Pneumococcal Vaccination: No - Social History Hx Tobacco Use: Yes Hx Chewing Tobacco Use: No Hx Alcohol Use: No Hx Substance Use: Yes - meth Hx Substance Use Treatment: No Hx Depression: Yes Hx Physical Abuse: No Hx Emotional Abuse: No Hx Suspected Abuse: No - Female History Patient : No Family Medical History - Family History Mother Family History: Unknown Living Status: Still Living Hx Family Asthma: No Hx Family Congestive Heart Failure: Yes - Father Hx Family Hypertension: Yes Hx Family Stroke: No Hx Cardiac Disease: Yes Hx Family Diabetes: Yes Hx Family Cancer: No Physical Exam - Physical Exam General Appearance: Other - he patient is sleepy. She is arousable easily. No obvious distress. Eye Exam: bilateral normal Ears, Nose, Throat: hearing grossly normal, normal ENT inspection, normal pharynx Neck: full range of motion, supple Respiratory: lungs clear, normal breath sounds, no respiratory distress, no accessory muscle use, other - see history of present illness Cardiovascular/Chest: normal peripheral pulses, regular rate, rhythm, no edema Peripheral Pulses: radial,right: 2+, radial,left: 2+ Gastrointestinal/Abdominal: non tender - obese, soft Rectal Exam: deferred Back Exam: no CVA tenderness, no vertebral tenderness Extremity: normal range of motion, non-tender, normal inspection, no pedal edema, normal capillary refill 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 The patient will be admitted for a more extended rule out given her cardiac history. It is important to note however that the patient will report chest pain even when she is obviously not in pain. She will historically continue to ask for pain medications until her respiratory drive is suppressed. Vital signs are stable. EKG is reassuring. Initial set and repeat at 3 hours of cardiac enzymes are negative. She has received 10 units of Levemir. She has received aspirin and Lovenox. the patient is resting comfortably at this time. historically the patient has had multiple sources for chest pain including musculoskeletal, pleuritic, upper intestinal and even anxiety. This does make it difficult to discern which chest pains warrant further monitoring with the patient. Admit for observation. 03/05/19 20:26 - Results/Orders Results/Orders: chest x-ray shows cardiomegaly without congestive heart failure. EKG shows normal sinus rhythm at 93 bpm. Borderline QT interval. Old inferior Q waves. Old compression anterior leads. No definitive ST segment or T-wave changes indicative of ischemia when compared to previous EKGs. Mild left atrial dilation. Laboratory Tests 03/05/19 03/05/19 15:30 18:44 WBC 6.8 RBC 4.46 Hgb 12.3 Hct 36.9 MCV 82.8 MCH 27.4 MCHC 33.2 RDW 16.7 H Plt Count 325 MPV 7.7 Absolute Neuts (auto) 4.10 Absolute Lymphs (auto) 2.00 Absolute Monos (auto) 0.40 Absolute Eos (auto) 0.20 Absolute Basos (auto) 0.00 Neutrophils % 60.2 Lymphocytes % 29.7 Monocytes % 6.1 Eosinophils % 3.3 Basophils % 0.7 PT 9.6 INR 0.96 PTT (SP) 23.3 Sodium 135 Potassium 3.5 L Chloride 102 Carbon Dioxide 22 Anion Gap 14.5 BUN 9 Creatinine 0.86 BUN/Creatinine Ratio 10.5 Random Glucose 256 H Serum Osmolality 277.5 Calcium 8.7 Magnesium 1.8 Creatine Kinase 50 54 CK-MB (CK-2) 1.9 1.6 CK-MB (CK-2) % Not Reportable Not Reportable Troponin I < 0.02 < 0.02 B-Natriuretic Peptide 26.8 Departure - Departure Clinical Impression: Chest pain Qualifiers: Chest pain type: unspecified Qualified Code(s): R07.9 - Chest pain, unspecified Disposition: Admit Patient Departure Forms: ED Discharge - Pt. Copy, Patient Portal Self Enrollment Referrals: Milton Antoine MD [Primary Care Provider] - 1-2 Weeks Home Medications: Ambulatory Orders Aspirin [Aspirin EC] 81 mg PO DAILY 11/16/15 Lisinopril 20 mg PO DAILY 02/22/16 Insulin Detemir [Levemir] 12 unit SUBCU BID 12/04/16 Human Insulin Aspart [Novolog] 100 unit SC DAILY PRN 08/24/18 Nitroglycerin [Nitrostat] 0.4 mg SL Q5MIN PRN #1 bottle 10/05/18 Tylenol With Codeine #4 1 ea PO PRN 12/19/18 Atorvastatin Calcium [Lipitor] 10 mg PO DAILY 12/24/18 Atenolol 100 mg PO DAILY 14 Days #14 tab 12/26/18 Lisinopril 20 mg PO DAILY 14 Days #14 tab 12/26/18 Pantoprazole Tablet [Protonix] 40 mg PO ACBK #14 tab 12/26/18 Sucralfate Tab [Carafate Tab] 1 gm PO ACHS 14 Days #56 tablet 12/26/18 Decision To Admit - Decistion To Admit Decision to Admit Reason: Medical Nature Decision to Admit Date: 03/05/19 Decision to Admit Time: 20:27
[2019-03-05] MEDS ORDERED: ACETAMINOPHEN 325 MG TAB PO PRN (21:50)
[2019-03-05] MEDS ORDERED: SODIUM CHLORIDE 0.9% (FLUSH) 10 ML SYG IV PRN (21:50)
[2019-03-05] MEDS ORDERED: IV SET AND CAP CHANGE INJ INJ SCH (22:00)
[2019-03-05] MEDS: MORPHINE SULFATE INJ 10 MG/ML VIAL IV PRN (22:19)
[2019-03-06] MEDS: MORPHINE SULFATE INJ 10 MG/ML VIAL IV PRN (05:57)
[2019-03-06] MEDS ORDERED: ASPIRIN TABLET 325 MG TAB PO SCH (09:00)
[2019-03-06] MEDS ORDERED: SODIUM CHLORIDE 0.9% (FLUSH) 10 ML SYG IV SCH (09:00)
[2019-03-06] MEDS ORDERED: KETOROLAC TROMETHAMINE INJ 60 MG/2 ML VIAL IM ONE ×2 (10:41→10:49)
[2019-03-06 11:15] VITALS: BP 160/99; TEMP 97.8; O2SAT 98
--- NOTE | 2019-03-06 12:29 | CT ---
EXAM DESCRIPTION: Head CLINICAL HISTORY: Numbness of face COMPARISON: Previous CT head December 04, 2018 TECHNIQUE: Noncontrast head CT was performed with routine protocol. FINDINGS: Normal ross-white matter differentiation. Mild focal enlargement of the upper anterior body of the right lateral ventricle is unchanged from previous study. Otherwise the ventricles and sulci are normal for age. No high density hemorrhage, focal edema or shift of the midline. No sulcal effacement. Normal orbital contents. Basilar cisterns appear clear. Patient is status post suboccipital craniectomy. There is ventriculostomy drainage catheter with tip in the fourth ventricle. Otherwise intact calvarium with no fracture or lytic lesion. Normal aeration of tympanic cavities and mastoid air cells. No fluid levels in the paranasal sinuses. Skull base appears intact. Symmetrical internal auditory canals. Coronal and sagittal reformatted images confirm the findings. No change compared to the previous study. IMPRESSION: No acute intracranial pathologic process. This exam was performed according to our departmental dose-optimization program, which includes automated exposure control, adjustment of the mA and/or kV according to patient size and/or use of iterative reconstruction technique. Total DLP equals 859.97 mGycm. Electronically signed by: Dajuan Clay MD 03/06/2019 12:27 PM CDT
[2019-03-06] MEDS ORDERED: NITROGLYCERIN 0.4 MG/HR PATCH TOP SCH (13:00)
[2019-03-06] MEDS ORDERED: ENOXAPARIN SODIUM 80 MG/0.8 ML SYG SUBCU SCH (13:00)
--- NOTE | 2019-03-06 13:50 | SSS ---
SUPERVISING PHYSICIAN: Adams Fonseca MD DATE OF ADMISSION: 03/05/19 DATE OF DISCHARGE: 03/06/19 CHIEF COMPLAINT: Chest pain. HISTORY OF PRESENT ILLNESS: Ms. Morgan is a 39-year-old female patient who presented to the Emergency Room last night after she had the abrupt onset of chest pain. The pain was rated 7/10 while she was walking at [facility]. She does have a history of angina and normally takes nitro. She did receive nitro spray from EMS and reported chest pain was down to 6/10 on presentation to the Emergency Room. Initial workup in the Emergency Room included cardiac enzymes, two sets both negative for troponin being less than 0.02. EKG shows normal sinus rhythm at 93 with borderline QT intervals with elevated Q-waves and depression in anterior leads, but no definitive ST segment or T-wave changes indicative of ischemia when compared to previous EKGs. Initially, her vital signs in the Emergency Room showed blood pressure 173/111, pulse 80, respirations 20, saturation 93% on room air, afebrile at 97.2. In the Emergency Room, she was initially given hydrocodone and a GI cocktail which gave minimal relief of pain. She was also given 1 mg/kg of Lovenox and Levemir for her elevated blood sugar. Laboratory showed a normal white count at 6,800, hemoglobin 12.3, hematocrit 36.9, differential without a left shift. Initial chemistries showed normal electrolytes except for low potassium of 3.5, magnesium normal at 1.8. Initial cardiac troponins all were less than 0.02. Blood sugar initially was 256. She does have a history of diabetes and is on sliding scale and long-acting insulin at home. She also has a history of normal pressure hydrocephalus with a ventriculoperitoneal shunt placed without any complications. The patient is well-known to the Emergency Room and has been in the Emergency Room multiple times for chest pain. However, this episode is different in presentation with the patient not able to get any significant relief. Given her history of diabetes, previous cardiac stent placement at some point in the past which she is not sure actually when that was, it was in [place], and the fact that she is unable to get any significant relief despite negative troponins and EKGs, the patient is being transferred to [facility] for higher level of care with cardiology for further workup. The patient was placed in Observation initially at [facility] and at the time of discharge was in stable condition. PAST MEDICAL HISTORY: 1. Diabetes mellitus, type 2, insulin dependent, poorly controlled. 2. Exogenous obesity. 3. Chronic tobacco use. 4. History of normal pressure hydrocephalus with a ventriculoperitoneal shunt and associated disabilities. 5. Hypertension, poorly controlled. PAST SURGICAL HISTORY: 1. Ventriculoperitoneal shunt. 2. Breast biopsy with benign findings. 3. Cholecystectomy. 4. Hysterectomy. 5. Bladder suspension. 6. Coronary stents previously in 2016 apparently at [facility] according to previous records. HOME MEDICATIONS: Awaiting verified home medication list at time of admission as the patient is not able to give a current list of medications at time of admission. ALLERGIES: NO KNOWN DRUG ALLERGIES. FAMILY HISTORY: Positive for diabetes and cerebrovascular accidents. SOCIAL HISTORY: The patient is stable due to ventriculoperitoneal shunt and also coronary stents previously. She smokes less than half a pack of cigarettes a day and does not drink alcohol or use illicit drugs. REVIEW OF SYSTEMS: CONSTITUTIONAL: Negative for any fevers, chills or weight changes. HEENT: Negative for headaches, sore throats, earaches, nasal congestion, vision changes. RESPIRATORY: No complaint of shortness of breath, wheezing or coughing. CARDIOVASCULAR: Positive for chest pain as noted in history of present illness, more on the left anterior chest wall which is not reproducible on palpation.. GASTROINTESTINAL: Negative for nausea, vomiting, diarrhea, constipation. GENITOURINARY: Negative for dysuria, hematuria, polyuria. EXTREMITIES: No significant edema. NEUROLOGIC: No headaches, weakness, seizure activity or other neurologic focal deficit other than reported left arm numbness. PHYSICAL EXAMINATION: VITAL SIGNS: Initially in the Emergency Room, temperature 97.6, pulse 99, respirations 20, blood pressure 167/115, saturation 96% on room air. GENERAL: The patient appears to be resting comfortably in no acute distress. HEENT: Tympanic membranes clear bilaterally. Oropharynx is pink, moist without any lesions. NECK: Supple, nontender with full range of motion. RESPIRATORY: Lungs clear to auscultation bilaterally without any rhonchi, wheezes or rales, just slightly diminished towards the bases. CARDIOVASCULAR: Regular rate and rhythm without any appreciable murmurs, gallops, or rubs. ABDOMEN: Soft, nontender. Positive bowel sounds. Obese. BACK: No CVA tenderness, no vertebral tenderness. EXTREMITIES: She moves all extremities ad ezekiel with no obvious edema. Capillary refill is normal. NEUROLOGIC: The patient is alert and oriented times three. Cranial nerves II- XII are grossly intact. Facial features are symmetrical. Extraocular movements are within normal limits. There is no nystagmus noted. She does report some numbness to her left arm. SKIN: [place], warm and dry. LABORATORY: In the Emergency Room, white count was normal at 6,800, hemoglobin 12.3, hematocrit 36.9, platelet count 325. Coagulation studies showed normal PT, PTT. Chemistries showed just a mildly low potassium of 3.5, otherwise electrolytes within normal limits. BUN 9, creatinine 0.86. Glucose 256, calcium 8.7, magnesium 1.8. Troponins times 4 were less than 0.02 with normal CPK levels. BNP normal at 26. Liver panel showed triglycerides 341, cholesterol 180, LDL 119, HDL 28. Urinalysis showed greater than 1000 glucose, trace ketones, trace lysed blood. Microscopic revealed 10 to 20 RBCs, no WBCs, 10 to 20 epithelials, 1+ bacteria. RADIOLOGY: Chest x-ray in the Emergency Room per radiologic interpretation showed enlarged large without congestion failure. CT of the head per radiologic interpretation showed no acute findings. ASSESSMENT: 1. Chest pain, uncertain etiology with the patient having a history of previous coronary stents and multiple risk factors. 2. Diabetes mellitus, type 2, on insulin therapy, poorly controlled. 3. Chronic nicotine addiction in a current smoker. 4. Morbid obesity. 5. Mild electrolyte imbalance with hypokalemia. 6. History of ventriculoperitoneal shunt due to normal pressure hydrocephalus. PLAN: The patient was initially placed in Observation at [facility] for chest pain rule out. Her cardiac enzymes did remain negative. EKG showed no acute changes, any acute ischemia or injury pattern, however, she was unable to get any relief from the pain. She was given Toradol and morphine which resulted in minimal relief of the pain. She had no acute changes on telemetry. She was hypertensive, but she is poorly controlled on medications. Given that she is unable to get any significant relief and her risk factors, decision was made to transfer the patient to higher level of care for further cardiac workup. Dr. Moreira was graciously able to accept the patient in transfer. The patient was started on nitro patch 0.4. She was given aspirin in the Emergency Room and was also started on Lovenox 1 mg/kg q.12h. for 2 doses of 80 mg. She is now going to be transferred for further workup in regards to chest pain. She was transferred via ground ambulance and at time of discharge was stable. #[id number] MTDD
[2019-03-06] MEDS ORDERED: REMOVE OLD PATCH TOP SCH (21:00)
[2019-03-07] MEDS ORDERED: NITROGLYCERIN 0.4 MG/HR PATCH TOP SCH (09:00)
== END 2019-03-06 13:34 | disposition short-term general hospital (02) ==
LOC: ER 15:37 → MS 21:45
PROVIDERS: ADMIT Nurse Practitioner Family; ATTEND Nurse Practitioner Family
DX: R07.9 Chest pain, unspecified (principal); I25.10 Atherosclerotic heart disease of native coronary artery without angina pectoris; E11.65 Type 2 diabetes mellitus with hyperglycemia; F17.210 Nicotine dependence, cigarettes, uncomplicated; E66.01 Morbid (severe) obesity due to excess calories; E87.8 Other disorders of electrolyte and fluid balance, not elsewhere classified; E87.6 Hypokalemia; I11.9 Hypertensive heart disease without heart failure; J44.9 Chronic obstructive pulmonary disease, unspecified; Z68.31 Body mass index [BMI] 31.0-31.9, adult; Z79.4 Long term (current) use of insulin; Z79.82 Long term (current) use of aspirin; Z79.899 Other long term (current) drug therapy; Z95.5 Presence of coronary angioplasty implant and graft; Z98.2 Presence of cerebrospinal fluid drainage device; Z90.49 Acquired absence of other specified parts of digestive tract; Z90.710 Acquired absence of both cervix and uterus; Z82.49 Family history of ischemic heart disease and other diseases of the circulatory system; Z83.3 Family history of diabetes mellitus; Z82.3 Family history of stroke
CPT/HCPCS: 96374; 96376; 96372 ×2; J1885; J2270 ×2; J1650; J1815; 82553 ×3; 80061; 36415 ×4; 82550 ×3; 80048; 85025; 85730; 85610; 84484 ×3; 82150; 83690; 83880; 71045; 70450; 94760 ×2; 99406; 99285; 93005 ×2; G0378

== ENCOUNTER 2019-06-07 05:39 | Emergency (ER) | payer OTHER ==
--- NOTE | 2019-06-07 06:06 | ED.PDOC ---
History of Present Illness - History of Present Illness Initial Comments: 39 yo F PMH HTN DM Anxiety Depression (Denies hallucinations SI HI without suicide plan presents to ED c/o right wrist pain after FOOSH yesterday evening. Denies head injury LOC denies fever chills nausea vomiting diarrhea chest pain sob diaphoresis. No change in diet bowel or bladder admits symptoms disturbing rest admits smoking and occasional drinking admits FH HTN DM has PMD Dr. Antoine no other c/o today. <Kaushik Morrissey - Last Filed: 06/07/19 06:03> <Jai Cano - Last Filed: 06/07/19 07:45> - General Chief Complaint: Upper Extremity Injury Stated Complaint: rt wrist pain Time Seen by Provider: 06/07/19 05:58 - History of Present Illness Allergies/Adverse Reactions: Allergies NO KNOWN ALLERGY Allergy (Verified 03/05/19 16:44) Home Medications: Ambulatory Orders Aspirin [Aspirin EC] 81 mg PO DAILY 11/16/15 Lisinopril 20 mg PO DAILY 02/22/16 Insulin Detemir [Levemir Pen] 12 unit SUBCU BID 12/04/16 Human Insulin Aspart [Novolog] 100 unit SC DAILY PRN 08/24/18 Nitroglycerin [Nitrostat] 0.4 mg SL Q5MIN PRN #1 bottle 10/05/18 Tylenol With Codeine #4 1 ea PO PRN 12/19/18 Atorvastatin Calcium [Lipitor] 10 mg PO DAILY 12/24/18 Atenolol 100 mg PO DAILY 14 Days #14 tab 12/26/18 Lisinopril 20 mg PO DAILY 14 Days #14 tab 12/26/18 Pantoprazole Tablet [Protonix] 40 mg PO ACBK #14 tab 12/26/18 Sucralfate Tab [Carafate Tab] 1 gm PO ACHS 14 Days #56 tablet 12/26/18 Ibuprofen [Motrin] 600 mg PO Q6HR PRN #15 tab 06/07/19 Review of Systems - Review of Systems Constitutional: States: no symptoms reported EENTM: States: no symptoms reported Respiratory: States: no symptoms reported Cardiology: States: no symptoms reported Gastrointestinal/Abdominal: States: no symptoms reported Genitourinary: States: no symptoms reported Musculoskeletal: States: see HPI Skin: States: no symptoms reported Neurological: States: no symptoms reported Endocrine: States: no symptoms reported Hematologic/Lymphatic: States: no symptoms reported All other Systems: Reviewed and Negative <Kaushik Morrissey - Last Filed: 06/07/19 06:03> Past Medical History (General) - Patient Medical History Hx Seizures: Yes - last seizure a couple months ago, takes no meds for seizures Hx Stroke: Yes - pt reports possible stroke 2 years ago Hx Dementia: No Hx Asthma: No Hx of COPD: Yes Hx Cardiac Disorders: Yes - stents Hx Congestive Heart Failure: Yes Hx Pacemaker: No Hx Hypertension: Yes Hx Thyroid Disease: No Hx Diabetes: Yes Hx Gastroesophageal Reflux: Yes Hx Renal Disease: No Hx Cancer: No Hx of HIV: No Hx Hepatitis C: No Hx MRSA: No MRSA Source:: Wound - Vaccination History Hx Tetanus, Diphtheria Vaccination: Yes Hx Influenza Vaccination: No Hx Pneumococcal Vaccination: No - Social History Hx Tobacco Use: Yes Hx Chewing Tobacco Use: No Hx Alcohol Use: No 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 Hx Substance Use Treatment: No Hx Depression: Yes Hx Physical Abuse: No Hx Emotional Abuse: No Hx Suspected Abuse: No - Female History Patient : No <Kaushik Morrissey - Last Filed: 06/07/19 06:03> Family Medical History - Family History Mother Family History: Unknown Living Status: Still Living Hx Family Asthma: No Hx Family Congestive Heart Failure: Yes - Father Hx Family Hypertension: Yes Hx Family Stroke: No Hx Cardiac Disease: Yes Hx Family Diabetes: Yes Hx Family Cancer: No <Kaushik Morrissey - Last Filed: 06/07/19 06:03> Physical Exam - Physical Exam General Appearance: No apparent distress Eyes, Ears, Nose, Throat Exam: normal ENT inspection Neck: non-tender, full range of motion Cardiovascular/Respiratory: regular rate, rhythm Abdominal Exam: non-tender Back Exam: normal inspection Shoulder Exam: normal inspection Elbow/Forearm Exam: normal inspection Wrist Exam: soft tissue tenderness Hand Exam: normal inspection, non-tender Neuro/Tendon: normal sensation, normal motor functions Mental Status: oriented x 3 Skin Exam: normal color - tenderness to anatomical snuff box pain on axial loading of thumb <Kaushik Morrissey - Last Filed: 06/07/19 06:03> Progress - Progress Progress: 06/07/19 06:13 A/P-Fall Right Wrist Pain R Wrist Contusion 1.h/o hysterectomy tylenol xr r wrist reassess 2.Thumb spica splint <Kaushik Morrissey - Last Filed: 06/07/19 06:03> - Progress Progress: 06/07/19 07:15 Pt reports pain not controlled with Tylenol. Tramadol given. Awaiting radiology results. 06/07/19 07:28 No sign of fracture on xray. Will splint due to snuff box tenderness. Splint care instructions given and will f/u with ortho for continued evaluation. SRP given. - Results/Orders Results/Orders: RIGHT WRIST, THREE VIEWS, XR. CLINICAL HISTORY: Fall on outstretched hand. COMPARISON: None. TECHNIQUE: PA, lateral, and oblique right wrist views. FINDINGS: Mild dorsal wrist soft tissue edema. No fracture. Normal bony alignment. Joint spaces appear normal. Normal bone density. No foreign body or subcutaneous emphysema. IMPRESSION: 1. No acute fracture within the right wrist. Electronically signed by: Katie Stoner DO 06/07/2019 7:18 AM CDT <Jai Cano - Last Filed: 06/07/19 07:45> Departure <Kaushik Morrissey - Last Filed: 06/07/19 06:03> - Departure Time of Disposition: 07:31 <Jai Cano - Last Filed: 06/07/19 07:45> - Departure Clinical Impression: Wrist sprain Qualifiers: Encounter type: initial encounter Laterality: right Qualified Code(s): S63.501A - Unspecified sprain of right wrist, initial encounter Disposition: Discharge to Home or Self Care Condition: Good Departure Forms: ED Discharge - Pt. Copy, Patient Portal Self Enrollment Instructions: Wrist Sprain (DC), Common Wrist Injuries (DC) Referrals: Milton Antoine MD [Primary Care Provider] - 1-2 Days (Follow up with an orthopedist in 1 week) Prescriptions: Ibuprofen [Motrin] 600 mg PO Q6HR PRN #15 tab PRN Reason: Pain Home Medications: Ambulatory Orders Aspirin [Aspirin EC] 81 mg PO DAILY 11/16/15 Lisinopril 20 mg PO DAILY 02/22/16 Insulin Detemir [Levemir Pen] 12 unit SUBCU BID 12/04/16 Human Insulin Aspart [Novolog] 100 unit SC DAILY PRN 08/24/18 Nitroglycerin [Nitrostat] 0.4 mg SL Q5MIN PRN #1 bottle 10/05/18 Tylenol With Codeine #4 1 ea PO PRN 12/19/18 Atorvastatin Calcium [Lipitor] 10 mg PO DAILY 12/24/18 Atenolol 100 mg PO DAILY 14 Days #14 tab 12/26/18 Lisinopril 20 mg PO DAILY 14 Days #14 tab 12/26/18 Pantoprazole Tablet [Protonix] 40 mg PO ACBK #14 tab 12/26/18 Sucralfate Tab [Carafate Tab] 1 gm PO ACHS 14 Days #56 tablet 12/26/18 Ibuprofen [Motrin] 600 mg PO Q6HR PRN #15 tab 06/07/19
[2019-06-07] MEDS: ACETAMINOPHEN 500 MG TAB PO ONE (06:18)
[2019-06-07] MEDS: traMADol 37.5MG/APAP 325MG 1 EA TAB PO ONE (07:20)
--- NOTE | 2019-06-07 07:20 | RAD ---
RIGHT WRIST, THREE VIEWS, XR. CLINICAL HISTORY: Fall on outstretched hand. COMPARISON: None. TECHNIQUE: PA, lateral, and oblique right wrist views. FINDINGS: Mild dorsal wrist soft tissue edema. No fracture. Normal bony alignment. Joint spaces appear normal. Normal bone density. No foreign body or subcutaneous emphysema. IMPRESSION: 1. No acute fracture within the right wrist. Electronically signed by: Katie Stoner DO 06/07/2019 7:18 AM CDT
[2019-06-07 08:07] VITALS: BP 187/122; TEMP 97; O2SAT 99
== END 2019-06-07 08:02 | disposition home or self-care (01) ==
LOC: ER 05:39
DX: S63.501A Unspecified sprain of right wrist, initial encounter (principal); F32.9 Major depressive disorder, single episode, unspecified; F41.9 Anxiety disorder, unspecified; J44.9 Chronic obstructive pulmonary disease, unspecified; I51.9 Heart disease, unspecified; I50.9 Heart failure, unspecified; E11.9 Type 2 diabetes mellitus without complications; I11.0 Hypertensive heart disease with heart failure; K21.9 Gastro-esophageal reflux disease without esophagitis; W18.30XA Fall on same level, unspecified, initial encounter; Y92.410 Unspecified street and highway as the place of occurrence of the external cause; Y93.01 Activity, walking, marching and hiking; Z95.5 Presence of coronary angioplasty implant and graft; Z79.899 Other long term (current) drug therapy; Z87.891 Personal history of nicotine dependence

== ENCOUNTER 2019-07-02 17:38 | Emergency (ER) | payer OTHER ==
[2019-07-02] MEDS ORDERED: NITROGLYCERIN 0.4 MG 25 EA TAB SL ONE (18:50)
[2019-07-02 19:12] VITALS: TEMP 98
[2019-07-02] MEDS ORDERED: ASPIRIN (CHEWABLE) 81 MG TAB PO ONE (19:17)
--- NOTE | 2019-07-02 19:41 | RAD ---
EXAM DESCRIPTION: XR Chest, 1 View CLINICAL HISTORY: 39 years Female chest pain, SOB TECHNIQUE: One view of the chest. COMPARISON: 03/05/2019 FINDINGS: The lungs are clear without focal consolidation, effusion, or pneumothorax. The cardiomediastinal silhouette and central pulmonary vasculature are normal. No acute osseous abnormalities. IMPRESSION: No acute cardiopulmonary abnormalities. Electronically signed by: Tiara Piña MD 07/02/2019 7:40 PM CDT
[2019-07-02] MEDS ORDERED: METOPROLOL TARTRATE INJ 5 MG/5 ML VIAL IV ONE (20:51)
[2019-07-02] MEDS ORDERED: NITROGLYCERIN 2% 1 GM UD TOP ONE (20:51)
[2019-07-02 21:44] VITALS: O2SAT 99
--- NOTE | 2019-07-02 22:20 | ED.PDOC ---
History of Present Illness - General Chief Complaint: Chest Pain/FL Stated Complaint: chest pain Time Seen by Provider: 07/02/19 20:07 Source: patient, RN notes reviewed, Vital Signs reviewed, old records Exam Limitations: no limitations - History of Present Illness Initial Comments: maurilio is a 39-year-old white female who presents with complaints of chest pain. Patient states the pain started a couple of hours prior to arrival. Pain is substernal, no radiation and there is associated shortness of breath. Patient denies any nausea or diaphoresis. She has had this pain in the past.patient denies any headache, blurry vision, dizziness, shortness of breath, vomiting or diarrhea. It is sharp in nature. Nothing seems to cause it to start an nothing improves the pain Timing/Duration: 1-3 hours Severity: moderate Location: substernal Activities at Onset: none Prior Chest Pain/Cardiac Workup: cardiac cath Improving Factors: nothing Worsening Factors: nothing Nitro Today/Relief: 0.4 mg x 1 Aspirin Treatment Today: 81 mg x 4 Associated Symptoms: chest pain, nausea/vomiting - as he only Allergies/Adverse Reactions: Allergies NO KNOWN ALLERGY Allergy (Verified 03/05/19 16:44) Home Medications: Ambulatory Orders Aspirin [Aspirin EC] 81 mg PO DAILY 11/16/15 Lisinopril 20 mg PO DAILY 02/22/16 Insulin Detemir [Levemir Pen] 12 unit SUBCU BID 12/04/16 Human Insulin Aspart [Novolog] 100 unit SC DAILY PRN 08/24/18 Nitroglycerin [Nitrostat] 0.4 mg SL Q5MIN PRN #1 bottle 10/05/18 Tylenol With Codeine #4 1 ea PO PRN 12/19/18 Atorvastatin Calcium [Lipitor] 10 mg PO DAILY 12/24/18 Atenolol 100 mg PO DAILY 14 Days #14 tab 12/26/18 Lisinopril 20 mg PO DAILY 14 Days #14 tab 12/26/18 Pantoprazole Tablet [Protonix] 40 mg PO ACBK #14 tab 12/26/18 Sucralfate Tab [Carafate Tab] 1 gm PO ACHS 14 Days #56 tablet 12/26/18 Ibuprofen [Motrin] 600 mg PO Q6HR PRN #15 tab 06/07/19 Review of Systems - Review of Systems Constitutional: States: no symptoms reported, see HPI EENTM: States: no symptoms reported Respiratory: States: no symptoms reported Cardiology: States: see HPI, chest pain Gastrointestinal/Abdominal: States: see HPI, nausea Genitourinary: States: no symptoms reported Musculoskeletal: States: no symptoms reported Skin: States: no symptoms reported Neurological: States: no symptoms reported Endocrine: States: no symptoms reported Hematologic/Lymphatic: States: no symptoms reported All other Systems: Reviewed and Negative Past Medical History (General) - Patient Medical History Hx Seizures: Yes - last seizure a couple months ago, takes no meds for seizures Hx Stroke: Yes - pt reports possible stroke 2 years ago Hx Dementia: No Hx Asthma: No Hx of COPD: Yes Hx Cardiac Disorders: Yes - stents Hx Congestive Heart Failure: Yes Hx Pacemaker: No Hx Hypertension: Yes Hx Thyroid Disease: No Hx Diabetes: Yes Hx Gastroesophageal Reflux: Yes Hx Renal Disease: No Hx Cancer: No Hx of HIV: No Hx Hepatitis C: No Hx MRSA: No MRSA Source:: Wound - Vaccination History Hx Tetanus, Diphtheria Vaccination: Yes Hx Influenza Vaccination: No Hx Pneumococcal Vaccination: No - Social History Hx Tobacco Use: Yes Hx Chewing Tobacco Use: No Hx Alcohol Use: No 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 Hx Substance Use Treatment: No Hx Depression: Yes Hx Physical Abuse: No Hx Emotional Abuse: No Hx Suspected Abuse: No - Female History Patient : No Family Medical History - Family History Mother Family History: Unknown Living Status: Still Living Hx Family Asthma: No Hx Family Congestive Heart Failure: Yes - Father Hx Family Hypertension: Yes Hx Family Stroke: No Hx Cardiac Disease: Yes Hx Family Diabetes: Yes Hx Family Cancer: No Physical Exam - Physical Exam General Appearance: Alert, Anxious, Well Developed, Well Hydrated, Well Nourished Eyes, Ears, Nose, Throat Exam: PERRL/EOMI, normal ENT inspection, pharynx normal, other - poor dental hygiene. 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 patient presented one hour after chest pain started. He had some of her typical symptoms but not all of them. Patient was asking for narcotic pain medicine immediately upon arrival. Labs were drawn initially for evaluation even though she was only an hour out from the start of chest pain. the Four-hour troponinwas negative, we were waiting to repeat the troponin at 6 hours and patient refused any further treatment and signed out AMA. Return for any further pain, vomiting or any concerning symptoms. We feed her prior to her discharge we declined. Patient left AMA. - Results/Orders Results/Orders: 07/02/19 18:26 Telemetry .ONCE EKG Stat Laboratory Results - last 24 hr 07/02/19 07/02/19 18:20 21:05 WBC 7.8 RBC 4.62 Hgb 12.5 Hct 37.5 MCV 81.1 MCH 27.1 MCHC 33.4 RDW 16.7 H Plt Count 362 MPV 7.3 L Absolute Neuts (auto) 5.00 Absolute Lymphs (auto) 2.10 Absolute Monos (auto) 0.60 Absolute Eos (auto) 0.20 Absolute Basos (auto) 0.00 Neutrophils % 63.4 Lymphocytes % 26.8 Monocytes % 7.2 Eosinophils % 2.0 Basophils % 0.6 PT 9.8 INR 0.98 PTT (SP) 22.9 Sodium 138 Potassium 4.0 Chloride 97 L Carbon Dioxide 27 Anion Gap 18.0 BUN 11 Creatinine 0.79 BUN/Creatinine Ratio 13.9 Random Glucose 195 H Serum Osmolality 280.4 Calcium 9.4 Magnesium 1.8 Creatine Kinase 36 CK-MB (CK-2) 1.2 CK-MB (CK-2) % Not Reportable Troponin I 0.02 < 0.02 B-Natriuretic Peptide 17.0 EXAM DESCRIPTION: XR Chest, 1 View CLINICAL HISTORY: 39 years Female chest pain, SOB TECHNIQUE: One view of the chest. COMPARISON: 03/05/2019 FINDINGS: The lungs are clear without focal consolidation, effusion, or pneumothorax. The cardiomediastinal silhouette and central pulmonary vasculature are normal. No acute osseous abnormalities. IMPRESSION: No acute cardiopulmonary abnormalities. Electronically signed by: Tiara Piña MD 07/02/2019 7:40 PM CDT Departure - Departure Clinical Impression: Chest pain Qualifiers: Chest pain type: unspecified Qualified Code(s): R07.9 - Chest pain, unspecified Disposition: Left Against Medical Advice Condition: Good Departure Forms: ED Discharge - Pt. Copy, Patient Portal Self Enrollment Instructions: DI for Chest Pain Referrals: Milton Antoine MD [Primary Care Provider] - 1-2 Days Home Medications: Ambulatory Orders Aspirin [Aspirin EC] 81 mg PO DAILY 11/16/15 Lisinopril 20 mg PO DAILY 02/22/16 Insulin Detemir [Levemir Pen] 12 unit SUBCU BID 12/04/16 Human Insulin Aspart [Novolog] 100 unit SC DAILY PRN 08/24/18 Nitroglycerin [Nitrostat] 0.4 mg SL Q5MIN PRN #1 bottle 10/05/18 Tylenol With Codeine #4 1 ea PO PRN 12/19/18 Atorvastatin Calcium [Lipitor] 10 mg PO DAILY 12/24/18 Atenolol 100 mg PO DAILY 14 Days #14 tab 12/26/18 Lisinopril 20 mg PO DAILY 14 Days #14 tab 12/26/18 Pantoprazole Tablet [Protonix] 40 mg PO ACBK #14 tab 12/26/18 Sucralfate Tab [Carafate Tab] 1 gm PO ACHS 14 Days #56 tablet 12/26/18 Ibuprofen [Motrin] 600 mg PO Q6HR PRN #15 tab 06/07/19
[2019-07-02 22:59] VITALS: BP 163/124
== END 2019-07-02 23:15 | disposition left against medical advice (07) ==
LOC: ER 17:38
DX: R07.2 Precordial pain (principal); R06.02 Shortness of breath; J44.9 Chronic obstructive pulmonary disease, unspecified; R56.9 Unspecified convulsions; I50.9 Heart failure, unspecified; I11.0 Hypertensive heart disease with heart failure; E11.9 Type 2 diabetes mellitus without complications; K21.9 Gastro-esophageal reflux disease without esophagitis; F32.9 Major depressive disorder, single episode, unspecified; Z53.29 Procedure and treatment not carried out because of patient's decision for other reasons; Z95.5 Presence of coronary angioplasty implant and graft; Z79.4 Long term (current) use of insulin; Z79.899 Other long term (current) drug therapy; Z79.82 Long term (current) use of aspirin; Z87.891 Personal history of nicotine dependence

== ENCOUNTER 2019-10-06 15:02 | Emergency (ER) | payer OTHER ==
[2019-10-06] MEDS ORDERED: SODIUM CHLORIDE 0.9% (FLUSH) 10 ML SYG IV PRN (15:23)
--- NOTE | 2019-10-06 15:45 | RAD ---
EXAM DESCRIPTION: Chest,1 View CLINICAL HISTORY: 39 years Female, chest pain COMPARISON: Previous study July 02, 2019 TECHNIQUE: AP portable chest. FINDINGS: Heart size is large with normal pulmonary vascularity. No consolidating infiltrate. No pulmonary mass or worrisome nodule. No pneumothorax or pleural effusion. Bones are unremarkable. IMPRESSION: Large heart without congestive failure. Electronically signed by: Dajuan Clay MD 10/06/2019 3:44 PM [facility]
[2019-10-06] MEDS ORDERED: ASPIRIN TABLET 325 MG TAB PO ONE (15:46)
[2019-10-06] MEDS ORDERED: NITROGLYCERIN 0.4 MG 25 EA TAB SL ONE (15:47)
[2019-10-06] MEDS ORDERED: CLINDAMYCIN IV 600MG 600 MG in PREMIX BAG 1 BAG IVPB ONE (16:39)
[2019-10-06] MEDS ORDERED: CLINDAMYCIN IV 600MG 50 ML IVPB ONE (16:45)
[2019-10-06] MEDS ORDERED: cefTRIAXone SODIUM 1 GM in SODIUM CHL 0.9% 50ML MIN-BAG+ 50 ML IVPB ONE (17:48)
[2019-10-06] MEDS ORDERED: MORPHINE SULFATE INJ 10 MG/ML VIAL IV ONE ×2 (17:48→21:33)
[2019-10-06] MEDS ORDERED: cefTRIAXone SODIUM 1 GM VIAL ONE (17:49)
[2019-10-06] MEDS ORDERED: SODIUM CHL 0.9% 50ML MIN-BAG+ 50 ML IVPB ONE (17:49)
--- NOTE | 2019-10-06 17:53 | ED.PDOC ---
History of Present Illness - General Chief Complaint: Chest Pain/NV Stated Complaint: chest pain Time Seen by Provider: 10/06/19 15:22 Source: patient, RN notes reviewed, Vital Signs reviewed Exam Limitations: no limitations - History of Present Illness Initial Comments: Patient is a 39-year-old white female who presents with complaints of chest pain when she was walking home today. She says the pain is pressure-like with radiation to her back. Pain is 8 out of 10. Pain is substernal. Causes nausea and shortness of breath. No diaphoresis. Similar to the pain she had when she previously had a stent placed. Patient states that she last used methamphetamines approximately 4 months ago. Patient denies any headache, dizziness, blurry vision, diarrhea. Timing/Duration: 1-3 hours Severity: severe Location: substernal Activities at Onset: activity Prior Chest Pain/Cardiac Workup: cardiac cath Improving Factors: rest Nitro Today/Relief: no nitro taken today Aspirin Treatment Today: no aspirin today Associated Symptoms: chest pain, nausea/vomiting, shortness of breath Allergies/Adverse Reactions: Allergies NO KNOWN ALLERGY Allergy (Verified 03/05/19 16:44) Home Medications: Ambulatory Orders Aspirin [Aspirin EC] 81 mg PO DAILY 11/16/15 Lisinopril 20 mg PO DAILY 02/22/16 Insulin Detemir [Levemir Pen] 12 unit SUBCU BID 12/04/16 Human Insulin Aspart [Novolog] 100 unit SC DAILY PRN 08/24/18 Nitroglycerin [Nitrostat] 0.4 mg SL Q5MIN PRN #1 bottle 10/05/18 Tylenol With Codeine #4 1 ea PO PRN 12/19/18 Atorvastatin Calcium [Lipitor] 10 mg PO DAILY 12/24/18 Atenolol 100 mg PO DAILY 14 Days #14 tab 12/26/18 Lisinopril 20 mg PO DAILY 14 Days #14 tab 12/26/18 Pantoprazole Tablet [Protonix] 40 mg PO ACBK #14 tab 12/26/18 Sucralfate Tab [Carafate Tab] 1 gm PO ACHS 14 Days #56 tablet 12/26/18 Ibuprofen [Motrin] 600 mg PO Q6HR PRN #15 tab 06/07/19 Review of Systems - Review of Systems Constitutional: States: no symptoms reported, see HPI. Denies: chills, diaphoresis, fever EENTM: States: no symptoms reported Respiratory: States: see HPI, short of breath Cardiology: States: see HPI, chest pain. Denies: palpitations, syncope Gastrointestinal/Abdominal: States: see HPI, nausea. Denies: abdominal pain, vomiting Musculoskeletal: States: no symptoms reported Skin: States: no symptoms reported Neurological: States: no symptoms reported Endocrine: States: no symptoms reported Hematologic/Lymphatic: States: no symptoms reported Past Medical History (General) - Patient Medical History Hx Seizures: No Hx Stroke: No Hx Dementia: No Hx Asthma: No Hx of COPD: Yes Hx Cardiac Disorders: Yes - Stints X8 Hx Congestive Heart Failure: Yes Hx Pacemaker: No Hx Hypertension: No Hx Thyroid Disease: No Hx Diabetes: Yes Hx Gastroesophageal Reflux: No Hx Renal Disease: No Hx Cancer: No Hx of HIV: No Hx Hepatitis C: No Hx MRSA: No MRSA Source:: Wound Surgical History: cholecystectomy, Hysterectomy, other - Vaccination History Hx Tetanus, Diphtheria Vaccination: Yes Hx Influenza Vaccination: No Hx Pneumococcal Vaccination: Yes - Social History Hx Tobacco Use: Yes Hx Chewing Tobacco Use: No Hx Alcohol Use: No Hx Substance Use: No Hx Substance Use Treatment: No Hx Depression: No Feels Threatened In Home Enviroment: No Feels Threatened In a Relationship: No Hx Physical Abuse: No Hx Emotional Abuse: No Hx Suspected Abuse: No - Female History Patient is a Female of Child Bearing Age (10 -59 yrs old): No Patient : No - Triage Comment ED Triage Comment: Pt complaing of chest pressure with no shortness of breath noted. Family Medical History - Family History Mother Family History: Unknown Living Status: Still Living Hx Family Asthma: No Hx Family Congestive Heart Failure: Yes - Father Hx Family Hypertension: Yes Hx Family Stroke: No Hx Cardiac Disease: Yes Hx Family Diabetes: Yes Hx Family Cancer: No Physical Exam - Physical Exam General Appearance: Alert, Comfortable, Well Developed, Well Hydrated, Well Nourished Eyes, Ears, Nose, Throat Exam: PERRL/EOMI, normal ENT inspection, pharynx normal Neck: non-tender, full range of motion, supple, normal inspection Respiratory: chest non-tender, lungs clear, normal breath sounds, no respiratory distress, no accessory muscle use Cardiovascular/Chest: normal peripheral pulses, regular rate, rhythm, no edema, no gallop, no JVD, no murmur Peripheral Pulses: radial,right: 2+, radial,left: 2+ Gastrointestinal/Abdominal: normal bowel sounds, non tender, soft, no organomegaly, no pulsatile mass Extremity: normal range of motion, non-tender, normal inspection, no pedal edema 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 10/06/19 22:14 Patient with continued intermittent chest pain. Initial EKG is abnormal but does not appear to be an acute ST elevation NV. The initial enzymes are negative. Plan on admission to the hospital for further evaluation. We will transfer patient to her preferred hospital of either [facility] or [facility]. I discussed the plan of care with the patient she voices understanding and agreement. Marco Beck M.D. #[id number] - Results/Orders Results/Orders: 10/06/19 15:23 IV Care:Saline Lock per Protoc QSHIFT Telemetry ONCE Sodium Chloride 0.9% (Flush) [Saline Flush Syringe] 3 ml IV PRN PRN 10/06/19 15:39 EKG .ONCE 10/06/19 16:30 Urine Culture Stat 10/07/19 09:00 Pulse Ox Daily Laboratory Results - last 24 hr 10/06/19 10/06/19 10/06/19 15:20 16:30 21:25 WBC 7.3 RBC 4.81 Hgb 12.5 Hct 38.1 MCV 79.3 L MCH 26.1 L MCHC 32.9 L RDW 16.4 H Plt Count 348 MPV 7.9 Absolute Neuts (auto) 5.00 Absolute Lymphs (auto) 1.70 Absolute Monos (auto) 0.50 Absolute Eos (auto) 0.10 Absolute Basos (auto) 0.10 Neutrophils % 67.9 Lymphocytes % 22.8 Monocytes % 6.7 Eosinophils % 1.7 Basophils % 0.9 PT 9.7 INR 0.98 PTT (SP) 20.5 L Sodium 134 L Potassium 4.0 Chloride 96 L Carbon Dioxide 27 Anion Gap 15.0 BUN 11 Creatinine 0.76 BUN/Creatinine Ratio 14.5 Random Glucose 325 H Serum Osmolality 280.2 Calcium 9.1 Magnesium 1.7 L Total Bilirubin 0.5 AST 22 ALT 23 Alkaline Phosphatase 109 Creatine Kinase 57 CK-MB (CK-2) 1.7 CK-MB (CK-2) % Not Reportable Troponin I < 0.02 < 0.02 Serum Total Protein 7.9 Albumin 4.0 Globulin 3.9 H Albumin/Globulin Ratio 1.0 L Urine Color Yellow Urine Appearance Cloudy Urine pH 5.0 Ur Specific [place] 1.020 Urine Protein Negative Urine Glucose (UA) >=1000 H Urine Ketones Negative Urine Blood Trace-intact H Urine Nitrite Positive H Urine Bilirubin Negative Urine Urobilinogen 0.2 Ur Leukocyte Esterase Negative Urine RBC 5-10 H Urine WBC 1-3 Ur Epithelial Cells 3-5 Urine Bacteria 4+ H EXAM DESCRIPTION: Chest,1 View CLINICAL HISTORY: 39 years Female, chest pain COMPARISON: Previous study July 02, 2019 TECHNIQUE: AP portable chest. FINDINGS: Heart size is large with normal pulmonary vascularity. No consolidating infiltrate. No pulmonary mass or worrisome nodule. No pneumothorax or pleural effusion. Bones are unremarkable. IMPRESSION: Large heart without congestive failure. Electronically signed by: Dajuan Clay MD 10/06/2019 3:44 EKG performed 06 October 2019 at 1507 hrs.: Normal sinus rhythm at 91 bpm, left atrial enlargement, inferior infarct age indeterminate, anterior infarct age indeterminate, abnormal EKG. No previous EKG to compare against. Departure - Departure Clinical Impression: Chest pain Qualifiers: Chest pain type: unspecified Qualified Code(s): R07.9 - Chest pain, unspecified UTI (urinary tract infection) Qualifiers: Urinary tract infection type: acute cystitis Hematuria presence: without hematuria Qualified Code(s): N30.00 - Acute cystitis without hematuria Time of Disposition: 22:17 Disposition: Transfer to Hospital Condition: Fair Referrals: Milton Antoine MD [Primary Care Provider] - 1-2 Weeks Home Medications: Ambulatory Orders Aspirin [Aspirin EC] 81 mg PO DAILY 11/16/15 Lisinopril 20 mg PO DAILY 02/22/16 Insulin Detemir [Levemir Pen] 12 unit SUBCU BID 12/04/16 Human Insulin Aspart [Novolog] 100 unit SC DAILY PRN 08/24/18 Nitroglycerin [Nitrostat] 0.4 mg SL Q5MIN PRN #1 bottle 10/05/18 Tylenol With Codeine #4 1 ea PO PRN 12/19/18 Atorvastatin Calcium [Lipitor] 10 mg PO DAILY 12/24/18 Atenolol 100 mg PO DAILY 14 Days #14 tab 12/26/18 Lisinopril 20 mg PO DAILY 14 Days #14 tab 12/26/18 Pantoprazole Tablet [Protonix] 40 mg PO ACBK #14 tab 12/26/18 Sucralfate Tab [Carafate Tab] 1 gm PO ACHS 14 Days #56 tablet 12/26/18 Ibuprofen [Motrin] 600 mg PO Q6HR PRN #15 tab 06/07/19 Transfer to Outside Facility - Transfer Information Decision to Transfer Date: 10/06/19 Decision to Transfer Time: 18:30 Reason for Transfer: required specialist not available Accepting Facility: [facility]
[2019-10-06] MEDS ORDERED: METOPROLOL TARTRATE INJ 5 MG/5 ML VIAL IV ONE (21:06)
[2019-10-06 22:15] VITALS: BP 177/97
[2019-10-06 22:44] VITALS: TEMP 98.2; O2SAT 92
== END 2019-10-06 22:44 | disposition short-term general hospital (02) ==
LOC: ER 15:02
DX: R07.2 Precordial pain (principal); N30.00 Acute cystitis without hematuria; J44.9 Chronic obstructive pulmonary disease, unspecified; I50.9 Heart failure, unspecified; E11.9 Type 2 diabetes mellitus without complications; Z95.5 Presence of coronary angioplasty implant and graft; Z79.4 Long term (current) use of insulin; Z79.899 Other long term (current) drug therapy; Z79.82 Long term (current) use of aspirin; Z87.891 Personal history of nicotine dependence
CPT/HCPCS: 36415; 71045; 80048; 80053; 81001; 82550; 82553; 84484; 85025; 85610; 85730; 87086; 93005; J0696; J2270; J3490; J7050

== ENCOUNTER 2019-10-22 15:28 | Emergency (ER) | payer OTHER ==
--- NOTE | 2019-10-22 17:19 | RAD ---
EXAM: XR Left Knee, 3 Views CLINICAL HISTORY: FALL TECHNIQUE: Three views of the left knee. COMPARISON: No relevant prior studies available. FINDINGS: Bones/joints: Unremarkable. No acute fracture. No dislocation. Soft tissues: Unremarkable. IMPRESSION: No abnormality noted. Electronically signed by: Nette Hawthorne MD 10/22/2019 5:18 PM [facility]
--- NOTE | 2019-10-22 18:22 | RAD ---
EXAM DESCRIPTION: Ankle,Left 3 Views CLINICAL HISTORY: FALL COMPARISON: None FINDINGS: 3 view(s) submitted. No fracture or dislocation is identified. Bone marrow attenuation is unremarkable. No radiopaque foreign body is identified. IMPRESSION: No acute fracture or dislocation. Electronically signed by: Arnav Marroquin 10/22/2019 6:20 PM [facility]
[2019-10-22] MEDS ORDERED: traMADol HCL 50 MG TAB PO ONE (18:52)
[2019-10-22 18:54] VITALS: O2SAT 98
--- NOTE | 2019-10-22 18:57 | ED.PDOC ---
History of Present Illness - General Chief Complaint: Lower Extremity Injury Stated Complaint: LEFT LEG PAIN FROM FALL THIS MORNING Time Seen by Provider: 10/22/19 16:50 Source: patient Exam Limitations: no limitations - History of Present Illness Initial Comments: She has pain over the left kneecap as well as over the right medial ankle and the proximal first digit. No deformity. No crepitus. Normal passive range of motion. She is at her baseline from a neurovascular standpoint. No other injuries. No lacerations. No obvious instability of the knee. Normal tracking of the patella. Timing/Duration: 1-3 hours Severity: moderate Improving Factors: immobilization Worsening Factors: movement Associated Symptoms: denies symptoms Allergies/Adverse Reactions: Allergies NO KNOWN ALLERGY Allergy (Verified 03/05/19 16:44) Home Medications: Ambulatory Orders Aspirin [Aspirin EC] 81 mg PO DAILY 11/16/15 Lisinopril 20 mg PO DAILY 02/22/16 Insulin Detemir [Levemir Pen] 12 unit SUBCU BID 12/04/16 Human Insulin Aspart [Novolog] 100 unit SC DAILY PRN 08/24/18 Nitroglycerin [Nitrostat] 0.4 mg SL Q5MIN PRN #1 bottle 10/05/18 Tylenol With Codeine #4 1 ea PO PRN 12/19/18 Atorvastatin Calcium [Lipitor] 10 mg PO DAILY 12/24/18 Atenolol 100 mg PO DAILY 14 Days #14 tab 12/26/18 Lisinopril 20 mg PO DAILY 14 Days #14 tab 12/26/18 Pantoprazole Tablet [Protonix] 40 mg PO ACBK #14 tab 12/26/18 Sucralfate Tab [Carafate Tab] 1 gm PO ACHS 14 Days #56 tablet 12/26/18 Ibuprofen [Motrin] 600 mg PO Q6HR PRN #15 tab 06/07/19 Tramadol HCl 50 mg PO Q8HR PRN #20 tab 10/22/19 Review of Systems - Review of Systems Constitutional: States: no symptoms reported EENTM: States: no symptoms reported Respiratory: States: no symptoms reported Cardiology: States: no symptoms reported Gastrointestinal/Abdominal: States: no symptoms reported Genitourinary: States: no symptoms reported Musculoskeletal: States: see HPI Skin: States: no symptoms reported Neurological: States: no symptoms reported Endocrine: States: no symptoms reported All other Systems: No Change from Baseline Past Medical History (General) - Patient Medical History Hx Seizures: No Hx Stroke: No Hx Dementia: No Hx Asthma: Yes Hx of COPD: Yes Hx Cardiac Disorders: Yes Hx Congestive Heart Failure: Yes Hx Pacemaker: No Hx Hypertension: Yes Hx Thyroid Disease: No Hx Diabetes: Yes Hx Gastroesophageal Reflux: Yes Hx Renal Disease: Yes Hx Cancer: No Hx of HIV: No Hx Hepatitis C: No Hx MRSA: No MRSA Source:: Wound - Vaccination History Hx Tetanus, Diphtheria Vaccination: Yes Hx Influenza Vaccination: Yes Hx Pneumococcal Vaccination: Yes Immunizations Up to Date: Yes - Social History Hx Tobacco Use: Yes Hx Chewing Tobacco Use: No Hx Alcohol Use: Yes Hx Substance Use: Yes Hx Substance Use Treatment: Yes Hx Depression: Yes Feels Threatened In Home Enviroment: No Feels Threatened In a Relationship: No Hx Physical Abuse: No Hx Emotional Abuse: No Hx Suspected Abuse: No - Female History Patient : No Family Medical History - Family History Mother Family History: Unknown Living Status: Still Living Hx Family Asthma: No Hx Family Congestive Heart Failure: Yes - Father Hx Family Hypertension: Yes Hx Family Stroke: No Hx Cardiac Disease: Yes Hx Family Diabetes: Yes Hx Family Cancer: No Physical Exam - Physical Exam General Appearance: Alert, No apparent distress Eye Exam: bilateral normal Ears, Nose, Throat: hearing grossly normal Respiratory: no respiratory distress, no accessory muscle use Cardiovascular/Chest: normal peripheral pulses, no edema Peripheral Pulses: dorsalis pedis,right: 2+, dorsalis pedis,left: 2+, posterior tibialis,right: 2+, posterior tibialis,left: 2+ Gastrointestinal/Abdominal: other - Obese Rectal Exam: deferred Extremity: normal range of motion, no pedal edema, no calf tenderness, normal capillary refill, other - See history of present illness 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 X-rays show no evidence of any fracture or dislocation. She will be sore for probably 3 weeks. She did sustain a very mild strain of her left ankle as well as a sprain of the metatarsophalangeal joint of the first digit of the left foot. She is going to be placed in a walking boot for this. She also sustained a very mild contusion of the left kneecap. She does need to do range of motion exercises. Motrin can be used for discomfort and she will be written for a few pills of tramadol for as needed use. Obviously she needs to ambulate carefully to prevent further injury. ER warnings are given. Keep routine follow-up with primary care doctor. rtent de leon [id number] - Results/Orders Results/Orders: X-ray of the left knee and ankle show no evidence of any fracture or dislocation. Departure - Departure Clinical Impression: Contusion of left knee Qualifiers: Encounter type: initial encounter Qualified Code(s): S80.02XA - Contusion of left knee, initial encounter Left ankle strain Qualifiers: Encounter type: initial encounter Qualified Code(s): S96.912A - Strain of unspecified muscle and tendon at ankle and foot level, left foot, initial en counter Sprain of toe, great, left Qualifiers: Encounter type: initial encounter Qualified Code(s): S93.502A - Unspecified sprain of left great toe, initial encounter Disposition: Discharge to Home or Self Care Condition: Fair Departure Forms: ED Discharge - Pt. Copy, Patient Portal Self Enrollment Instructions: DI for Leg Pain, DI for Trauma, DI for Knee Pain Diet: diabetic diet Activity: increase activity as tolerated Referrals: Milton Antoine MD [Primary Care Provider] - 1-2 Weeks Prescriptions: Tramadol HCl 50 mg PO Q8HR PRN #20 tab PRN Reason: Moderate Pain Home Medications: Ambulatory Orders Aspirin [Aspirin EC] 81 mg PO DAILY 11/16/15 Lisinopril 20 mg PO DAILY 02/22/16 Insulin Detemir [Levemir Pen] 12 unit SUBCU BID 12/04/16 Human Insulin Aspart [Novolog] 100 unit SC DAILY PRN 08/24/18 Nitroglycerin [Nitrostat] 0.4 mg SL Q5MIN PRN #1 bottle 10/05/18 Tylenol With Codeine #4 1 ea PO PRN 12/19/18 Atorvastatin Calcium [Lipitor] 10 mg PO DAILY 12/24/18 Atenolol 100 mg PO DAILY 14 Days #14 tab 12/26/18 Lisinopril 20 mg PO DAILY 14 Days #14 tab 12/26/18 Pantoprazole Tablet [Protonix] 40 mg PO ACBK #14 tab 12/26/18 Sucralfate Tab [Carafate Tab] 1 gm PO ACHS 14 Days #56 tablet 12/26/18 Ibuprofen [Motrin] 600 mg PO Q6HR PRN #15 tab 06/07/19 Tramadol HCl 50 mg PO Q8HR PRN #20 tab 10/22/19 Additional Instructions: The patient is a 39-year-old female who presented to the emergency room secondary to pain in her left lower extremity after falling on the ice earlier today. X-rays show no evidence of any fracture or dislocation. She will be sore for probably 3 weeks. She did sustain a very mild strain of her left ankle as well as a sprain of the metatarsophalangeal joint of the first digit of the left foot. She is going to be placed in a walking boot for this. She also sustained a very mild contusion of the left kneecap. She does need to do range of motion exercises. Motrin can be used for discomfort and she will be written for a few pills of tramadol for as needed use. Obviously she needs to ambulate carefully to prevent further injury. ER warnings are given. Keep routine follow-up with primary care doctor.
[2019-10-22 19:19] VITALS: BP 148/100; TEMP 98.6
== END 2019-10-22 19:15 | disposition home or self-care (01) ==
LOC: ER 15:28
DX: S80.02XA Contusion of left knee, initial encounter (principal); S96.912A Strain of unspecified muscle and tendon at ankle and foot level, left foot, initial encounter; S93.502A Unspecified sprain of left great toe, initial encounter; F32.9 Major depressive disorder, single episode, unspecified; J44.9 Chronic obstructive pulmonary disease, unspecified; I51.9 Heart disease, unspecified; I50.9 Heart failure, unspecified; N18.9 Chronic kidney disease, unspecified; I13.0 Hypertensive heart and chronic kidney disease with heart failure and stage 1 through stage 4 chronic kidney disease, or unspecified chronic kidney disease; E11.22 Type 2 diabetes mellitus with diabetic chronic kidney disease; K21.9 Gastro-esophageal reflux disease without esophagitis; Z79.899 Other long term (current) drug therapy; Z79.82 Long term (current) use of aspirin; Z79.4 Long term (current) use of insulin; W00.0XXA Fall on same level due to ice and snow, initial encounter; Y92.9 Unspecified place or not applicable

== ENCOUNTER → 2019-10-27 | Outpatient (CLI) | payer OTHER ==
--- NOTE | 2019-10-27 10:56 | RAD ---
EXAM DESCRIPTION: Foot,Left 3 Views CLINICAL HISTORY: PAIN IN LEFT FOOT COMPARISON: November 06, 2018 IMPRESSION: 3 views of the left foot show no acute fracture, focal bone destruction, or joint dislocation. Mild joint space narrowing of the first metatarsophalangeal joint suggests mild osteoarthritic changes. Soft tissues are unremarkable. Electronically signed by: Toribio Grimaldo MD 10/27/2019 10:55 AM [facility]
--- NOTE | 2019-10-27 10:56 | RAD ---
EXAM DESCRIPTION: Ankle,Left 3 Views CLINICAL HISTORY: PAIN IN LEFT ANKLE COMPARISON: October 22, 2019 IMPRESSION: 3 views of the left ankle show no acute fracture, focal bone destruction, or joint dislocation. Ankle mortise is maintained. Soft tissues are unremarkable. Small enthesophyte at the Achilles attachment to the calcaneus. Electronically signed by: Toribio Grimaldo MD 10/27/2019 10:54 AM [facility]
== END ==
LOC: LAB.O 10:15
PROVIDERS: ATTEND Family Medicine
DX: S93.402A Sprain of unspecified ligament of left ankle, initial encounter (principal); M77.32 Calcaneal spur, left foot; M25.872 Other specified joint disorders, left ankle and foot; I10 Essential (primary) hypertension; E11.65 Type 2 diabetes mellitus with hyperglycemia

== ENCOUNTER 2019-11-24 18:55 | Emergency (ER) | payer OTHER ==
[2019-11-24] MEDS ORDERED: ASPIRIN (CHEWABLE) 81 MG TAB PO ONE (19:16)
--- NOTE | 2019-11-24 19:42 | RAD ---
EXAM: Chest,1 View CLINICAL INDICATION: Chest pain COMPARISON: 11/04/2019 FINDINGS: A single view of the chest was obtained. The heart size is normal. The pulmonary vascularity is unremarkable. A coronary artery stent is identified. The lungs are clear. There is no consolidation, infiltrate, pleural effusion, or pneumothorax. IMPRESSION: No evidence of active pulmonary disease. Electronically signed by: Wilmer Flores MD 11/24/2019 7:41 PM CDT
[2019-11-24] MEDS ORDERED: cloNIDine HCL 0.1 MG TAB PO ONE (19:52)
--- NOTE | 2019-11-24 19:52 | ED.PDOC ---
History of Present Illness - General Chief Complaint: Chest Pain/OH Stated Complaint: dizzy and chest pain Time Seen by Provider: 11/24/19 19:23 Source: patient, old records Exam Limitations: no limitations - History of Present Illness Timing/Duration: 1 hour Severity/Quality: moderate, sharp Location: substernal Chest Pain Radiation: no radiation Activities at Onset: none Prior Chest Pain/Cardiac Workup: cardiac cath - stents x 6-7., heart attack Improving Factors: nothing Worsening Factors: nothing Nitro Today/Relief: no nitro taken today Aspirin Treatment Today: 81 mg x 1 Associated Symptoms: dizziness, shortness of breath Allergies/Adverse Reactions: Allergies NO KNOWN ALLERGY Allergy (Verified 11/04/19 19:30) Home Medications: Ambulatory Orders Aspirin [Aspirin EC] 81 mg PO DAILY 11/16/15 Insulin Detemir [Levemir Pen] 12 unit SUBCU BID 12/04/16 Human Insulin Aspart [Novolog] 100 unit SC DAILY PRN 08/24/18 Atenolol 100 mg PO DAILY 14 Days #14 tab 12/26/18 Clonidine HCl 0.1 mg PO DAILY 11/04/19 Lisinopril 40 mg PO DAILY 11/04/19 Review of Systems - Review of Systems Constitutional: Denies: chills, diaphoresis EENTM: States: no symptoms reported Respiratory: States: short of breath. Denies: cough, wheezing Cardiology: States: chest pain. Denies: palpitations Gastrointestinal/Abdominal: Denies: abdominal pain, nausea Genitourinary: States: no symptoms reported Musculoskeletal: States: no symptoms reported Skin: States: no symptoms reported Neurological: States: no symptoms reported Endocrine: States: no symptoms reported Hematologic/Lymphatic: States: no symptoms reported All other Systems: Reviewed and Negative Past Medical History (General) - Patient Medical History Hx Seizures: Yes Hx Stroke: Yes Hx Dementia: No Hx Asthma: No Hx of COPD: Yes Hx Cardiac Disorders: Yes Hx Congestive Heart Failure: Yes Hx Pacemaker: No Hx Hypertension: Yes Hx Thyroid Disease: No Hx Diabetes: Yes Hx Gastroesophageal Reflux: Yes Hx Renal Disease: Yes Hx Cancer: No Hx of HIV: No Hx Hepatitis C: No Hx MRSA: No MRSA Source:: Wound Surgical History: cholecystectomy, Hysterectomy - Vaccination History Hx Tetanus, Diphtheria Vaccination: Yes Hx Influenza Vaccination: No Hx Pneumococcal Vaccination: Yes - Social History Hx Tobacco Use: Yes Hx Chewing Tobacco Use: No Hx Alcohol Use: No Hx Substance Use: No Hx Substance Use Treatment: Yes Hx Depression: Yes Hx Physical Abuse: No Hx Emotional Abuse: No Hx Suspected Abuse: No - Female History Patient : No Family Medical History - Family History Father Living Status: Mother Family History: Unknown Living Status: Still Living Hx Family Asthma: No Hx Family Congestive Heart Failure: Yes - Father Hx Family Hypertension: Yes Hx Family Stroke: No Hx Cardiac Disease: Yes Hx Family Diabetes: Yes Hx Family Cancer: No Physical Exam - Physical Exam General Appearance: Alert, Obese, Other - uncomfortable Eyes, Ears, Nose, Throat Exam: normal ENT inspection Neck: non-tender, full range of motion Respiratory: chest non-tender, lungs clear, normal breath sounds, no respiratory distress, no accessory muscle use Cardiovascular/Chest: normal peripheral pulses, no JVD, no murmur, tachycardia Gastrointestinal/Abdominal: non tender, soft Extremity: normal range of motion, normal inspection, other - BLE EDEMA. Neurologic: no motor/sensory deficits, alert Skin Exam: normal color, warm/dry Lymphatic: no adenopathy Progress - Progress Progress: 11/24/19 20:34 HYPERGLYCEMIA 414, IDDM, OBESITY - NS BOLUS. K+ IS 3.6 THUS NEED TO REPLACE POTASSIUM. PER UP-TO-DATE, IF K+ IS 3.3 TO 5.3, GIVE 20 KCL IN THE 1L BOLUS. WAITING ON INSULIN SINCE THE K+ IS CLOSE TO 3.3. IS NOT DKA - NL ANION GAP AND NO URINE KETONES. UA = GLOCOSURIA. 11/24/19 20:39 NTG DIDN'T HELP CP. WILL GIVE MORPHINE 4 MG. INITIAL CP LABS NEG, BUT LESS THAN 6 H/O CP, THUS WILL NEED TO DO 3 SETS TO R/O. 11/24/19 21:48 CP, SOB, BLE EDEMA, SINUS TACHY - W/U NEG SO FAR FOR ACS. 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 WILL CALL HOSPITALIST AFTER 2ND SET TROP IS NEG. NEG DIAGNOSTICS: CBC, CXR, BNP, D-DIMER, COAGS. HTN - IMPROVED WITH CLONIDINE. WAS 161/121. NOW 135/110. MEDICAL NONCOMPLIANCE - I INFORMED PT OF GLUCOSE OVER 400. PT STATES SHE DOES NOT CHECK HER SUGARS AT HOME "BECAUSE SHE LOST HER METER". I INFORMED HER THEY SELL THEM AT [facility]. I WARNED HER OF RISKS OF LONG-TERM ELEV GLUCOSE - AMPUTATION, DIALYSIS, ETC. 11/24/19 22:43 REPEAT K+ IMPROVED WITH 20 K+ FROM 3.6 TO 4.2. GLUCOSE IMPROVED WITH BOLUS FROM 414 TO 341. GIVING 2ND BOLUS NOW. I CALLED HOSPITALIST MAINTENANCE PLUMBER, YAZ HIGH, AND LEFT A VOICEMAIL TO CALL ME RE: NEEDING ADMISSION FOR CP R/O AND CONTROL OF HYPERGLYCEMIA. 11/24/19 23:00 I SPOKE WITH YAZ. REFUSING TO ADMIT SINCE SHE HAS A DRUG-SEEKING AND NON- COMPLIANT BEHAVIOR. WE WILL R/O ACS IN THE ER AND TREAT HER HYPERGLYCEMIA. 11/24/19 23:07 GIVING 8 UNITS REG INSULIN IV X 1, 2ND BOLUS, AND 40 MEQ KCL PO X 1. 11/24/19 23:12 I HAVE ORDERED REPEAT BMP FOR 1 HR TO RE-EVAL GLUCOSE AND K+. I HAVE ORDERED THE 3RD SET OF TROP FOR THIS COMING MORNING. THIS WILL R/O ACS. 11/25/19 01:01 BMP SHOWS GLUCOSE NOW CONTROLLED AT 157. K+ STILL NWL AT 3.8. AWAIT 3RD TROP SET THIS AM. 11/25/19 03:53 3RD TROP NEG. BLOOD GLUC IMPROVED. NO ACS. SAFE FOR DC TO HOME WITH F/U. Departure - Departure Clinical Impression: Hyperglycemia, Noncompliance with diabetes treatment, Pedal edema, Obesity (BMI 30.0-34.9), Sinus tachycardia by electrocardiogram, Hypertensive urgency, Glucosuria Chest pain Qualifiers: Chest pain type: unspecified Qualified Code(s): R07.9 - Chest pain, unspecified Dyspnea Qualifiers: Dyspnea type: shortness of breath Qualified Code(s): R06.02 - Shortness of breath Disposition: Discharge to Home or Self Care Condition: Good Departure Forms: ED Discharge - Pt. Copy, Patient Portal Self Enrollment Instructions: DI for Chest Pain, Hyperglycemia, Adult (DC) Diet: resume usual diet, low salt diet Activity: increase activity as tolerated Referrals: Milton Antoine MD [Primary Care Provider] - 1-5 Days Home Medications: Ambulatory Orders Aspirin [Aspirin EC] 81 mg PO DAILY 11/16/15 Insulin Detemir [Levemir Pen] 12 unit SUBCU BID 12/04/16 Human Insulin Aspart [Novolog] 100 unit SC DAILY PRN 08/24/18 Atenolol 100 mg PO DAILY 14 Days #14 tab 12/26/18 Clonidine HCl 0.1 mg PO DAILY 11/04/19 Lisinopril 40 mg PO DAILY 11/04/19 Additional Instructions: Please obtain a glucose monitor and start checking your sugars. High blood glucose levels can result in blindness, amputations, and kidney failure requiring lifelong dialysis.
[2019-11-24] MEDS ORDERED: NITROGLYCERIN 0.4 MG 25 EA TAB SL ONE (20:00)
[2019-11-24] MEDS ORDERED: SODIUM CHLORIDE 0.9% 1000ML 1,000 ML IVS ONE ×2 (20:24→22:42)
[2019-11-24] MEDS ORDERED: KCL 20 MEQ/NS 1,000 ML IVS ONE (20:35)
[2019-11-24] MEDS ORDERED: MORPHINE SULFATE INJ 10 MG/ML VIAL IV ONE (20:40)
[2019-11-24] MEDS ORDERED: POTASSIUM CHLORIDE 20 MEQ TAB PO ONE (23:02)
[2019-11-24] MEDS ORDERED: INSULIN, REG.(HUMAN) 100 U/ML VIAL IV ONE (23:04)
[2019-11-25 04:15] VITALS: BP 143/92; TEMP 97.8; O2SAT 99
== END 2019-11-25 04:14 | disposition home or self-care (01) ==
LOC: ER 18:55
DX: R07.2 Precordial pain (principal); I16.0 Hypertensive urgency; R06.02 Shortness of breath; E11.65 Type 2 diabetes mellitus with hyperglycemia; R00.0 Tachycardia, unspecified; R60.0 Localized edema; E66.9 Obesity, unspecified; R81 Glycosuria; F32.9 Major depressive disorder, single episode, unspecified; J44.9 Chronic obstructive pulmonary disease, unspecified; I25.2 Old myocardial infarction; I50.9 Heart failure, unspecified; N18.9 Chronic kidney disease, unspecified; E11.22 Type 2 diabetes mellitus with diabetic chronic kidney disease; I13.0 Hypertensive heart and chronic kidney disease with heart failure and stage 1 through stage 4 chronic kidney disease, or unspecified chronic kidney disease; K21.9 Gastro-esophageal reflux disease without esophagitis; R56.9 Unspecified convulsions; Z91.14 Patient's other noncompliance with medication regimen; Z68.30 Body mass index [BMI] 30.0-30.9, adult; Z86.73 Personal history of transient ischemic attack (TIA), and cerebral infarction without residual deficits; Z87.891 Personal history of nicotine dependence; Z79.4 Long term (current) use of insulin; Z79.82 Long term (current) use of aspirin; Z79.899 Other long term (current) drug therapy; Z95.5 Presence of coronary angioplasty implant and graft
CPT/HCPCS: 36415; 71045; 80048; 80076; 81001; 82550; 82553; 83880; 84484; 85025; 85379; 85610; 85730; 93005; J2270; J3480; J7030

== ENCOUNTER 2020-07-06 20:38 | Emergency (ER) | payer OTHER ==
[2020-07-06] MEDS ORDERED: ASPIRIN (CHEWABLE) 81 MG TAB PO ONE (20:59)
[2020-07-06] MEDS ORDERED: NITROGLYCERIN 0.4 MG 25 EA TAB SL ONE ×2 (20:59→21:24)
--- NOTE | 2020-07-06 21:01 | ED.PDOC ---
History of Present Illness - General Chief Complaint: Chest Pain/ND Stated Complaint: chest pain and sob Time Seen by Provider: 07/06/20 20:40 Source: patient, RN notes reviewed, Vital Signs reviewed, old records Exam Limitations: no limitations - History of Present Illness Initial Comments: 40 yo F with a pmh of CAD comes in with the c/c of chest pain. Patient states she was discharged today from [facility], after she was admitted over night with chest pain. Had a stress test and was told it was abnormal, and may need a cath. Comes in today bc she feels she got sent home to soon. Chest pain was easing up, but now is back. associated with sob. no n/v. chest pain substernal radiates up her neck and both arms. [facility] was [facility] on observation, but there are not documented troponins. Last troponin was back in August 2019 in their chart. no echo. states they have an ekg and a hga1c from this visit. NO stress test was done. She does have a follow up with Dr. Smith in August. Timing/Duration: 1 week, constant Severity/Quality: moderate Allergies/Adverse Reactions: Allergies NO KNOWN ALLERGY Allergy (Verified 11/04/19 19:30) Home Medications: Ambulatory Orders Aspirin [Aspirin EC] 81 mg PO DAILY 11/16/15 Insulin Detemir [Levemir Pen] 12 unit SUBCU BID 12/04/16 Human Insulin Aspart [Novolog] 100 unit SC DAILY PRN 08/24/18 Atenolol 100 mg PO DAILY 14 Days #14 tab 12/26/18 Clonidine HCl 0.1 mg PO DAILY 11/04/19 Lisinopril 40 mg PO DAILY 11/04/19 Review of Systems - Review of Systems Constitutional: Denies: chills, fever EENTM: Denies: blurred vision, ear discharge, throat pain, mouth pain Respiratory: States: short of breath. Denies: cough Cardiology: States: chest pain. Denies: palpitations, syncope Gastrointestinal/Abdominal: Denies: abdominal pain, diarrhea, nausea, vomiting Genitourinary: Denies: dysuria, frequency, hematuria Musculoskeletal: Denies: joint pain, joint swelling, muscle pain, muscle stiffness Skin: Denies: dryness, lesions Neurological: Denies: headache, numbness, paresthesia, pre-existing deficit, seizure Endocrine: Denies: unexplained weight gain Hematologic/Lymphatic: Denies: blood clots, easy bleeding, easy bruising Past Medical History (General) - Patient Medical History Hx Seizures: Yes Hx Stroke: Yes Hx Dementia: No Hx Asthma: No Hx of COPD: Yes Hx Cardiac Disorders: Yes Hx Congestive Heart Failure: Yes Hx Pacemaker: No Hx Hypertension: Yes Hx Thyroid Disease: No Hx Diabetes: Yes Hx Gastroesophageal Reflux: Yes Hx Renal Disease: Yes Hx Cancer: No Hx of HIV: No Hx Hepatitis C: No Hx MRSA: No MRSA Source:: Wound - Vaccination History Hx Tetanus, Diphtheria Vaccination: Yes Hx Influenza Vaccination: No Hx Pneumococcal Vaccination: Yes - Social History Hx Tobacco Use: Yes Hx Chewing Tobacco Use: No Hx Alcohol Use: No Hx Substance Use: No Hx Substance Use Treatment: Yes Hx Depression: Yes Hx Physical Abuse: No Hx Emotional Abuse: No Hx Suspected Abuse: No - Female History Patient : No Family Medical History - Family History Father Living Status: Mother Family History: Unknown Living Status: Still Living Hx Family Asthma: No Hx Family Congestive Heart Failure: Yes - Father Hx Family Hypertension: Yes Hx Family Stroke: No Hx Cardiac Disease: Yes Hx Family Diabetes: Yes Hx Family Cancer: No Physical Exam - Physical Exam General Appearance: Alert, Comfortable, No apparent distress, Well Developed, Well Groomed, Well Hydrated, Well Nourished Eyes, Ears, Nose, Throat Exam: PERRL/EOMI, normal ENT inspection, TMs normal Neck: non-tender, full range of motion, supple, normal inspection Respiratory: chest non-tender, lungs clear, normal breath sounds, no respiratory distress, no accessory muscle use Cardiovascular/Chest: normal peripheral pulses, regular rate, rhythm, no edema, no gallop, no JVD, no murmur Peripheral Pulses: radial,right: 2+, radial,left: 2+ Gastrointestinal/Abdominal: normal bowel sounds, non tender, soft, no organomegaly, no pulsatile mass Rectal Exam: deferred Extremity: normal range of motion, non-tender, normal inspection, no pedal ed erwin, no calf tenderness, normal capillary refill Neurologic: applier II-XII nml as tested, no motor/sensory deficits, alert, normal mood/affect, oriented x 3 Skin Exam: normal color, warm/dry Progress - Progress Progress: 07/06/20 21:03parital ddx: cad, CHF, PE, anxiety. patient given aspirin and nitro tab. EKG shows NSR, HR 74, normal intervals, LAE, q waves noted in inferior leads (old), Nonspecific st changes when compared to 11/24/19 no significant change. 07/06/20 21:05 Pain improved. blood work overall unremarkable. bnp 220. If patient had serial troponins, echocardiogram on previous visit, I would feel comfortable sending her home; however, given her significant CAD hx and ongoing cp will call to admit for serial troponins. 07/06/20 23:17 Oral has access to [employer] and states she did have a stress test yesterday and it show evidence of prior ischemia, but no acute ischemic changes. she also has multiple negative troponins during her admission. Based on this information, with negative CAD work up and no current chest pain will discharged patient home. Patient acknowledge that she is homeless and hungry. I informed her we will give her some food prior to discharge. She is going to call a friend to go home with. The data reviewed when caring for this patient included: nurse notes, prior records, etc. The history and assessments from nurses notes were reviewed and considered, and the patient's home medication list was also reviewed and considered. My assessment and the results of testing completed here in the ED were discussed with the patient/family. All questions were answered, and they express understanding of my assessment and the plan. They have been instructed to return if their symptoms worsen, and have been asked to follow up with their primary care physician and appellate law clerk to recheck today's presenting complaint. Strict return precautions given. Priyanka Veras DO #[id number] - Results/Orders Results/Orders: 07/06/20 23:00 ED Intent to Admit Routine Laboratory Results WBC 7.5 K/mm3 (4.8-10.8) 07/06/20 21:13 RBC 4.31 M/mm3 (4.20-5.40) 07/06/20 21:13 Hgb 11.4 gm/dL (12.0-16.0) L 07/06/20 21:13 Hct 34.4 % (36.0-47.0) L 07/06/20 21:13 MCV 80.0 fl (81.0-99.0) L 07/06/20 21:13 MCH 26.6 pg (27.0-31.0) L 07/06/20 21:13 MCHC 33.2 g/dL (33.0-37.0) 07/06/20 21:13 RDW 17.8 % (11.5-14.5) H 07/06/20 21:13 Plt Count 347 K/mm3 (130-400) 07/06/20 21:13 MPV 7.7 fl (7.40-10.4) 07/06/20 21:13 Absolute Neuts (auto) 5.10 K/uL (1.8-6.8) 07/06/20 21:13 Absolute Lymphs (auto) 1.70 K/uL (1.0-3.4) 07/06/20 21:13 Absolute Monos (auto) 0.50 K/uL (0.2-0.8) 07/06/20 21:13 Absolute Eos (auto) 0.10 K/uL (0.0-0.4) 07/06/20 21:13 Absolute Basos (auto) 0.00 K/uL (0.0-0.1) 07/06/20 21:13 Neutrophils % 67.8 % (42.0-78.0) 07/06/20 21:13 Lymphocytes % 23.1 % (20.0-50.0) 07/06/20 21:13 Monocytes % 6.9 % (2.0-9.0) 07/06/20 21:13 Eosinophils % 1.5 % (1.0-5.0) 07/06/20 21:13 Basophils % 0.7 % (0.0-2.0) 07/06/20 21:13 PT 9.8 SECONDS (9.0-10.9) 07/06/20 21:18 INR < 1.00 (0.9-1.15) 07/06/20 21:18 PTT (SP) 21.1 SECONDS (21.8-31.6) L 07/06/20 21:18 D-Dimer, Quantitative 275.0 ng/ml (131-400) 07/06/20 21:13 Sodium 137 mmol/L (135-145) 07/06/20 21:13 Potassium 4.2 mmol/L (3.6-5.0) 07/06/20 21:13 Chloride 102 mmol/L (101-111) 07/06/20 21:13 Carbon Dioxide 26 mmol/L (21-31) 07/06/20 21:13 Anion Gap 13.2 (12-18) 07/06/20 21:13 BUN 14 mg/dL (7-18) 07/06/20 21:13 Creatinine 0.80 mg/dL (0.6-1.3) 07/06/20 21:13 BUN/Creatinine Ratio 17.5 (10-20) 07/06/20 21:13 Random Glucose 235 mg/dL (70-105) H 07/06/20 21:13 Serum Osmolality 281.9 mOsm/L (275-295) 07/06/20 21:13 Calcium 8.5 mg/dL (8.4-10.2) 07/06/20 21:13 Total Bilirubin 0.6 mg/dL (0.2-1.0) 07/06/20 21:13 AST 19 IU/L (10-42) 07/06/20 21:13 ALT 21 IU/L (10-60) 07/06/20 21:13 Alkaline Phosphatase 88 IU/L (42-121) 07/06/20 21:13 Troponin I 0.02 ng/mL (0.01-0.05) 07/06/20 21:13 B-Natriuretic Peptide 222.0 pg/ml (0-100) H* 07/06/20 21:36 Serum Total Protein 7.1 gm/dL (6.4-8.2) 07/06/20 21:13 Albumin 3.7 g/dl (3.2-5.5) 07/06/20 21:13 Globulin 3.4 gm/dL (2.3-3.5) 07/06/20 21:13 Albumin/Globulin Ratio 1.1 (1.1-1.9) 07/06/20 21:13 - EKG/XRAY/CT XRAY: chest - no acute pathology Departure - Departure Clinical Impression: Chest pain Qualifiers: Chest pain type: unspecified Qualified Code(s): R07.9 - Chest pain, unspecified Time of Disposition: 23:00 Disposition: Discharge to Home or Self Care Departure Forms: ED Discharge - Pt. Copy, Patient Portal Self Enrollment Instructions: DI for Chest Pain, Chest Pain (DC), Heart Disease in Diabetics Referrals: Milton Antoine MD [Primary Care Provider] - 1-2 Days Home Medications: Ambulatory Orders Aspirin [Aspirin EC] 81 mg PO DAILY 11/16/15 Insulin Detemir [Levemir Pen] 12 unit SUBCU BID 12/04/16 Human Insulin Aspart [Novolog] 100 unit SC DAILY PRN 08/24/18 Atenolol 100 mg PO DAILY 14 Days #14 tab 12/26/18 Clonidine HCl 0.1 mg PO DAILY 11/04/19 Lisinopril 40 mg PO DAILY 11/04/19 Decision To Admit - Decistion To Admit Decision to Admit Reason: Medical Nature - after reviewing data in EPIC, and recent CAD rule out patient does not meet admission criteria at this time Decision to Admit Date: 07/06/20 Decision to Admit Time: 22:20
--- NOTE | 2020-07-06 21:24 | RAD ---
EXAM DESCRIPTION: Chest,1 View 07/06/2020 9:21 PM CDT CLINICAL HISTORY: 40 years, Female, cp COMPARISON: 11/24/2019. FINDINGS: Single view of the chest was obtained portable. Prior films were compared. Again the lung volume is decreased. External EKG leads within the [id number] limits diagnosis. The cardiomediastinal silhouette demonstrate to be unremarkable. The heart is not enlarged. Again there is noted the presence of a right coronary artery stent. Costophrenic angles are sharp. There is no evidence for pneumothorax. No areas of consolidation or masses are seen. The rest of the soft tissue and bony structures demonstrate to be unremarkable. IMPRESSION: NO ACUTE CARDIOPULMONARY DISEASE SEEN. Electronically signed by: Henrik Burgess MD 07/06/2020 9:22 PM CDT
[2020-07-06] MEDS ORDERED: MORPHINE SULFATE INJ 10 MG/ML VIAL IV ONE (22:08)
[2020-07-06 23:43] VITALS: BP 170/102; TEMP 98.2; O2SAT 96
== END 2020-07-06 23:30 | disposition home or self-care (01) ==
LOC: ER 20:38
DX: R07.9 Chest pain, unspecified (principal); I11.0 Hypertensive heart disease with heart failure; I50.9 Heart failure, unspecified; J44.9 Chronic obstructive pulmonary disease, unspecified; E11.9 Type 2 diabetes mellitus without complications; K21.9 Gastro-esophageal reflux disease without esophagitis; Z86.73 Personal history of transient ischemic attack (TIA), and cerebral infarction without residual deficits; N28.9 Disorder of kidney and ureter, unspecified; Z79.4 Long term (current) use of insulin; Z79.82 Long term (current) use of aspirin; F17.200 Nicotine dependence, unspecified, uncomplicated; Z59.0 Homelessness
CPT/HCPCS: 36415; 71045; 80053; 83880; 84484; 85025; 85379; 85610; 85730; 87635; 93005; J2060; J2270

== ENCOUNTER 2020-07-08 16:06 | Emergency (ER) | payer OTHER ==
[2020-07-08] MEDS ORDERED: ASPIRIN (CHEWABLE) 81 MG TAB PO ONE (16:08)
[2020-07-08] MEDS ORDERED: NITROGLYCERIN 0.4 MG 25 EA TAB SL ONE ×3 (16:10→17:24)
--- NOTE | 2020-07-08 16:10 | ED.PDOC ---
History of Present Illness - General Stated Complaint: chest pain/pressure Time Seen by Provider: 07/08/20 16:06 Source: patient, RN notes reviewed, Vital Signs reviewed, old records Exam Limitations: no limitations - History of Present Illness Initial Comments: 40 yo F with multiple ER visits, comes in with the c/c of chest pain. patient was discharged from [facility] 2 days ago after she was admitted for CP. She had negative troponins at that time. a stress test which showed no acute ishcemic changes, but did show inferior wall prior damage/calcification. Today patient states she developed chest pain while at rest. 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 Goes up both sides of neck, both arm and down both legs, tingling in nature. Was laying down. Associated with some nausea. no cough. does not go to back. Last stent placed September 2019. Timing/Duration: 1/2 hour Severity/Quality: moderate Location: substernal Chest Pain Radiation: jaw, arms, neck Activities at Onset: rest Prior Chest Pain/Cardiac Workup: cardiac cath, heart attack, stress test Improving Factors: nothing Worsening Factors: medication Nitro Today/Relief: no nitro taken today Aspirin Treatment Today: 81 mg x 1 Associated Symptoms: shortness of breath Allergies/Adverse Reactions: Allergies NO KNOWN ALLERGY Allergy (Verified 11/04/19 19:30) Home Medications: Ambulatory Orders Aspirin [Aspirin EC] 81 mg PO DAILY 11/16/15 Insulin Detemir [Levemir Pen] 12 unit SUBCU BID 12/04/16 Human Insulin Aspart [Novolog] 100 unit SC DAILY PRN 08/24/18 Atenolol 100 mg PO DAILY 14 Days #14 tab 12/26/18 Clonidine HCl 0.1 mg PO DAILY 11/04/19 Lisinopril 40 mg PO DAILY 11/04/19 Review of Systems - Review of Systems Constitutional: Denies: chills, fever EENTM: Denies: blurred vision, throat pain Respiratory: States: short of breath. Denies: cough, orthopnea, wheezing Cardiology: States: chest pain. Denies: palpitations, syncope Gastrointestinal/Abdominal: Denies: abdominal pain, diarrhea, nausea, vomiting Genitourinary: Denies: frequency, hematuria Musculoskeletal: Denies: joint pain, joint swelling, muscle pain, muscle stiffness, neck pain Skin: Denies: rash Neurological: Denies: headache, numbness, paresthesia, tingling, tremors, weakness Endocrine: Denies: unexplained weight gain, unexplained weight loss Hematologic/Lymphatic: Denies: easy bleeding, easy bruising Past Medical History (General) - Patient Medical History Hx Seizures: Yes Hx Stroke: Yes Hx Dementia: No Hx Asthma: No Hx of COPD: Yes Hx Cardiac Disorders: Yes Hx Congestive Heart Failure: Yes Hx Pacemaker: No Hx Hypertension: Yes Hx Thyroid Disease: No Hx Diabetes: Yes Hx Gastroesophageal Reflux: Yes Hx Renal Disease: Yes Hx Cancer: No Hx of HIV: No Hx Hepatitis C: No Hx MRSA: No MRSA Source:: Wound - Vaccination History Hx Tetanus, Diphtheria Vaccination: Yes Hx Influenza Vaccination: No Hx Pneumococcal Vaccination: Yes - Social History Hx Tobacco Use: Yes Hx Chewing Tobacco Use: No Hx Alcohol Use: No Hx Substance Use: No Hx Substance Use Treatment: Yes Hx Depression: Yes Hx Physical Abuse: No Hx Emotional Abuse: No Hx Suspected Abuse: No - Female History Patient : No Family Medical History - Family History Father Living Status: Mother Family History: Unknown Living Status: Still Living Hx Family Asthma: No Hx Family Congestive Heart Failure: Yes - Father Hx Family Hypertension: Yes Hx Family Stroke: No Hx Cardiac Disease: Yes Hx Family Diabetes: Yes Hx Family Cancer: No Physical Exam - Physical Exam General Appearance: Alert, Comfortable, No apparent distress, Well Developed, Well Groomed, Well Hydrated, Well Nourished Eyes, Ears, Nose, Throat Exam: PERRL/EOMI, normal ENT inspection, TMs normal, other - poor dentition, many missing teeth. Neck: non-tender, full range of motion, supple, normal inspection Respiratory: chest non-tender, lungs clear, normal breath sounds Progress - Progress Progress: 07/08/20 16:39 partial ddx: cad, aortic dissection, PE, pneumonia, anxiety, Gastritis. patient received aspirin 324 mg x 1 and nitro 0.4 x 3. CP continues. Will start nitro drip. Blood pressure improved to 143/89.Patient given some IVF and insulin for hyperglycemia. Given known cardiac disease, recent stress test will send back to [facility]. She saw Dr. Smith on her recent admission, and normally see's Dr. Moreira. The data reviewed when caring for this patient included: nurse notes, prior records, etc. The history and assessments from nurses notes were reviewed and considered, and the patient's home medication list was also reviewed and considered. My assessment and the results of testing completed here in the ED were discussed with the patient. All questions were answered, and they express understanding of my assessment and the plan. patient was transferred to [facility] in stable condition. Priyanka Veras DO #[id number] - Results/Orders Results/Orders: 07/08/20 16:15 EKG STAT 07/08/20 16:36 Sodium Chloride 0.9% 1000ML [Ns 1000 ml] 1,000 ml IVS STAT Laboratory Results WBC 7.0 K/mm3 (4.8-10.8) 07/08/20 16:15 RBC 4.95 M/mm3 (4.20-5.40) 07/08/20 16:15 Hgb 13.1 gm/dL (12.0-16.0) 07/08/20 16:15 Hct 40.0 % (36.0-47.0) 07/08/20 16:15 MCV 80.7 fl (81.0-99.0) L 07/08/20 16:15 MCH 26.5 pg (27.0-31.0) L 07/08/20 16:15 MCHC 32.8 g/dL (33.0-37.0) L 07/08/20 16:15 RDW 18.5 % (11.5-14.5) H 07/08/20 16:15 Plt Count 354 K/mm3 (130-400) 07/08/20 16:15 MPV 8.1 fl (7.40-10.4) 07/08/20 16:15 Absolute Neuts (auto) 4.80 K/uL (1.8-6.8) 07/08/20 16:15 Absolute Lymphs (auto) 1.50 K/uL (1.0-3.4) 07/08/20 16:15 Absolute Monos (auto) 0.50 K/uL (0.2-0.8) 07/08/20 16:15 Absolute Eos (auto) 0.10 K/uL (0.0-0.4) 07/08/20 16:15 Absolute Basos (auto) 0.10 K/uL (0.0-0.1) 07/08/20 16:15 Neutrophils % 68.9 % (42.0-78.0) 07/08/20 16:15 Lymphocytes % 21.8 % (20.0-50.0) 07/08/20 16:15 Monocytes % 7.1 % (2.0-9.0) 07/08/20 16:15 Eosinophils % 1.2 % (1.0-5.0) 07/08/20 16:15 Basophils % 1.0 % (0.0-2.0) 07/08/20 16:15 PT 9.9 SECONDS (9.0-10.9) 07/08/20 16:23 INR 1.00 (0.9-1.15) 07/08/20 16:23 PTT (SP) 21.4 SECONDS (21.8-31.6) L 07/08/20 16:23 Sodium 137 mmol/L (135-145) 07/08/20 16:15 Potassium 3.9 mmol/L (3.6-5.0) 07/08/20 16:15 Chloride 98 mmol/L (101-111) L 07/08/20 16:15 Carbon Dioxide 27 mmol/L (21-31) 07/08/20 16:15 Anion Gap 15.9 (12-18) 07/08/20 16:15 BUN 13 mg/dL (7-18) 07/08/20 16:15 Creatinine 0.93 mg/dL (0.6-1.3) 07/08/20 16:15 BUN/Creatinine Ratio 14.0 (10-20) 07/08/20 16:15 Random Glucose 363 mg/dL (70-105) H D 07/08/20 16:15 Serum Osmolality 288.6 mOsm/L (275-295) 07/08/20 16:15 Calcium 8.6 mg/dL (8.4-10.2) 07/08/20 16:15 Magnesium 1.8 mg/dL (1.8-2.5) 07/08/20 16:23 Total Bilirubin 0.5 mg/dL (0.2-1.0) 07/08/20 16:15 AST 18 IU/L (10-42) 07/08/20 16:15 ALT 22 IU/L (10-60) 07/08/20 16:15 Alkaline Phosphatase 100 IU/L (42-121) 07/08/20 16:15 Troponin I 0.02 ng/mL (0.01-0.05) 07/08/20 16:15 B-Natriuretic Peptide 277.0 pg/ml (0-100) H* 07/08/20 16:15 Serum Total Protein 7.7 gm/dL (6.4-8.2) 07/08/20 16:15 Albumin 4.0 g/dl (3.2-5.5) 07/08/20 16:15 Globulin 3.7 gm/dL (2.3-3.5) H 07/08/20 16:15 Albumin/Globulin Ratio 1.1 (1.1-1.9) 07/08/20 16:15 Urine Color Yellow (Yellow) 07/08/20 16:37 Urine Appearance Sl cloudy (Clear) 07/08/20 16:37 Urine pH 7.0 (4.5-7.8) 07/08/20 16:37 Ur Specific [place] 1.025 (1.005-1.030) 07/08/20 16:37 Urine Protein Negative mg/dL 07/08/20 16:37 Urine Glucose (UA) 500 mg/dL (Negative) H 07/08/20 16:37 Urine Ketones Negative mg/dL (NEGATIVE) 07/08/20 16:37 Urine Blood Trace-intact (Negative) H 07/08/20 16:37 Urine Nitrite Negative 07/08/20 16:37 Urine Bilirubin Negative (NEGATIVE) 07/08/20 16:37 Urine Urobilinogen 0.2 mg/dL (0.2-1.0) 07/08/20 16:37 Ur Leukocyte Esterase Negative (Negative) 07/08/20 16:37 Urine RBC 0-1 /hpf 07/08/20 16:37 Urine WBC 0 /hpf 07/08/20 16:37 Ur Epithelial Cells 20-30 /hpf 07/08/20 16:37 Urine Bacteria Rare 07/08/20 16:37 - EKG/XRAY/CT EKG: Sinus, Unchanged from - prior Comments: hr 76, normal intervals, q waves inferior leads, nonspecific st changes XRAY: chest - no acute cardiopulmonary pathology. Departure - Departure Clinical Impression: Hyperglycemia Chest pain Qualifiers: Chest pain type: unspecified Qualified Code(s): R07.9 - Chest pain, unspecified Time of Disposition: 17:27 Disposition: Transfer to Hospital Referrals: Milton Antoine MD [Primary Care Provider] - 1-2 Weeks Home Medications: Ambulatory Orders Aspirin [Aspirin EC] 81 mg PO DAILY 11/16/15 Insulin Detemir [Levemir Pen] 12 unit SUBCU BID 12/04/16 Human Insulin Aspart [Novolog] 100 unit SC DAILY PRN 08/24/18 Atenolol 100 mg PO DAILY 14 Days #14 tab 12/26/18 Clonidine HCl 0.1 mg PO DAILY 11/04/19 Lisinopril 40 mg PO DAILY 11/04/19 Transfer to Outside Facility - Transfer Information Decision to Transfer Date: 07/08/20 Decision to Transfer Time: 16:30 Reason for Transfer: specialized care not available Accepting Facility: [facility]
--- NOTE | 2020-07-08 16:30 | RAD ---
EXAM DESCRIPTION: Chest,2 Views CLINICAL HISTORY: 40 years Female, cp COMPARISON: 06 July 2020 TECHNIQUE: PA/lateral FINDINGS: There is no cardiac or pulmonary abnormality. The lungs are clear. There is no effusion. IMPRESSION: 1. Normal two-view chest. Electronically signed by: Henrik Millard MD 07/08/2020 4:28 PM CDT
[2020-07-08] MEDS ORDERED: SODIUM CHLORIDE 0.9% 1000ML 1,000 ML IVS PRN (16:36)
[2020-07-08] MEDS ORDERED: ALUM & MAG HYDROX-SIMETHICONE 30 ML, LIDOCAINE VISCOUS 2% 15 ML PO ONE ×2 (17:06)
[2020-07-08] MEDS ORDERED: INSULIN, REG.(HUMAN) 100 U/ML VIAL IV ONE (17:24)
[2020-07-08 17:58] VITALS: TEMP 97; O2SAT 94
[2020-07-08] MEDS ORDERED: MORPHINE SULFATE INJ 10 MG/ML VIAL IV ONE (18:10)
[2020-07-08 18:18] VITALS: BP 166/89
== END 2020-07-08 18:15 | disposition short-term general hospital (02) ==
LOC: ER 16:06
DX: R07.9 Chest pain, unspecified (principal); E11.65 Type 2 diabetes mellitus with hyperglycemia; I11.0 Hypertensive heart disease with heart failure; I50.9 Heart failure, unspecified; Z86.73 Personal history of transient ischemic attack (TIA), and cerebral infarction without residual deficits; J44.9 Chronic obstructive pulmonary disease, unspecified; K21.9 Gastro-esophageal reflux disease without esophagitis; N28.9 Disorder of kidney and ureter, unspecified; R06.02 Shortness of breath; Z79.4 Long term (current) use of insulin; Z79.899 Other long term (current) drug therapy; Z79.82 Long term (current) use of aspirin; Z98.61 Coronary angioplasty status; Z87.891 Personal history of nicotine dependence
CPT/HCPCS: 36415; 71046; 80053; 81001; 83735; 83880; 84484; 85025; 85610; 85730; 93005; J2270; J7030

== ENCOUNTER 2020-07-13 19:18 | Emergency (ER) | payer OTHER ==
[2020-07-13 19:38] VITALS: TEMP 97.6
[2020-07-13] MEDS ORDERED: MORPHINE SULFATE INJ 10 MG/ML VIAL IV ONE (19:38)
[2020-07-13] MEDS ORDERED: ONDANSETRON INJ 4 MG/2 ML VIAL IV ONE (19:38)
--- NOTE | 2020-07-13 19:40 | RAD ---
EXAM DESCRIPTION: Chest,1 View CLINICAL HISTORY:40 years Female, chest pain Comparison: Chest radiograph dated July 08, 2020 FINDINGS/IMPRESSION: No focal lung consolidation. No pleural effusion. No pneumothorax. Mild prominence of the interstitium. Cardiomediastinal silhouette is unchanged. Advanced atherosclerotic coronary calcifications, unchanged. No acute osseous abnormality. Electronically signed by: Simon Miles DO 07/13/2020 7:38 PM CDT
--- NOTE | 2020-07-13 19:41 | ED.PDOC ---
History of Present Illness - General Chief Complaint: Cardiovascular Problem Stated Complaint: CP onset 10 mins ago Time Seen by Provider: 07/13/20 19:27 Source: patient, RN notes reviewed, Vital Signs reviewed, old records Exam Limitations: no limitations - History of Present Illness Initial Comments: Patient is a 40-year-old female with past medical history of coronary artery disease. States last stent placement was in September 2019. She has had off-and-on chest pain for the past 10 days that is not associated with exertion. She has been seen in this ED twice for the symptoms in the past week and transferred to [place] recently where she had negative serial troponins and a stress test performed. States she felt well throughout the day, then while eating a salad about 10 minutes prior to arrival began having sharp right- sided chest pain. She denies feeling short of breath, nausea or any radiation. She has not taken anything at home for her pain. Allergies/Adverse Reactions: Allergies NO KNOWN ALLERGY Allergy (Verified 07/13/20 19:26) Home Medications: Ambulatory Orders Aspirin [Aspirin EC] 81 mg PO DAILY 11/16/15 Insulin Detemir [Levemir Pen] 12 unit SUBCU BID 12/04/16 Human Insulin Aspart [Novolog] 100 unit SC DAILY PRN 08/24/18 Atenolol 100 mg PO DAILY 14 Days #14 tab 12/26/18 Clonidine HCl 0.1 mg PO DAILY 11/04/19 Lisinopril 40 mg PO DAILY 11/04/19 Review of Systems - Review of Systems Constitutional: Denies: chills, fever, weakness EENTM: Denies: nose congestion, throat pain, throat swelling Respiratory: Denies: cough, short of breath Cardiology: States: chest pain. Denies: edema, palpitations, syncope Gastrointestinal/Abdominal: Denies: abdominal pain, diarrhea, nausea, vomiting Musculoskeletal: Denies: back pain, neck pain Skin: States: no symptoms reported Neurological: Denies: headache, paresthesia Hematologic/Lymphatic: Denies: easy bleeding, easy bruising All other Systems: Reviewed and Negative Past Medical History (General) - Patient Medical History Hx Seizures: Yes Hx Stroke: Yes Hx Dementia: No Hx Asthma: No Hx of COPD: Yes Hx Cardiac Disorders: Yes Hx Congestive Heart Failure: Yes Hx Pacemaker: No Hx Hypertension: Yes Hx Thyroid Disease: No Hx Diabetes: Yes Hx Gastroesophageal Reflux: Yes Hx Renal Disease: Yes Hx Cancer: No Hx of HIV: No Hx Hepatitis C: No Hx MRSA: No MRSA Source:: Wound Surgical History: cholecystectomy, Hysterectomy - Vaccination History Hx Tetanus, Diphtheria Vaccination: Yes - 3-4 years ago Hx Influenza Vaccination: No Hx Pneumococcal Vaccination: Yes - Social History Hx Tobacco Use: Yes Hx Chewing Tobacco Use: No Hx Alcohol Use: No Hx Substance Use: No Hx Substance Use Treatment: Yes Hx Depression: Yes Hx Physical Abuse: No Hx Emotional Abuse: No Hx Suspected Abuse: No - Female History Patient : No Family Medical History - Family History Father Living Status: Mother Family History: Unknown Living Status: Still Living Hx Family Asthma: No Hx Family Congestive Heart Failure: Yes - Father Hx Family Hypertension: Yes Hx Family Stroke: No Hx Cardiac Disease: Yes Hx Family Diabetes: Yes Hx Family Cancer: No Physical Exam - Physical Exam General Appearance: Alert, Comfortable, No apparent distress Eyes, Ears, Nose, Throat Exam: pharynx normal Neck: non-tender, full range of motion, supple Respiratory: chest non-tender, lungs clear, normal breath sounds, no respiratory distress Cardiovascular/Chest: regular rate, rhythm, no edema, no murmur Gastrointestinal/Abdominal: non tender, soft, no pulsatile mass Extremity: normal range of motion, non-tender, normal inspection, no pedal edema Neurologic: no motor/sensory deficits, alert, normal mood/affect Skin Exam: normal color, warm/dry Progress - Progress Progress: 07/13/20 20:21 Discussed with pt initial labs, imaging and EKG. She agrees with repeat troponin in ED. 07/13/20 21:49 Repeat labs are reassuring. No sign of ACS at this time. I have d/w pt results and have recommended she f/u with her in tube conversion technician in 1-2 days for continued outpatient evaluation. SRP given. - Results/Orders Results/Orders: EKG- sinus tachycardia, rate 121, nml intervals, no ST abnormality CHEST XRAY EXAM DESCRIPTION: Chest,1 View CLINICAL HISTORY:40 years Female, chest pain Comparison: Chest radiograph dated July 08, 2020 FINDINGS/IMPRESSION: No focal lung consolidation. No pleural effusion. No pneumothorax. Mild prominence of the interstitium. Cardiomediastinal silhouette is unchanged. Advanced atherosclerotic coronary calcifications, unchanged. No acute osseous abnormality. 07/13/20 19:30 EKG STAT Laboratory Results - last 24 hr 07/13/20 07/13/20 07/13/20 19:40 19:40 19:40 WBC 8.4 RBC 4.87 Hgb 13.3 Hct 39.4 MCV 80.9 L MCH 27.2 MCHC 33.6 RDW 18.6 H Plt Count 403 H MPV 7.9 Absolute Neuts (auto) 5.50 Absolute Lymphs (auto) 2.10 Absolute Monos (auto) 0.70 Absolute Eos (auto) 0.10 Absolute Basos (auto) 0.10 Neutrophils % 65.2 Lymphocytes % 24.8 Monocytes % 7.8 Eosinophils % 1.0 Basophils % 1.2 Sodium 133 L Potassium 3.7 Chloride 97 L Carbon Dioxide 23 Anion Gap 16.7 BUN 13 Creatinine 0.98 BUN/Creatinine Ratio 13.3 Random Glucose 397 H Serum Osmolality 283.1 Calcium 8.9 Total Bilirubin 0.4 AST 23 ALT 20 Alkaline Phosphatase 103 Creatine Kinase 63 CK-MB (CK-2) 4.6 H* CK-MB (CK-2) % 7.30 H Troponin I 0.02 Serum Total Protein 7.9 Albumin 4.4 Globulin 3.5 Albumin/Globulin Ratio 1.3 Urine Color Yellow Urine Appearance Clear Urine pH 5.0 Ur Specific [place] 1.020 Urine Protein Negative Urine Glucose (UA) 500 H Urine Ketones Negative Urine Blood Trace-intact H Urine Nitrite Negative Urine Bilirubin Negative Urine Urobilinogen 0.2 Ur Leukocyte Esterase Negative Urine RBC 0-1 Urine WBC 0 Ur Epithelial Cells 0-1 Amorphous Sediment 1+ Urine Bacteria 0 Urine Mucus Small 07/13/20 21:10 WBC RBC Hgb Hct MCV MCH MCHC RDW Plt Count MPV Absolute Neuts (auto) Absolute Lymphs (auto) Absolute Monos (auto) Absolute Eos (auto) Absolute Basos (auto) Neutrophils % Lymphocytes % Monocytes % Eosinophils % Basophils % Sodium Potassium Chloride Carbon Dioxide Anion Gap BUN Creatinine BUN/Creatinine Ratio Random Glucose Serum Osmolality Calcium Total Bilirubin AST ALT Alkaline Phosphatase Creatine Kinase 55 CK-MB (CK-2) 4.4 CK-MB (CK-2) % Not Reportable Troponin I 0.02 Serum Total Protein Albumin Globulin Albumin/Globulin Ratio Urine Color Urine Appearance Urine pH Ur Specific [place] Urine Protein Urine Glucose (UA) Urine Ketones Urine Blood Urine Nitrite Urine Bilirubin Urine Urobilinogen Ur Leukocyte Esterase Urine RBC Urine WBC Ur Epithelial Cells Amorphous Sediment Urine Bacteria Urine Mucus Departure - Departure Clinical Impression: Atypical chest pain Time of Disposition: 21:51 Disposition: Discharge to Home or Self Care Condition: Good Departure Forms: ED Discharge - Pt. Copy, Patient Portal Self Enrollment Instructions: DI for Chest Pain, Chest Pain (DC) Diet: low salt diet Activity: increase activity as tolerated Referrals: Milton Antoine MD [Primary Care Provider] - 1-2 Days Home Medications: Ambulatory Orders Aspirin [Aspirin EC] 81 mg PO DAILY 11/16/15 Insulin Detemir [Levemir Pen] 12 unit SUBCU BID 12/04/16 Human Insulin Aspart [Novolog] 100 unit SC DAILY PRN 08/24/18 Atenolol 100 mg PO DAILY 14 Days #14 tab 12/26/18 Clonidine HCl 0.1 mg PO DAILY 11/04/19 Lisinopril 40 mg PO DAILY 11/04/19
[2020-07-13 22:02] VITALS: BP 130/85; O2SAT 99
== END 2020-07-13 22:03 | disposition home or self-care (01) ==
LOC: ER 19:18
DX: R07.89 Other chest pain (principal); R00.0 Tachycardia, unspecified; I25.10 Atherosclerotic heart disease of native coronary artery without angina pectoris; F32.9 Major depressive disorder, single episode, unspecified; R56.9 Unspecified convulsions; J44.9 Chronic obstructive pulmonary disease, unspecified; I50.9 Heart failure, unspecified; N18.9 Chronic kidney disease, unspecified; I13.0 Hypertensive heart and chronic kidney disease with heart failure and stage 1 through stage 4 chronic kidney disease, or unspecified chronic kidney disease; K21.9 Gastro-esophageal reflux disease without esophagitis; Z87.891 Personal history of nicotine dependence; Z86.73 Personal history of transient ischemic attack (TIA), and cerebral infarction without residual deficits; Z79.899 Other long term (current) drug therapy; Z79.4 Long term (current) use of insulin; Z79.82 Long term (current) use of aspirin; Z95.5 Presence of coronary angioplasty implant and graft
CPT/HCPCS: 36415; 71045; 80053; 81001; 82550; 82553; 84484; 85025; 93005; J2270; J2405